=== PATIENT | female | born 1930 | race Caucasian/White ===

== ENCOUNTER 2017-09-04 21:02 | Inpatient (IN) ==
[2017-09-04 21:22] LABS: Basophils # 0.1 K/mcL (0.0-0.2); Basophils % 0.4 %; Eosinophils % 0.1 %; Hematocrit 35.6 % (35.3-44.9); Hemoglobin 11.7 g/dL (11.5-15.4); Immature Granulocytes % 1.9 % (0-4); Lymphocytes # 0.9 K/mcL (0.6-4.6); Lymphocytes % 6.6 %; Mean Corpuscular HGB Conc 32.9 g/dL (31.6-35.5); Mean Corpuscular Hemoglobin 30.1 pg (28.0-33.3); Mean Corpuscular Volume 91.5 fL (83.0-100.0); Mean Platelet Volume 10.1 fL (9.4-12.4); Monocytes # 0.6 K/mcL (0.0-1.3); Monocytes % 4.8 %; Neutrophils # 11.2 K/mcL (1.6-8.9); Platelet Count 389 K/mcL (140-400); Red Blood Count 3.89 M/mcL (3.82-4.97); Red Cell Distribution Width 14.4 % (11.5-14.5); Segmented Neutrophils % 86.2 %
[2017-09-04 21:24] LABS: INR 1.1; Prothrombin Time 11.7 Seconds (9.4-12.1)
[2017-09-04] MEDS ORDERED: Acetaminophen 650 MG RECTAL SUPP RC ONE (21:26)
[2017-09-04 21:27] LABS: Activated Partial Thrombo Time 25.1 Seconds (26.0-36.0)
[2017-09-04 21:28] LABS: Calcium 9.7 mg/dL (8.6-10.8); Potassium 4.3 mEq/L (3.5-4.5)
--- NOTE | 2017-09-04 21:29 | Emergency Department Note ---
Disposition Clinical Impression: Flash pulmonary edema Sepsis Qualifiers: Sepsis type: sepsis due to unspecified organism Qualified Code(s): A41.9 - Sepsis, unspecified organism Pneumonia Qualifiers: Pneumonia type: due to unspecified organism Laterality: left Lung location: lower lobe of lung Qualified Code(s): J18.1 - Lobar pneumonia, unspecified organism Hypothyroidism Qualifiers: Hypothyroidism type: unspecified Qualified Code(s): E03.9 - Hypothyroidism, unspecified Altered mental status Qualifiers: Altered mental status type: unspecified Qualified Code(s): R41.82 - Altered mental status, unspecified Disposition: Admitted As Inpatient Condition: Fair Time of Disposition: 23:36 Altered Mental Status HPI - General Chief Complaint: ED Altered Mental Status Stated Complaint: confused Time Seen by Provider: 09/04/17 21:14 Source: patient, EMS Limitations: altered mental status, physical limitation Nursing Notes Reviewed: Yes Vital Signs Reviewed: Yes - History of Present Illness HPI Narrative: 86-year-old female presents to emergency department via EMS after concern by family members that she was acting altered approximately 2 hours prior to arrival. EMS was stating that she was not as responsive as she has been a being. They do admit to a recent diagnosis of bronchitis at an urgent care. She was not placed on any antibiotics at that time. - Related Data Previous Rx's Medication Instructions Recorded Azithromycin [Zithromax] 0 tab PO DAILY #6 tablet 09/01/17 Promethazine/Codeine 5 ml PO QPM PRN #60 ml 09/01/17 [Phenergan/Codeine] Allergies Allergy/AdvReac Type Severity Reaction Status Date / Time No Known Allergies Allergy Verified 09/01/17 12:42 All systems ED: reviewed and negative except as stated. Review of Systems: As Per HPI Limitations: ROS unobtainable due to patients medical condition (Altered mental status) Past Medical History - Past Medical History Medical history: Reports: no medical history - Social History Smoking Status: Never smoker Smokeless Tobacco Status: No Alcohol use: Reports: none Drug use: Reports: none Physical Exam CONSTITUTIONAL: Alert, but not oriented to person, place, time HEAD: Normocephalic; atraumatic. EYES: PERRL, no scleral icterus. NOSE: The nose is normal in appearance without rhinorrhea RESP: Normal chest excursion with respiration; breath sounds clear and equal bilaterally; no wheezes, rhonchi, or rales CARD: Regular rhythm, without murmurs, rub or gallop ABD: Non-distended; non-tender, soft,without rigidity, rebound or guarding SKIN: Normal for age and race; warm and dry; no apparent lesions Neuro: GCS 14, patient not obeying commands. Stroke scale limited due to patient's inability to follow commands, but no focal neurologic deficits - General Limitations: altered mental status, physical limitation General appearance: alert, in no apparent distress Course Vital Signs Temperature 101.6 F H 09/04/17 21:06 Pulse Rate 100 09/04/17 21:06 Respiratory Rate 20 09/04/17 21:06 Blood Pressure 197/115 09/04/17 21:06 O2 Sat by Pulse Oximetry 95 09/04/17 21:06 Temperature 96.9 F L 09/05/17 01:43 Pulse Rate 73 09/05/17 05:00 Respiratory Rate 15 09/05/17 06:34 Blood Pressure 132/70 09/05/17 06:34 O2 Sat by Pulse Oximetry 100 09/05/17 06:34 Oxygen Delivery Oxygen Delivery Non Rebreather Mask Altered Mental Status - MDM Narrative Medical decision making narrative: 86-year-old female presents to the emergency department after 2 hour history of worsening confusion, altered mental status. Stroke alert was called initially as patient was altered, not obeying commands. CT scan did not reveal any evidence of any intracranial hemorrhage. I wish you stroke team was called down to bedside and were evaluated by the neurologist. At this time, he did not recommend TPA. Patient was febrile here with an initial rectal temp at 103. On initial physical exam, patient appeared to be dry, skin was tented, only rhonchi but no rales were heard on physical exam. She was also given 3 duo nebs as well as steroids. We administered 1 L of normal saline, Tylenol, obtained a chest x-ray. Initial Chest x-ray revealed cardiomegaly but no overt signs of pulmonary edema. There was also some opacities concerning for pneumonia. Patient was given Levaquin here in the emergency department. Patient had initial leukocytosis of 13.1. Creatinine was 1.5. Patient was admitted to the hospitalist Dr. Suggs for further management of community acquired pneumonia and altered mental status. After administration duo nebs, patient's oxygen saturation began to drop. Patient was 90% on nonrebreather. At that time, we decided to administer BiPAP. The hospitalist, Dr. Suggs was called to be informed of this change of patient's course. Patient was admitted to the intensive care unit. Repeat chest x-ray revealed flash pulmonary edema. Patient had only been administered her Levaquin as well as 700 mL of fluid prior to this chest x-ray. Patient does have an elevated BNP. I suspect that the cause for the flash pulmonary edema secondary to poor cardiac function. Head CT 09/04/17 21:09 IMPRESSION: There is a large amount of small vessel ischemic change bilaterally. 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 There are multiple questionable prior lacunar infarcts as well. Given the background of abnormal low attenuation, a subtle superimposed recent ischemic focus would be difficult to exclude without MRI Critical results were called by Dr. Nile Vivas to Dr. Phelps on 09/04/2017 at 21:55. D/ / Nile Vivas / Nile Vivas Interpreting Provider: Nile Vivas Chest X-Ray 09/05/17 00:18 IMPRESSION: Pulmonary edema. Endotracheal tube in place as described. D/ / Vladislav Esteban MD / Vladislav Esteban MD Interpreting Provider: Vladislav Esteban MD Vital Signs Temperature 101.6 F H 09/04/17 21:06 Pulse Rate 100 09/04/17 21:06 Respiratory Rate 20 09/04/17 21:06 Blood Pressure 197/115 09/04/17 21:06 O2 Sat by Pulse Oximetry 95 09/04/17 21:06 Temperature 96.9 F L 09/05/17 01:43 Pulse Rate 73 09/05/17 05:00 Respiratory Rate 19 09/05/17 05:00 Blood Pressure 170/93 09/05/17 05:00 O2 Sat by Pulse Oximetry 100 09/05/17 05:00 Oxygen Delivery Oxygen Delivery Bipap - Lab Data Result diagrams: 09/05/17 01:41 09/05/17 01:41 Lab Results 09/04/17 09/04/17 09/04/17 Range/Units 21:05 21:05 21:05 WBC 13.0 H (4.3-11.1) K/mcL RBC 3.89 (3.82-4.97) M/mcL Hgb 11.7 (11.5-15.4) g/dL Hct 35.6 (35.3-44.9) % MCV 91.5 (83.0-100.0) fL MCH 30.1 (28.0-33.3) pg MCHC 32.9 (31.6-35.5) g/dL RDW 14.4 (11.5-14.5) % Plt Count 389 (140-400) K/mcL MPV 10.1 (9.4-12.4) fL Immature Gran % 1.9 (0-4) % Seg Neutrophils % 86.2 % Band Neutrophils % (0-4) % Lymphocytes % 6.6 % Monocytes % 4.8 % Eosinophils % 0.1 % Basophils % 0.4 % Neutrophils # 11.2 H (1.6-8.9) K/mcL Lymphocytes # 0.9 (0.6-4.6) K/mcL Monocytes # 0.6 (0.0-1.3) K/mcL Eosinophils # 0.0 (0.0-0.6) K/mcL Basophils # 0.1 (0.0-0.2) K/mcL Platelet Estimate (Normal) PT 11.7 (9.4-12.1) Seconds INR 1.1 APTT 25.1 L (26.0-36.0) Seconds Sample Site ABG pH (7.32-7.45) pH Units ABG pCO2 (35-45) mmHg ABG pO2 (85-104) mmHg ABG HCO3 (21-27) mEq/L ABG Total CO2 (20-26) mEq/L ABG O2 Saturation (95-98) % ABG Base Excess (-2 to 3) mEq/L Carboxyhemoglobin (0-5) % Respiration Rate O2 Delivery Device Blood Gas Modality Inspired O2 (1-15=lpm [id number]=%) Tidal Volume cc PEEP cm H2O Sodium 133 L (136-145) mEq/L Potassium 4.3 (3.5-4.5) mEq/L Chloride 103 (98-109) mEq/L Carbon Dioxide 21 (19-29) mEq/L BUN 29 H (7-20) mg/dL Creatinine 1.50 H (0.57-1.11) mg/dL Est GFR ( Amer) 40 L (> 60) Est GFR (Non-Af Amer) 33 L (> 60) BUN/Creatinine Ratio 19 (6-26) Glucose 126 H (70-99) mg/dL POC Glucose (58-89) Calculated Osmolality 283 (280-300) Lactic Acid (0.5-2.2) mmol/L Calcium 9.7 (8.6-10.8) mg/dL Magnesium (1.6-2.6) mg/dL Total Bilirubin 0.6 (0.2-1.2) mg/dL Direct Bilirubin 0.4 (0.0-0.5) mg/dL Indirect Bilirubin 0.2 (0.0-1.2) mg/dL AST 23 (5-34) Units/L ALT 18 (0-55) Units/L Alkaline Phosphatase 108 (38-126) Units/L Troponin I (0-0.03) ng/mL B-Natriuretic Peptide (0-100) pg/mL Serum Total Protein 7.4 (6.0-8.3) g/dL Albumin 3.2 L (3.5-5.0) g/dL Globulin 4.2 H (2.4-3.5) g/dL Albumin/Globulin Ratio 0.8 L (1.1-2.2) TSH 52.054 H (0.350-4.840) mcIU/mL Urine Color (Yellow) Urine Clarity (Clear) Urine pH (5.0-8.0) pH Units Ur Specific [place] (1.010-1.025) Urine Protein (Neg-Trace) mg/dL Urine Glucose (UA) (Normal) mg/dL Urine Ketones (Negative) mg/dL Urine Blood (Negative) Urine Nitrite (Negative) Urine Bilirubin (Negative) Urine Urobilinogen (Normal) mg/dL Ur Leukocyte Esterase (Negative) Urine Microscopic RBC (0-3) per hpf Urine Microscopic WBC (0-3) per hpf Ur Squamous Epith Cells (None-Few) per lpf Ur Renal Epithelial Cell (None-Few) per hpf Urine Bacteria (None-Few) per hpf Hyaline Casts (None-Few) per lpf Granular Casts (None Seen) per lpf Urine Mucus (Few) Urine Yeast (None Seen) per hpf Ur Culture Indicated? (NO) 09/04/17 09/04/17 09/04/17 Range/Units 21:05 21:05 21:20 WBC (4.3-11.1) K/mcL RBC (3.82-4.97) M/mcL Hgb (11.5-15.4) g/dL Hct (35.3-44.9) % MCV (83.0-100.0) fL MCH (28.0-33.3) pg MCHC (31.6-35.5) g/dL RDW (11.5-14.5) % Plt Count (140-400) K/mcL MPV (9.4-12.4) fL Immature Gran % (0-4) % Seg Neutrophils % % Band Neutrophils % (0-4) % Lymphocytes % % Monocytes % % Eosinophils % % Basophils % % Neutrophils # (1.6-8.9) K/mcL Lymphocytes # (0.6-4.6) K/mcL Monocytes # (0.0-1.3) K/mcL Eosinophils # (0.0-0.6) K/mcL Basophils # (0.0-0.2) K/mcL Platelet Estimate (Normal) PT (9.4-12.1) Seconds INR APTT (26.0-36.0) Seconds Sample Site ABG pH (7.32-7.45) pH Units ABG pCO2 (35-45) mmHg ABG pO2 (85-104) mmHg ABG HCO3 (21-27) mEq/L ABG Total CO2 (20-26) mEq/L ABG O2 Saturation (95-98) % ABG Base Excess (-2 to 3) mEq/L Carboxyhemoglobin (0-5) % Respiration Rate O2 Delivery Device Blood Gas Modality Inspired O2 (1-15=lpm [id number]=%) Tidal Volume cc PEEP cm H2O Sodium (136-145) mEq/L Potassium (3.5-4.5) mEq/L Chloride (98-109) mEq/L Carbon Dioxide (19-29) mEq/L BUN (7-20) mg/dL Creatinine (0.57-1.11) mg/dL Est GFR ( Amer) (> 60) Est GFR (Non-Af Amer) (> 60) BUN/Creatinine Ratio (6-26) Glucose (70-99) mg/dL POC Glucose 127 H (58-89) Calculated Osmolality (280-300) Lactic Acid (0.5-2.2) mmol/L Calcium (8.6-10.8) mg/dL Magnesium (1.6-2.6) mg/dL Total Bilirubin (0.2-1.2) mg/dL Direct Bilirubin (0.0-0.5) mg/dL Indirect Bilirubin (0.0-1.2) mg/dL AST (5-34) Units/L ALT (0-55) Units/L Alkaline Phosphatase (38-126) Units/L Troponin I 0.03 (0-0.03) ng/mL B-Natriuretic Peptide 2906 H (0-100) pg/mL Serum Total Protein (6.0-8.3) g/dL Albumin (3.5-5.0) g/dL Globulin (2.4-3.5) g/dL Albumin/Globulin Ratio (1.1-2.2) TSH (0.350-4.840) mcIU/mL Urine Color (Yellow) Urine Clarity (Clear) Urine pH (5.0-8.0) pH Units Ur Specific [place] (1.010-1.025) Urine Protein (Neg-Trace) mg/dL Urine Glucose (UA) (Normal) mg/dL Urine Ketones (Negative) mg/dL Urine Blood (Negative) Urine Nitrite (Negative) Urine Bilirubin (Negative) Urine Urobilinogen (Normal) mg/dL Ur Leukocyte Esterase (Negative) Urine Microscopic RBC (0-3) per hpf Urine Microscopic WBC (0-3) per hpf Ur Squamous Epith Cells (None-Few) per lpf Ur Renal Epithelial Cell (None-Few) per hpf Urine Bacteria (None-Few) per hpf Hyaline Casts (None-Few) per lpf Granular Casts (None Seen) per lpf Urine Mucus (Few) Urine Yeast (None Seen) per hpf Ur Culture Indicated? (NO) 09/04/17 09/04/17 09/04/17 Range/Units 21:33 21:40 22:03 WBC (4.3-11.1) K/mcL RBC (3.82-4.97) M/mcL Hgb (11.5-15.4) g/dL Hct (35.3-44.9) % MCV (83.0-100.0) fL MCH (28.0-33.3) pg MCHC (31.6-35.5) g/dL RDW (11.5-14.5) % Plt Count (140-400) K/mcL MPV (9.4-12.4) fL Immature Gran % (0-4) % Seg Neutrophils % % Band Neutrophils % (0-4) % Lymphocytes % % Monocytes % % Eosinophils % % Basophils % % Neutrophils # (1.6-8.9) K/mcL Lymphocytes # (0.6-4.6) K/mcL Monocytes # (0.0-1.3) K/mcL Eosinophils # (0.0-0.6) K/mcL Basophils # (0.0-0.2) K/mcL Platelet Estimate (Normal) PT (9.4-12.1) Seconds INR APTT (26.0-36.0) Seconds Sample Site ABG pH (7.32-7.45) pH Units ABG pCO2 (35-45) mmHg ABG pO2 (85-104) mmHg ABG HCO3 (21-27) mEq/L ABG Total CO2 (20-26) mEq/L ABG O2 Saturation (95-98) % ABG Base Excess (-2 to 3) mEq/L Carboxyhemoglobin 3.7 (0-5) % Respiration Rate O2 Delivery Device Blood Gas Modality Inspired O2 (1-15=lpm [id number]=%) Tidal Volume cc PEEP cm H2O Sodium (136-145) mEq/L Potassium (3.5-4.5) mEq/L Chloride (98-109) mEq/L Carbon Dioxide (19-29) mEq/L BUN (7-20) mg/dL Creatinine (0.57-1.11) mg/dL Est GFR ( Amer) (> 60) Est GFR (Non-Af Amer) (> 60) BUN/Creatinine Ratio (6-26) Glucose (70-99) mg/dL POC Glucose (58-89) Calculated Osmolality (280-300) Lactic Acid 1.4 (0.5-2.2) mmol/L Calcium (8.6-10.8) mg/dL Magnesium (1.6-2.6) mg/dL Total Bilirubin (0.2-1.2) mg/dL Direct Bilirubin (0.0-0.5) mg/dL Indirect Bilirubin (0.0-1.2) mg/dL AST (5-34) Units/L ALT (0-55) Units/L Alkaline Phosphatase (38-126) Units/L Troponin I (0-0.03) ng/mL B-Natriuretic Peptide (0-100) pg/mL Serum Total Protein (6.0-8.3) g/dL Albumin (3.5-5.0) g/dL Globulin (2.4-3.5) g/dL Albumin/Globulin Ratio (1.1-2.2) TSH (0.350-4.840) mcIU/mL Urine Color Dark Yellow (Yellow) Urine Clarity Cloudy A (Clear) Urine pH 6.0 (5.0-8.0) pH Units Ur Specific [place] 1.030 H (1.010-1.025) Urine Protein 100 H (Neg-Trace) mg/dL Urine Glucose (UA) Normal (Normal) mg/dL Urine Ketones Negative (Negative) mg/dL Urine Blood Large H (Negative) Urine Nitrite Negative (Negative) Urine Bilirubin Small H (Negative) Urine Urobilinogen Normal (Normal) mg/dL Ur Leukocyte Esterase Negative (Negative) Urine Microscopic RBC 50-100 H (0-3) per hpf Urine Microscopic WBC 15-30 H (0-3) per hpf Ur Squamous Epith Cells Many H (None-Few) per lpf Ur Renal Epithelial Cell Few (None-Few) per hpf Urine Bacteria Many H (None-Few) per hpf Hyaline Casts Few (None-Few) per lpf Granular Casts Many H (None Seen) per lpf Urine Mucus Moderate H (Few) Urine Yeast Moderate H (None Seen) per hpf Ur Culture Indicated? NO (NO) 09/04/17 09/04/17 09/05/17 Range/Units 23:44 23:47 01:19 WBC (4.3-11.1) K/mcL RBC (3.82-4.97) M/mcL Hgb (11.5-15.4) g/dL Hct (35.3-44.9) % MCV (83.0-100.0) fL MCH (28.0-33.3) pg MCHC (31.6-35.5) g/dL RDW (11.5-14.5) % Plt Count (140-400) K/mcL MPV (9.4-12.4) fL Immature Gran % (0-4) % Seg Neutrophils % % Band Neutrophils % (0-4) % Lymphocytes % % Monocytes % % Eosinophils % % Basophils % % Neutrophils # (1.6-8.9) K/mcL Lymphocytes # (0.6-4.6) K/mcL Monocytes # (0.0-1.3) K/mcL Eosinophils # (0.0-0.6) K/mcL Basophils # (0.0-0.2) K/mcL Platelet Estimate (Normal) PT (9.4-12.1) Seconds INR APTT (26.0-36.0) Seconds Sample Site R Radial ABG pH 7.33 7.35 (7.32-7.45) pH Units ABG pCO2 33 L 35 (35-45) mmHg ABG pO2 58 L 77 L (85-104) mmHg ABG HCO3 18 L 20 L (21-27) mEq/L ABG Total CO2 19 L 21 (20-26) mEq/L ABG O2 Saturation 88 L 95 (95-98) % ABG Base Excess -8 L -5 L (-2 to 3) mEq/L Carboxyhemoglobin (0-5) % Respiration Rate 14 O2 Delivery Device Adult Vent Blood Gas Modality VC Inspired O2 100.0 (1-15=lpm zj94-546=%) Tidal Volume 450 cc PEEP 5 cm H2O Sodium (136-145) mEq/L Potassium (3.5-4.5) mEq/L Chloride (98-109) mEq/L Carbon Dioxide (19-29) mEq/L BUN (7-20) mg/dL Creatinine (0.57-1.11) mg/dL Est GFR ( Amer) (> 60) Est GFR (Non-Af Amer) (> 60) BUN/Creatinine Ratio (6-26) Glucose (70-99) mg/dL POC Glucose 214 H (58-89) Calculated Osmolality (280-300) Lactic Acid (0.5-2.2) mmol/L Calcium (8.6-10.8) mg/dL Magnesium (1.6-2.6) mg/dL Total Bilirubin (0.2-1.2) mg/dL Direct Bilirubin (0.0-0.5) mg/dL Indirect Bilirubin (0.0-1.2) mg/dL AST (5-34) Units/L ALT (0-55) Units/L Alkaline Phosphatase (38-126) Units/L Troponin I (0-0.03) ng/mL B-Natriuretic Peptide (0-100) pg/mL Serum Total Protein (6.0-8.3) g/dL Albumin (3.5-5.0) g/dL Globulin (2.4-3.5) g/dL Albumin/Globulin Ratio (1.1-2.2) TSH (0.350-4.840) mcIU/mL Urine Color (Yellow) Urine Clarity (Clear) Urine pH (5.0-8.0) pH Units Ur Specific [place] (1.010-1.025) Urine Protein (Neg-Trace) mg/dL Urine Glucose (UA) (Normal) mg/dL Urine Ketones (Negative) mg/dL Urine Blood (Negative) Urine Nitrite (Negative) Urine Bilirubin (Negative) Urine Urobilinogen (Normal) mg/dL Ur Leukocyte Esterase (Negative) Urine Microscopic RBC (0-3) per hpf Urine Microscopic WBC (0-3) per hpf Ur Squamous Epith Cells (None-Few) per lpf Ur Renal Epithelial Cell (None-Few) per hpf Urine Bacteria (None-Few) per hpf Hyaline Casts (None-Few) per lpf Granular Casts (None Seen) per lpf Urine Mucus (Few) Urine Yeast (None Seen) per hpf Ur Culture Indicated? (NO) 09/05/17 09/05/17 09/05/17 Range/Units 01:41 01:41 01:41 WBC 19.4 H (4.3-11.1) K/mcL RBC 3.87 (3.82-4.97) M/mcL Hgb 11.5 (11.5-15.4) g/dL Hct 35.8 (35.3-44.9) % MCV 92.5 (83.0-100.0) fL MCH 29.7 (28.0-33.3) pg MCHC 32.1 (31.6-35.5) g/dL RDW 14.4 (11.5-14.5) % Plt Count 345 (140-400) K/mcL MPV 9.7 (9.4-12.4) fL Immature Gran % (0-4) % Seg Neutrophils % 90.0 % Band Neutrophils % 6.0 H (0-4) % Lymphocytes % 2.0 % Monocytes % 2.0 % Eosinophils % % Basophils % % Neutrophils # 18.6 H (1.6-8.9) K/mcL Lymphocytes # 0.4 L (0.6-4.6) K/mcL Monocytes # 0.4 (0.0-1.3) K/mcL Eosinophils # (0.0-0.6) K/mcL Basophils # (0.0-0.2) K/mcL Platelet Estimate Normal (Normal) PT (9.4-12.1) Seconds INR APTT (26.0-36.0) Seconds Sample Site ABG pH (7.32-7.45) pH Units ABG pCO2 (35-45) mmHg ABG pO2 (85-104) mmHg ABG HCO3 (21-27) mEq/L ABG Total CO2 (20-26) mEq/L ABG O2 Saturation (95-98) % ABG Base Excess (-2 to 3) mEq/L Carboxyhemoglobin (0-5) % Respiration Rate O2 Delivery Device Blood Gas Modality Inspired O2 (1-15=lpm [id number]=%) Tidal Volume cc PEEP cm H2O Sodium 135 L (136-145) mEq/L Potassium 3.8 (3.5-4.5) mEq/L Chloride 105 (98-109) mEq/L Carbon Dioxide 19 (19-29) mEq/L BUN 30 H (7-20) mg/dL Creatinine 1.79 H (0.57-1.11) mg/dL Est GFR ( Amer) 32 L (> 60) Est GFR (Non-Af Amer) 27 L (> 60) BUN/Creatinine Ratio 17 (6-26) Glucose 205 H (70-99) mg/dL POC Glucose (58-89) Calculated Osmolality 292 (280-300) Lactic Acid (0.5-2.2) mmol/L Calcium 8.8 (8.6-10.8) mg/dL Magnesium 2.0 (1.6-2.6) mg/dL Total Bilirubin 1.1 D (0.2-1.2) mg/dL Direct Bilirubin (0.0-0.5) mg/dL Indirect Bilirubin (0.0-1.2) mg/dL AST 24 (5-34) Units/L ALT 14 (0-55) Units/L Alkaline Phosphatase 104 (38-126) Units/L Troponin I (0-0.03) ng/mL B-Natriuretic Peptide (0-100) pg/mL Serum Total Protein 6.6 (6.0-8.3) g/dL Albumin 2.7 L (3.5-5.0) g/dL Globulin 3.9 H (2.4-3.5) g/dL Albumin/Globulin Ratio 0.7 L (1.1-2.2) TSH (0.350-4.840) mcIU/mL Urine Color (Yellow) Urine Clarity (Clear) Urine pH (5.0-8.0) pH Units Ur Specific [place] (1.010-1.025) Urine Protein (Neg-Trace) mg/dL Urine Glucose (UA) (Normal) mg/dL Urine Ketones (Negative) mg/dL Urine Blood (Negative) Urine Nitrite (Negative) Urine Bilirubin (Negative) Urine Urobilinogen (Normal) mg/dL Ur Leukocyte Esterase (Negative) Urine Microscopic RBC (0-3) per hpf Urine Microscopic WBC (0-3) per hpf Ur Squamous Epith Cells (None-Few) per lpf Ur Renal Epithelial Cell (None-Few) per hpf Urine Bacteria (None-Few) per hpf Hyaline Casts (None-Few) per lpf Granular Casts (None Seen) per lpf Urine Mucus (Few) Urine Yeast (None Seen) per hpf Ur Culture Indicated? (NO) - EKG Data EKG attestation: Yes I reviewed and interpreted this EKG. EKG results narrative: 21:06 ventricular rate 99 bpm, P1 126 ms, QRS denominational 162 monocytes, QT 364 segs, QTC 420 ms, attacks deviation. Sinus rhythm with a left bundle branch block.No acute ischemic changes are noted on the EKG. No significant changes compared to the old EKG dated on October 20, 2012. 23:27 Ventricular rate 107 bpm, QRS duration 172 ms, QT 368, QTC 431 ms, normal axis. Sinus rhythm with a ventricular rate of 107 bpm. left bundle branch block. No acute ischemic changes are noted on the EKG. No significant changes compared to the old EKG performed at 210 Critical Care Time Critical Care Time: Yes Total Critical Care Time: 45 Attestation: Critical care performed: Time is exclusive of separately billable procedures. Time includes: direct patient care, patient reassessment, coordination of patient care, interpretation of data (laboratory data, radiology data, and respiratory data), review of patient's medical records, medical consultation and documentation of patient care. Procedures included in critical care time: Procedures excluded from critical care time: Attestation Statement - Attestation Attestation: I, Irving Phelps MD, personally evaluated this patient and discussed their management with the resident physician. I reviewed the resident's note and agree with the documented findings, medical decision making, and plan of care. 86-year-old female presents to the emergency department by ambulance with acute altered mental status. Patient was apparently at the [employer] with friends in over about 20 minutes she became confused and disoriented. On arrival here patient does answer some questions. Her speech is intermittently garbled and difficult to understand. She does not follow commands. She is oriented to person only. No obvious focal deficits. She admits to headache. She denies chest pain or difficulty breathing. On examination the patient is a well-developed well-nourished elderly female. She is alert but obviously confused. She is slow to respond and speech is garbled intermittently and difficult to understand. She follows some commands but not others. She does not know where she has not thinks that she is 25 years old. No facial droop. Cranial nerves appear intact. She is moving all 4 extremities equally. No obvious weakness. Breath sounds are equal bilaterally. No rales or wheezes noted. Heart regular rate and rhythm. Abdomen is soft and nontender with normal bowel sounds. Patient was found to be febrile. Labs reviewed. EKG shows a left bundle-branch block which was present previously. No acute changes. Chest x-ray consistent with CHF. A stroke alert was called. Head CT showed no acute hemorrhage. After evaluation by the [facility] neurologists tPA was not recommended. The hospitalist, Dr. Suggs, was consulted and accepted admission of the patient. Shortly before patient was ready to be transported to the floor she began to drop her oxygen saturations and developed some increased difficulty breathing. Respiratory was consulted for BiPAP and will start her on the BiPAP as soon as she arrives in the ICU. A repeat chest x-ray showed increased pulmonary edema.
[2017-09-04 21:41] LABS: Albumin 3.2 g/dL (3.5-5.0); Albumin/Globulin Ratio 0.8 (1.1-2.2); Bilirubin,Direct 0.4 mg/dL (0.0-0.5); Bilirubin,Indirect 0.2 mg/dL (0.0-1.2); Bilirubin,Total 0.6 mg/dL (0.2-1.2); Globulin 4.2 g/dL (2.4-3.5); Total Protein 7.4 g/dL (6.0-8.3)
[2017-09-04 21:48] LABS: Bilirubin,Urine Small (Negative); Blood,Urine Large (Negative); Clarity,Urine Cloudy (Clear); Color,Urine Dark Yellow (Yellow); Glucose,Urine (UA) Normal (Normal); Ketones,Urine Negative (Negative); Leukocyte Esterase,Urine Negative (Negative); Nitrite,Urine Negative (Negative); Protein,Urine 100 mg/dL (Neg-Trace); Urobilinogen,Urine Normal (Normal)
[2017-09-04 21:50] LABS: Squamous Epithelial Cell,Urine Many per lpf (None-Few); WBC,Urine 15-30 per hpf (0-3)
[2017-09-04] MEDS ORDERED: 0.9 % Sodium Chloride 1,000 ML IVC ONE ×2 (21:54→22:37)
[2017-09-04 22:05] LABS: RBC,Urine 50-100 per hpf (0-3)
[2017-09-04] MEDS ORDERED: Levofloxacin 750 MG/150 ML 750 MG/150 ML BAG IVPB ONE (22:05)
[2017-09-04] MEDS ORDERED: methylPREDNISolone 125 MG/2 ML VIAL IVP ONE (22:07)
[2017-09-04] MEDS ORDERED: Ipratropium/Albuterol Neb 3 ML IH ONE (22:08)
[2017-09-04 22:10] LABS: Granular Casts,Urine Many per lpf (None Seen); Hyaline Casts,Urine Few per lpf (None-Few); Mucus,Urine Moderate (Few); Renal Epithelial Cells,Urine Few per hpf (None-Few); Yeast,Urine Moderate per hpf (None Seen)
[2017-09-04 22:11] LABS: Bacteria,Urine Many per hpf (None-Few)
[2017-09-04 22:13] LABS: Thyroid Stimulating Hormone 52.054 mcIU/mL (0.350-4.840)
[2017-09-04] MEDS ORDERED: Levothyroxine Sodium 200 MCG VIAL IVP ONE (22:27)
[2017-09-04 23:48] LABS: ABG Base Excess -8 mEq/L (-2 to 3); ABG HCO3 18 mEq/L (21-27); ABG Oxygen Saturation 88 % (95-98); ABG PCO2 33 mmHg (35-45); ABG PH 7.33 pH Units (7.32-7.45); ABG PO2 58 mmHg (85-104); ABG TCO2 19 mEq/L (20-26)
[2017-09-04] MEDS ORDERED: Furosemide 40 MG/4 ML VIAL ONE (23:55)
[2017-09-04] MEDS ORDERED: *HR* Morphine 2 MG/ML SYRINGE ONE (23:58)
[2017-09-05] MEDS ORDERED: *HR* Morphine 2 MG/ML SYRINGE IVP ONE (00:18)
[2017-09-05] MEDS ORDERED: Furosemide 40 MG/4 ML VIAL IVP ONE (00:19)
[2017-09-05] MEDS ORDERED: Naloxone 0.4 MG/ML INJ IVP PRN (00:46)
[2017-09-05] MEDS ORDERED: Acetaminophen 650 MG RECTAL SUPP RC PRN (00:46)
--- NOTE | 2017-09-05 01:02 | Internal Med History&Physical ---
Date of Encounter: 09/05/17 Time of Encounter: 00:10 Assessment and Plan (1) Acute respiratory failure with hypoxia Current visit: Yes Status: Acute Acute hypoxic respiratory failure secondary to acute exacerbation of CHF unspecified with unknown LVEF, acute exacerbation of COPD and due to community- acquired pneumonia of left lower lobe Patient is currently sedated, intubated, mechanically ventilated AC mode, FiO2:100%, RR:14, PEEP:5.0, VT:450 Continue DuoNeb breathing treatment, IV Lasix, IV Solu-Medrol, IV Levaquin GI prophylaxis - IV Protonix, DVT prophylaxis - Heparin SC Chest x-ray - edema with left lower lobe consolidation Troponin - 0.03, cycle troponin BNP - 2906 EKG - sinus tachycardia with no acute ST-T changes when compared with previous EKG CT head - multiple old infarcts noted, no acute process Pulmonology consult Cardiac monitoring, pulse ox labs in a.m., monitor closely Fluid restriction, strict I's and O's, daily weight (2) Sepsis Current visit: Yes Status: Acute Sepsis, present on admission, secondary to community-acquired pneumonia Continue IV Levaquin, Tylenol PRN Chest x-ray - edema and consolidation in left lower lobe Cultures - pending Cardiac monitoring, pulse ox, labs in a.m. Qualifiers: Sepsis type: sepsis due to unspecified organism Qualified Code(s): A41.9 - Sepsis, unspecified organism (3) Pneumonia Current visit: Yes Status: Acute Community-acquired pneumonia, left lower lobe, present on admission, likely bacterial Plan as above Qualifiers: Pneumonia type: due to unspecified organism Laterality: left Lung location: lower lobe of lung Qualified Code(s): J18.1 - Lobar pneumonia, unspecified organism (4) DVT prophylaxis Current visit: Yes Status: Acute Heparin subcutaneous Internal Medicine - H&P: HPI Chief complaint: Shortness of breath Admitted From: Emergency Dept Plans for Post Hospital Care: Home History of present illness: Ms. Junior is a 86 year old female with past medical history of hypertension and COPD. Patient presents to the ED with complaints of shortness of breath and cough. Examined in the ICU. Patient is in acute distress. She is unable to provide any history. All history is obtained from ED records and from patient's granddaughter. When I initially examined the patient, she was in acute respiratory distress. We had to immediately intubate her and mechanically ventilate her. Patient was initially on BiPAP when she was transferred from the ED to ICU, but she was tachypneic and in obvious distress. Patient's granddaughter states that patient has been having shortness of breath and cough for the past 1 week. She was diagnosed with bronchitis at an urgent care, and her symptoms seemed to improve. But over the past 2-3 days her cough and shortness of breath have been worsening. Today apparently patient's shortness of breath was severe even at rest. The family then decided to bring her to ED. Granddaughter states patient is otherwise very healthy, and does not take any medications. Patient lives with her granddaughter and ambulates independently. Patient does smoke about half a pack of cigarettes daily. She does not use oxygen at home and does not have a nebulizer machine. Patient has not been diagnosed with CHF in the past. Granddaughter states patient did not complain of any other problems. Initial workup in the ED revealed acute hypoxic respiratory failure likely secondary to COPD and CHF. Chest x-ray shows bilateral edema. Patient is currently sedated, intubated and mechanically ventilated. Granddaughter and family have been explained about patient's guarded condition and guarded prognosis. They understood and agreed. No unanswered questions. Past Med Surg Social Fam HX - Past Medical History Medical history: no medical history - Past Surgical History Surgical History: hysterectomy - Social History Smoking Status: Never smoker Smokeless Tobacco Status: No Alcohol use: none Drug use: none Internal Medicine - H&P: Meds Azithromycin [Zithromax] 0 tab PO DAILY #6 tablet 09/01/17 [Rx] Promethazine/Codeine [Phenergan/Codeine] 5 ml PO QPM PRN #60 ml 09/01/17 [Rx] 3 Allergy/AdvReac Type Severity Reaction Status Date / Time No Known Allergies Allergy Verified 09/01/17 12:42 ROS unobtainable: due to endotracheal tube, due to mental status All Systems PM: A 10-system review of systems was performed and is negative for pertinent findings except as documented above in the HPI. - Constitutional Constitutional: fatigue, fever(s), lethargy - Cardiovascular Cardiovascular ROS IM: dyspnea, dyspnea on exertion - Respiratory Respiratory: cough, dyspnea, dyspnea on exertion, wheezing - Constitutional Vitals: Temp Pulse Resp BP Pulse Ox 101.6 F H 108 21 154/88 86 09/04/17 23:31 09/04/17 23:30 09/05/17 00:18 09/05/17 00:18 09/05/17 00:18 Exam: Patient is currently sedated, intubated and mechanically ventilated - Head Head exam: Present: atraumatic - Eye Eye exam: Present: sclera anicteric - ENT ENT exam: Present: mucous membranes dry Additional comments: ET tube in place - Respiratory Respiratory exam: Present: accessory muscle use, rales (Bilateral extensive), respiratory distress, wheezes (Bilateral), tachypnea. Absent: rhonchi - Cardiovascular Cardiovascular exam: Present: RRR, +S1, +S2, tachycardia - GI/Abdominal GI/Abdominal exam: Present: distended, soft, no peritoneal signs. Absent: firm , guarding, tenderness - Extremities Exam Extremities exam: Present: pedal edema (Trace), radial pulses palpable and symmetrical. Absent: calf tenderness, cyanotic - Neurological Exam Additional comments: Patient is currently sedated, intubated and mechanically ventilated Internal Med - H&P Results - Labs CBC & Chem 7: 09/05/17 01:41 09/05/17 01:41 - ABG Interpretation ABG results: 09/04/17 23:44 ABG pH 7.33 ABG pCO2 33 L ABG pO2 58 L ABG HCO3 18 L ABG Total CO2 19 L ABG O2 Saturation 88 L ABG Base Excess -8 L - Impressions ITS Impressions Chest X-Ray 09/04/17 23:31 IMPRESSION: Findings most compatible with worsening pulmonary edema. However, correlate with any clinical evidence of pneumonia, especially given the more focal consolidation in the the left lower lobe. D/ / Kirill Lindsay MD / Kirill Lindsay MD Interpreting Provider: Kirill Lindsay MD Chest X-Ray 09/05/17 00:18 IMPRESSION: Pulmonary edema. Endotracheal tube in place as described. D/ / Vladislav Esteban MD / Vladislav Esteban MD Interpreting Provider: Vladislav Esteban MD
[2017-09-05 01:24] LABS: ABG Base Excess -5 mEq/L (-2 to 3); ABG HCO3 20 mEq/L (21-27); ABG Oxygen Saturation 95 % (95-98); ABG PCO2 35 mmHg (35-45); ABG PH 7.35 pH Units (7.32-7.45); ABG PO2 77 mmHg (85-104); ABG TCO2 21 mEq/L (20-26); Blood Gas Modality VC; Blood Gas PEEP 5 cm H2O; Blood Gas Respiration Rate 14; Blood Gas VT 450 cc
[2017-09-05] MEDS: Ipratropium/Albuterol Neb 3 ML IH SCH ×6 (01:27→20:02)
[2017-09-05] MEDS: Pantoprazole 40 MG VIAL IVPB SCH ×2 (01:40→08:39)
[2017-09-05 01:47] LABS: Hematocrit 35.8 % (35.3-44.9); Hemoglobin 11.5 g/dL (11.5-15.4); Mean Corpuscular HGB Conc 32.1 g/dL (31.6-35.5); Mean Corpuscular Hemoglobin 29.7 pg (28.0-33.3); Mean Corpuscular Volume 92.5 fL (83.0-100.0); Mean Platelet Volume 9.7 fL (9.4-12.4); Platelet Count 345 K/mcL (140-400); Red Blood Count 3.87 M/mcL (3.82-4.97); Red Cell Distribution Width 14.4 % (11.5-14.5)
[2017-09-05 02:02] LABS: Albumin 2.7 g/dL (3.5-5.0); Albumin/Globulin Ratio 0.7 (1.1-2.2); Calcium 8.8 mg/dL (8.6-10.8); Globulin 3.9 g/dL (2.4-3.5); Potassium 3.8 mEq/L (3.5-4.5); Total Protein 6.6 g/dL (6.0-8.3)
[2017-09-05 02:03] LABS: Bilirubin,Total 1.1 mg/dL (0.2-1.2)
[2017-09-05 02:06] LABS: Lymphocytes # 0.4 K/mcL (0.6-4.6); Monocytes # 0.4 K/mcL (0.0-1.3); Neutrophils # 18.6 K/mcL (1.6-8.9); Platelet Estimate Normal (Normal)
[2017-09-05] MEDS ORDERED: D5% in Water 1,000 ML IVC PRN (02:41)
[2017-09-05] MEDS ORDERED: *HR* Dextrose 50 % in Water (Syg) 50 ML SYRINGE IVP PRN (02:41)
[2017-09-05] MEDS ORDERED: Dextrose Gel 15 GM PO PRN ×2 (02:41)
[2017-09-05 04:37] LABS: ABG Base Excess -3 mEq/L (-2 to 3); ABG HCO3 21 mEq/L (21-27); ABG Oxygen Saturation 99 % (95-98); ABG PCO2 34 mmHg (35-45); ABG PO2 129 mmHg (85-104); ABG TCO2 22 mEq/L (20-26); Blood Gas Modality VC; Blood Gas PEEP 5 cm H2O; Blood Gas Respiration Rate 14; Blood Gas VT 450 cc
[2017-09-05] MEDS ORDERED: Heparin 25,000 UNIT/500 ML D5W 25,000 UNIT/500 ML BAG IVC SCH (05:15)
[2017-09-05] MEDS ORDERED: 0.9 % Sodium Chloride 500 ML IVC ONE (05:17)
[2017-09-05] MEDS ORDERED: *HR* Heparin 5,000 UNIT/ML VIAL SQ SCH (06:00)
[2017-09-05] MEDS ORDERED: *HR* Heparin 5,000 UNIT/ML VIAL IVP PRN (06:26)
[2017-09-05] MEDS ORDERED: *HR* Heparin 5,000 UNIT/ML VIAL IVP ONE (06:26)
--- NOTE | 2017-09-05 06:44 | Event Note ---
Date of Encounter: 09/05/17 Time of Encounter: 06:00 Second troponin level is 1.38. EKG shows sinus rhythm with LBBB with some PVCs , no acute ST-T changes from previous EKGs. Patient is currently intubated and mechanically ventilated. Urine output is low. Hemodynamically stable. We will try 500 mL of fluid bolus in view of oliguria. Watch for fluid overload. IV heparin per ACS protocol has been started. Aspirin rectal suppository has already been administered. Cardiology consult for elevated troponin. Continue mechanical ventilation. Continue breathing treatments, IV Solu-Medrol and IV Levaquin.
[2017-09-05] MEDS: Heparin 25,000 UNIT/500 ML D5W 25,000 UNIT/500 ML BAG IVC SCH (06:49)
[2017-09-05 06:59] LABS: Hematocrit 33.4 % (35.3-44.9); Mean Corpuscular HGB Conc 32.9 g/dL (31.6-35.5); Mean Corpuscular Hemoglobin 30.1 pg (28.0-33.3); Mean Corpuscular Volume 91.3 fL (83.0-100.0); Mean Platelet Volume 9.8 fL (9.4-12.4); Platelet Count 293 K/mcL (140-400); Red Blood Count 3.66 M/mcL (3.82-4.97); Red Cell Distribution Width 14.3 % (11.5-14.5)
[2017-09-05 07:16] LABS: INR 1.3; Prothrombin Time 13.6 Seconds (9.4-12.1)
[2017-09-05] MEDS: Insulin LISPRO 300 UNITS/3 ML VIAL SQ SCH ×3 (07:22→17:21)
[2017-09-05 08:31] LABS: ABG Base Excess -7 mEq/L (-2 to 3); ABG HCO3 17 mEq/L (21-27); ABG Oxygen Saturation 97 % (95-98); ABG PCO2 29 mmHg (35-45); ABG PH 7.39 pH Units (7.32-7.45); ABG PO2 91 mmHg (85-104); ABG TCO2 18 mEq/L (20-26); Blood Gas PEEP 8 cm H2O; Blood Gas Respiration Rate 18; Blood Gas VT 380 cc
[2017-09-05] MEDS: Azithromycin 500 MG in D5% in Water 250 ML IVPB SCH (08:39)
[2017-09-05] MEDS: cefTRIAXone 2,000 MG in Water for inj. (sterile) 20 ML IVP SCH (08:40)
[2017-09-05] MEDS: MethylPREDNISolone 40 MG/ML VIAL IVP SCH ×2 (08:40→17:16)
[2017-09-05] MEDS: Dexmedetomidine HCl 400 MCG/100 ML MLS IVC SCH (08:41)
--- NOTE | 2017-09-05 08:49 | Cardiology Consult Note ---
<Vladislav Kaplan - Last Filed: 09/05/17 14:10> Date of Encounter: 09/05/17 Time of Encounter: 08:49 Assessment and Plan (1) Congestive heart failure Current Visit: Yes Status: Acute Acute on Chronic CHF with hypoxic respiratory failure, unknown etiology LVEF unknown, no documented history of CHF, Echo pending EKG on arrival showed LBBB not previously documented, CXR shows pulmonary vascular congestion BNP 2906, TSH 52.05, Trop 0.03 -> 1.38 -> 2.63 Agree with Heparin ACS protocol if appropriate per Urology given hematuria, gentle diuresis in context of presumed TROY. Start ASA, Statin, BB. Hold Lisinopril. Continuous cardiac and oximetry monitoring Echo results pending, patient may need LHC for ischemic workup in future Medical management at this time, no indication for cardiac rehab Qualifiers: Congestive heart failure type: unspecified congestive heart failure type Congestive heart failure chronicity: acute on chronic Qualified Code(s): I50.9 - Heart failure, unspecified (2) Elevated troponin Current Visit: Yes Status: Acute Elevated troponin, nstemi vs. demand ischemia Echo pending, will require LHC in future Medical management at this time Discussion w patient/family: The assessment and plan as outlined above was discussed with the patient and/or family members who expressed understanding and agreement. All questions were answered. Thank you for involving us in the care of your patient. Please call with any questions. History of Present Illness Consult date: 09/05/17 Requesting physician: Tien Madsen Consult reason: Elevated trop, CHF Chief complaint: SOB History of present illness: Ms. Junior is a 86 year old female with history of COPD who presented to the ED with her granddaughter for 1 week history of worsening SOB. She is currently intubated due to hypoxic respiratory failure and is unable to provide personal history. According to prior notes, the patient has been experiencing worsening SOB with cough for about one week, but it has become exceptionally bad in the past 2-3 days. Her granddaughter noted that she was exceptionally dyspneic, and brought her to the ED. The patient has limited medical history, and apparently does not go to the doctor often. She does have history of COPD which is not medicated, and she takes lisinopril. She apparently is highly independent, ambulates and completes ADLs without incident. In the ED the patient was found to have BNP 2906, CXR showed CHF. Troponin 0.03 -> 1.38 -> 2.63, Serum Cr 1.5 -> 1.79. EKG showed previously undocumented LBBB. Past Med Surg Social Fam HX - Past Medical History Medical history: no medical history - Past Surgical History Surgical History: hysterectomy - Social History Smoking Status: Never smoker Smokeless Tobacco Status: No Alcohol use: none Drug use: none Medications and Allergies Promethazine/Codeine [Phenergan/Codeine] 5 ml PO QPM PRN #60 ml 09/01/17 [Rx] Azithromycin [Azithromycin 6-Tab Pack] 250 mg PO PER PKG DI 09/05/17 [History] 3 Allergy/AdvReac Type Severity Reaction Status Date / Time No Known Allergies Allergy Verified 09/01/17 12:42 ROS unobtainable: due to endotracheal tube, due to mental status Physical Examination Vital Signs, Last 4 Hours Temp Pulse Resp BP Pulse Ox 09/05/17 07:50 19 97 09/05/17 07:37 97.4 F L 09/05/17 07:25 71 09/05/17 07:00 71 19 147/80 95 09/05/17 06:34 15 132/70 100 09/05/17 06:00 71 15 132/70 100 09/05/17 05:00 73 19 170/93 100 General: No Apparent Distress, Other (Sedated with ET tube placed) HEENT: Atraumatic, Normocephaly, Mucus Membranes Moist Neck: No JVD, Normal carotid pulses Cardiac: Reg Rate and Rhythm, Normal S1 and S2, No Murmur, Other (Faint heart sounds) Lungs: Normal Breath Sounds, Other (Rales present b/l with diffuse wheezing) Neuro: Alert and responsive, No focal deficits noted Abdomen: Soft, Non-Tender Skin: No rashes noted on visualized skin Musculoskeletal: No Chest Wall Tenderness Extremities: No Clubbing, No Cyanosis, Normal Pulses, Other (Trace pedal edema) Results 09/05/17 06:50 09/05/17 01:41 Lab Results 09/05/17 09/05/17 09/05/17 04:22 06:50 06:50 WBC 16.6 H Hgb 11.0 L Hct 33.4 L Plt Count 293 INR 1.3 APTT 27.0 Troponin I 1.38 H* Consult Discharge Plan - Plan Referrals: NONE,PCP [Primary Care Provider] - <Danae La - Last Filed: 09/05/17 16:03> Date of Encounter: 09/05/17 - Attending Attestation I examined this patient and my medical decision-making was reviewed with the Resident Physician. I agree with the documented findings, disposition and treatment plan as described except to the extent set forth below. 86 YOF with severe Hypothyroidism presents with CHF and mild to moderate LV systolic dysfunction on ECHO. Mildly elevated troponins with possible underlying CAD. EKG reveals LBBB but echo does not isolate anterior wall HK. Hematuria on IV heparin being evaluated by Urology. No LHC planned now. Medical management for likely demand ischemia Vs CHF. Assessment and Plan Discussion w patient/family: The assessment and plan as outlined above was discussed with the patient and/or family members who expressed understanding and agreement. All questions were answered. Thank you for involving us in the care of your patient. Please call with any questions. History of Present Illness History of present illness: Ms. Junior is a 86 year old female All Systems Review: A 10-system review of systems was performed and is negative for pertinent findings except as documented above in the HPI. Physical Examination Vital Signs, Last 4 Hours Temp Pulse Resp BP Pulse Ox 09/05/17 15:30 17 100 09/05/17 15:29 97.0 F L 09/05/17 14:00 61 20 153/89 95 09/05/17 13:00 61 21 139/75 99 09/05/17 12:00 97.0 F L 60 23 123/70 98 Results 09/05/17 06:50 09/05/17 01:41 Lab Results 09/05/17 09/05/17 09/05/17 04:22 06:50 06:50 WBC 16.6 H Hgb 11.0 L Hct 33.4 L Plt Count 293 INR 1.3 APTT 27.0 Troponin I 1.38 H* 09/05/17 09/05/17 09/05/17 08:22 14:01 14:01 WBC Hgb Hct Plt Count INR APTT 48.5 H D Troponin I 2.63 H* 2.90 H*
--- NOTE | 2017-09-05 08:51 | Pulmonology Consult Note ---
<PerryJohn W - Last Filed: 09/05/17 12:43> Date of Encounter: 09/05/17 Medications and Allergies Promethazine/Codeine [Phenergan/Codeine] 5 ml PO QPM PRN #60 ml 09/01/17 [Rx] Azithromycin [Azithromycin 6-Tab Pack] 250 mg PO PER PKG DI 09/05/17 [History] 3 Allergy/AdvReac Type Severity Reaction Status Date / Time No Known Allergies Allergy Verified 09/01/17 12:42 All Systems: A 10-system review of systems was performed and is negative for pertinent findings except as documented above in the HPI. Physical Examination Vital Signs: Vital Signs, Last 4 Hours Temp Pulse Resp BP Pulse Ox 09/05/17 07:50 19 97 09/05/17 07:37 97.4 F L 09/05/17 07:25 71 09/05/17 07:00 71 19 147/80 95 09/05/17 06:34 15 132/70 100 09/05/17 06:00 71 15 132/70 100 09/05/17 05:00 73 19 170/93 100 Ventilator Settings Ventilator Settings: Ventilator Settings, Last 8 Hours Ventilator Mode VC+ Ventilator Mode VC+ Ventilator Mode VC+ Ventilator Mode VC+ Ventilator Mode VC+ Ventilator Mode VC+ Ventilator Mode VC+ Ventilator Mode VC+ Ventilator Mode VC+ Ventilator Mode VC+ Ventilator Tidal Volume 380 Setting Ventilator Tidal Volume 380 Setting Ventilator Tidal Volume 380 Setting Ventilator Tidal Volume 380 Setting Ventilator Tidal Volume 450 Setting Ventilator Tidal Volume 450 Setting Ventilator Tidal Volume 450 Setting Ventilator Tidal Volume 450 Setting Ventilator Tidal Volume 450 Setting Ventilator Tidal Volume 450 Setting Ventilator Respiratory Rate 18 Setting Ventilator Respiratory Rate 18 Setting Ventilator Respiratory Rate 18 Setting Ventilator Respiratory Rate 18 Setting Ventilator Respiratory Rate 14 Setting Ventilator Respiratory Rate 14 Setting Ventilator Respiratory Rate 14 Setting Ventilator Respiratory Rate 14 Setting Ventilator Respiratory Rate 14 Setting Ventilator Respiratory Rate 14 Setting Actual Respiratory Rate 19 Actual Respiratory Rate 15 Actual Respiratory Rate 15 Actual Respiratory Rate 16 Actual Respiratory Rate 26 Actual Respiratory Rate 26 Positive End Expiratory 8 Pressure Positive End Expiratory 8 Pressure Positive End Expiratory 8 Pressure Positive End Expiratory 8 Pressure Positive End Expiratory 5 Pressure Positive End Expiratory 5 Pressure Positive End Expiratory 5 Pressure Positive End Expiratory 5 Pressure Positive End Expiratory 5 Pressure Positive End Expiratory 5 Pressure Peak Inspiratory Airway 18 Pressure Peak Inspiratory Airway 18 Pressure Peak Inspiratory Airway 18 Pressure Peak Inspiratory Airway 19 Pressure Peak Inspiratory Airway 19 Pressure Peak Inspiratory Airway 19 Pressure Results - Laboratory Findings CBC and BMP: 09/05/17 06:50 09/05/17 01:41 ABG ABG pH 7.39 pH Units (7.32-7.45) 09/05/17 08:28 ABG pCO2 29 mmHg (35-45) L 09/05/17 08:28 ABG pO2 91 mmHg (85-104) 09/05/17 08:28 ABG O2 Saturation 97 % (95-98) 09/05/17 08:28 PT/INR, D-dimer PT 13.6 Seconds (9.4-12.1) H 09/05/17 06:50 Abnormal lab findings: Abnormal lab results WBC 16.6 K/mcL (4.3-11.1) H 09/05/17 06:50 RBC 3.66 M/mcL (3.82-4.97) L 09/05/17 06:50 Hgb 11.0 g/dL (11.5-15.4) L 09/05/17 06:50 Hct 33.4 % (35.3-44.9) L 09/05/17 06:50 Band Neutrophils % 6.0 % (0-4) H 09/05/17 01:41 Neutrophils # 18.6 K/mcL (1.6-8.9) H 09/05/17 01:41 Lymphocytes # 0.4 K/mcL (0.6-4.6) L 09/05/17 01:41 PT 13.6 Seconds (9.4-12.1) H 09/05/17 06:50 ABG pCO2 29 mmHg (35-45) L 09/05/17 08:28 ABG HCO3 17 mEq/L (21-27) L 09/05/17 08:28 ABG Total CO2 18 mEq/L (20-26) L 09/05/17 08:28 ABG Base Excess -7 mEq/L (-2 to 3) L 09/05/17 08:28 Sodium 135 mEq/L (136-145) L 09/05/17 01:41 BUN 30 mg/dL (7-20) H 09/05/17 01:41 Creatinine 1.79 mg/dL (0.57-1.11) H 09/05/17 01:41 Est GFR ( Amer) 32 (> 60) L 09/05/17 01:41 Est GFR (Non-Af Amer) 27 (> 60) L 09/05/17 01:41 Glucose 205 mg/dL (70-99) H 09/05/17 01:41 POC Glucose 164 (58-89) H 09/05/17 06:57 Troponin I 2.63 ng/mL (0-0.03) H* 09/05/17 08:22 B-Natriuretic Peptide 2906 pg/mL (0-100) H 09/04/17 21:20 Albumin 2.7 g/dL (3.5-5.0) L 09/05/17 01:41 Globulin 3.9 g/dL (2.4-3.5) H 09/05/17 01:41 Albumin/Globulin Ratio 0.7 (1.1-2.2) L 09/05/17 01:41 TSH 52.054 mcIU/mL (0.350-4.840) H 09/04/17 21:05 Urine Clarity Cloudy (Clear) A 09/04/17 21:33 Ur Specific [place] 1.030 (1.010-1.025) H 09/04/17 21:33 Urine Protein 100 mg/dL (Neg-Trace) H 09/04/17 21:33 Urine Blood Large (Negative) H 09/04/17 21:33 Urine Bilirubin Small (Negative) H 09/04/17 21:33 Urine Microscopic RBC 50-100 per hpf (0-3) H 09/04/17 21:33 Urine Microscopic WBC 15-30 per hpf (0-3) H 09/04/17 21:33 Ur Squamous Epith Cells Many per lpf (None-Few) H 09/04/17 21:33 Urine Bacteria Many per hpf (None-Few) H 09/04/17 21:33 Granular Casts Many per lpf (None Seen) H 09/04/17 21:33 Urine Mucus Moderate (Few) H 09/04/17 21:33 Urine Yeast Moderate per hpf (None Seen) H 09/04/17 21:33 - Clinical Findings Intake & Output: Intake & Output 09/04/17 09/05/17 09/05/17 23:59 07:59 15:59 Intake Total 200 / 200 Output Total 350 / 400 Balance -150 / -200 Weight 57.9 kg Consult Discharge Plan - Plan Referrals: NONE,PCP [Primary Care Provider] - - Attending Attestation I examined this patient and my medical decision-making was reviewed with the Resident Physician. I agree with the documented findings, disposition and treatment plan as described except to the extent set forth below. We independently had [id number] contact with the patient I spent 35min of Critical Care time with this patient. It involved decision making of high complexity to assess, manipulate, and support vital organ system failure and/or to prevent further life threatening deterioration of the patient' s condition. The time involved in the performance of separately reportable procedures was not counted toward critical care time. Patient seen and examined at bedside Labs, radiology, chart personally reviewed. Management was reviewed during multidisciplinary critical care rounds. HEALTH SERVICES RN: Acute encephalopathy secondary to sepsis she she is able to follow simple commands now continue sedation for ventricle [place] 2 cont daily spontaneous awake trial Pulm: Acute hypoxic respiratory failure secondary to pneumonia and cardiogenic pulmonary edema and likely COPD exacerbation patient is on ventilator I have adjusted this to meet low tidal volume ventilatory strategy and increased PEEP. Repeat ABG reassuring for acceptable oxygenation and ventilation. She is not a candidate for spontaneous breathing trial today because of acute illness we will reevaluate tomorrow. Cards: An STEMI on ACS protocol echocardiogram pending cardiology consult diuresis as tolerated for cardiogenic pulmonary edema FEN-GI: Nothing by mouth for now PPI prophylaxis given Renal: Acute kidney injury likely secondary to prerenal azotemia and possible sepsis continue renal protective strategy monitor electrolytes daily monitor urine output ID: Sepsis secondary to community-acquired pneumonia disease (severe) respiratory infectious panel pending sputum blood and urine cultures have been sent patient received crystalloid bolus which precipitated cardiogenic pulmonary edema she is not hypotensive and lactate is normal size we will hold off on further fluid administration at this time Heme/Onc: She is on heparin infusion for ACS protocol monitor hemoglobin and platelets daily titrate heparin per protocol Endo: Glucose Monitored, Low TSH we are trying to obtain old records to see if she has a history of hypothyroidism or has been taking any supplementation such as levothyroxine. Check T3-T4 and may start low-dose levothyroxine Integ/MSK: Skin Care per routine ICU Nursing Protocol to prevent ulcers. Lines: All lines examined without evidence of infection : Dispo: Remain in ICU CODE: Full <Kenyetta Alvarez - Last Filed: 09/05/17 16:50> Date of Encounter: 09/05/17 Time of Encounter: 07:00 Assessment and Plan (1) Acute respiratory failure with hypoxia Current Visit: Yes Status: Acute - Noted to have significant respiratory even on BiPAP and eventually intubated in ICU. - Initial ABG pH 7.33, pCO2 33, pO2 58 and HCO3 18. - Likely secondary to pulmonary edema, LLL pneumonia and/or COPD exacerbation. - Still intubated and on ventilation support. - Continue antibiotic for pneumonia and steroid & bronchodilators for COPD. - Will keep patient on ventilation support today but consider spontaneous breathing trial and possible extubation if appropriate tomorrow. - Continue to monitor closely in ICU. (2) Sepsis Current Visit: Yes Status: Acute - 4 SIRS criteria (fever, tachycardia, tachypnea and leukocytosis) on admission with lactic acid 1.4. - Likely secondary to pneumonia as suggested by focal consolidation in the left lower lobe on CXR. - Likely from Streptococcus pneumoniae infection given positive 2/2 blood cultures. Sensitivity pending. - Patient received IV levofloxacin in ED. Will switch to IV ceftriaxone and azithromycin to cover for severe pneumonia. - Patient received IV fluid in ED. Will hold at this time given current CHF picture. Qualifiers: Sepsis type: sepsis due to unspecified organism Qualified Code(s): A41.9 - Sepsis, unspecified organism (3) Elevated troponin Current Visit: Yes Status: Acute - Initial troponin negative (0.03) but then uptrending with latest troponin at 2.90. - NSTEMI vs. demand ischemia. - Echocardiogram showed LVEF 45% with indeterminated diastolic function. Atypical septal motion consistent with bundle branch block. A small to moderate circumferential pericardial effusion, most prominent anteriorly, also noted. - Currently on heparin drip. Noted to have hematuria this afternoon and will monitor H&H closely. - Per cardiology, patient will need heart cath but no LHC today due to hematuria. - Continue to monitor closely. (4) Pneumonia Current Visit: Yes Status: Acute - CXR suggested pulmonary edema along with focal consolidation in the left lower lobe concerning of pneumonia. - Likely from Streptococcus pneumoniae given positive 2/2 blood cultures. Sensitivity pending. - Patient received IV levofloxacin in ED. Will switch to IV ceftriaxone and azithromycin to cover for severe pneumonia. Qualifiers: Pneumonia type: due to Pneumococcus Laterality: left Lung location: lower lobe of lung Qualified Code(s): J13 - Pneumonia due to Streptococcus pneumoniae (5) Congestive heart failure Current Visit: Yes Status: Acute - CXR suggested pulmonary edema along with focal consolidation in the left lower lobe concerning of pneumonia. - Echocardiogram showed LVEF 45% with indeterminated diastolic function. Atypical septal motion consistent with bundle branch block. A small to moderate circumferential pericardial effusion, most prominent anteriorly, also noted. - Patient had received 100 mg of IV Lasix since admission. Will hold further diuresis at this time. - Qualifiers: Congestive heart failure type: unspecified congestive heart failure type Congestive heart failure chronicity: acute on chronic Qualified Code(s): I50.9 - Heart failure, unspecified (6) Acute encephalopathy Current Visit: Yes Status: Acute - Reported altered mental status prior to arrival in ED. - Likely metabolic in the setting of sepsis/pneumonia and acute respiratory failure (7) COPD (chronic obstructive pulmonary disease) Current Visit: Yes Status: Chronic - Possible COPD exacerbation precipitated by recent respiratory infection. - Continue Solu-Medrol, Symbicort and bronchodilators. Qualifiers: COPD type: COPD with acute exacerbation Qualified Code(s): J44.1 - Chronic obstructive pulmonary disease with (acute) exacerbation (8) Hypothyroidism Current Visit: Yes Status: Acute - Highly elevated TSH (52.054) on admission. - Low free T4 (0.61) and free T3 (<1.00). - Patient had received one dose of IV Synthroid 200 mcg earlier this morning. - Continue thyroid hormone replacement. Qualifiers: Hypothyroidism type: unspecified Qualified Code(s): E03.9 - Hypothyroidism , unspecified (9) DVT prophylaxis Current Visit: Yes Status: Acute - Currently on heparin drip. GI prophylaxis: Protonix IV History of Present Illness Consult date: 09/05/17 Requesting physician: Tien Madsen Reason for consult: dyspnea (Respiratory failure) Chief complaint: Altered mental status and respiratory distress History of present illness: Ms. Junior is a 86 year-old female with PMH of COPD and HTN who was sent to [facility] ED for altered mental status. Patient was noted to have respiratory distress in ED along with fever as high as 103.2, tachycardia and leukocytosis. CXR suggests of CHF and possible LLL pneumonia. Patient was admitted to ICU on 09/05/17 for sepsis but noted to have significant respiratory distress despite of BiPAP use. Patient was intubated in ICU and critical care is consulted for further management. Patient was seen and examined this morning. Patient is intubated and appears to be alert in some degree as patient spontaneously opens eyes and able to nod head to answer some simple question. Given patient is intubated and no family member at bedside, much of history was obtained from review of medical records. Per ED note, patient was noted to be alerted 2 hours prior to arrival in ED. Per H&P, patient's granddaughter reports that patient had cough and shortness of breath for a week, initially improved but got worse in past 2-3 days to the point even having severe shortness of breath even at rest. No known history of CHF diagnosis and not on oxygen at home. Past Med Surg Social Fam HX - Past Medical History Medical history: COPD, hypertension - Past Surgical History Surgical History: hysterectomy - Social History Smoking Status: Never smoker Smokeless Tobacco Status: No Alcohol use: none Drug use: none ROS unobtainable: due to endotracheal tube Physical Examination Vital Signs: Vital Signs, Last 4 Hours Temp Pulse Resp BP Pulse Ox 09/05/17 07:50 19 97 09/05/17 07:37 97.4 F L 09/05/17 07:25 71 09/05/17 07:00 71 19 147/80 95 09/05/17 06:34 15 132/70 100 09/05/17 06:00 71 15 132/70 100 09/05/17 05:00 73 19 170/93 100 General appearance: alert Eyes: nonicteric ENT: other (Intubated) Neck: supple Effort: normal Auscultation: bilateral: wheezes, rales Cardiovascular: regular rate and rhythm Gastrointestinal: normoactive bowel sounds, hypoactive bowel sounds Integumentary: normal Extremities: no cyanosis Musculoskeletal: no deformities unable to assess due to mental status Ventilator Settings Ventilator Settings: Ventilator Settings, Last 8 Hours Ventilator Mode VC+ Ventilator Mode VC+ Ventilator Mode VC+ Ventilator Mode VC+ Ventilator Mode VC+ Ventilator Mode VC+ Ventilator Mode VC+ Ventilator Mode VC+ Ventilator Mode VC+ Ventilator Mode VC+ Ventilator Tidal Volume 380 Setting Ventilator Tidal Volume 380 Setting Ventilator Tidal Volume 380 Setting Ventilator Tidal Volume 380 Setting Ventilator Tidal Volume 450 Setting Ventilator Tidal Volume 450 Setting Ventilator Tidal Volume 450 Setting Ventilator Tidal Volume 450 Setting Ventilator Tidal Volume 450 Setting Ventilator Tidal Volume 450 Setting Ventilator Respiratory Rate 18 Setting Ventilator Respiratory Rate 18 Setting Ventilator Respiratory Rate 18 Setting Ventilator Respiratory Rate 18 Setting Ventilator Respiratory Rate 14 Setting Ventilator Respiratory Rate 14 Setting Ventilator Respiratory Rate 14 Setting Ventilator Respiratory Rate 14 Setting Ventilator Respiratory Rate 14 Setting Ventilator Respiratory Rate 14 Setting Actual Respiratory Rate 19 Actual Respiratory Rate 15 Actual Respiratory Rate 15 Actual Respiratory Rate 16 Actual Respiratory Rate 26 Actual Respiratory Rate 26 Positive End Expiratory 8 Pressure Positive End Expiratory 8 Pressure Positive End Expiratory 8 Pressure Positive End Expiratory 8 Pressure Positive End Expiratory 5 Pressure Positive End Expiratory 5 Pressure Positive End Expiratory 5 Pressure Positive End Expiratory 5 Pressure Positive End Expiratory 5 Pressure Positive End Expiratory 5 Pressure Peak Inspiratory Airway 18 Pressure Peak Inspiratory Airway 18 Pressure Peak Inspiratory Airway 18 Pressure Peak Inspiratory Airway 19 Pressure Peak Inspiratory Airway 19 Pressure Peak Inspiratory Airway 19 Pressure Results - Laboratory Findings CBC and BMP: 09/05/17 15:52 09/05/17 01:41 ABG ABG pH 7.39 pH Units (7.32-7.45) 09/05/17 08:28 ABG pCO2 29 mmHg (35-45) L 09/05/17 08:28 ABG pO2 91 mmHg (85-104) 09/05/17 08:28 ABG O2 Saturation 97 % (95-98) 09/05/17 08:28 PT/INR, D-dimer PT 13.6 Seconds (9.4-12.1) H 09/05/17 06:50 Abnormal lab findings: Abnormal lab results WBC 16.6 K/mcL (4.3-11.1) H 09/05/17 06:50 RBC 3.66 M/mcL (3.82-4.97) L 09/05/17 06:50 Hgb 11.0 g/dL (11.5-15.4) L 09/05/17 06:50 Hct 33.4 % (35.3-44.9) L 09/05/17 06:50 Band Neutrophils % 6.0 % (0-4) H 09/05/17 01:41 Neutrophils # 18.6 K/mcL (1.6-8.9) H 09/05/17 01:41 Lymphocytes # 0.4 K/mcL (0.6-4.6) L 09/05/17 01:41 PT 13.6 Seconds (9.4-12.1) H 09/05/17 06:50 ABG pCO2 29 mmHg (35-45) L 09/05/17 08:28 ABG HCO3 17 mEq/L (21-27) L 09/05/17 08:28 ABG Total CO2 18 mEq/L (20-26) L 09/05/17 08:28 ABG Base Excess -7 mEq/L (-2 to 3) L 09/05/17 08:28 Sodium 135 mEq/L (136-145) L 09/05/17 01:41 BUN 30 mg/dL (7-20) H 09/05/17 01:41 Creatinine 1.79 mg/dL (0.57-1.11) H 09/05/17 01:41 Est GFR ( Amer) 32 (> 60) L 09/05/17 01:41 Est GFR (Non-Af Amer) 27 (> 60) L 09/05/17 01:41 Glucose 205 mg/dL (70-99) H 09/05/17 01:41 POC Glucose 164 (58-89) H 09/05/17 06:57 Troponin I 2.63 ng/mL (0-0.03) H* 09/05/17 08:22 B-Natriuretic Peptide 2906 pg/mL (0-100) H 09/04/17 21:20 Albumin 2.7 g/dL (3.5-5.0) L 09/05/17 01:41 Globulin 3.9 g/dL (2.4-3.5) H 09/05/17 01:41 Albumin/Globulin Ratio 0.7 (1.1-2.2) L 09/05/17 01:41 TSH 52.054 mcIU/mL (0.350-4.840) H 09/04/17 21:05 Urine Clarity Cloudy (Clear) A 09/04/17 21:33 Ur Specific [place] 1.030 (1.010-1.025) H 09/04/17 21:33 Urine Protein 100 mg/dL (Neg-Trace) H 09/04/17 21:33 Urine Blood Large (Negative) H 09/04/17 21:33 Urine Bilirubin Small (Negative) H 09/04/17 21:33 Urine Microscopic RBC 50-100 per hpf (0-3) H 09/04/17 21:33 Urine Microscopic WBC 15-30 per hpf (0-3) H 09/04/17 21:33 Ur Squamous Epith Cells Many per lpf (None-Few) H 09/04/17 21:33 Urine Bacteria Many per hpf (None-Few) H 09/04/17 21:33 Granular Casts Many per lpf (None Seen) H 09/04/17 21:33 Urine Mucus Moderate (Few) H 09/04/17 21:33 Urine Yeast Moderate per hpf (None Seen) H 09/04/17 21:33 - Diagnostic Findings Chest x-ray: report reviewed, image reviewed - Clinical Findings Intake & Output: Intake & Output 09/04/17 09/05/17 09/05/17 23:59 07:59 15:59 Intake Total 200 / 200 Output Total 350 / 400 Balance -150 / -200 Weight 57.9 kg
[2017-09-05] MEDS ORDERED: Aspirin Enteric Coated 81 MG Tablet PO SCH (09:00)
[2017-09-05] MEDS ORDERED: Furosemide 40 MG/4 ML VIAL IVP SCH (09:00)
[2017-09-05] MEDS: FentaNYL (PF) 1,000 MCG in 0.9 % Sodium Chloride 80 ML IVC SCH (09:00)
[2017-09-05 09:10] LABS: Acinetobacter baumannii by PCR Not Detected (Not Detect); Candida albicans by PCR Not Detected (Not Detect); Candida glabrata by PCR Not Detected (Not Detect); Candida krusei by PCR Not Detected (Not Detect); Candida parapsilosis by PCR Not Detected (Not Detect); Candida tropicalis by PCR Not Detected (Not Detect); Enterococcus by PCR Not Detected (Not Detect); Escherichia coli by PCR Not Detected (Not Detect); Klebsiella oxytoca by PCR Not Detected (Not Detect); Klebsiella pneumoniae by PCR Not Detected (Not Detect); Pseudomonas aeruginosa by PCR Not Detected (Not Detect); Serratia marcescens by PCR Not Detected (Not Detect); Staphylococcus aureus by PCR Not Detected (Not Detect); Streptococcus agalactiae(B)PCR Not Detected (Not Detect); Streptococcus pyogenes (A) PCR Not Detected (Not Detect); blaKPC Carbapenem-Resist Gene Not Detected (Not Detect); mecA Methicillin-Resist Gene Not Detected (Not Detect); vanA/B Vancomycin-Resist Genes Not Detected (Not Detect)
[2017-09-05 09:11] LABS: Streptococcus by PCR ***DETECTED*** (Not Detect); Streptococcus pneumoniae PCR ***DETECTED*** (Not Detect)
[2017-09-05] MEDS ORDERED: *HR* Etomidate 20 MG/10 ML AMPUL IVP ONE (09:19)
[2017-09-05] MEDS: Aspirin 81 MG TAB.CHEW PO SCH (09:55)
[2017-09-05] MEDS ORDERED: Lacri-Lube 3.5 GM TUBE BOTH EYES PRN (11:09)
[2017-09-05] MEDS ORDERED: Ringers Solution, Lactated 500 ML IVC ONE (11:32)
[2017-09-05] MEDS: Lacri-Lube 3.5 GM TUBE BOTH EYES SCH ×3 (11:36→21:07)
[2017-09-05] MEDS ORDERED: Ringers Solution, Lactated 1,000 ML ONE (11:37)
[2017-09-05] MEDS: *HR* Heparin 5,000 UNIT/ML VIAL IVP PRN ×2 (14:34→22:16)
[2017-09-05 15:27] LABS: Triiodothyronine (T3) Free < 1.00 pg/mL (1.71-3.71)
[2017-09-05 16:06] LABS: Hematocrit 33.9 % (35.3-44.9); Hemoglobin 11.1 g/dL (11.5-15.4)
[2017-09-05 17:56] LABS: Calcium 8.2 mg/dL (8.6-10.8); Magnesium 1.7 mg/dL (1.6-2.6); Potassium 3.7 mEq/L (3.5-4.5)
[2017-09-05] MEDS: Chlorhexidine Rinse 15 ML MOUTHWASH MM SCH (21:06)
[2017-09-05] MEDS: Budesonide/Formoterol 160/4.5 MDI IH SCH (22:19)
[2017-09-06] MEDS: Insulin LISPRO 300 UNITS/3 ML VIAL SQ SCH ×4 (00:24→18:16)
[2017-09-06] MEDS: Lacri-Lube 3.5 GM TUBE BOTH EYES SCH ×6 (00:25→20:26)
[2017-09-06] MEDS: MethylPREDNISolone 40 MG/ML VIAL IVP SCH ×3 (00:27→14:59)
[2017-09-06] MEDS: Dexmedetomidine HCl 400 MCG/100 ML MLS IVC SCH ×2 (03:31→22:34)
[2017-09-06 03:37] LABS: ABG Base Excess -1 mEq/L (-2 to 3); ABG HCO3 22 mEq/L (21-27); ABG Oxygen Saturation 97 % (95-98); ABG PCO2 28 mmHg (35-45); ABG PO2 84 mmHg (85-104); ABG TCO2 23 mEq/L (20-26); Blood Gas Modality VC; Blood Gas PEEP 8 cm H2O; Blood Gas Respiration Rate 16; Blood Gas VT 380 cc
[2017-09-06] MEDS: Ipratropium/Albuterol Neb 3 ML IH SCH ×7 (04:10→23:48)
[2017-09-06 04:55] LABS: Basophils % 0.2 %; Hematocrit 30.7 % (35.3-44.9); Hemoglobin 10.3 g/dL (11.5-15.4); Immature Granulocytes % 2.5 % (0-4); Lymphocytes # 0.6 K/mcL (0.6-4.6); Lymphocytes % 4.2 %; Mean Corpuscular HGB Conc 33.6 g/dL (31.6-35.5); Mean Corpuscular Hemoglobin 30.2 pg (28.0-33.3); Mean Platelet Volume 10.2 fL (9.4-12.4); Monocytes # 0.6 K/mcL (0.0-1.3); Monocytes % 4.2 %; Neutrophils # 11.9 K/mcL (1.6-8.9); Nucleated Red Blood Cells 0.1 /100 WBC (0); Platelet Count 273 K/mcL (140-400); Red Blood Count 3.41 M/mcL (3.82-4.97); Red Cell Distribution Width 14.5 % (11.5-14.5); Segmented Neutrophils % 88.9 %
[2017-09-06 05:04] LABS: Calcium 8.3 mg/dL (8.6-10.8); Magnesium 1.7 mg/dL (1.6-2.6); Phosphorous 4.2 mg/dL (2.3-4.7); Potassium 3.6 mEq/L (3.5-4.5)
[2017-09-06 05:20] LABS: Platelet Estimate Normal (Normal)
--- NOTE | 2017-09-06 07:26 | Pulmonology Progress Note ---
<Kenyetta Alvarez - Last Filed: 09/06/17 10:45> Date of Encounter: 09/06/17 Time of Encounter: 07:00 Assessment and Plan (1) Acute respiratory failure with hypoxia Current Visit: Yes Status: Acute - Noted to have significant respiratory even on BiPAP and eventually intubated in ICU. - Initial ABG pH 7.33, pCO2 33, pO2 58 and HCO3 18. - Likely secondary to pulmonary edema, LLL pneumonia and/or COPD exacerbation. - Still intubated and on ventilation support. ABG pH 7.50, pCO2 28, pO@ 84 and HCO3 22 this morning. - Given patient is alert and able to follow command, will have spontaneous breathing trial and attempt extubation if appropriated. - Continue antibiotic for pneumonia and steroid & bronchodilators for COPD. - Continue to monitor closely. (2) Sepsis Current Visit: Yes Status: Acute - 4 SIRS criteria (fever, tachycardia, tachypnea and leukocytosis) on admission with lactic acid 1.4. - Likely secondary to pneumonia as suggested by focal consolidation in the left lower lobe on CXR. - Known Streptococcus pneumoniae infection given positive 2/2 blood cultures. Sensitivity pending. - Pending urine antigens for Legionella. - Continue IV ceftriaxone (since 09/05) and azithromycin (since 10/26) to cover for severe pneumonia. Further de-escalation based on clinical picture and culture results. - Patient received IV fluid in ED. Will hold at this time given current CHF picture. Qualifiers: Sepsis type: sepsis due to unspecified organism Qualified Code(s): A41.9 - Sepsis, unspecified organism (3) Elevated troponin Current Visit: Yes Status: Acute - Initial troponin negative (0.03) but then peaked at 2.90 before downtrended to 2.79 this morning. - NSTEMI vs. demand ischemia. - EKG showed LBBB - Echocardiogram showed LVEF 45% with indeterminated diastolic function. Atypical septal motion consistent with bundle branch block. A small to moderate circumferential pericardial effusion, most prominent anteriorly, also noted. - Currently on heparin drip. - Per cardiology, patient will need heart cath. Appreciate cardiology input. - Continue to monitor closely. (4) Pneumonia Current Visit: Yes Status: Acute - CXR suggested pulmonary edema along with focal consolidation in the left lower lobe concerning of pneumonia. - Likely from Streptococcus pneumoniae given positive 2/2 blood cultures. Sensitivity pending. - Pending urine antigens for Legionella. - Continue IV ceftriaxone (since 09/05) and azithromycin (since 10/26) to cover for severe pneumonia. Further de-escalation based on clinical picture and culture results. Qualifiers: Pneumonia type: due to Pneumococcus Laterality: left Lung location: lower lobe of lung Qualified Code(s): J13 - Pneumonia due to Streptococcus pneumoniae (5) Congestive heart failure Current Visit: Yes Status: Acute - CXR suggested pulmonary edema along with focal consolidation in the left lower lobe concerning of pneumonia. - Echocardiogram showed LVEF 45% with indeterminated diastolic function. Atypical septal motion consistent with bundle branch block. A small to moderate circumferential pericardial effusion, most prominent anteriorly, also noted. - Net -105 mL so far. - Avoid beta-krish, calcium-channel krish and hydralazine at this time given concern of questionable tamponade - Patient had received 100 mg of IV Lasix since admission. Will hold further diuresis at this time. Qualifiers: Congestive heart failure type: unspecified congestive heart failure type Congestive heart failure chronicity: acute on chronic Qualified Code(s): I50.9 - Heart failure, unspecified (6) Hematuria Current Visit: Yes Status: Acute - Hematuria in urinary catheter noted after patient is started on heparin drip. - Case was discussed with urologist Dr. Ramirez who recommends discontinuation of heparin drip if possible, urine culture to rule out UTI and CT A/P stone protocol without contrast to look for other causes of hematuria. - Case was discussed with attending Dr. Amador, will continue heparin drip at this time given patient's current cardiac condition. - Urine culture pending. - Will obtain CT A/P stone protocol without contrast as recommended by urology. Qualifiers: Hematuria type: gross Qualified Code(s): R31.0 - Gross hematuria (7) Acute encephalopathy Current Visit: Yes Status: Acute - Reported altered mental status prior to arrival in ED. - Likely metabolic in the setting of sepsis/pneumonia and acute respiratory failure. - CT head found large amount of small vessel ischemic change bilaterally with some old infarts but cannot exclude the possibility of a subtle superimposed recent ischemic focus. MRI is recommended for further investigation. - Seems to improve as patient appears to be alert with some degree of orientation. - Continue to monitor closely. (8) COPD (chronic obstructive pulmonary disease) Current Visit: Yes Status: Chronic - Possible COPD exacerbation precipitated by recent respiratory infection. - Continue Solu-Medrol, Symbicort and bronchodilators. Qualifiers: COPD type: COPD with acute exacerbation Qualified Code(s): J44.1 - Chronic obstructive pulmonary disease with (acute) exacerbation (9) Hypothyroidism Current Visit: Yes Status: Acute - Highly elevated TSH (52.054) on admission. - Low free T4 (0.61) and free T3 (<1.00). - Patient had received one dose of IV Synthroid 200 mcg in ED - Continue thyroid hormone replacement. Qualifiers: Hypothyroidism type: unspecified Qualified Code(s): E03.9 - Hypothyroidism , unspecified (10) DVT prophylaxis Current Visit: Yes Status: Acute - Currently on heparin drip. GI prophylaxis: Protonix IV Subjective Principal diagnosis: Acute hypoxic respiratory failure Interval history: Patient was seen and examined this morning. Patient is still intubated but appears to be alert and orient as she opens eyes spontaneously and shakes her head while asking if she has any pain. Hematuria from urinary catheter still noted. Objective PUL Vital signs: Last Vital Signs Temp 96.2 F L 09/06/17 04:57 Pulse 78 09/06/17 06:00 Resp 21 09/06/17 06:14 BP 144/81 09/06/17 06:14 Pulse Ox 97 09/06/17 06:14 General appearance: no acute distress, alert Eyes: nonicteric ENT: other (Intubated) Neck: supple Effort: normal Auscultation: bilateral: clear Cardiovascular: regular rate and rhythm Gastrointestinal: normoactive bowel sounds, soft, non-tender Integumentary: normal Extremities: no cyanosis, no edema Musculoskeletal: no deformities non-focal exam Ventilator Settings Ventilator Settings: Ventilator Settings, Last 8 Hours Ventilator Mode VC+ Ventilator Mode VC+ Ventilator Mode VC+ Ventilator Mode VC+ Ventilator Mode VC+ Ventilator Mode VC+ Ventilator Mode VC+ Ventilator Mode VC+ Ventilator Mode VC+ Ventilator Mode VC+ Ventilator Mode VC+ Ventilator Mode VC+ Ventilator Tidal Volume 380 Setting Ventilator Tidal Volume 380 Setting Ventilator Tidal Volume 380 Setting Ventilator Tidal Volume 380 Setting Ventilator Tidal Volume 380 Setting Ventilator Tidal Volume 380 Setting Ventilator Tidal Volume 380 Setting Ventilator Tidal Volume 380 Setting Ventilator Tidal Volume 380 Setting Ventilator Tidal Volume 380 Setting Ventilator Tidal Volume 380 Setting Ventilator Tidal Volume 380 Setting Ventilator Respiratory Rate 16 Setting Ventilator Respiratory Rate 16 Setting Ventilator Respiratory Rate 16 Setting Ventilator Respiratory Rate 16 Setting Ventilator Respiratory Rate 16 Setting Ventilator Respiratory Rate 16 Setting Ventilator Respiratory Rate 16 Setting Ventilator Respiratory Rate 16 Setting Ventilator Respiratory Rate 16 Setting Ventilator Respiratory Rate 16 Setting Ventilator Respiratory Rate 16 Setting Ventilator Respiratory Rate 16 Setting Actual Respiratory Rate 23 Actual Respiratory Rate 21 Actual Respiratory Rate 21 Actual Respiratory Rate 30 Actual Respiratory Rate 27 Actual Respiratory Rate 20 Actual Respiratory Rate 30 Actual Respiratory Rate 21 Actual Respiratory Rate 24 Actual Respiratory Rate 26 Actual Respiratory Rate 26 Positive End Expiratory 8 Pressure Positive End Expiratory 8 Pressure Positive End Expiratory 8 Pressure Positive End Expiratory 8 Pressure Positive End Expiratory 8 Pressure Positive End Expiratory 8 Pressure Positive End Expiratory 8 Pressure Positive End Expiratory 8 Pressure Positive End Expiratory 8 Pressure Positive End Expiratory 8 Pressure Positive End Expiratory 8 Pressure Positive End Expiratory 8 Pressure Peak Inspiratory Airway 19 Pressure Peak Inspiratory Airway 18 Pressure Peak Inspiratory Airway 22 Pressure Peak Inspiratory Airway 21 Pressure Peak Inspiratory Airway 21 Pressure Peak Inspiratory Airway 21 Pressure Peak Inspiratory Airway 21 Pressure Peak Inspiratory Airway 20 Pressure Peak Inspiratory Airway 20 Pressure Peak Inspiratory Airway 18 Pressure Peak Inspiratory Airway 18 Pressure Results - Laboratory Findings CBC and BMP: 09/06/17 04:38 09/06/17 04:38 ABG ABG pH 7.50 pH Units (7.32-7.45) H 09/06/17 03:34 ABG pCO2 28 mmHg (35-45) L 09/06/17 03:34 ABG pO2 84 mmHg (85-104) L 09/06/17 03:34 ABG O2 Saturation 97 % (95-98) 09/06/17 03:34 PT/INR, D-dimer PT 13.6 Seconds (9.4-12.1) H 09/05/17 06:50 Abnormal lab findings: Abnormal lab results WBC 13.4 K/mcL (4.3-11.1) H 09/06/17 04:38 RBC 3.41 M/mcL (3.82-4.97) L 09/06/17 04:38 Hgb 10.3 g/dL (11.5-15.4) L 09/06/17 04:38 Hct 30.7 % (35.3-44.9) L 09/06/17 04:38 Band Neutrophils % 6.0 % (0-4) H 09/05/17 01:41 Neutrophils # 11.9 K/mcL (1.6-8.9) H 09/06/17 04:38 Nucleated RBCs/100 WBC 0.1 /100 WBC (0) H 09/06/17 04:38 PT 13.6 Seconds (9.4-12.1) H 09/05/17 06:50 APTT 105.0 Seconds (26.0-36.0) H D 09/06/17 04:38 ABG pH 7.50 pH Units (7.32-7.45) H 09/06/17 03:34 ABG pCO2 28 mmHg (35-45) L 09/06/17 03:34 ABG pO2 84 mmHg (85-104) L 09/06/17 03:34 BUN 44 mg/dL (7-20) H 09/06/17 04:38 Creatinine 1.93 mg/dL (0.57-1.11) H 09/06/17 04:38 Est GFR ( Amer) 30 (> 60) L 09/06/17 04:38 Est GFR (Non-Af Amer) 25 (> 60) L 09/06/17 04:38 Glucose 146 mg/dL (70-99) H 09/06/17 04:38 POC Glucose 111 (58-89) H 09/05/17 23:38 Calcium 8.3 mg/dL (8.6-10.8) L 09/06/17 04:38 Troponin I 2.79 ng/mL (0-0.03) H* 09/06/17 04:38 B-Natriuretic Peptide 2906 pg/mL (0-100) H 09/04/17 21:20 Albumin 2.7 g/dL (3.5-5.0) L 09/05/17 01:41 Globulin 3.9 g/dL (2.4-3.5) H 09/05/17 01:41 Albumin/Globulin Ratio 0.7 (1.1-2.2) L 09/05/17 01:41 TSH 52.054 mcIU/mL (0.350-4.840) H 09/04/17 21:05 Free T4 0.61 ng/dl (0.70-1.48) L 09/05/17 14:01 Free T3 < 1.00 pg/mL (1.71-3.71) L 09/05/17 14:01 Urine Clarity Cloudy (Clear) A 09/04/17 21:33 Ur Specific [place] 1.030 (1.010-1.025) H 09/04/17 21:33 Urine Protein 100 mg/dL (Neg-Trace) H 09/04/17 21:33 Urine Blood Large (Negative) H 09/04/17 21:33 Urine Bilirubin Small (Negative) H 09/04/17 21:33 Urine Microscopic RBC 50-100 per hpf (0-3) H 09/04/17 21:33 Urine Microscopic WBC 15-30 per hpf (0-3) H 09/04/17 21:33 Ur Squamous Epith Cells Many per lpf (None-Few) H 09/04/17 21:33 Urine Bacteria Many per hpf (None-Few) H 09/04/17 21:33 Granular Casts Many per lpf (None Seen) H 09/04/17 21:33 Urine Mucus Moderate (Few) H 09/04/17 21:33 Urine Yeast Moderate per hpf (None Seen) H 09/04/17 21:33 Streptococcus sp PCR DETECTED (Not Detect) A 09/04/17 22:03 Strep pneumoniae (PCR) DETECTED (Not Detect) A 09/04/17 22:03 - Clinical Findings Intake & Output: Intake & Output 09/05/17 09/05/17 09/06/17 15:59 23:59 07:59 Intake Total 920 / 920 135 / 135 190 / 190 Output Total 250 / 250 400 / 400 550 / 550 Balance 670 / 670 -265 / -265 -360 / -360 Weight 57.9 kg - VTE Documentation of Mechanical Device: Graduated compression elastic hosiery Consult Discharge Plan - Plan Referrals: NONE,PCP [Primary Care Provider] - <John Amador W - Last Filed: 09/06/17 11:14> Date of Encounter: 09/06/17 Objective PUL Vital signs: Last Vital Signs Temp 99.1 F 09/06/17 07:53 Pulse 78 09/06/17 09:00 Resp 26 09/06/17 09:00 BP 145/81 09/06/17 09:00 Pulse Ox 98 09/06/17 09:00 Ventilator Settings Ventilator Settings: Ventilator Settings, Last 8 Hours Ventilator Mode VC+ Ventilator Mode CPAP Ventilator Mode CPAP Ventilator Mode CPAP Ventilator Mode VC+ Ventilator Mode VC+ Ventilator Mode VC+ Ventilator Mode VC+ Ventilator Mode VC+ Ventilator Mode VC+ Ventilator Tidal Volume 380 Setting Ventilator Tidal Volume 380 Setting Ventilator Tidal Volume 380 Setting Ventilator Tidal Volume 380 Setting Ventilator Tidal Volume 380 Setting Ventilator Tidal Volume 380 Setting Ventilator Tidal Volume 380 Setting Ventilator Respiratory Rate 16 Setting Ventilator Respiratory Rate 16 Setting Ventilator Respiratory Rate 16 Setting Ventilator Respiratory Rate 16 Setting Ventilator Respiratory Rate 16 Setting Ventilator Respiratory Rate 16 Setting Ventilator Respiratory Rate 16 Setting Actual Respiratory Rate 23 Actual Respiratory Rate 21 Actual Respiratory Rate 21 Actual Respiratory Rate 30 Actual Respiratory Rate 27 Positive End Expiratory 8 Pressure Positive End Expiratory 8 Pressure Positive End Expiratory 8 Pressure Positive End Expiratory 8 Pressure Positive End Expiratory 8 Pressure Positive End Expiratory 8 Pressure Positive End Expiratory 8 Pressure Peak Inspiratory Airway 19 Pressure Peak Inspiratory Airway 18 Pressure Peak Inspiratory Airway 22 Pressure Peak Inspiratory Airway 21 Pressure Peak Inspiratory Airway 21 Pressure Results - Laboratory Findings CBC and BMP: 09/06/17 04:38 09/06/17 04:38 ABG ABG pH 7.50 pH Units (7.32-7.45) H 09/06/17 03:34 ABG pCO2 28 mmHg (35-45) L 09/06/17 03:34 ABG pO2 84 mmHg (85-104) L 09/06/17 03:34 ABG O2 Saturation 97 % (95-98) 09/06/17 03:34 PT/INR, D-dimer PT 13.6 Seconds (9.4-12.1) H 09/05/17 06:50 Abnormal lab findings: Abnormal lab results WBC 13.4 K/mcL (4.3-11.1) H 09/06/17 04:38 RBC 3.41 M/mcL (3.82-4.97) L 09/06/17 04:38 Hgb 10.3 g/dL (11.5-15.4) L 09/06/17 04:38 Hct 30.7 % (35.3-44.9) L 09/06/17 04:38 Band Neutrophils % 6.0 % (0-4) H 09/05/17 01:41 Neutrophils # 11.9 K/mcL (1.6-8.9) H 09/06/17 04:38 Nucleated RBCs/100 WBC 0.1 /100 WBC (0) H 09/06/17 04:38 PT 13.6 Seconds (9.4-12.1) H 09/05/17 06:50 APTT 105.0 Seconds (26.0-36.0) H D 09/06/17 04:38 ABG pH 7.50 pH Units (7.32-7.45) H 09/06/17 03:34 ABG pCO2 28 mmHg (35-45) L 09/06/17 03:34 ABG pO2 84 mmHg (85-104) L 09/06/17 03:34 BUN 44 mg/dL (7-20) H 09/06/17 04:38 Creatinine 1.93 mg/dL (0.57-1.11) H 09/06/17 04:38 Est GFR ( Amer) 30 (> 60) L 09/06/17 04:38 Est GFR (Non-Af Amer) 25 (> 60) L 09/06/17 04:38 Glucose 146 mg/dL (70-99) H 09/06/17 04:38 POC Glucose 111 (58-89) H 09/05/17 23:38 Calcium 8.3 mg/dL (8.6-10.8) L 09/06/17 04:38 Troponin I 2.79 ng/mL (0-0.03) H* 09/06/17 04:38 B-Natriuretic Peptide 2906 pg/mL (0-100) H 09/04/17 21:20 Albumin 2.7 g/dL (3.5-5.0) L 09/05/17 01:41 Globulin 3.9 g/dL (2.4-3.5) H 09/05/17 01:41 Albumin/Globulin Ratio 0.7 (1.1-2.2) L 09/05/17 01:41 TSH 52.054 mcIU/mL (0.350-4.840) H 09/04/17 21:05 Free T4 0.61 ng/dl (0.70-1.48) L 09/05/17 14:01 Free T3 < 1.00 pg/mL (1.71-3.71) L 09/05/17 14:01 Urine Clarity Cloudy (Clear) A 09/04/17 21:33 Ur Specific [place] 1.030 (1.010-1.025) H 09/04/17 21:33 Urine Protein 100 mg/dL (Neg-Trace) H 09/04/17 21:33 Urine Blood Large (Negative) H 09/04/17 21:33 Urine Bilirubin Small (Negative) H 09/04/17 21:33 Urine Microscopic RBC 50-100 per hpf (0-3) H 09/04/17 21:33 Urine Microscopic WBC 15-30 per hpf (0-3) H 09/04/17 21:33 Ur Squamous Epith Cells Many per lpf (None-Few) H 09/04/17 21:33 Urine Bacteria Many per hpf (None-Few) H 09/04/17 21:33 Granular Casts Many per lpf (None Seen) H 09/04/17 21:33 Urine Mucus Moderate (Few) H 09/04/17 21:33 Urine Yeast Moderate per hpf (None Seen) H 09/04/17 21:33 Streptococcus sp PCR DETECTED (Not Detect) A 09/04/17 22:03 Strep pneumoniae (PCR) DETECTED (Not Detect) A 09/04/17 22:03 - Microbiology Findings Microbiology Findings: Microbiology, Last 48 Hours 09/06/17 05:54 Legionella Antigen - Final Urine,Catheterized Streptococcus pneumoniae Antigen (M - Final - Clinical Findings Intake & Output: Intake & Output 09/05/17 09/06/17 09/06/17 23:59 07:59 15:59 Intake Total 135 / 135 190 / 190 Output Total 400 / 400 650 / 650 Balance -265 / -265 -460 / -460 Weight 57.9 kg - Attending Attestation I examined this patient and my medical decision-making was reviewed with the Resident Physician. I agree with the documented findings, disposition and treatment plan as described except to the extent set forth below. We independently had [id number] contact with the patient Patient seen and examined at bedside Labs, radiology, chart personally reviewed. Management was reviewed during multidisciplinary critical care rounds. FILTER TENDER: Awake and alert following commands holding sedation for SAT Pulm: Acute hypoxic respiratory failure secondary to severe community-acquired pneumonia requiring intubation and mechanical ventilation complicated by cardiogenic pulmonary edema. Full weaning parameters today for liberation to noninvasive positive pressure ventilation. Cards: An STEMI on ACS protocol but holding beta krish because of concern of pericardial effusion with resultant low blood pressures after administration of beta krsih and diuresis yesterday repeat echo planned for tomorrow. Cardiology following will need [facility] FEN-GI: Nothing by mouth for now PPI prophylaxis given Renal: AK but making appropriate urine continue to monitor electrolytes daily ID: Sepsis secondary to Strep pneumo pneumonia with bacteremia being treated with antimicrobials planned to de-escalate today Heme/Onc: Heparin infusion H&H stable but mild hematuria urology consulted CT of abdomen and pelvis pending may need to hold heparin infusion for this Endo: Glucose Monitored Integ/MSK: Skin Care per routine ICU Nursing Protocol to prevent ulcers. Lines: All lines examined without evidence of infection : Dispo: Remain in ICU CODE: Full
[2017-09-06] MEDS: Budesonide/Formoterol 160/4.5 MDI IH SCH ×2 (07:35→20:11)
[2017-09-06] MEDS ORDERED: *HR* Etomidate 20 MG/10 ML AMPUL IVP ONE (07:48)
[2017-09-06] MEDS: Heparin 25,000 UNIT/500 ML D5W 25,000 UNIT/500 ML BAG IVC SCH ×2 (07:57→14:52)
[2017-09-06] MEDS: Chlorhexidine Rinse 15 ML MOUTHWASH MM SCH ×2 (08:39→20:34)
[2017-09-06] MEDS: Pantoprazole 40 MG VIAL IVPB SCH (08:39)
[2017-09-06] MEDS: FentaNYL (PF) 1,000 MCG in 0.9 % Sodium Chloride 80 ML IVC SCH (08:40)
[2017-09-06] MEDS: Azithromycin 500 MG in D5% in Water 250 ML IVPB SCH (08:40)
[2017-09-06] MEDS: cefTRIAXone 2,000 MG in Water for inj. (sterile) 20 ML IVP SCH (08:40)
[2017-09-06] MEDS: Aspirin 81 MG TAB.CHEW PO SCH (08:43)
--- NOTE | 2017-09-06 12:26 | Cardiology Progress Note ---
Date of Encounter: 09/06/17 Time of Encounter: 12:00 Assessment and Plan (1) Congestive heart failure Current Visit: Yes Status: Acute Per cardiology: -Acute on Chronic CHF with hypoxic respiratory failure, unknown etiology -TTE with LVEF 45%, indeterminate diastolic function, atypical septal motion consistent with bundle branch block, mild concentric LVH, mild-moderately sclerotic aortic valve leaflets, moderate MR, small to moderate pericardial effusion, not diagnostic for tamponade, apex, apical inferior, mid inferior, basal inferior, apical anterior, mid anterior and basal anterior cedeno hypokinetic. Mid anterior septal and basal anterior septal cedeno dyskinetic. ALl other wall segments with normal motion. -On beta krish. NOt on megan inhibitor due to TROY. -EKG on arrival showed LBBB not previously documented, CXR shows pulmonary vascular congestion -BNP 2906, TSH 52.05, Trop 0.03 -> 1.38 -> 2.63. -Net negative 95ml. -Weight on admission 61.2kg, weight today 57.9kg. -Agree with Heparin ACS protocol if appropriate per Urology given hematuria, gentle diuresis in context of presumed TROY. -Strict i/os, daily weights, fluid restriction. Recommend 1.5L/day of fluid restriction when able to take PO. -Continuous cardiac and oximetry monitoring Qualifiers: Congestive heart failure type: unspecified congestive heart failure type Congestive heart failure chronicity: acute on chronic Qualified Code(s): I50.9 - Heart failure, unspecified (2) Elevated troponin Current Visit: Yes Status: Acute Per cardiology: -Elevated troponin, nstemi vs. demand ischemia, Troponins now downtrending. -TTE with LVEF 45%, wall motion abnormalities noted. -Denies chest pain. -On heparin drip. -on asa, statin. -Per discussion with , suspect will need [facility] in the future. -Medical management at this time Discussion w patient/family: The assessment and plan as outlined above was discussed with the patient who expressed understanding and agreement. All questions were answered. Thank you for involving us in the care of your patient. Please call with any questions. Discussed and reviewed with . Subjective Principal diagnosis: Acute hypoxic respiratory failure Interval history: Patient is s/p extubation to Bipap. Patient answering questions by nodding head. Patient shakes head "no" when asked if she was having chest pain. Objective Vital Signs, Last 4 Hours Pulse Resp BP Pulse Ox 09/06/17 11:00 75 31 146/78 98 09/06/17 10:00 75 21 134/78 99 09/06/17 09:00 78 26 145/81 98 General: Other (S/p extubation. Shakes head yes or no to answer questions. ) HEENT: Atraumatic, Normocephaly, Mucus Membranes Moist Neck: No JVD, Normal carotid pulses Cardiac: Reg Rate and Rhythm, Normal S1 and S2, No Murmur Lungs: Normal Breath Sounds, No Wheeze, Rales, Rhonchi Neuro: Alert and responsive Abdomen: Soft, Non-Tender Skin: No rashes noted on visualized skin Musculoskeletal: No Chest Wall Tenderness Extremities: No Clubbing, No Cyanosis, No Edema, Normal Pulses Results 09/06/17 04:38 09/06/17 04:38 Lab Results Impressions Echocardiogram 09/05/17 00:51 Impressions: LVEF 45%. Mild global LV systolic dysfunction. Subendocardial thickening was not well visualized in all windows. Indeterminate diastolic function. Atypical septal motion consistent with bundle branch block. Mild concentric left ventricular hypertrophy. Normal right ventricular structure and function. Mild-moderately sclerotic aortic valve leaflets. Moderate mitral regurgitation. No pulmonary hypertension. There is a small to moderate circumferential pericardial effusion present which is most prominent anteriorly. There is late diastolic RA collapse with is not diagnostic for tamponade. Other parameters do not indicate tamponade physiology. Consider repeat Limited study in 1-2 days for re-evaluation or if clinical status changes. Left Ventricular Wall Motion: Rest Echo Findings The apex, apical inferior, mid inferior, basal inferior, apical anterior, mid anterior and basal anterior cedeno were hypokinetic. The mid anterior septal and basal anterior septal cedeno were dyskinetic. All other wall segments showed normal motion. Findings: Study Quality * Technically adequate exam. ECG Findings * Sinus rhythm with BBB. Left Ventricle * Normal LV size. * Indeterminate diastolic function. * Atypical septal motion consistent with bundle branch block. * Mild concentric left ventricular hypertrophy. * LVEF 45%. Right Ventricle * Normal right ventricular structure and function. Left Atrium * Moderately dilated left atrium. Right Atrium * Normal right atrial size. Aortic Valve * No aortic regurgitation. * Trileaflet aortic valve. * Mild-moderately sclerotic aortic valve leaflets. * No aortic stenosis. Mitral Valve * Normal mitral valve structure. * No mitral stenosis. * Moderate mitral regurgitation. Tricuspid Valve * Trace tricuspid regurgitation. * Normal tricuspid valve structure. * Estimated RA pressure is 3 mmHg. * Estimated RVSP is 24 mmHg. * No pulmonary hypertension. Pulmonic Valve * Pulmonic valve is not well visualized. * No pulmonic stenosis. * No pulmonic regurgitation. Pulmonary Artery * Pulmonary artery not well visualized. Aorta * Normally sized aortic root. Pericardium * There is a small to moderate circumferential pericardial effusion present which is most prominent anteriorly. Normal IVC dimensions and collapse. Normal blood pressure. No significant respiratory variation across the mitral and tricuspid valves. There is probable late diastolic RA collapse. This is not diagnostic for tamponade physiology and other parameters are normal. Interatrial Septum * No evidence of PFO by color Doppler. IVC * Normal IVC dimensions and inspiratory collapse. Abdomen/Pelvis CT 09/06/17 08:43 IMPRESSION: 1. No urolithiasis or obstructive uropathy 2. Colonic diverticulosis with no evidence of diverticulitis 3. Small amount of peritoneal fluid in the right lower quadrant and left mid abdomen of uncertain significance 4. Airspace consolidation in the left lower lobe compatible with atelectasis or pneumonia. There is atelectasis in the right lower lobe 5. Cardiomegaly with trace pericardial and pleural effusions D/ / Mario Grier MD / Mario Grier MD Interpreting Provider: Mario Grier MD Current Medications Acetaminophen (Tylenol 650mg Supp) 650 mg RC Q6HR PRN PRN Reason: fever GREATER than 101.2 F Stop: 03/07/18 00:47 Albuterol Sulfate (Albuterol Inhaler) 2 puff IH Q2HR PRN PRN Reason: Shortness Of Breath/Wheezing Stop: 03/07/18 11:10 Albuterol/Ipratropium (Duoneb) 3 ml IH [id number] YULY Stop: 03/07/18 01:01 Last Admin: 09/06/17 11:47 Dose: 3 ml Artificial Tears (Lacri-Lube) 1 appl BOTH EYES Q4HR YULY PRN Reason: Protocol Stop: 03/07/18 12:01 Last Admin: 09/06/17 12:09 Dose: Not Given Artificial Tears (Lacri-Lube) 1 appl BOTH EYES Q2HR PRN; Protocol PRN Reason: Dry Eyes Stop: 03/07/18 11:10 Aspirin (Aspirin) 81 mg PO DAILY [facility] Stop: 03/07/18 09:46 Last Admin: 09/06/17 08:43 Dose: 81 mg Atorvastatin Calcium (Lipitor) 20 mg PO HS YULY Stop: 03/07/18 21:01 Last Admin: 09/05/17 21:06 Dose: 20 mg Budesonide/Formoterol Fumarate (Symbicort) 2 puff IH BIDR YULY PRN Reason: Protocol Stop: 03/07/18 22:01 Last Admin: 09/06/17 07:35 Dose: 2 puff Chlorhexidine Gluconate (Chlorhexidine Rinse) 15 ml MM BID YULY Stop: 03/07/18 21:01 Last Admin: 09/06/17 08:39 Dose: 15 ml Dextrose/Water (Dextrose 50% (Syg)) 25 ml IVP AD PRN PRN Reason: Hypoglycemia Stop: 03/07/18 02:42 Glucagon (Glucagen) 1 mg IM ONCE PRN PRN Reason: Hypoglycemia Stop: 03/07/18 02:42 Glucose (Gluctose) 15 gm PO ONCE PRN PRN Reason: Hypoglycemia Stop: 03/07/18 02:42 Glucose (Gluctose) 30 gm PO ONCE PRN PRN Reason: Hypoglycemia Stop: 03/07/18 02:42 Heparin Sodium (Porcine) (Heparin) 3,500 unit 60 unit/kg (3500 unit) IVP Q6HR PRN PRN Reason: SEE COMMENTS Stop: 03/07/18 06:27 Heparin Sodium (Porcine) (Heparin) 1,700 unit 30 unit/kg (1700 unit) IVP Q6H PRN PRN Reason: SEE COMMENTS Stop: 03/07/18 06:27 Last Admin: 09/05/17 22:16 Dose: 1,700 unit Dextrose (Dextrose 5%) 1,000 mls @ 100 mls/hr IVC .Q10H PRN PRN Reason: HYPOGLYCEMIA Stop: 03/07/18 02:42 Heparin Sodium/Dextrose (Heparin 25,000 Unit/500 Ml D5w) 25,000 unit in 500 mls @ 13.896 mls/hr IVC .Q24H YULY; 12 UNIT/KG/HR PRN Reason: Protocol Stop: 03/07/18 06:31 Last Admin: 09/06/17 07:57 Dose: Not Given Ceftriaxone Sodium 2,000 mg/ (Sterile Water) 20 mls @ 600 mls/hr IVP Q24H YULY Stop: 03/07/18 09:01 Last Admin: 09/06/17 08:40 Dose: 600 mls/hr Dexmedetomidine HCl (Precedex Premix) 400 mcg in 100 mls @ 2.895 mls/hr IVC .Q24H YULY; 0.2 MCG/KG/HR PRN Reason: Protocol Stop: 03/07/18 08:31 Last Admin: 09/06/17 03:31 Dose: 0.2 mcg/kg/hr, 2.895 mls/hr Fentanyl Citrate 1,000 mcg/ (Sodium Chloride) 100 mls @ 5 mls/hr IVC CONT YULY; 50 MCG/HR PRN Reason: Protocol Stop: 03/07/18 08:31 Last Admin: 09/06/17 08:40 Dose: Not Given Magnesium Sulfate (Magnesium Sulfate Premix 2gm/50ml) 2 gm in 50 mls @ 48.077 mls/hr IVPB ONCE ONE Stop: 09/06/17 13:08 Potassium Chloride (Potassium Chloride 10 Meq/100ml) 10 meq in 100 mls @ 100 mls/hr IVPB Q1H YULY Stop: 09/06/17 14:14 Insulin Human Lispro (Humalog) 0 units SQ Q6HR YULY PRN Reason: Protocol Stop: 03/07/18 06:01 Last Admin: 09/06/17 06:25 Dose: 4 units Methylprednisolone (Solu-Medrol) 40 mg IVP Q8HR YULY Stop: 03/07/18 08:01 Last Admin: 09/06/17 08:39 Dose: 40 mg Naloxone HCl (Narcan) 0.4 mg IVP Q2MIN PRN PRN Reason: Opioid Reversal Stop: 03/07/18 00:47 Pantoprazole Sodium (Protonix) 40 mg IVPB DAILY [facility] Stop: 03/07/18 01:01 Last Admin: 09/06/17 08:39 Dose: 40 mg Laboratory Tests 09/04/17 09/05/17 09/05/17 21:05 04:22 08:22 WBC Hgb Creatinine Troponin I 0.03 1.38 H* 2.63 H* 09/05/17 09/06/17 09/06/17 14:01 04:38 04:38 WBC 13.4 H Hgb 10.3 L Creatinine 1.93 H Troponin I 2.90 H* 09/06/17 04:38 WBC Hgb Creatinine Troponin I 2.79 H* - Imaging and Cardiology Chest Xray: report reviewed Echo: report reviewed - EKG Interpretation EKG results cardiology: other (Telemetry reviewed with average HR previous 12 hours noted to be 75, sinus rhythm. PVCs and PACs noted.) - VTE Documentation of Mechanical Device: Graduated compression elastic hosiery Consult Discharge Plan - Plan Referrals: NONE,PCP [Primary Care Provider] -
--- NOTE | 2017-09-06 13:40 | Electrocardiograph Report ---
[address] [place], [place] [address] Test Date: 2017-09-04 Pat Name: Delia Junior Department: 104 Room: [facility] Gender: F Daycare Manager: TMR : 1930 Requested By: Glenn Mcdaniels Order Number: [id number] Reading MD: Rosi Hsieh Measurements Intervals [place] Rate: 107 P: [place]: 0 QRS: 4 QRSD: 172 T: 167 QT: 368 QTc: 431 Interpretive Statements NORMAL SINUS RHYTHM LEFT BUNDLE BRANCH BLOCK Electronically Signed On 09-06-2017 13:39:15 EST by Rosi Hsieh
--- NOTE | 2017-09-06 13:41 | Electrocardiograph Report ---
[address] [place], [place] [address] Test Date: 2017-09-05 Pat Name: Delia Junior Department: 109 Room: [facility] Gender: F Motion Study Technician: KERWIN : 1930 Requested By: Michelle Ramon Order Number: [id number] Reading MD: Rosi Hsieh Measurements Intervals [place] Rate: 114 P: 66 [place]: 146 QRS: 51 QRSD: 162 T: 210 QT: 359 QTc: 427 Interpretive Statements SINUS TACHYCARDIA LEFT BUNDLE BRANCH BLOCK Electronically Signed On 09-06-2017 13:39:29 EST by Rosi Hsieh
--- NOTE | 2017-09-06 13:44 | Electrocardiograph Report ---
[place] [address] Test Date: 2017-09-05 Pat Name: Delia Junior Department: 109 Room: [facility] Gender: F Technologist Development: KERWIN : 1930 Requested By: Tien Madsen Order Number: [id number] Reading MD: Rosi Hsieh Measurements Intervals [place] Rate: 77 P: 6 MT: 160 QRS: 3 QRSD: 178 T: 181 QT: 443 QTc: 475 Interpretive Statements SINUS RHYTHM WITH OCCASIONAL VENTRICULAR PREMATURE COMPLEXES LEFT BUNDLE BRANCH BLOCK Electronically Signed On 09-06-2017 13:42:41 EST by Rosi Hsieh
--- NOTE | 2017-09-06 13:54 | Electrocardiograph Report ---
[address] [place], [place] [address] Test Date: 2017-09-04 Pat Name: Delia Junior Department: 104 Room: [facility] Gender: F Genetic Coordinator: TMR : 1930 Requested By: Glenn Mcdaniels Order Number: [id number] Reading MD: Rosi Hsieh Measurements Intervals [place] Rate: 99 P: 37 [place]: 126 QRS: -11 QRSD: 162 T: 168 QT: 364 QTc: 420 Interpretive Statements SINUS RHYTHM POSSIBLE LEFT ATRIAL ENLARGEMENT LEFT BUNDLE BRANCH BLOCK Electronically Signed On 09-06-2017 13:52:47 EST by Rosi Hsieh
[2017-09-06 14:48] LABS: Calcium 8.5 mg/dL (8.6-10.8); Potassium 3.9 mEq/L (3.5-4.5)
[2017-09-06] MEDS ORDERED: *HR* FentaNYL (PF) 100 MCG/2 ML VIAL IVP ONE (17:23)
[2017-09-06] MEDS ORDERED: Milk and Molasses Enema 200 ML RC ONE (17:39)
[2017-09-06 17:40] LABS: Mean Platelet Volume 10.4 fL (9.4-12.4); Nucleated Red Blood Cells 0.1 /100 WBC (0); Red Cell Distribution Width 14.7 % (11.5-14.5)
[2017-09-06 17:42] LABS: Hemoglobin 10.8 g/dL (11.5-15.4); Mean Corpuscular HGB Conc 32.7 g/dL (31.6-35.5); Mean Corpuscular Hemoglobin 30.2 pg (28.0-33.3); Mean Corpuscular Volume 92.2 fL (83.0-100.0); Platelet Count 490 K/mcL (140-400); Red Blood Count 3.58 M/mcL (3.82-4.97)
[2017-09-06 17:57] LABS: Calcium 8.7 mg/dL (8.6-10.8); Potassium 3.6 mEq/L (3.5-4.5)
[2017-09-06] MEDS ORDERED: Vancomycin 750 MG in D5% in Water 250 ML IVPB SCH (18:00)
[2017-09-06] MEDS ORDERED: Vancomycin 1,000 MG in D5% in Water 250 ML IVPB ONE (18:00)
[2017-09-06 18:08] LABS: ABG Base Excess -7 mEq/L (-2 to 3); ABG HCO3 18 mEq/L (21-27); ABG Oxygen Saturation 95 % (95-98); ABG PCO2 30 mmHg (35-45); ABG PH 7.37 pH Units (7.32-7.45); ABG PO2 75 mmHg (85-104); ABG TCO2 19 mEq/L (20-26)
[2017-09-06 18:09] LABS: Lymphocytes # 2.5 K/mcL (0.6-4.6); Monocytes # 0.6 K/mcL (0.0-1.3); Neutrophils # 27.8 K/mcL (1.6-8.9); Smudge Cells Present (Not Present)
[2017-09-06 18:10] LABS: Anisocytosis 2+ (Not Present); Platelet Estimate Increased (Normal); Target Cells 1+ (Not Present)
[2017-09-06] MEDS: MetroNIDAZOLE 500 MG/100 ML 500 MG/100 ML BAG IVPB SCH (18:17)
--- NOTE | 2017-09-06 18:32 | Procedure Note ---
Date of procedure: 09/06/17 Pre-op diagnosis: Respiratory distress Post-op diagnosis: same Procedure: Endotracheal intubation: Patient was found to be in respiratory distress with a respiratory rate in the 40s secondary to metabolic acidosis. The concern for the patient's underlying illness and respiratory fatigue the decision to urgently intubate was made. The patient was sedated using it, 20 mg. She was preoxygenated with bag valve mask. An initial attempt was made with direct laryngoscopy and a view of the vocal cords was unable to be obtained so [place] endoscope was withdrawn and the patient was ventilated using the [id number] to return her saturations to the high 90s. A second attempt was then made with video laryngoscopy and a view of the vocal cords was obtained and a 7.5 ET tube was advanced through the vocal cords and advanced to the 23 cm chris at the lip line. CO2 detector was attached and color change was observed. Bilateral breath sounds were heard. Patient was placed on sedation with fentanyl and Precedex and connected to the ventilator. Chest x-ray to confirm placement was obtained.The attending physician, Dr. Shepherd, was present for the entire procedure. Anesthesia: IV sedation (Etomidate 20 mg) Surgeon: Vladislav Tavares Condition: critical Disposition: ICU
--- NOTE | 2017-09-06 18:37 | Event Note ---
Date of Encounter: 09/06/17 Time of Encounter: 18:32 I was called by nursing staff due to concerns for deterioration in the patient' s condition. Patient developed new onset abdominal pain and respiratory distress. She was evaluated at bedside and found to have a diffusely tender abdomen that was mildly distended but she did not have rigidity or rebound tenderness. Labs were drawn that showed an acute increase in her white blood cell count to 30 and a lactic acidosis of 5.1. At this point we are concerned for an intra-abdominal process. She did have a CT earlier in the day that was unremarkable for any acute intra-abdominal process however there was mild distention of her colon on my read. Patient was intubated (see procedure note for details) and a repeat CT has been ordered. Concern is for abdominal process including but not limited to ischemic colitis, C. difficile infection with toxic megacolon. Antibiotics were broadened out to IV vancomycin and IV Flagyl. Family was updated on the patient's condition.
--- NOTE | 2017-09-06 18:49 | Urology - Consult Note ---
Date of Encounter: 09/06/17 Time of Encounter: 18:47 - Assessment and Plan (1) Hematuria Current Visit: Yes Status: Acute Assessment and plan: gross hematuria is fairly significant. may be at risk for cath clot retention. Hematuria cath provided to ICU staff if they need to change out the cath and irrigate tonight. may need ICU. currently condition is very critical. I personally reviewed the CT scan. I agree with radiology read. no obstructing stones, no severe stranding around tract, no evidence of large clot in the bladder. no need for urgent intervention. follow cultures. initial UA + for bacteria. Qualifiers: Hematuria type: gross Qualified Code(s): R31.0 - Gross hematuria Urology CN:HPI Consult date: 09/06/17 Reason for consult Urology: Gross Hematuria History of present illness: new pt to urology service. currently in ICU intubated. elevated troponins. presented with confusion. on Heparin drip until 2 hours ago. progressive increase in GH. no clot retention. CT scan completed. Past Med Surg Social Fam HX - Past Medical History Medical history: COPD, hypertension - Past Surgical History Surgical History: hysterectomy - Social History Smoking Status: Never smoker Smokeless Tobacco Status: No Alcohol use: none Drug use: none Medications and Allergies Promethazine/Codeine [Phenergan/Codeine] 5 ml PO QPM PRN #60 ml 09/01/17 [Rx] Azithromycin [Azithromycin 6-Tab Pack] 250 mg PO PER PKG DI 09/05/17 [History] 3 Allergy/AdvReac Type Severity Reaction Status Date / Time No Known Allergies Allergy Verified 09/01/17 12:42 Review of Systems ROS unobtainable: due to endotracheal tube Exam Initial Vital Signs Temp Pulse Resp BP Pulse Ox 101.6 F H 100 20 197/115 95 09/04/17 21:06 09/04/17 21:06 09/04/17 21:06 09/04/17 21:06 09/04/17 21:06 - General physical appearance Present: chronically ill - Eyes Present: other - ENT Present: normal nares - Neck Present: no masses - Respiratory Present: other (intubated) - Cardiovascular Cardiovascular exam IM: RRR - Abdomen Abdomen: Present: soft - Integumentary Present: no rash - Neurologic Present: other - Additional Findings kelly cath with opaque gross hematuria. Urology Results - Labs 09/06/17 17:33 09/06/17 17:33 Abnormal lab results WBC 30.9 K/mcL (4.3-11.1) H* D 09/06/17 17:33 RBC 3.58 M/mcL (3.82-4.97) L 09/06/17 17:33 Hgb 10.8 g/dL (11.5-15.4) L 09/06/17 17: Hct 33.0 % (35.3-44.9) L 09/06/17 17:33 RDW 14.7 % (11.5-14.5) H 09/06/17 17:33 Plt Count 490 K/mcL (140-400) H D 09/06/17 17:33 Band Neutrophils % 12.0 % (0-4) H 09/06/17 17: Neutrophils # 27.8 K/mcL (1.6-8.9) H 09/06/17 17:33 Nucleated RBCs/100 WBC 0.1 /100 WBC (0) H 09/06/17 17:33 Smudge Cells Present (Not Present) A 09/06/17 17:33 Platelet Estimate Increased (Normal) H 09/06/17 17:33 Anisocytosis 2+ (Not Present) A 09/06/17 17: Target Cells 1+ (Not Present) A 09/06/17 17:33 PT 13.6 Seconds (9.4-12.1) H 09/05/17 06:50 APTT 41.5 Seconds (26.0-36.0) H D 09/06/17 14:21 ABG pCO2 30 mmHg (35-45) L 09/06/17 18:04 ABG pO2 75 mmHg (85-104) L 09/06/17 18:04 ABG HCO3 18 mEq/L (21-27) L 09/06/17 18:04 ABG Total CO2 19 mEq/L (20-26) L 09/06/17 18:04 ABG Base Excess -7 mEq/L (-2 to 3) L 09/06/17 18:04 BUN 44 mg/dL (7-20) H 09/06/17 17:33 Creatinine 2.13 mg/dL (0.57-1.11) H 09/06/17 17:33 Est GFR ( Amer) 27 (> 60) L 09/06/17 17:33 Est GFR (Non-Af Amer) 22 (> 60) L 09/06/17 17:33 Glucose 256 mg/dL (70-99) H 09/06/17 17:33 POC Glucose 271 (58-89) H 09/06/17 17:41 Calculated Osmolality 302 (280-300) H 09/06/17 17:33 Lactic Acid 5.1 mmol/L (0.5-2.2) H* 09/06/17 17:33 Troponin I 1.00 ng/mL (0-0.03) H* 09/06/17 17:33 B-Natriuretic Peptide 2906 pg/mL (0-100) H 09/04/17 21:20 Albumin 2.7 g/dL (3.5-5.0) L 09/05/17 01:41 Globulin 3.9 g/dL (2.4-3.5) H 09/05/17 01:41 Albumin/Globulin Ratio 0.7 (1.1-2.2) L 09/05/17 01:41 TSH 52.054 mcIU/mL (0.350-4.840) H 09/04/17 21:05 Free T4 0.61 ng/dl (0.70-1.48) L 09/05/17 14:01 Free T3 < 1.00 pg/mL (1.71-3.71) L 09/05/17 14:01 Urine Clarity Cloudy (Clear) A 09/04/17 21:33 Ur Specific [place] 1.030 (1.010-1.025) H 09/04/17 21:33 Urine Protein 100 mg/dL (Neg-Trace) H 09/04/17 21:33 Urine Blood Large (Negative) H 09/04/17 21:33 Urine Bilirubin Small (Negative) H 09/04/17 21:33 Urine Microscopic RBC 50-100 per hpf (0-3) H 09/04/17 21:33 Urine Microscopic WBC 15-30 per hpf (0-3) H 09/04/17 21:33 Ur Squamous Epith Cells Many per lpf (None-Few) H 09/04/17 21:33 Urine Bacteria Many per hpf (None-Few) H 09/04/17 21:33 Granular Casts Many per lpf (None Seen) H 09/04/17 21:33 Urine Mucus Moderate (Few) H 09/04/17 21:33 Urine Yeast Moderate per hpf (None Seen) H 09/04/17 21:33 Streptococcus sp PCR DETECTED (Not Detect) A 09/04/17 22:03 Strep pneumoniae (PCR) DETECTED (Not Detect) A 09/04/17 22:03 Diabetes panel 09/06/17 09/06/17 09/06/17 Range/Units 04:38 14:21 17:33 Sodium 136 137 136 (136-145) mEq/L Potassium 3.6 3.9 3.6 (3.5-4.5) mEq/L Chloride 103 101 99 (98-109) mEq/L Carbon Dioxide 22 22 19 (19-29) mEq/L BUN 44 H 43 H 44 H (7-20) mg/dL Creatinine 1.93 H 1.92 H 2.13 H (0.57-1.11) mg/dL Glucose 146 H 125 H 256 H (70-99) mg/dL Calcium 8.3 L 8.5 L 8.7 (8.6-10.8) mg/dL Calcium panel 09/06/17 09/06/17 09/06/17 Range/Units 04:38 14:21 17:33 Calcium 8.3 L 8.5 L 8.7 (8.6-10.8) mg/dL Phosphorus 4.2 (2.3-4.7) mg/dL Pituitary panel 09/06/17 09/06/17 09/06/17 Range/Units 04:38 14:21 17:33 Sodium 136 137 136 (136-145) mEq/L Potassium 3.6 3.9 3.6 (3.5-4.5) mEq/L Chloride 103 101 99 (98-109) mEq/L Carbon Dioxide 22 22 19 (19-29) mEq/L BUN 44 H 43 H 44 H (7-20) mg/dL Creatinine 1.93 H 1.92 H 2.13 H (0.57-1.11) mg/dL Glucose 146 H 125 H 256 H (70-99) mg/dL Calcium 8.3 L 8.5 L 8.7 (8.6-10.8) mg/dL Adrenal panel 09/06/17 09/06/17 09/06/17 Range/Units 04:38 14:21 17:33 Sodium 136 137 136 (136-145) mEq/L Potassium 3.6 3.9 3.6 (3.5-4.5) mEq/L Chloride 103 101 99 (98-109) mEq/L Carbon Dioxide 22 22 19 (19-29) mEq/L BUN 44 H 43 H 44 H (7-20) mg/dL Creatinine 1.93 H 1.92 H 2.13 H (0.57-1.11) mg/dL Glucose 146 H 125 H 256 H (70-99) mg/dL Calcium 8.3 L 8.5 L 8.7 (8.6-10.8) mg/dL All other labs normal. Consult Discharge Plan - Plan Referrals: NONE,PCP [Primary Care Provider] -
[2017-09-06] MEDS ORDERED: Levofloxacin 750 MG/150 ML 750 MG/150 ML BAG IVPB SCH (22:00)
[2017-09-06 22:50] LABS: Adenovirus Not Detected (Not Detect); Bordetella Pertussis Not Detected (Not Detect); Chlamydophila pneumoniae Not Detected (Not Detect); Coronavirus 229E Not Detected (Not Detect); Coronavirus HKU1 Not Detected (Not Detect); Coronavirus NL63 Not Detected (Not Detect); Coronavirus OC43 Not Detected (Not Detect); Human Metapneumovirus Not Detected (Not Detect); Human Rhinovirus/Enterovirus Not Detected (Not Detect); Influenza A Subtype 2009 H1 Not Detected (Not Detect); Influenza A Untypeable Not Detected (Not Detect); Influenza B Not Detected (Not Detect); Mycoplasma pneumoniae Not Detected (Not Detect); Parainfluenza Virus 1 Not Detected (Not Detect); Parainfluenza Virus 2 Not Detected (Not Detect); Parainfluenza Virus 3 Not Detected (Not Detect); Parainfluenza Virus 4 Not Detected (Not Detect); Respiratory Syncytial Virus Not Detected (Not Detect)
[2017-09-07 00:19] LABS: Basophils % 0.1 %; Hematocrit 27.8 % (35.3-44.9); Lymphocytes # 0.5 K/mcL (0.6-4.6); Lymphocytes % 2.9 %; Mean Corpuscular HGB Conc 33.1 g/dL (31.6-35.5); Mean Corpuscular Hemoglobin 30.3 pg (28.0-33.3); Mean Corpuscular Volume 91.4 fL (83.0-100.0); Mean Platelet Volume 10.3 fL (9.4-12.4); Monocytes # 0.8 K/mcL (0.0-1.3); Nucleated Red Blood Cells 0.2 /100 WBC (0); Platelet Count 313 K/mcL (140-400); Red Blood Count 3.04 M/mcL (3.82-4.97); Red Cell Distribution Width 14.6 % (11.5-14.5)
[2017-09-07 00:21] LABS: Hemoglobin 9.2 g/dL (11.5-15.4); Neutrophils # 14.2 K/mcL (1.6-8.9)
[2017-09-07] MEDS: MethylPREDNISolone 40 MG/ML VIAL IVP SCH ×4 (00:31→23:54)
[2017-09-07] MEDS: MetroNIDAZOLE 500 MG/100 ML 500 MG/100 ML BAG IVPB SCH ×2 (00:31→05:35)
[2017-09-07] MEDS: Lacri-Lube 3.5 GM TUBE BOTH EYES SCH ×6 (00:32→20:45)
[2017-09-07] MEDS: Insulin LISPRO 300 UNITS/3 ML VIAL SQ SCH ×4 (00:33→17:32)
[2017-09-07 00:34] LABS: Calcium 8.6 mg/dL (8.6-10.8); Potassium 3.7 mEq/L (3.5-4.5)
[2017-09-07 00:58] LABS: Platelet Estimate Normal (Normal)
[2017-09-07 03:49] LABS: ABG Base Excess 0 mEq/L (-2 to 3); ABG HCO3 24 mEq/L (21-27); ABG Oxygen Saturation 95 % (95-98); ABG PCO2 34 mmHg (35-45); ABG PH 7.46 pH Units (7.32-7.45); ABG PO2 72 mmHg (85-104); ABG TCO2 25 mEq/L (20-26); Blood Gas Modality VC; Blood Gas PEEP 5 cm H2O; Blood Gas Respiration Rate 14; Blood Gas VT 380 cc
[2017-09-07] MEDS: FentaNYL (PF) 1,000 MCG in 0.9 % Sodium Chloride 80 ML IVC SCH ×2 (04:20→20:46)
[2017-09-07] MEDS: Ipratropium/Albuterol Neb 3 ML IH SCH ×5 (04:23→19:38)
[2017-09-07 05:07] LABS: Hematocrit 25.4 % (35.3-44.9); Hemoglobin 8.4 g/dL (11.5-15.4); Mean Corpuscular HGB Conc 33.1 g/dL (31.6-35.5); Mean Corpuscular Hemoglobin 29.7 pg (28.0-33.3); Mean Corpuscular Volume 89.8 fL (83.0-100.0); Mean Platelet Volume 10.4 fL (9.4-12.4); Platelet Count 302 K/mcL (140-400); Red Blood Count 2.83 M/mcL (3.82-4.97); Red Cell Distribution Width 14.6 % (11.5-14.5)
[2017-09-07 05:17] LABS: Calcium 8.4 mg/dL (8.6-10.8); Magnesium 2.4 mg/dL (1.6-2.6); Phosphorous 3.9 mg/dL (2.3-4.7); Potassium 3.7 mEq/L (3.5-4.5)
[2017-09-07 05:41] LABS: Lymphocytes # 2.2 K/mcL (0.6-4.6); Neutrophils # 12.8 K/mcL (1.6-8.9); Platelet Estimate Normal (Normal)
[2017-09-07] MEDS: Budesonide/Formoterol 160/4.5 MDI IH SCH ×2 (07:38→19:39)
[2017-09-07] MEDS ORDERED: Aminoglycoside Consult 1 EACH MC ONE (08:02)
--- NOTE | 2017-09-07 08:02 | Pulmonology Progress Note ---
<PerryJohn W - Last Filed: 09/07/17 11:01> Date of Encounter: 09/07/17 Objective PUL Vital signs: Last Vital Signs Temp 98.7 F 09/07/17 08:37 Pulse 64 09/07/17 09:00 Resp 16 09/07/17 09:00 BP 145/71 09/07/17 09:00 Pulse Ox 98 09/07/17 09:00 Ventilator Settings Ventilator Settings: Ventilator Settings, Last 8 Hours Ventilator Mode VC+ Ventilator Mode VC+ Ventilator Mode A/C Ventilator Mode A/C Ventilator Mode VC+ Ventilator Mode A/C Ventilator Mode VC+ Ventilator Mode A/C Ventilator Mode VC+ Ventilator Mode A/C Ventilator Tidal Volume 380 Setting Ventilator Tidal Volume 380 Setting Ventilator Tidal Volume 380 Setting Ventilator Tidal Volume 380 Setting Ventilator Tidal Volume 380 Setting Ventilator Tidal Volume 380 Setting Ventilator Tidal Volume 380 Setting Ventilator Tidal Volume 380 Setting Ventilator Tidal Volume 380 Setting Ventilator Tidal Volume 380 Setting Ventilator Respiratory Rate 14 Setting Ventilator Respiratory Rate 14 Setting Ventilator Respiratory Rate 14 Setting Ventilator Respiratory Rate 14 Setting Ventilator Respiratory Rate 14 Setting Ventilator Respiratory Rate 14 Setting Ventilator Respiratory Rate 14 Setting Ventilator Respiratory Rate 14 Setting Ventilator Respiratory Rate 14 Setting Ventilator Respiratory Rate 14 Setting Actual Respiratory Rate 17 Actual Respiratory Rate 16 Actual Respiratory Rate 16 Actual Respiratory Rate 16 Actual Respiratory Rate 16 Actual Respiratory Rate 16 Actual Respiratory Rate 15 Actual Respiratory Rate 17 Actual Respiratory Rate 16 Positive End Expiratory 5 Pressure Positive End Expiratory 5 Pressure Positive End Expiratory 5 Pressure Positive End Expiratory 5 Pressure Positive End Expiratory 5 Pressure Positive End Expiratory 5 Pressure Positive End Expiratory 5 Pressure Positive End Expiratory 5 Pressure Positive End Expiratory 5 Pressure Positive End Expiratory 5 Pressure Peak Inspiratory Airway 20 Pressure Peak Inspiratory Airway 12 Pressure Peak Inspiratory Airway 14 Pressure Peak Inspiratory Airway 17 Pressure Peak Inspiratory Airway 15 Pressure Peak Inspiratory Airway 17 Pressure Peak Inspiratory Airway 15 Pressure Peak Inspiratory Airway 15 Pressure Peak Inspiratory Airway 14 Pressure Results - Laboratory Findings CBC and BMP: 09/07/17 04:51 09/07/17 04:51 ABG ABG pH 7.46 pH Units (7.32-7.45) H 09/07/17 03:46 ABG pCO2 34 mmHg (35-45) L 09/07/17 03:46 ABG pO2 72 mmHg (85-104) L 09/07/17 03:46 ABG O2 Saturation 95 % (95-98) 09/07/17 03:46 PT/INR, D-dimer PT 13.6 Seconds (9.4-12.1) H 09/05/17 06:50 Abnormal lab findings: Abnormal lab results WBC 16.0 K/mcL (4.3-11.1) H 09/07/17 04:51 RBC 2.83 M/mcL (3.82-4.97) L 09/07/17 04:51 Hgb 8.4 g/dL (11.5-15.4) L 09/07/17 04:51 Hct 25.4 % (35.3-44.9) L 09/07/17 04:51 RDW 14.6 % (11.5-14.5) H 09/07/17 04:51 Band Neutrophils % 26.0 % (0-4) H 09/07/17 04:51 Neutrophils # 12.8 K/mcL (1.6-8.9) H 09/07/17 04:51 Nucleated RBCs/100 WBC 0.2 /100 WBC (0) H 09/07/17 00:12 Smudge Cells Present (Not Present) A 09/06/17 17:33 Anisocytosis 2+ (Not Present) A 09/06/17 17:33 Target Cells 1+ (Not Present) A 09/06/17 17:33 PT 13.6 Seconds (9.4-12.1) H 09/05/17 06:50 APTT 41.5 Seconds (26.0-36.0) H D 09/06/17 14:21 ABG pH 7.46 pH Units (7.32-7.45) H 09/07/17 03:46 ABG pCO2 34 mmHg (35-45) L 09/07/17 03:46 ABG pO2 72 mmHg (85-104) L 09/07/17 03:46 BUN 47 mg/dL (7-20) H 09/07/17 04:51 Creatinine 1.93 mg/dL (0.57-1.11) H 09/07/17 04:51 Est GFR ( Amer) 30 (> 60) L 09/07/17 04:51 Est GFR (Non-Af Amer) 25 (> 60) L 09/07/17 04:51 POC Glucose 94 (58-89) H 09/07/17 07:48 Calcium 8.4 mg/dL (8.6-10.8) L 09/07/17 04:51 Troponin I 1.00 ng/mL (0-0.03) H* 09/06/17 17:33 B-Natriuretic Peptide 2906 pg/mL (0-100) H 09/04/17 21:20 Albumin 2.7 g/dL (3.5-5.0) L 09/05/17 01:41 Globulin 3.9 g/dL (2.4-3.5) H 09/05/17 01:41 Albumin/Globulin Ratio 0.7 (1.1-2.2) L 09/05/17 01:41 TSH 52.054 mcIU/mL (0.350-4.840) H 09/04/17 21:05 Free T4 0.61 ng/dl (0.70-1.48) L 09/05/17 14:01 Free T3 < 1.00 pg/mL (1.71-3.71) L 09/05/17 14:01 Urine Clarity Cloudy (Clear) A 09/04/17 21:33 Ur Specific [place] 1.030 (1.010-1.025) H 09/04/17 21:33 Urine Protein 100 mg/dL (Neg-Trace) H 09/04/17 21:33 Urine Blood Large (Negative) H 09/04/17 21:33 Urine Bilirubin Small (Negative) H 09/04/17 21:33 Urine Microscopic RBC 50-100 per hpf (0-3) H 09/04/17 21:33 Urine Microscopic WBC 15-30 per hpf (0-3) H 09/04/17 21:33 Ur Squamous Epith Cells Many per lpf (None-Few) H 09/04/17 21:33 Urine Bacteria Many per hpf (None-Few) H 09/04/17 21:33 Granular Casts Many per lpf (None Seen) H 09/04/17 21:33 Urine Mucus Moderate (Few) H 09/04/17 21:33 Urine Yeast Moderate per hpf (None Seen) H 09/04/17 21:33 Streptococcus sp PCR DETECTED (Not Detect) A 09/04/17 22:03 Strep pneumoniae (PCR) DETECTED (Not Detect) A 09/04/17 22:03 - Microbiology Findings Microbiology Findings: Microbiology, Last 48 Hours 09/06/17 05:54 Urine Culture - Final Urine,Catheterized No growth. 09/06/17 21:30 Sputum Culture - Preliminary Sputum 09/06/17 05:54 Legionella Antigen - Final Urine,Catheterized Streptococcus pneumoniae Antigen (M - Final - Clinical Findings Intake & Output: Intake & Output 09/06/17 09/07/17 09/07/17 23:59 07:59 15:59 Intake Total 450 / 450 540 / 540 Output Total 525 / 525 150 / 150 125 / 125 Balance -75 / -75 390 / 390 -125 / -125 Weight 59.4 kg Consult Discharge Plan - Plan Referrals: NONE,PCP [Primary Care Provider] - - Attending Attestation I examined this patient and my medical decision-making was reviewed with the Resident Physician. I agree with the documented findings, disposition and treatment plan as described except to the extent set forth below. We independently had [id number] contact with the patient The high probability of a clinically significant, sudden or life threatening deterioration of the [Cardiac and respiratory] system(s) required my full and direct attention, intervention and personal management. The aggregate critical care time was [40] minutes. This time is in addition to time spent performing reported procedures. Patient seen and examined at bedside Labs, radiology, chart personally reviewed. Management was reviewed during multidisciplinary critical care rounds. INFANTRYMAN: She is awake and alert today following commands continue sedation for event for goal Sharma 2 Pulm: Acute hypoxic respiratory failure requiring reintubation suspected secondary to cardiogenic pulmonary edema possibly precipitated by cardiac ischemia. Cards: Complicated likely obstructive coronary disease but several impediments to proceeding with left heart catheter including a TROY, acute anemia with hematuria and hypothyroidism. I discussed the case directly with the attending senior maintenance machinist plan is to continue medical management at this time. Holding heparin for hematuria. Repeat echo pending to evaluate pericardial effusion. Pending this result restart beta krish FEN-GI: Nothing by mouth for now PPI prophylaxis given Renal: Worsening kidney injury unclear baseline urine output remains adequate continue to trend serum creatinine and electrolytes daily. She has hematuria seen by urology CT abdomen without identifiable cause. May need bladder irrigation ID: Leukocytosis up to 30 yesterday now back to 16 which was stable from previous day. She is being treated for strep pneumo pneumonia she was broadened to Vanc and Flagyl overnight which we will stop today. Heme/Onc: Acute anemia with hematuria heparin on hold. [employer] medical hemoglobin around 9 Endo: Glucose Monitored, Chronic hypothyroidism it appears the patient received 200 g dose of levothyroxine. Clinically no evidence of fever or tachycardia sweating she does have evidence of worsening cardiac ischemia that could potentially be related .Holding further replacement at this time. Plan to update patient and family. Integ/MSK: Skin Care per routine ICU Nursing Protocol to prevent ulcers. Lines: All lines examined without evidence of infection : Dispo: Remain ICU for critical illness CODE: Full prognosis guarded <Kenyetta Alvarez - Last Filed: 09/07/17 13:13> Date of Encounter: 09/07/17 Time of Encounter: 07:00 Assessment and Plan (1) Acute respiratory failure with hypoxia Current Visit: Yes Status: Acute - Noted to have significant respiratory even on BiPAP and eventually intubated in ICU. - Initial ABG pH 7.33, pCO2 33, pO2 58 and HCO3 18. - Likely secondary to pulmonary edema, LLL pneumonia and/or COPD exacerbation. - Patient was extubated n 09/06 but reintubated later the same day for acute onset respiratory distress. The lab findings (one-time elevation of lactic acid and leukocytosis on 09/06 and elevated troponin on 09/07) and change between two CT A/P on same day (more prominent bibasilar consolidation, L > R) raises the concern of acute worsening of cardiogenic pulmonary edema. Feel more likely secondary to cardiac rather than infection. - Still intubated and on ventilation support. ABG pH 7.46, pCO2 34, pO2 72 and HCO3 24 this morning. - Continue antibiotic for pneumonia and steroid & bronchodilators for COPD. - Continue to monitor closely. (2) Elevated troponin Current Visit: Yes Status: Acute - Initial troponin negative (0.03) but then peaked at 2.90 before downtrended to 1.00 on 09/06. Troponin elevated again at 7.42 this morning. - EKG showed LBBB - Echocardiogram on 09/05 showed LVEF 45% with indeterminated diastolic function. Atypical septal motion consistent with bundle branch block. A small to moderate circumferential pericardial effusion, most prominent anteriorly, also noted. - Repeat echo done today, result pending. - Continue to monitor closely with serial troponin. - Appreciate cardiology evaluation and recommendation. (3) Sepsis Current Visit: Yes Status: Acute - 4 SIRS criteria (fever, tachycardia, tachypnea and leukocytosis) on admission with lactic acid 1.4. - Likely secondary to pneumonia as suggested by focal consolidation in the left lower lobe on CXR. - Known Streptococcus pneumoniae given positive 2/2 blood cultures. Almost dickey- sensitive except resistance to erythromycin. - Patient had acute onset of respiratory distress on 09/06/17 requiring re- intubation. And IV vancomycin and metronidazole were added for broader-spectrum coverage. - CT A/P does not suggest GI or as source of infection. - Continue IV ceftriaxone (since 09/05). Discontinue vancomycin and metronidazole as the acute respiratory distress on 09/06 was believed to come from cardiac condition rather than infection. - Patient received IV fluid in ED. Will hold at this time given current CHF picture. Qualifiers: Sepsis type: sepsis due to unspecified organism Qualified Code(s): A41.9 - Sepsis, unspecified organism (4) Pneumonia Current Visit: Yes Status: Acute - CXR suggested pulmonary edema along with focal consolidation in the left lower lobe concerning of pneumonia. - Known Streptococcus pneumoniae given positive 2/2 blood cultures. Almost dickey- sensitive except resistance to erythromycin. - Patient had acute onset of respiratory distress on 09/06/17 requiring re- intubation. And IV vancomycin and metronidazole were added for broader-spectrum coverage. - Continue IV ceftriaxone (since 09/05). Discontinue vancomycin and metronidazole as the acute respiratory distress on 09/06 was believed to come from cardiac condition rather than infection. Qualifiers: Pneumonia type: due to Pneumococcus Laterality: left Lung location: lower lobe of lung Qualified Code(s): J13 - Pneumonia due to Streptococcus pneumoniae (5) Congestive heart failure Current Visit: Yes Status: Acute - CXR suggested pulmonary edema along with focal consolidation in the left lower lobe concerning of pneumonia. - Patient had received 100 mg of IV Lasix on the day of admission. - Echocardiogram on 09/05/17 showed LVEF 45% with indeterminated diastolic function. Atypical septal motion consistent with bundle branch block. A small to moderate circumferential pericardial effusion, most prominent anteriorly, also noted. - Repeat echocardiogram pending. - Net 240 mL so far. - Avoid beta-krish at this time Qualifiers: Congestive heart failure type: unspecified congestive heart failure type Congestive heart failure chronicity: acute on chronic Qualified Code(s): I50.9 - Heart failure, unspecified (6) Hypothyroidism Current Visit: Yes Status: Acute - Highly elevated TSH (52.054) on admission. - Low free T4 (0.61) and free T3 (<1.00). - Patient had received one dose of IV Synthroid 200 mcg in ED and no more thyroid supplement since. - Case was discussed with Dr. Amador, will continue to hold at this time. Qualifiers: Hypothyroidism type: unspecified Qualified Code(s): E03.9 - Hypothyroidism , unspecified (7) Hematuria Current Visit: Yes Status: Acute - Hematuria in urinary catheter noted after patient was started on heparin drip. - CT A/P found no obstructive stones, no severe stranding around tract and no evidence of large clot in the bladder - Urine culture no growth. - Heparin drip had been held for the drop in Hgb. - Per urologist Dr. Ramirez who examined patient this morning, the urine had been clean since discontinuation of heparin drip and no indication for urgent intervention at this time. - Continue to monitor. . Qualifiers: Hematuria type: gross Qualified Code(s): R31.0 - Gross hematuria (8) Acute encephalopathy Current Visit: Yes Status: Acute - Reported altered mental status prior to arrival in ED. - Likely metabolic in the setting of sepsis/pneumonia and acute respiratory failure. - CT head found large amount of small vessel ischemic change bilaterally with some old infarts but cannot exclude the possibility of a subtle superimposed recent ischemic focus. MRI is recommended for further investigation. - Seems to improve as patient appears to be alert with some degree of orientation even stil intubated. - Continue to monitor closely. (9) COPD (chronic obstructive pulmonary disease) Current Visit: Yes Status: Chronic - Possible COPD exacerbation precipitated by recent respiratory infection. - Continue Solu-Medrol, Symbicort and bronchodilators. Qualifiers: COPD type: COPD with acute exacerbation Qualified Code(s): J44.1 - Chronic obstructive pulmonary disease with (acute) exacerbation (10) DVT prophylaxis Current Visit: Yes Status: Acute - Continue EPCD. GI prophylaxis: Protonix IV Subjective Principal diagnosis: Acute hypoxic respiratory failure Interval history: Patient was noted to have complaint of abdominal pain and then developed acute respiratory distress requiring re-intubation. Patient was seen and examined this morning. Patient is intubated but alert and orient as she opens eyes spontaneously and able to nod and shake head to answer questions. Objective PUL Vital signs: Last Vital Signs Temp 99.3 F 09/07/17 04:50 Pulse 62 09/07/17 07:00 Resp 16 09/07/17 07:00 BP 109/59 09/07/17 07:00 Pulse Ox 98 09/07/17 07:00 General appearance: no acute distress, alert Eyes: nonicteric ENT: other (Intubated) Neck: supple Effort: normal Auscultation: bilateral: clear Cardiovascular: regular rate and rhythm Gastrointestinal: normoactive bowel sounds, soft Integumentary: normal Extremities: no cyanosis, no edema Musculoskeletal: no deformities Ventilator Settings Ventilator Settings: Ventilator Settings, Last 8 Hours Ventilator Mode VC+ Ventilator Mode VC+ Ventilator Mode A/C Ventilator Mode A/C Ventilator Mode VC+ Ventilator Mode A/C Ventilator Mode VC+ Ventilator Mode A/C Ventilator Mode VC+ Ventilator Mode A/C Ventilator Mode A/C Ventilator Tidal Volume 380 Setting Ventilator Tidal Volume 380 Setting Ventilator Tidal Volume 380 Setting Ventilator Tidal Volume 380 Setting Ventilator Tidal Volume 380 Setting Ventilator Tidal Volume 380 Setting Ventilator Tidal Volume 380 Setting Ventilator Tidal Volume 380 Setting Ventilator Tidal Volume 380 Setting Ventilator Tidal Volume 380 Setting Ventilator Tidal Volume 380 Setting Ventilator Respiratory Rate 14 Setting Ventilator Respiratory Rate 14 Setting Ventilator Respiratory Rate 14 Setting Ventilator Respiratory Rate 14 Setting Ventilator Respiratory Rate 14 Setting Ventilator Respiratory Rate 14 Setting Ventilator Respiratory Rate 14 Setting Ventilator Respiratory Rate 14 Setting Ventilator Respiratory Rate 14 Setting Ventilator Respiratory Rate 14 Setting Ventilator Respiratory Rate 14 Setting Actual Respiratory Rate 17 Actual Respiratory Rate 16 Actual Respiratory Rate 16 Actual Respiratory Rate 16 Actual Respiratory Rate 16 Actual Respiratory Rate 16 Actual Respiratory Rate 15 Actual Respiratory Rate 17 Actual Respiratory Rate 16 Actual Respiratory Rate 18 Positive End Expiratory 5 Pressure Positive End Expiratory 5 Pressure Positive End Expiratory 5 Pressure Positive End Expiratory 5 Pressure Positive End Expiratory 5 Pressure Positive End Expiratory 5 Pressure Positive End Expiratory 5 Pressure Positive End Expiratory 5 Pressure Positive End Expiratory 5 Pressure Positive End Expiratory 5 Pressure Positive End Expiratory 5 Pressure Peak Inspiratory Airway 20 Pressure Peak Inspiratory Airway 12 Pressure Peak Inspiratory Airway 14 Pressure Peak Inspiratory Airway 17 Pressure Peak Inspiratory Airway 15 Pressure Peak Inspiratory Airway 17 Pressure Peak Inspiratory Airway 15 Pressure Peak Inspiratory Airway 15 Pressure Peak Inspiratory Airway 14 Pressure Peak Inspiratory Airway 14 Pressure Results - Laboratory Findings CBC and BMP: 09/07/17 04:51 09/07/17 04:51 ABG ABG pH 7.46 pH Units (7.32-7.45) H 09/07/17 03:46 ABG pCO2 34 mmHg (35-45) L 09/07/17 03:46 ABG pO2 72 mmHg (85-104) L 09/07/17 03:46 ABG O2 Saturation 95 % (95-98) 09/07/17 03:46 PT/INR, D-dimer PT 13.6 Seconds (9.4-12.1) H 09/05/17 06:50 Abnormal lab findings: Abnormal lab results WBC 16.0 K/mcL (4.3-11.1) H 09/07/17 04:51 RBC 2.83 M/mcL (3.82-4.97) L 09/07/17 04:51 Hgb 8.4 g/dL (11.5-15.4) L 09/07/17 04:51 Hct 25.4 % (35.3-44.9) L 09/07/17 04:51 RDW 14.6 % (11.5-14.5) H 09/07/17 04:51 Band Neutrophils % 26.0 % (0-4) H 09/07/17 04:51 Neutrophils # 12.8 K/mcL (1.6-8.9) H 09/07/17 04:51 Nucleated RBCs/100 WBC 0.2 /100 WBC (0) H 09/07/17 00:12 Smudge Cells Present (Not Present) A 09/06/17 17:33 Anisocytosis 2+ (Not Present) A 09/06/17 17:33 Target Cells 1+ (Not Present) A 09/06/17 17:33 PT 13.6 Seconds (9.4-12.1) H 09/05/17 06:50 APTT 41.5 Seconds (26.0-36.0) H D 09/06/17 14:21 ABG pH 7.46 pH Units (7.32-7.45) H 09/07/17 03:46 ABG pCO2 34 mmHg (35-45) L 09/07/17 03:46 ABG pO2 72 mmHg (85-104) L 09/07/17 03:46 BUN 47 mg/dL (7-20) H 09/07/17 04:51 Creatinine 1.93 mg/dL (0.57-1.11) H 09/07/17 04:51 Est GFR ( Amer) 30 (> 60) L 09/07/17 04:51 Est GFR (Non-Af Amer) 25 (> 60) L 09/07/17 04:51 POC Glucose 94 (58-89) H 09/07/17 07:48 Calcium 8.4 mg/dL (8.6-10.8) L 09/07/17 04:51 Troponin I 1.00 ng/mL (0-0.03) H* 09/06/17 17:33 B-Natriuretic Peptide 2906 pg/mL (0-100) H 09/04/17 21:20 Albumin 2.7 g/dL (3.5-5.0) L 09/05/17 01:41 Globulin 3.9 g/dL (2.4-3.5) H 09/05/17 01:41 Albumin/Globulin Ratio 0.7 (1.1-2.2) L 09/05/17 01:41 TSH 52.054 mcIU/mL (0.350-4.840) H 09/04/17 21:05 Free T4 0.61 ng/dl (0.70-1.48) L 09/05/17 14:01 Free T3 < 1.00 pg/mL (1.71-3.71) L 09/05/17 14:01 Urine Clarity Cloudy (Clear) A 09/04/17 21:33 Ur Specific [place] 1.030 (1.010-1.025) H 09/04/17 21:33 Urine Protein 100 mg/dL (Neg-Trace) H 09/04/17 21:33 Urine Blood Large (Negative) H 09/04/17 21:33 Urine Bilirubin Small (Negative) H 09/04/17 21:33 Urine Microscopic RBC 50-100 per hpf (0-3) H 09/04/17 21:33 Urine Microscopic WBC 15-30 per hpf (0-3) H 09/04/17 21:33 Ur Squamous Epith Cells Many per lpf (None-Few) H 09/04/17 21:33 Urine Bacteria Many per hpf (None-Few) H 09/04/17 21:33 Granular Casts Many per lpf (None Seen) H 09/04/17 21:33 Urine Mucus Moderate (Few) H 09/04/17 21:33 Urine Yeast Moderate per hpf (None Seen) H 09/04/17 21:33 Streptococcus sp PCR DETECTED (Not Detect) A 09/04/17 22:03 Strep pneumoniae (PCR) DETECTED (Not Detect) A 09/04/17 22:03 - Microbiology Findings Microbiology Findings: Microbiology, Last 48 Hours 09/06/17 05:54 Urine Culture - Final Urine,Catheterized No growth. 09/06/17 21:30 Sputum Culture - Preliminary Sputum 09/06/17 05:54 Legionella Antigen - Final Urine,Catheterized Streptococcus pneumoniae Antigen (M - Final - Diagnostic Findings Chest x-ray: report reviewed, image reviewed - Clinical Findings Intake & Output: Intake & Output 09/06/17 09/07/17 09/07/17 23:59 07:59 15:59 Intake Total 450 / 450 540 / 540 Output Total 525 / 525 150 / 150 Balance -75 / -75 390 / 390 Weight 59.4 kg - VTE Documentation of Mechanical Device: Graduated compression elastic hosiery
[2017-09-07] MEDS: Aspirin 81 MG TAB.CHEW PO SCH (08:39)
[2017-09-07] MEDS: Pantoprazole 40 MG VIAL IVPB SCH (08:39)
[2017-09-07] MEDS: Chlorhexidine Rinse 15 ML MOUTHWASH MM SCH ×2 (08:39→20:44)
[2017-09-07] MEDS: cefTRIAXone 2,000 MG in Water for inj. (sterile) 20 ML IVP SCH (08:39)
--- NOTE | 2017-09-07 10:38 | Event Note ---
Date of Encounter: 09/07/17 Time of Encounter: 10:31 - Cardiology Event Note 86 YOF with TSH of 54 and cardiomyopathy now reintubated. Patient was on BIPAP and was not doing well. Troponins were trending down to 1 from a peak of 2.67. EKG remains a LBBB. Repeat ECHO this am reveals continued global HK and an EF around 40%. Concern for acute decompensation and CO now while patient on Vent ( troponin currently up from 1 to 7). Patient likely would benefit from a low dose of T4 (12.5 - 25ugm). A LHC was intially considered however with relatively preserved EF and no isolated anterior wall severe Hypokinesis medical management was felt more appropriate. This medical management should include only a low dose of T4 supplement along with mild diuresis. If troponin continues to trend upwards we can consider it but likely would be high risk for worsening anemia in the setting of hematuria and TROY. Repeat ECHO this am shows no worsening of EF or pericardial effusion. No features of tamponade. D/W Dr. Amador. Will discuss risks/benefits with the family.
--- NOTE | 2017-09-07 10:40 | Event Note ---
Date of Encounter: 09/07/17 Time of Encounter: 10:38 I discussed with the patient's healthcare power of retort firer Diogo on the phone regarding a possible medical error. It appears that the patient received 200 g of Synthroid on admission. Given underlying cardiac comorbidities this dose could be associated with serious morbidity or mortality. We will continue to determine the cause of this and keep the family updated as more information is available. All questions were answered and he expressed understanding
[2017-09-07 10:46] LABS: Triiodothyronine (T3) Free < 1.00 pg/mL (1.71-3.71)
[2017-09-07 10:47] LABS: Creatine Kinase 269 Units/L (29-168)
[2017-09-07 12:44] LABS: Vancomycin,Random 12.9 mcg/mL
[2017-09-07] MEDS ORDERED: 0.9 % Sodium Chloride 250 ML ONE (12:58)
--- NOTE | 2017-09-07 14:26 | Cardiology Progress Note ---
Date of Encounter: 09/07/17 Time of Encounter: 08:30 Assessment and Plan (1) Hypothyroidism Current Visit: Yes Status: Acute Per cardiology: -Severe hypothryoidism. -Management per primary service. Qualifiers: Hypothyroidism type: unspecified Qualified Code(s): E03.9 - Hypothyroidism , unspecified (2) Congestive heart failure Current Visit: Yes Status: Acute Per cardiology: -Acute on Chronic CHF with hypoxic respiratory failure, unknown etiology -TTE with LVEF 45%, indeterminate diastolic function, atypical septal motion consistent with bundle branch block, mild concentric LVH, mild-moderately sclerotic aortic valve leaflets, moderate MR, small to moderate pericardial effusion, not diagnostic for tamponade, apex, apical inferior, mid inferior, basal inferior, apical anterior, mid anterior and basal anterior cedeno hypokinetic. Mid anterior septal and basal anterior septal cedeno dyskinetic. ALl other wall segments with normal motion. -Repeat TTE today with Moderate left ventricular systolic dysfunction. LVEF 45% . with slight improvement of the anteroseptal wall. Left Ventricular Wall Motion : The apex, apical inferior, mid inferior, basal inferior, apical anterior, mid anterior, basal anterior, mid anterior septal and basal anterior septal cedeno were hypokinetic. All other wall segments showed normal motion. -On beta krish, held due to hypotension. Not on megan inhibitor due to TROY. -EKG on arrival showed LBBB not previously documented, CXR shows pulmonary vascular congestion -BNP 2906, TSH 52.05. -Net positive fluid balance. -Weight on admission 61.2kg, weight today 59.4kg. -Strict i/os, daily weights, fluid restriction. Recommend 1.5L/day of fluid restriction when able to take PO. -Continuous cardiac and oximetry monitoring -Will repeat chest x-ray now, will decide diuresis pending chest x-ray Qualifiers: Congestive heart failure type: unspecified congestive heart failure type Congestive heart failure chronicity: acute on chronic Qualified Code(s): I50.9 - Heart failure, unspecified (3) Elevated troponin Current Visit: Yes Status: Acute Per cardiology: -Initially troponins 0.03, 1.38, 2.63, 2.9, 2.79, 1. -After acute event yesterday troponin 7.42, now down trending to 6.97. -NSTEMI versus demand ischemia. -TTE with LVEF 45%, wall motion abnormalities noted. -Repeat TTE with LVEF 45% with slight improvement of anteroseptal wall. -ECG with LBBB. -Per discussion with , suspect will need [facility] in the future. -Medical management at this time due to hematuria, anemia, TROY, severe hypothyroidism. No cardiac rehab at this time. Discussion w patient/family: The assessment and plan as outlined above was discussed with the patient. All questions were answered. Thank you for involving us in the care of your patient. Please call with any questions. Discussed and reviewed with . Subjective Principal diagnosis: Acute hypoxic respiratory failure Interval history: Patient intubated and sedated. Opens eyes to verbal stimuli. Objective Vital Signs, Last 4 Hours Temp Pulse Resp BP Pulse Ox 09/07/17 13:20 98.1 F 62 22 139/69 99 09/07/17 12:11 98.4 F 09/07/17 12:00 61 14 124/62 100 09/07/17 11:24 98.4 F 09/07/17 11:13 57 09/07/17 11:00 57 14 103/48 99 09/07/17 10:31 64 16 145/71 98 General: Other (Intubated and sedated) HEENT: Atraumatic, Normocephaly, Mucus Membranes Moist Neck: No JVD, Normal carotid pulses Cardiac: Reg Rate and Rhythm, Normal S1 and S2, No Murmur Lungs: Normal Breath Sounds, No Wheeze, Rales, Rhonchi, Other (Intubated. FiO2 40%. ) Neuro: Other (Intubated and sedated) Abdomen: Soft Skin: No rashes noted on visualized skin Musculoskeletal: No Chest Wall Tenderness Extremities: No Clubbing, No Cyanosis, No Edema, Normal Pulses Results 09/07/17 04:51 09/07/17 04:51 Lab Results 09/06/17 09/06/17 09/06/17 14:21 14:21 17:33 WBC 30.9 H* D Hgb 10.8 L Hct 33.0 L Plt Count 490 H D APTT 41.5 H D Sodium 137 Potassium 3.9 Chloride 101 Carbon Dioxide 22 BUN 43 H Creatinine 1.92 H Glucose 125 H Calcium 8.5 L Magnesium 2.0 Troponin I Impressions Chest X-Ray 09/06/17 17:13 IMPRESSION: Stable cardiomegaly with small left pleural effusion and moderate pulmonary edema. Left basilar atelectasis and/or consolidation is stable. D/ / Lars Graham MD / Lars Graham MD Interpreting Provider: Lars Graham MD Abdomen/Pelvis CT 09/06/17 18:27 IMPRESSION: Extensive left worse than right lower lobe consolidation likely representing pneumonia. Pulmonary interstitial thickening could be due to infection or hydrostatic pulmonary edema. Small pericardial effusion and bilateral pleural effusions. D/ / 09/06/2017 20:40:09 Armani Hdz MD / emilia Interpreting Provider: Armani Hdz MD Chest X-Ray 09/06/17 18:42 IMPRESSION: 1. Endotracheal tube tip 6 cm from the manuela. Recommend retraction. 2. Enteric tube side port projects at the level of the GE junction. Recommend advancement by approximately 5 cm. 3. Moderate pulmonary edema. D/ / Asif Dodson MD / Asif Dodson MD Interpreting Provider: Asif Dodson MD Chest X-Ray 09/06/17 21:24 IMPRESSION: 1. Interval retraction of the endotracheal tube which now projects 1.8 cm from the manuela. 2. Interval advancement of the enteric tube with side port now projecting over the gastric body. 3. Stable appearance of the lungs. D/ / Asif Dodson MD / Asif Dodson MD Interpreting Provider: Asif Dodson MD X-Ray 09/06/17 21:24 IMPRESSION: Enteric tube tip and side hole within the stomach body. D/ / Armani Hdz MD / Armani Hdz MD Interpreting Provider: Armani Hdz MD Echocardiogram Limited Views 09/07/17 06:48 Impressions: Moderate left ventricular systolic dysfunction. LVEF 45%. with slight improvement of the anteroseptal wall Left Ventricular Wall Motion: Rest Echo Findings The apex, apical inferior, mid inferior, basal inferior, apical anterior, mid anterior, basal anterior, mid anterior septal and basal anterior septal cedeno were hypokinetic. All other wall segments showed normal motion. Findings: Study Quality * Technically adequate exam. ECG Findings * Normal sinus rhythm. Left Ventricle * LVEF 45%. * Moderate left ventricular systolic dysfunction. Active Medications Acetaminophen (Tylenol 650mg Supp) 650 mg RC Q6HR PRN PRN Reason: fever GREATER than 101.2 F Stop: 03/07/18 00:47 Albuterol Sulfate (Albuterol Inhaler) 2 puff IH Q2HR PRN PRN Reason: Shortness Of Breath/Wheezing Stop: 03/07/18 11:10 Albuterol/Ipratropium (Duoneb) 3 ml IH [id number] YULY Stop: 03/07/18 01:01 Last Admin: 09/07/17 11:00 Dose: 3 ml Artificial Tears (Lacri-Lube) 1 appl BOTH EYES Q4HR YULY PRN Reason: Protocol Stop: 03/07/18 12:01 Last Admin: 09/07/17 11:19 Dose: Not Given Artificial Tears (Lacri-Lube) 1 appl BOTH EYES Q2HR PRN; Protocol PRN Reason: Dry Eyes Stop: 03/07/18 11:10 Aspirin (Aspirin) 81 mg PO DAILY YULY Stop: 03/07/18 09:46 Last Admin: 09/07/17 08:39 Dose: 81 mg Atorvastatin Calcium (Lipitor) 20 mg PO HS YULY Stop: 03/07/18 21:01 Last Admin: 09/06/17 22:34 Dose: 20 mg Budesonide/Formoterol Fumarate (Symbicort) 2 puff IH BIDR YULY PRN Reason: Protocol Stop: 03/07/18 22:01 Last Admin: 09/07/17 07:38 Dose: 2 puff Chlorhexidine Gluconate (Chlorhexidine Rinse) 15 ml MM BID YULY Stop: 03/07/18 21:01 Last Admin: 09/07/17 08:39 Dose: 15 ml Dextrose/Water (Dextrose 50% (Syg)) 25 ml IVP AD PRN PRN Reason: Hypoglycemia Stop: 03/07/18 02:42 Glucagon (Glucagen) 1 mg IM ONCE PRN PRN Reason: Hypoglycemia Stop: 03/07/18 02:42 Glucose (Gluctose) 15 gm PO ONCE PRN PRN Reason: Hypoglycemia Stop: 03/07/18 02:42 Glucose (Gluctose) 30 gm PO ONCE PRN PRN Reason: Hypoglycemia Stop: 03/07/18 02:42 Dextrose (Dextrose 5%) 1,000 mls @ 100 mls/hr IVC .Q10H PRN PRN Reason: HYPOGLYCEMIA Stop: 03/07/18 02:42 Ceftriaxone Sodium 2,000 mg/ (Sterile Water) 20 mls @ 600 mls/hr IVP Q24H YULY Stop: 03/07/18 09:01 Last Admin: 09/07/17 08:39 Dose: 200 mls/hr Dexmedetomidine HCl (Precedex Premix) 400 mcg in 100 mls @ 2.895 mls/hr IVC .Q24H YULY; 0.2 MCG/KG/HR PRN Reason: Protocol Stop: 03/07/18 08:31 Last Admin: 09/06/17 22:34 Dose: 0.5 mcg/kg/hr, 7.238 mls/hr Fentanyl Citrate 1,000 mcg/ (Sodium Chloride) 100 mls @ 5 mls/hr IVC CONT YULY; 50 MCG/HR PRN Reason: Protocol Stop: 03/07/18 08:31 Last Admin: 09/07/17 04:20 Dose: 50 mcg/hr, 5 mls/hr Insulin Human Lispro (Humalog) 0 units SQ Q6HR YULY PRN Reason: Protocol Stop: 03/07/18 06:01 Last Admin: 09/07/17 11:19 Dose: Not Given Methylprednisolone (Solu-Medrol) 40 mg IVP Q8HR YULY Stop: 03/07/18 08:01 Last Admin: 09/07/17 08:39 Dose: 40 mg Naloxone HCl (Narcan) 0.4 mg IVP Q2MIN PRN PRN Reason: Opioid Reversal Stop: 03/07/18 00:47 Pantoprazole Sodium (Protonix) 40 mg IVPB DAILY YULY Stop: 03/07/18 01:01 Last Admin: 09/07/17 08:39 Dose: 40 mg Laboratory Tests 09/04/17 09/04/17 09/04/17 21:05 21:05 21:05 WBC Hgb 11.7 Creatinine 1.50 H Creatine Kinase Troponin I 0.03 TSH 52.054 H 09/05/17 09/05/17 09/05/17 04:22 08:22 14:01 WBC Hgb Creatinine Creatine Kinase Troponin I 1.38 H* 2.63 H* 2.90 H* TSH 09/05/17 09/06/17 09/06/17 14:01 04:38 17:33 WBC Hgb Creatinine Creatine Kinase 157 Troponin I 2.79 H* 1.00 H* [facility] 09/07/17 09/07/17 09/07/17 00:12 00:12 09:05 WBC 16.1 H Hgb 9.2 L D Creatinine 2.14 H Creatine Kinase Troponin I 7.42 H* TSH 09/07/17 09/07/17 09/07/17 09:05 12:11 12:11 WBC Hgb Creatinine Creatine Kinase 269 H 250 H Troponin I 6.97 H* TSH - Imaging and Cardiology Chest Xray: report reviewed Echo: report reviewed - EKG Interpretation EKG results cardiology: personally reviewed (ECG today with SR, LBBB.), other ( Telemetry reviewed with average HR previous 12 hours noted to be 67, sinus rhythm. PVCS and PACs noted.) - VTE Documentation of Mechanical Device: Graduated compression elastic hosiery Consult Discharge Plan - Plan Referrals: NONE,PCP [Primary Care Provider] -
[2017-09-07] MEDS: Dexmedetomidine HCl 400 MCG/100 ML MLS IVC SCH (14:49)
[2017-09-07 16:17] LABS: Basophils % 0.2 %; Hematocrit 29.2 % (35.3-44.9); Hemoglobin 9.5 g/dL (11.5-15.4); Immature Granulocytes % 3.5 % (0-4); Lymphocytes # 0.4 K/mcL (0.6-4.6); Lymphocytes % 2.4 %; Mean Corpuscular HGB Conc 32.5 g/dL (31.6-35.5); Mean Corpuscular Hemoglobin 29.5 pg (28.0-33.3); Mean Corpuscular Volume 90.7 fL (83.0-100.0); Mean Platelet Volume 10.3 fL (9.4-12.4); Monocytes # 0.3 K/mcL (0.0-1.3); Monocytes % 1.9 %; Platelet Count 310 K/mcL (140-400); Red Blood Count 3.22 M/mcL (3.82-4.97); Red Cell Distribution Width 14.6 % (11.5-14.5)
--- NOTE | 2017-09-07 20:28 | Urology Progress Note ---
Date of Encounter: 09/07/17 Time of Encounter: 09:00 - Assessment and Plan (1) Hematuria Current Visit: Yes Status: Resolved Assessment and plan: resolving now that heparin drip has bee stopped. no intervention needed. Qualifiers: Hematuria type: gross Qualified Code(s): R31.0 - Gross hematuria Progress Note Narrative: pt remains intubated Objective Initial Vital Signs Temp Pulse Resp BP Pulse Ox 101.6 F H 100 20 197/115 95 09/04/17 21:06 09/04/17 21:06 09/04/17 21:06 09/04/17 21:06 09/04/17 21:06 - General physical appearance Present: chronically ill - Additional Exam urine in tubing now nearly clear. - Labs 09/07/17 15:57 09/07/17 04:51 Diabetes panel 09/07/17 09/07/17 Range/Units 00:12 04:51 Sodium 137 136 (136-145) mEq/L Potassium 3.7 3.7 (3.5-4.5) mEq/L Chloride 102 104 (98-109) mEq/L Carbon Dioxide 25 24 (19-29) mEq/L BUN 47 H 47 H (7-20) mg/dL Creatinine 2.14 H 1.93 H (0.57-1.11) mg/dL Glucose 82 89 (70-99) mg/dL Calcium 8.6 8.4 L (8.6-10.8) mg/dL Calcium panel 09/07/17 09/07/17 Range/Units 00:12 04:51 Calcium 8.6 8.4 L (8.6-10.8) mg/dL Phosphorus 3.9 (2.3-4.7) mg/dL Pituitary panel 09/07/17 09/07/17 Range/Units 00:12 04:51 Sodium 137 136 (136-145) mEq/L Potassium 3.7 3.7 (3.5-4.5) mEq/L Chloride 102 104 (98-109) mEq/L Carbon Dioxide 25 24 (19-29) mEq/L BUN 47 H 47 H (7-20) mg/dL Creatinine 2.14 H 1.93 H (0.57-1.11) mg/dL Glucose 82 89 (70-99) mg/dL Calcium 8.6 8.4 L (8.6-10.8) mg/dL Adrenal panel 09/07/17 09/07/17 Range/Units 00:12 04:51 Sodium 137 136 (136-145) mEq/L Potassium 3.7 3.7 (3.5-4.5) mEq/L Chloride 102 104 (98-109) mEq/L Carbon Dioxide 25 24 (19-29) mEq/L BUN 47 H 47 H (7-20) mg/dL Creatinine 2.14 H 1.93 H (0.57-1.11) mg/dL Glucose 82 89 (70-99) mg/dL Calcium 8.6 8.4 L (8.6-10.8) mg/dL - VTE Documentation of Mechanical Device: Graduated compression elastic hosiery Consult Discharge Plan - Plan Referrals: NONE,PCP [Primary Care Provider] -
[2017-09-08] MEDS: Lacri-Lube 3.5 GM TUBE BOTH EYES SCH ×6 (00:11→21:04)
[2017-09-08] MEDS: Insulin LISPRO 300 UNITS/3 ML VIAL SQ SCH ×5 (00:11→23:55)
[2017-09-08] MEDS: Ipratropium/Albuterol Neb 3 ML IH SCH ×6 (00:22→19:55)
[2017-09-08 03:20] LABS: Basophils % 0.2 %; Hemoglobin 9.7 g/dL (11.5-15.4); Immature Granulocytes % 2.8 % (0-4); Lymphocytes # 0.3 K/mcL (0.6-4.6); Lymphocytes % 1.9 %; Mean Corpuscular HGB Conc 33.4 g/dL (31.6-35.5); Mean Corpuscular Hemoglobin 30.2 pg (28.0-33.3); Mean Corpuscular Volume 90.3 fL (83.0-100.0); Mean Platelet Volume 10.1 fL (9.4-12.4); Monocytes # 0.2 K/mcL (0.0-1.3); Monocytes % 1.3 %; Nucleated Red Blood Cells 0.1 /100 WBC (0); Platelet Count 289 K/mcL (140-400); Red Blood Count 3.21 M/mcL (3.82-4.97); Red Cell Distribution Width 15.2 % (11.5-14.5); Segmented Neutrophils % 93.8 %
[2017-09-08 03:30] LABS: Calcium 8.5 mg/dL (8.6-10.8); Magnesium 2.6 mg/dL (1.6-2.6); Phosphorous 4.4 mg/dL (2.3-4.7); Potassium 3.3 mEq/L (3.5-4.5)
[2017-09-08] MEDS ORDERED: Potassium Chloride Elixir 20 MEQ/15 ML UDC GTUBE ONE (04:26)
[2017-09-08 05:48] LABS: ABG Base Excess -6 mEq/L (-2 to 3); ABG HCO3 18 mEq/L (21-27); ABG Oxygen Saturation 98 % (95-98); ABG PCO2 28 mmHg (35-45); ABG PH 7.41 pH Units (7.32-7.45); ABG PO2 104 mmHg (85-104); ABG TCO2 19 mEq/L (20-26); Blood Gas Modality ASSIST CONTROL; Blood Gas PEEP 5 cm H2O; Blood Gas Respiration Rate 14; Blood Gas VT 380 cc
[2017-09-08] MEDS: Budesonide/Formoterol 160/4.5 MDI IH SCH ×2 (07:29→19:55)
--- NOTE | 2017-09-08 07:37 | Pulmonology Progress Note ---
<Kenyetta Alvarez - Last Filed: 09/08/17 10:58> Date of Encounter: 09/08/17 Time of Encounter: 07:00 Assessment and Plan (1) Acute respiratory failure with hypoxia Current Visit: Yes Status: Acute - Noted to have significant respiratory even on BiPAP and eventually intubated in ICU. - Initial ABG pH 7.33, pCO2 33, pO2 58 and HCO3 18. - Likely secondary to pulmonary edema, LLL pneumonia and/or COPD exacerbation. - Patient was extubated on 09/06 but reintubated later the same day for acute onset respiratory distress. The lab findings (one-time elevation of lactic acid and leukocytosis on 09/06 and elevated troponin on 09/07) and change between two CT A/P on same day (more prominent bibasilar consolidation, L > R) raises the concern of acute worsening of cardiogenic pulmonary edema. Feel more likely secondary to cardiac rather than infection. - Still intubated and on ventilation support. ABG pH 7.41, pCO2 28, pO2 104 and HCO3 18 this morning. - Continue antibiotic for pneumonia and steroid & bronchodilators for COPD. - Patient tolerated CPAP trial this moring. Case was discussed with ICU attending Dr. Ricardo, plan to extubate patient today. Will support with supplemental oxygen/non-invasive ventilation after extubation. - Continue close monitoring. (2) Elevated troponin Current Visit: Yes Status: Acute - Initial troponin negative (0.03) but then peaked at 2.90 before downtrended to 1.00 on 09/06. Troponin elevated again at 7.42 on 09/07/17 but later downtrend to 5.89 the same day. - Initial EKG showed LBBB - Echocardiogram on 09/05/17 showed LVEF 45% with indeterminated diastolic function. Atypical septal motion consistent with bundle branch block. A small to moderate circumferential pericardial effusion, most prominent anteriorly, also noted. - Repeat echocardiogram on 09/07/17 showed moderate left ventricular systolic dysfunction with LVEF 45% but slight improvement of the anteroseptal wall also noted. - Dr. Amador and development specialist Dr. La had lengthy discussion with patient 's family on 09/07/17. The family expressed their understanding of potential risks of heart catheter and agreed with plan to potential get heart cath once patient gets more stable. - Appreciate cardiology evaluation and recommendation. (3) Sepsis Current Visit: Yes Status: Acute - 4 SIRS criteria (fever, tachycardia, tachypnea and leukocytosis) on admission with lactic acid 1.4. - Likely secondary to pneumonia as suggested by focal consolidation in the left lower lobe on CXR. - Known Streptococcus pneumoniae given positive 2/2 blood cultures. Almost dcikey- sensitive except resistance to erythromycin. - Patient had acute onset of respiratory distress on 09/06/17 requiring re- intubation. And IV vancomycin and metronidazole were added for broader-spectrum coverage but later discontinued as it was believed to come from cardiac condition rather than infection. - CT A/P does not suggest GI or as source of infection. - Continue IV ceftriaxone (since 09/05). Qualifiers: Sepsis type: sepsis due to unspecified organism Qualified Code(s): A41.9 - Sepsis, unspecified organism (4) Pneumonia Current Visit: Yes Status: Acute - CXR suggested pulmonary edema along with focal consolidation in the left lower lobe concerning of pneumonia. - Known Streptococcus pneumoniae given positive 2/2 blood cultures. Almost dickey- sensitive except resistance to erythromycin. - Patient had acute onset of respiratory distress on 09/06/17 requiring re- intubation. And IV vancomycin and metronidazole were added for broader-spectrum coverage but later discontinued as it was believed to come from cardiac condition rather than infection. - Continue IV ceftriaxone (since 09/05). Qualifiers: Pneumonia type: due to Pneumococcus Laterality: left Lung location: lower lobe of lung Qualified Code(s): J13 - Pneumonia due to Streptococcus pneumoniae (5) Congestive heart failure Current Visit: Yes Status: Acute - CXR suggested pulmonary edema along with focal consolidation in the left lower lobe concerning of pneumonia. - Patient had received 100 mg of IV Lasix on the day of admission. - Echocardiogram on 09/05/17 showed LVEF 45% with indeterminated diastolic function. Atypical septal motion consistent with bundle branch block. A small to moderate circumferential pericardial effusion, most prominent anteriorly, also noted. - Repeat echocardiogram on 09/07/17 showed moderate left ventricular systolic dysfunction with LVEF 45% but slight improvement of the anteroseptal wall also noted. - Net +330 mL so far. - Strict I/O and daily weight. Qualifiers: Congestive heart failure type: unspecified congestive heart failure type Congestive heart failure chronicity: acute on chronic Qualified Code(s): I50.9 - Heart failure, unspecified (6) Hypothyroidism Current Visit: Yes Status: Acute - Highly elevated TSH (52.054) on admission. - Low free T4 (0.44) and free T3 (<1.00). - Patient had received one dose of IV levothyroxine 200 mcg in ED. - Cardiology recommends starting low dose Synthroid and case was discussed with Dr. Ricardo. Will start low-dose IV levothyroxine 12.5 mcg daily. Qualifiers: Hypothyroidism type: unspecified Qualified Code(s): E03.9 - Hypothyroidism , unspecified (7) Hematuria Current Visit: Yes Status: Resolved - Hematuria in urinary catheter noted after patient was started on heparin drip. - CT A/P found no obstructive stones, no severe stranding around tract and no evidence of large clot in the bladder - Urine culture no growth. - Heparin drip had been discontinued since 09/06 for acute blood anemia. Urine had turned clear since. - No indication for urgent intervention at this time per urology.. Qualifiers: Hematuria type: gross Qualified Code(s): R31.0 - Gross hematuria (8) Acute encephalopathy Current Visit: Yes Status: Acute - Reported altered mental status prior to arrival in ED. - Likely metabolic in the setting of sepsis/pneumonia and acute respiratory failure. - CT head found large amount of small vessel ischemic change bilaterally with some old infarts but cannot exclude the possibility of a subtle superimposed recent ischemic focus. MRI is recommended if further investigation is needed. - Seems to improve as patient appears to be alert with some degree of orientation even still intubated. - Continue to monitor. (9) COPD (chronic obstructive pulmonary disease) Current Visit: Yes Status: Chronic - Possible COPD exacerbation precipitated by recent respiratory infection on initial presentation. Known active smoker prior to admission. - Continue Symbicort and bronchodilators. Will discontinue Solu-Medrol Qualifiers: COPD type: COPD with acute exacerbation Qualified Code(s): J44.1 - Chronic obstructive pulmonary disease with (acute) exacerbation (10) DVT prophylaxis Current Visit: Yes Status: Acute - Start heparin drip. GI prophylaxis: Protonix IV Subjective Principal diagnosis: Acute hypoxic respiratory failure Interval history: Patient was seen and examined this morning. Patient is intubated but alert and orient as she opens eyes spontaneously and shakes her head while asking if she has any pain. Objective PUL Vital signs: Last Vital Signs Temp 97.8 F 09/08/17 07:17 Pulse 68 09/08/17 06:00 Resp 14 09/08/17 07:31 BP 161/77 09/08/17 07:31 Pulse Ox 97 09/08/17 07:31 General appearance: no acute distress, alert Eyes: nonicteric ENT: other (Intubated) Neck: supple Effort: normal Auscultation: bilateral: clear Cardiovascular: regular rate and rhythm Gastrointestinal: normoactive bowel sounds, soft, non-tender Integumentary: normal Extremities: no cyanosis, no edema Musculoskeletal: no deformities non-focal exam Ventilator Settings Ventilator Settings: Ventilator Settings, Last 8 Hours Ventilator Mode VC+ Ventilator Mode VC+ Ventilator Mode A/C Ventilator Mode VC+ Ventilator Mode VC+ Ventilator Mode VC+ Ventilator Mode VC+ Ventilator Mode VC+ Ventilator Mode VC+ Ventilator Mode VC+ Ventilator Mode VC+ Ventilator Mode VC+ Ventilator Tidal Volume 380 Setting Ventilator Tidal Volume 380 Setting Ventilator Tidal Volume 380 Setting Ventilator Tidal Volume 380 Setting Ventilator Tidal Volume 380 Setting Ventilator Tidal Volume 380 Setting Ventilator Tidal Volume 380 Setting Ventilator Tidal Volume 380 Setting Ventilator Tidal Volume 380 Setting Ventilator Tidal Volume 380 Setting Ventilator Tidal Volume 380 Setting Ventilator Respiratory Rate 14 Setting Ventilator Respiratory Rate 14 Setting Ventilator Respiratory Rate 14 Setting Ventilator Respiratory Rate 14 Setting Ventilator Respiratory Rate 14 Setting Ventilator Respiratory Rate 14 Setting Ventilator Respiratory Rate 14 Setting Ventilator Respiratory Rate 14 Setting Ventilator Respiratory Rate 14 Setting Ventilator Respiratory Rate 14 Setting Ventilator Respiratory Rate 14 Setting Actual Respiratory Rate 15 Actual Respiratory Rate 16 Actual Respiratory Rate 19 Actual Respiratory Rate 19 Actual Respiratory Rate 19 Actual Respiratory Rate 17 Actual Respiratory Rate 15 Actual Respiratory Rate 14 Actual Respiratory Rate 14 Actual Respiratory Rate 18 Actual Respiratory Rate 18 Positive End Expiratory 5 Pressure Positive End Expiratory 5 Pressure Positive End Expiratory 5 Pressure Positive End Expiratory 5 Pressure Positive End Expiratory 5 Pressure Positive End Expiratory 5 Pressure Positive End Expiratory 5 Pressure Positive End Expiratory 5 Pressure Positive End Expiratory 5 Pressure Positive End Expiratory 5 Pressure Positive End Expiratory 5 Pressure Peak Inspiratory Airway 16 Pressure Peak Inspiratory Airway 16 Pressure Peak Inspiratory Airway 16 Pressure Peak Inspiratory Airway 14 Pressure Peak Inspiratory Airway 13 Pressure Peak Inspiratory Airway 14 Pressure Peak Inspiratory Airway 12 Pressure Peak Inspiratory Airway 16 Pressure Peak Inspiratory Airway 15 Pressure Peak Inspiratory Airway 15 Pressure Peak Inspiratory Airway 15 Pressure Results - Laboratory Findings CBC and BMP: 09/08/17 03:12 09/08/17 03:12 ABG ABG pH 7.41 pH Units (7.32-7.45) 09/08/17 05:45 ABG pCO2 28 mmHg (35-45) L 09/08/17 05:45 ABG pO2 104 mmHg (85-104) 09/08/17 05:45 ABG O2 Saturation 98 % (95-98) 09/08/17 05:45 PT/INR, D-dimer PT 13.6 Seconds (9.4-12.1) H 09/05/17 06:50 Abnormal lab findings: Abnormal lab results WBC 18.1 K/mcL (4.3-11.1) H 09/08/17 03:12 RBC 3.21 M/mcL (3.82-4.97) L 09/08/17 03:12 Hgb 9.7 g/dL (11.5-15.4) L 09/08/17 03:12 Hct 29.0 % (35.3-44.9) L 09/08/17 03:12 RDW 15.2 % (11.5-14.5) H 09/08/17 03:12 Band Neutrophils % 26.0 % (0-4) H 09/07/17 04:51 Neutrophils # 17.0 K/mcL (1.6-8.9) H 09/08/17 03:12 Lymphocytes # 0.3 K/mcL (0.6-4.6) L 09/08/17 03:12 Nucleated RBCs/100 WBC 0.1 /100 WBC (0) H 09/08/17 03:12 Smudge Cells Present (Not Present) A 09/06/17 17:33 Anisocytosis 2+ (Not Present) A 09/06/17 17:33 Target Cells 1+ (Not Present) A 09/06/17 17:33 PT 13.6 Seconds (9.4-12.1) H 09/05/17 06:50 APTT 41.5 Seconds (26.0-36.0) H D 09/06/17 14:21 ABG pCO2 28 mmHg (35-45) L 09/08/17 05:45 ABG HCO3 18 mEq/L (21-27) L 09/08/17 05:45 ABG Total CO2 19 mEq/L (20-26) L 09/08/17 05:45 ABG Base Excess -6 mEq/L (-2 to 3) L 09/08/17 05:45 Potassium 3.3 mEq/L (3.5-4.5) L 09/08/17 03:12 BUN 49 mg/dL (7-20) H 09/08/17 03:12 Creatinine 1.78 mg/dL (0.57-1.11) H 09/08/17 03:12 Est GFR ( Amer) 33 (> 60) L 09/08/17 03:12 Est GFR (Non-Af Amer) 27 (> 60) L 09/08/17 03:12 BUN/Creatinine Ratio 28 (6-26) H 09/08/17 03:12 POC Glucose 99 (58-89) H 09/08/17 04:58 Calcium 8.5 mg/dL (8.6-10.8) L 09/08/17 03:12 Creatine Kinase 250 Units/L (29-168) H 09/07/17 12:11 Troponin I 5.89 ng/mL (0-0.03) H* 09/07/17 17:53 B-Natriuretic Peptide 2906 pg/mL (0-100) H 09/04/17 21:20 Albumin 2.7 g/dL (3.5-5.0) L 09/05/17 01:41 Globulin 3.9 g/dL (2.4-3.5) H 09/05/17 01:41 Albumin/Globulin Ratio 0.7 (1.1-2.2) L 09/05/17 01:41 TSH 52.054 mcIU/mL (0.350-4.840) H 09/04/17 21:05 Free T4 0.44 ng/dl (0.70-1.48) L 09/07/17 09:05 Free T3 < 1.00 pg/mL (1.71-3.71) L 09/07/17 09:05 Urine Clarity Cloudy (Clear) A 09/04/17 21:33 Ur Specific [place] 1.030 (1.010-1.025) H 09/04/17 21:33 Urine Protein 100 mg/dL (Neg-Trace) H 09/04/17 21:33 Urine Blood Large (Negative) H 09/04/17 21:33 Urine Bilirubin Small (Negative) H 09/04/17 21:33 Urine Microscopic RBC 50-100 per hpf (0-3) H 09/04/17 21:33 Urine Microscopic WBC 15-30 per hpf (0-3) H 09/04/17 21:33 Ur Squamous Epith Cells Many per lpf (None-Few) H 09/04/17 21:33 Urine Bacteria Many per hpf (None-Few) H 09/04/17 21:33 Granular Casts Many per lpf (None Seen) H 09/04/17 21:33 Urine Mucus Moderate (Few) H 09/04/17 21:33 Urine Yeast Moderate per hpf (None Seen) H 09/04/17 21:33 Streptococcus sp PCR DETECTED (Not Detect) A 09/04/17 22:03 Strep pneumoniae (PCR) DETECTED (Not Detect) A 09/04/17 22:03 - Microbiology Findings Microbiology Findings: Microbiology, Last 48 Hours 09/06/17 18:34 Blood Culture - Preliminary Peripheral Venipuncture No growth. 09/06/17 18:32 Blood Culture - Preliminary Peripheral Venipuncture No growth. 09/06/17 21:30 Sputum Culture - Preliminary Sputum 09/06/17 05:54 Urine Culture - Final Urine,Catheterized No growth. 09/06/17 05:54 Legionella Antigen - Final Urine,Catheterized Streptococcus pneumoniae Antigen (M - Final - Diagnostic Findings Chest x-ray: report reviewed, image reviewed - Clinical Findings Intake & Output: Intake & Output 09/07/17 09/07/17 09/08/17 15:59 23:59 07:59 Intake Total 470 / 470 100 / 100 95 / 95 Output Total 325 / 325 275 / 275 200 / 200 Balance 145 / 145 -175 / -175 -105 / -105 Weight 61.1 kg - VTE Documentation of Mechanical Device: Graduated compression elastic hosiery Consult Discharge Plan - Plan Referrals: NONE,PCP [Primary Care Provider] - <Rufus Ricardo - Last Filed: 09/08/17 20:24> Date of Encounter: 09/08/17 Objective PUL Vital signs: Last Vital Signs Temp 97.5 F L 09/08/17 15:30 Pulse 90 09/08/17 17:35 Resp 16 09/08/17 17:35 BP 172/95 09/08/17 17:35 Pulse Ox 90 09/08/17 17:35 Ventilator Settings Ventilator Settings: Ventilator Settings, Last 8 Hours Ventilator Mode CPAP Ventilator Mode CPAP Ventilator Mode CPAP Ventilator Tidal Volume 380 Setting Actual Respiratory Rate 27 Actual Respiratory Rate 28 Actual Respiratory Rate 15 Positive End Expiratory 5 Pressure Positive End Expiratory 5 Pressure Positive End Expiratory 5 Pressure Peak Inspiratory Airway 10 Pressure Peak Inspiratory Airway 11 Pressure Peak Inspiratory Airway 10 Pressure Results - Laboratory Findings CBC and BMP: 09/08/17 03:12 09/08/17 03:12 ABG ABG pH 7.41 pH Units (7.32-7.45) 09/08/17 05:45 ABG pCO2 28 mmHg (35-45) L 09/08/17 05:45 ABG pO2 104 mmHg (85-104) 09/08/17 05:45 ABG O2 Saturation 98 % (95-98) 09/08/17 05:45 PT/INR, D-dimer PT 13.6 Seconds (9.4-12.1) H 09/05/17 06:50 Abnormal lab findings: Abnormal lab results WBC 18.1 K/mcL (4.3-11.1) H 09/08/17 03:12 RBC 3.21 M/mcL (3.82-4.97) L 09/08/17 03:12 Hgb 9.7 g/dL (11.5-15.4) L 09/08/17 03:12 Hct 29.0 % (35.3-44.9) L 09/08/17 03:12 RDW 15.2 % (11.5-14.5) H 09/08/17 03:12 Band Neutrophils % 26.0 % (0-4) H 09/07/17 04:51 Neutrophils # 17.0 K/mcL (1.6-8.9) H 09/08/17 03:12 Lymphocytes # 0.3 K/mcL (0.6-4.6) L 09/08/17 03:12 Nucleated RBCs/100 WBC 0.1 /100 WBC (0) H 09/08/17 03:12 Smudge Cells Present (Not Present) A 09/06/17 17:33 Anisocytosis 2+ (Not Present) A 09/06/17 17:33 Target Cells 1+ (Not Present) A 09/06/17 17:33 PT 13.6 Seconds (9.4-12.1) H 09/05/17 06:50 APTT 41.5 Seconds (26.0-36.0) H D 09/06/17 14:21 ABG pCO2 28 mmHg (35-45) L 09/08/17 05:45 ABG HCO3 18 mEq/L (21-27) L 09/08/17 05:45 ABG Total CO2 19 mEq/L (20-26) L 09/08/17 05:45 ABG Base Excess -6 mEq/L (-2 to 3) L 09/08/17 05:45 Potassium 3.3 mEq/L (3.5-4.5) L 09/08/17 03:12 BUN 49 mg/dL (7-20) H 09/08/17 03:12 Creatinine 1.78 mg/dL (0.57-1.11) H 09/08/17 03:12 Est GFR ( Amer) 33 (> 60) L 09/08/17 03:12 Est GFR (Non-Af Amer) 27 (> 60) L 09/08/17 03:12 BUN/Creatinine Ratio 28 (6-26) H 09/08/17 03:12 POC Glucose 102 (58-89) H 09/08/17 11:19 Calcium 8.5 mg/dL (8.6-10.8) L 09/08/17 03:12 Creatine Kinase 250 Units/L (29-168) H 09/07/17 12:11 Troponin I 5.89 ng/mL (0-0.03) H* 09/07/17 17:53 B-Natriuretic Peptide 2906 pg/mL (0-100) H 09/04/17 21:20 Albumin 2.7 g/dL (3.5-5.0) L 09/05/17 01:41 Globulin 3.9 g/dL (2.4-3.5) H 09/05/17 01:41 Albumin/Globulin Ratio 0.7 (1.1-2.2) L 09/05/17 01:41 TSH 52.054 mcIU/mL (0.350-4.840) H 09/04/17 21:05 Free T4 0.44 ng/dl (0.70-1.48) L 09/07/17 09:05 Free T3 < 1.00 pg/mL (1.71-3.71) L 09/07/17 09:05 Urine Clarity Cloudy (Clear) A 09/04/17 21:33 Ur Specific [place] 1.030 (1.010-1.025) H 09/04/17 21:33 Urine Protein 100 mg/dL (Neg-Trace) H 09/04/17 21:33 Urine Blood Large (Negative) H 09/04/17 21:33 Urine Bilirubin Small (Negative) H 09/04/17 21:33 Urine Microscopic RBC 50-100 per hpf (0-3) H 09/04/17 21:33 Urine Microscopic WBC 15-30 per hpf (0-3) H 09/04/17 21:33 Ur Squamous Epith Cells Many per lpf (None-Few) H 09/04/17 21:33 Urine Bacteria Many per hpf (None-Few) H 09/04/17 21:33 Granular Casts Many per lpf (None Seen) H 09/04/17 21:33 Urine Mucus Moderate (Few) H 09/04/17 21:33 Urine Yeast Moderate per hpf (None Seen) H 09/04/17 21:33 Streptococcus sp PCR DETECTED (Not Detect) A 09/04/17 22:03 Strep pneumoniae (PCR) DETECTED (Not Detect) A 09/04/17 22:03 - Microbiology Findings Microbiology Findings: Microbiology, Last 48 Hours 09/06/17 18:34 Blood Culture - Preliminary Peripheral Venipuncture No growth. 09/06/17 18:32 Blood Culture - Preliminary Peripheral Venipuncture No growth. 09/06/17 21:30 Sputum Culture - Preliminary Sputum 09/06/17 05:54 Urine Culture - Final Urine,Catheterized No growth. - Clinical Findings Intake & Output: Intake & Output 09/08/17 09/08/17 09/08/17 07:59 15:59 23:59 Intake Total 95 / 95 Output Total 200 / 200 200 / 200 Balance -105 / -105 -200 / -200 - Attending Attestation I examined this patient and my medical decision-making was reviewed with the Resident Physician. I agree with the documented findings, disposition and treatment plan as described except to the extent set forth below. Patient seen and examined. Labs, radiology, chart personally reviewed. 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 Checked with cardiology team before extubation regarding cardiac catheterization and since there was no plan for cardiac catheterization patient was successfully extubated. Cardiovascular: discussed with the fitter armament regarding cardiac catheterization especially with patient having upper abdominal pain and because patient is restless the plan is to medically treat her at this time. Patient is hypertensive and metoprolol was ordered and then nitroglycerin drip to control her blood pressure and to see the response of her upper abdominal pain. GI: Nutrition per dietary and GI prophylaxis per routine Heme: DVT prophylaxis per routine. symptoms heparin was ordered. Renal; urine out put and renal funtion reviewed Endorcine: blood glucose is monitored. I have ordered a low dose thyroid hormone based on hair weight and carefully monitor vital signs. Lines: all lines checked and no evidence of infections Skin: skin care to prevent pressure ulcers per nursing routine care patient remained in intensive care unit at this time for close monitoring symptoms and condition could deteriorate with fair cardiopulmonary diseases. I spent 35 min of Critical Care time with this patient. It involved decision making of high complexity to assess, manipulate, and support vital organ system failure and/or to prevent further life threatening deterioration of the patient' s condition. The time involved in the performance of separately reportable procedures was not counted toward critical care time.
[2017-09-08] MEDS: cefTRIAXone 2,000 MG in Water for inj. (sterile) 20 ML IVP SCH (09:03)
[2017-09-08] MEDS: Aspirin 81 MG TAB.CHEW PO SCH ×2 (09:03→09:05)
[2017-09-08] MEDS: MethylPREDNISolone 40 MG/ML VIAL IVP SCH (09:03)
[2017-09-08] MEDS: Pantoprazole 40 MG VIAL IVPB SCH (09:03)
[2017-09-08] MEDS: Chlorhexidine Rinse 15 ML MOUTHWASH MM SCH ×2 (09:03→21:04)
[2017-09-08] MEDS: Levothyroxine Sodium 100 MCG VIAL IVP SCH (09:31)
[2017-09-08] MEDS ORDERED: *HR* Morphine 2 MG/ML SYRINGE IVP ONE ×2 (11:30→11:54)
[2017-09-08] MEDS ORDERED: *HR* Morphine 2 MG/ML SYRINGE ONE (11:33)
[2017-09-08] MEDS ORDERED: *HR* Metoprolol 5 MG/5 ML VIAL IVP ONE ×2 (12:26→12:30)
[2017-09-08] MEDS ORDERED: Nitroglycerin 25 MG/250 ML INFUS..BTL IVC ONE (12:33)
[2017-09-08] MEDS: Nitroglycerin 25 MG/250 ML INFUS..BTL IVC SCH ×2 (13:02→21:51)
--- NOTE | 2017-09-08 13:06 | Cardiology Progress Note ---
Date of Encounter: 09/08/17 Time of Encounter: 13:04 Assessment and Plan (1) Hypothyroidism Current Visit: Yes Status: Acute Per cardiology: -Severe hypothryoidism. -Management per primary service. Qualifiers: Hypothyroidism type: unspecified Qualified Code(s): E03.9 - Hypothyroidism , unspecified (2) Congestive heart failure Current Visit: Yes Status: Acute Per cardiology: -Acute on Chronic CHF with hypoxic respiratory failure, unknown etiology. -TTE with LVEF 45%, indeterminate diastolic function, atypical septal motion consistent with bundle branch block, mild concentric LVH, mild-moderately sclerotic aortic valve leaflets, moderate MR, small to moderate pericardial effusion, not diagnostic for tamponade, apex, apical inferior, mid inferior, basal inferior, apical anterior, mid anterior and basal anterior cedeno hypokinetic. Mid anterior septal and basal anterior septal cedeno dyskinetic. ALl other wall segments with normal motion. -Repeat TTE yesterday with Moderate left ventricular systolic dysfunction. LVEF 45%. with slight improvement of the anteroseptal wall. Left Ventricular Wall Motion: The apex, apical inferior, mid inferior, basal inferior, apical anterior, mid anterior, basal anterior, mid anterior septal and basal anterior septal cedeno were hypokinetic. All other wall segments showed normal motion. -On beta krish, waspreviously held due to hypotension. Not on megan inhibitor due to TROY. -EKG on arrival showed LBBB, upon further review of old records, LBBB is old. LBBB noted per ECG in 2013, copy placed in chart on floor. -Most recent CXR with imrpoved appearance. -BNP 2906 on admission, TSH 52.05. -Net positive fluid balance of 330ml. -Weight on admission 61.2kg, weight today 61.1kg. -Strict i/os, daily weights, fluid restriction. Recommend 1.5L/day of fluid restriction when able to take PO. -Will resume patient's beta krish. -Will discuss with regarding addition of lasix, now with renal function with improvement. Qualifiers: Congestive heart failure type: unspecified congestive heart failure type Congestive heart failure chronicity: acute on chronic Qualified Code(s): I50.9 - Heart failure, unspecified (3) Elevated troponin Current Visit: Yes Status: Acute Per cardiology: -Initially troponins 0.03, 1.38, 2.63, 2.9, 2.79, 1. -After acute event on Friday troponin 7.42, 6.97, 5.89. -NSTEMI versus demand ischemia. -TTE with LVEF 45%, wall motion abnormalities noted. -Repeat TTE with LVEF 45% with slight improvement of anteroseptal wall. -ECG with LBBB. -Denies chest pain. -Medical management at this time due to hematuria, anemia, TROY, severe hypothyroidism. No cardiac rehab warranted at this time. -Per patient's primary RN, lasha who is POA is coming in today. Will attempt to further discussed with grandson upon his arrival. (4) TROY (acute kidney injury) Current Visit: Yes Status: Acute Per cardiology: -Creatinine baseline unknown. -Creatinine peaked at 2.14, now 1.78. -Management per primary service. Discussion w patient/family: The assessment and plan as outlined above was discussed with the patient. All questions were answered. Thank you for involving us in the care of your patient. Please call with any questions. Discussed and reviewed with . Subjective Principal diagnosis: Acute hypoxic respiratory failure Interval history: Patient extubated, now on 3LPM per nasal cannula. SpO2 91%. Pulmonary team, prior to extubation, consulted with myself regarding extubation. Discussed with who stated, ok to extubate. Patient is alert and orieneted x3. Patient denies chest pain, however reports some abdominal pain. Patient states her breathing is ok. Objective Vital Signs, Last 4 Hours Temp Pulse Resp BP Pulse Ox 09/08/17 12:59 71 20 155/92 90 09/08/17 11:40 96 09/08/17 11:38 97.6 F 09/08/17 11:26 32 09/08/17 11:22 33 169/96 99 09/08/17 11:21 74 30 169/96 99 09/08/17 10:31 88 17 179/94 98 09/08/17 09:17 18 167/93 98 General: Conversant, No Apparent Distress HEENT: Atraumatic, Normocephaly, Mucus Membranes Moist Neck: No JVD, Normal carotid pulses Cardiac: Reg Rate and Rhythm, Normal S1 and S2, No Murmur Lungs: Normal Breath Sounds, No Wheeze, Rales, Rhonchi Neuro: Alert and responsive, No focal deficits noted Abdomen: Soft, Non-Tender Skin: No rashes noted on visualized skin Musculoskeletal: No Chest Wall Tenderness Extremities: No Clubbing, No Cyanosis, No Edema, Normal Pulses Results 09/08/17 03:12 09/08/17 03:12 Lab Results Impressions Chest X-Ray 09/07/17 14:52 IMPRESSION: Improving congestive heart failure over 24 hours. ET and NG tubes remain in good position. D/ / Eduardo Barth MD / Eduardo Barth MD Interpreting Provider: Eduardo Barth MD Active Medications Acetaminophen (Tylenol 650mg Supp) 650 mg RC Q6HR PRN PRN Reason: fever GREATER than 101.2 F Stop: 03/07/18 00:47 Albuterol Sulfate (Albuterol Inhaler) 2 puff IH Q2HR PRN PRN Reason: Shortness Of Breath/Wheezing Stop: 03/07/18 11:10 Albuterol/Ipratropium (Duoneb) 3 ml IH [id number] YULY Stop: 03/07/18 01:01 Last Admin: 09/08/17 11:21 Dose: 3 ml Artificial Tears (Lacri-Lube) 1 appl BOTH EYES Q4HR YULY PRN Reason: Protocol Stop: 03/07/18 12:01 Last Admin: 09/08/17 12:13 Dose: Not Given Artificial Tears (Lacri-Lube) 1 appl BOTH EYES Q2HR PRN; Protocol PRN Reason: Dry Eyes Stop: 03/07/18 11:10 Aspirin (Aspirin) 81 mg PO DAILY YULY Stop: 03/07/18 09:46 Last Admin: 09/08/17 09:05 Dose: Not Given Atorvastatin Calcium (Lipitor) 20 mg PO HS YULY Stop: 03/07/18 21:01 Last Admin: 09/07/17 20:44 Dose: 20 mg Budesonide/Formoterol Fumarate (Symbicort) 2 puff IH BIDR YULY PRN Reason: Protocol Stop: 03/07/18 22:01 Last Admin: 09/08/17 07:29 Dose: 2 puff Chlorhexidine Gluconate (Chlorhexidine Rinse) 15 ml MM BID YULY Stop: 03/07/18 21:01 Last Admin: 09/08/17 09:03 Dose: 15 ml Dextrose/Water (Dextrose 50% (Syg)) 25 ml IVP AD PRN PRN Reason: Hypoglycemia Stop: 03/07/18 02:42 Glucagon (Glucagen) 1 mg IM ONCE PRN PRN Reason: Hypoglycemia Stop: 03/07/18 02:42 Glucose (Gluctose) 15 gm PO ONCE PRN PRN Reason: Hypoglycemia Stop: 03/07/18 02:42 Glucose (Gluctose) 30 gm PO ONCE PRN PRN Reason: Hypoglycemia Stop: 03/07/18 02:42 Heparin Sodium (Porcine) (Heparin) 5,000 unit SQ Q12HCO YULY Stop: 03/10/18 11:01 Dextrose (Dextrose 5%) 1,000 mls @ 100 mls/hr IVC .Q10H PRN PRN Reason: HYPOGLYCEMIA Stop: 03/07/18 02:42 Ceftriaxone Sodium 2,000 mg/ (Sterile Water) 20 mls @ 600 mls/hr IVP Q24H YULY Stop: 03/07/18 09:01 Last Admin: 09/08/17 09:03 Dose: 200 mls/hr Dexmedetomidine HCl (Precedex Premix) 400 mcg in 100 mls @ 2.895 mls/hr IVC .Q24H YULY; 0.2 MCG/KG/HR PRN Reason: Protocol Stop: 03/07/18 08:31 Last Titration: 09/08/17 01:35 Dose: 0 mcg/kg/hr, 0 mls/hr Calcium Gluconate 1,000 mg/ (Sodium Chloride) 60 mls @ 111 mls/hr IVPB Q6HR PRN PRN Reason: Hypocalcemia Stop: 03/10/18 11:33 Magnesium Sulfate (Magnesium Sulfate Premix 2gm/50ml) 2 gm in 50 mls @ 50 mls/ hr IVPB Q6H PRN PRN Reason: Hypomagnesemia Stop: 03/10/18 11:33 Potassium Chloride (Potassium Chloride 10 Meq/100ml) 10 meq in 100 mls @ 100 mls/hr IVPB Q1H PRN PRN Reason: Potassium less than 4 Stop: 03/10/18 11:33 Sodium Phosphate 30 mmol/ (Sodium Chloride) 260 mls @ 42 mls/hr IVPB Q12H PRN PRN Reason: Hypophosphatemia Stop: 03/10/18 11:33 Nitroglycerin (Nitroglycerin Premix 25 Mg/250 Ml) 25 mg in 250 mls @ 3 mls/hr IVC .Q24H YULY; 5 MCG/MIN PRN Reason: Protocol Stop: 03/10/18 12:46 Last Admin: 09/08/17 13:02 Dose: 5 mcg/min, 3 mls/hr Insulin Human Lispro (Humalog) 0 units SQ Q6HR YULY PRN Reason: Protocol Stop: 03/07/18 06:01 Last Admin: 09/08/17 12:12 Dose: Not Given Levothyroxine Sodium (Synthroid) 12.5 mcg IVP DAILY YULY Stop: 03/10/18 09:01 Last Admin: 09/08/17 09:31 Dose: 12.5 mcg Naloxone HCl (Narcan) 0.4 mg IVP Q2MIN PRN PRN Reason: Opioid Reversal Stop: 03/07/18 00:47 Pantoprazole Sodium (Protonix) 40 mg IVPB DAILY YULY Stop: 03/07/18 01:01 Last Admin: 09/08/17 09:03 Dose: 40 mg Polyethylene Glycol (Miralax) 17 gm PO DAILY PRN PRN Reason: Constipation Stop: 03/10/18 11:49 Potassium Chloride (Potassium Chloride) 40 meq PO DAILY PRN PRN Reason: Hypokalemia Stop: 03/10/18 11:33 Laboratory Tests 09/07/17 09/08/17 09/08/17 00:12 03:12 03:12 WBC 18.1 H Hgb 9.7 L Potassium 3.3 L Creatinine 2.14 H 1.78 H - Imaging and Cardiology Chest Xray: report reviewed Echo: report reviewed - EKG Interpretation EKG results cardiology: other (Telemetry reviewed with average HR previous 12 hours noted to be 62, sinus rhythm. PVCs noted. Short runs of atrial tachcyardia noted.) - VTE Documentation of Mechanical Device: Graduated compression elastic hosiery Consult Discharge Plan - Plan Referrals: NONE,PCP [Primary Care Provider] -
--- NOTE | 2017-09-08 15:01 | Electrocardiograph Report ---
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
[2017-09-08] MEDS: *HR* Heparin 5,000 UNIT/ML VIAL SQ SCH ×2 (15:08→18:31)
--- NOTE | 2017-09-08 15:21 | Electrocardiograph Report ---
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
--- NOTE | 2017-09-08 15:24 | Electrocardiograph Report ---
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
--- NOTE | 2017-09-08 16:01 | Electrocardiograph Report ---
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
[2017-09-09] MEDS: Lacri-Lube 3.5 GM TUBE BOTH EYES SCH ×3 (00:14→09:30)
[2017-09-09] MEDS: Ipratropium/Albuterol Neb 3 ML IH SCH ×7 (00:17→23:34)
[2017-09-09] MEDS: Nitroglycerin 25 MG/250 ML INFUS..BTL IVC SCH ×5 (00:28→23:31)
[2017-09-09] MEDS: *HR* Heparin 5,000 UNIT/ML VIAL SQ SCH ×2 (05:08→18:03)
[2017-09-09 05:15] LABS: Basophils # 0.1 K/mcL (0.0-0.2); Basophils % 0.4 %; Hematocrit 27.9 % (35.3-44.9); Hemoglobin 9.2 g/dL (11.5-15.4); Immature Granulocytes % 3.6 % (0-4); Lymphocytes # 0.5 K/mcL (0.6-4.6); Lymphocytes % 2.1 %; Mean Corpuscular Hemoglobin 29.5 pg (28.0-33.3); Mean Corpuscular Volume 89.4 fL (83.0-100.0); Mean Platelet Volume 10.3 fL (9.4-12.4); Monocytes # 0.5 K/mcL (0.0-1.3); Monocytes % 1.9 %; Neutrophils # 21.8 K/mcL (1.6-8.9); Nucleated Red Blood Cells 0.3 /100 WBC (0); Platelet Count 334 K/mcL (140-400); Red Blood Count 3.12 M/mcL (3.82-4.97); Red Cell Distribution Width 15.2 % (11.5-14.5)
[2017-09-09 05:31] LABS: Calcium 8.6 mg/dL (8.6-10.8); Magnesium 2.5 mg/dL (1.6-2.6); Phosphorous 2.3 mg/dL (2.3-4.7); Potassium 3.8 mEq/L (3.5-4.5)
[2017-09-09 05:53] LABS: Platelet Estimate Normal (Normal)
[2017-09-09] MEDS: Insulin LISPRO 300 UNITS/3 ML VIAL SQ SCH ×4 (05:55→23:21)
[2017-09-09] MEDS: Budesonide/Formoterol 160/4.5 MDI IH SCH ×2 (07:21→19:35)
--- NOTE | 2017-09-09 07:29 | Pulmonology Progress Note ---
<Neda Araujo - Last Filed: 09/09/17 10:43> Date of Encounter: 09/09/17 Time of Encounter: 07:27 Assessment and Plan (1) Acute respiratory failure with hypoxia Current Visit: Yes Status: Acute - Noted to have significant respiratory even on BiPAP and eventually intubated in ICU. - Initial ABG pH 7.33, pCO2 33, pO2 58 and HCO3 18. - Likely secondary to pulmonary edema, LLL pneumonia and/or COPD exacerbation. - Patient was extubated on 09/06 but reintubated later the same day for acute onset respiratory distress. The lab findings (one-time elevation of lactic acid and leukocytosis on 09/06 and elevated troponin on 09/07) and change between two CT A/P on same day (more prominent bibasilar consolidation, L > R) raises the concern of acute worsening of cardiogenic pulmonary edema. Feel more likely secondary to cardiac rather than infection. - Patient extubated yesterday on 09/08/2017. - Continue antibiotics for pneumonia and steroid & bronchodilators for COPD. - After discussion with cardiology, patient stable for transfer. (2) Elevated troponin Current Visit: Yes Status: Acute - Initial troponin negative (0.03) but then peaked at 2.90 before downtrended to 1.00 on 09/06. Troponin elevated again at 7.42 on 09/07/17 but later downtrend to 5.89 the same day. - Initial EKG showed LBBB - Echocardiogram on 09/05/17 showed LVEF 45% with indeterminated diastolic function. Atypical septal motion consistent with bundle branch block. A small to moderate circumferential pericardial effusion, most prominent anteriorly, also noted. - Repeat echocardiogram on 09/07/17 showed moderate left ventricular systolic dysfunction with LVEF 45% but slight improvement of the anteroseptal wall also noted. -Patient NSTEMI to be managed with medical treatment. No [facility] at this time pending discussion by cardiology with patient and patient's family. - Appreciate cardiology evaluation and recommendation. -Nitro drip to be discontinued today per cardiology. -Continue PO metoprolol 25mg XL. -Start 2.5mg IV q4 hrs PRN systolic BP >180 in addition. (3) Sepsis Current Visit: Yes Status: Acute - 4 SIRS criteria (fever, tachycardia, tachypnea and leukocytosis) on admission with lactic acid 1.4. - Likely secondary to pneumonia as suggested by focal consolidation in the left lower lobe on CXR. - Known Streptococcus pneumoniae given positive 2/2 blood cultures. Almost dickey- sensitive except resistance to erythromycin. - Patient had acute onset of respiratory distress on 09/06/17 requiring re- intubation. And IV vancomycin and metronidazole were added for broader-spectrum coverage but later discontinued as it was believed to come from cardiac condition rather than infection. - CT A/P does not suggest GI or as source of infection. - Continue IV ceftriaxone (since 09/05). Qualifiers: Sepsis type: sepsis due to unspecified organism Qualified Code(s): A41.9 - Sepsis, unspecified organism (4) Congestive heart failure Current Visit: Yes Status: Acute - CXR suggested pulmonary edema along with focal consolidation in the left lower lobe concerning of pneumonia. - Patient had received 100 mg of IV Lasix on the day of admission. - Echocardiogram on 09/05/17 showed LVEF 45% with indeterminated diastolic function. Atypical septal motion consistent with bundle branch block. A small to moderate circumferential pericardial effusion, most prominent anteriorly, also noted. - Repeat echocardiogram on 09/07/17 showed moderate left ventricular systolic dysfunction with LVEF 45% but slight improvement of the anteroseptal wall also noted. - Net +978 mL so far. - Strict I/O and daily weight. Qualifiers: Congestive heart failure type: unspecified congestive heart failure type Congestive heart failure chronicity: acute on chronic Qualified Code(s): I50.9 - Heart failure, unspecified (5) Pneumonia Current Visit: Yes Status: Acute - CXR suggested pulmonary edema along with focal consolidation in the left lower lobe concerning of pneumonia. - Known Streptococcus pneumoniae given positive 2/2 blood cultures. Almost dickey- sensitive except resistance to erythromycin. - Patient had acute onset of respiratory distress on 09/06/17 requiring re- intubation. And IV vancomycin and metronidazole were added for broader-spectrum coverage but later discontinued as it was believed to come from cardiac condition rather than infection. - Continue IV ceftriaxone (since 09/05). Qualifiers: Pneumonia type: due to Pneumococcus Laterality: left Lung location: lower lobe of lung Qualified Code(s): J13 - Pneumonia due to Streptococcus pneumoniae (6) Hypothyroidism Current Visit: Yes Status: Acute - Highly elevated TSH (52.054) on admission. - Low free T4 (0.44) and free T3 (<1.00). - Patient had received one dose of IV levothyroxine 200 mcg in ED. -IV levothyroxine 12.5 mcg daily changed to PO 25mcg. Qualifiers: Hypothyroidism type: unspecified Qualified Code(s): E03.9 - Hypothyroidism , unspecified (7) Hematuria Current Visit: Yes Status: Resolved -Hematuria in urinary catheter noted after patient was started on heparin drip. - CT A/P found no obstructive stones, no severe stranding around tract and no evidence of large clot in the bladder - Urine culture no growth. - Heparin drip had been discontinued since 09/06 for acute blood anemia. Urine had turned clear since. - No indication for urgent intervention at this time per urology. Qualifiers: Hematuria type: gross Qualified Code(s): R31.0 - Gross hematuria (8) Acute encephalopathy Current Visit: Yes Status: Acute Reported altered mental status prior to arrival in ED. - Likely metabolic in the setting of sepsis/pneumonia and acute respiratory failure. - CT head found large amount of small vessel ischemic change bilaterally with some old infarts but cannot exclude the possibility of a subtle superimposed recent ischemic focus. MRI is recommended if further investigation is needed. - Patient mental status greatly improving. - Continue to monitor. (9) COPD (chronic obstructive pulmonary disease) Current Visit: Yes Status: Chronic - Possible COPD exacerbation precipitated by recent respiratory infection on initial presentation. Known active smoker prior to admission. - Continue Symbicort and bronchodilators. Will discontinue Solu-Medrol Qualifiers: COPD type: COPD with acute exacerbation Qualified Code(s): J44.1 - Chronic obstructive pulmonary disease with (acute) exacerbation (10) DVT prophylaxis Current Visit: Yes Status: Acute Heparin SQ Q12 -IV Protonix BID Subjective Principal diagnosis: Sepsis, Acute hypoxic respiratory failure/nstemi Interval history: Patient is resting comfortably this morning. She denies any chest pain or shortness of breath. She states her abdominal pain has resolved. She is eating breakfast. No acute events overnight. Patient's blood pressures in the 160s over 80s. She is currently has a nitroglycerin drip hanging. Satting upper 90s on 4 L nasal cannula. Objective PUL Vital signs: Last Vital Signs Temp 98.4 F 09/09/17 03:00 Pulse 79 09/09/17 06:00 Resp 14 09/09/17 07:24 BP 159/79 09/09/17 06:00 Pulse Ox 100 09/09/17 07:24 General appearance: no acute distress Eyes: nonicteric ENT: oropharynx moist Neck: supple Effort: normal Auscultation: bilateral: clear Cardiovascular: regular rate and rhythm Gastrointestinal: normoactive bowel sounds, soft, non-tender, non-distended Integumentary: normal Extremities: no cyanosis, no edema normal mental status mood appropriate, affect normal Results - Laboratory Findings CBC and BMP: 09/09/17 04:24 09/09/17 04:24 ABG ABG pH 7.41 pH Units (7.32-7.45) 09/08/17 05:45 ABG pCO2 28 mmHg (35-45) L 09/08/17 05:45 ABG pO2 104 mmHg (85-104) 09/08/17 05:45 ABG O2 Saturation 98 % (95-98) 09/08/17 05:45 PT/INR, D-dimer PT 13.6 Seconds (9.4-12.1) H 09/05/17 06:50 Abnormal lab findings: Abnormal lab results WBC 23.7 K/mcL (4.3-11.1) H 09/09/17 04:24 RBC 3.12 M/mcL (3.82-4.97) L 09/09/17 04:24 Hgb 9.2 g/dL (11.5-15.4) L 09/09/17 04:24 Hct 27.9 % (35.3-44.9) L 09/09/17 04:24 RDW 15.2 % (11.5-14.5) H 09/09/17 04:24 Band Neutrophils % 26.0 % (0-4) H 09/07/17 04:51 Neutrophils # 21.8 K/mcL (1.6-8.9) H 09/09/17 04:24 Lymphocytes # 0.5 K/mcL (0.6-4.6) L 09/09/17 04:24 Nucleated RBCs/100 WBC 0.3 /100 WBC (0) H 09/09/17 04:24 Smudge Cells Present (Not Present) A 09/06/17 17:33 Anisocytosis 2+ (Not Present) A 09/06/17 17:33 Target Cells 1+ (Not Present) A 09/06/17 17:33 PT 13.6 Seconds (9.4-12.1) H 09/05/17 06:50 APTT 41.5 Seconds (26.0-36.0) H D 09/06/17 14:21 ABG pCO2 28 mmHg (35-45) L 09/08/17 05:45 ABG HCO3 18 mEq/L (21-27) L 09/08/17 05:45 ABG Total CO2 19 mEq/L (20-26) L 09/08/17 05:45 ABG Base Excess -6 mEq/L (-2 to 3) L 09/08/17 05:45 Sodium 134 mEq/L (136-145) L 09/09/17 04:24 BUN 51 mg/dL (7-20) H 09/09/17 04:24 Creatinine 1.78 mg/dL (0.57-1.11) H 09/09/17 04:24 Est GFR ( Amer) 33 (> 60) L 09/09/17 04:24 Est GFR (Non-Af Amer) 27 (> 60) L 09/09/17 04:24 BUN/Creatinine Ratio 29 (6-26) H 09/09/17 04:24 Glucose 132 mg/dL (70-99) H 09/09/17 04:24 POC Glucose 148 (58-89) H 09/09/17 05:54 Creatine Kinase 250 Units/L (29-168) H 09/07/17 12:11 Troponin I 5.89 ng/mL (0-0.03) H* 09/07/17 17:53 B-Natriuretic Peptide 2906 pg/mL (0-100) H 09/04/17 21:20 Albumin 2.7 g/dL (3.5-5.0) L 09/05/17 01:41 Globulin 3.9 g/dL (2.4-3.5) H 09/05/17 01:41 Albumin/Globulin Ratio 0.7 (1.1-2.2) L 09/05/17 01:41 TSH 52.054 mcIU/mL (0.350-4.840) H 09/04/17 21:05 Free T4 0.44 ng/dl (0.70-1.48) L 09/07/17 09:05 Free T3 < 1.00 pg/mL (1.71-3.71) L 09/07/17 09:05 Urine Clarity Cloudy (Clear) A 09/04/17 21:33 Ur Specific Smoot 1.030 (1.010-1.025) H 09/04/17 21:33 Urine Protein 100 mg/dL (Neg-Trace) H 09/04/17 21:33 Urine Blood Large (Negative) H 09/04/17 21:33 Urine Bilirubin Small (Negative) H 09/04/17 21:33 Urine Microscopic RBC 50-100 per hpf (0-3) H 09/04/17 21:33 Urine Microscopic WBC 15-30 per hpf (0-3) H 09/04/17 21:33 Ur Squamous Epith Cells Many per lpf (None-Few) H 09/04/17 21:33 Urine Bacteria Many per hpf (None-Few) H 09/04/17 21:33 Granular Casts Many per lpf (None Seen) H 09/04/17 21:33 Urine Mucus Moderate (Few) H 09/04/17 21:33 Urine Yeast Moderate per hpf (None Seen) H 09/04/17 21:33 Streptococcus sp PCR DETECTED (Not Detect) A 09/04/17 22:03 Strep pneumoniae (PCR) DETECTED (Not Detect) A 09/04/17 22:03 - Microbiology Findings Microbiology Findings: Microbiology, Last 48 Hours 09/06/17 21:30 Sputum Culture - Final Sputum 09/06/17 18:34 Blood Culture - Preliminary Peripheral Venipuncture No growth. 09/06/17 18:32 Blood Culture - Preliminary Peripheral Venipuncture No growth. 09/06/17 05:54 Urine Culture - Final Urine,Catheterized No growth. - Clinical Findings Intake & Output: Intake & Output 09/08/17 09/08/17 09/09/17 15:59 23:59 07:59 Intake Total 490 / 490 653.4 / 653.4 Output Total 200 / 200 200 / 200 150 / 150 Balance -200 / -200 290 / 290 503.4 / 503.4 Weight 60.3 kg - VTE Documentation of Mechanical Device: Graduated compression elastic hosiery Consult Discharge Plan - Plan Referrals: NONE,PCP [Primary Care Provider] - <Saadlla,Haval M - Last Filed: 09/09/17 12:44> Date of Encounter: 09/09/17 Objective PUL Vital signs: Last Vital Signs Temp 97.7 F 09/09/17 11:00 Pulse 76 09/09/17 11:00 Resp 20 09/09/17 11:38 BP 164/83 09/09/17 11:00 Pulse Ox 99 09/09/17 11:38 Results - Laboratory Findings CBC and BMP: 09/09/17 04:24 09/09/17 04:24 ABG ABG pH 7.41 pH Units (7.32-7.45) 09/08/17 05:45 ABG pCO2 28 mmHg (35-45) L 09/08/17 05:45 ABG pO2 104 mmHg (85-104) 09/08/17 05:45 ABG O2 Saturation 98 % (95-98) 09/08/17 05:45 PT/INR, D-dimer PT 13.6 Seconds (9.4-12.1) H 09/05/17 06:50 Abnormal lab findings: Abnormal lab results WBC 23.7 K/mcL (4.3-11.1) H 09/09/17 04:24 RBC 3.12 M/mcL (3.82-4.97) L 09/09/17 04:24 Hgb 9.2 g/dL (11.5-15.4) L 09/09/17 04:24 Hct 27.9 % (35.3-44.9) L 09/09/17 04:24 RDW 15.2 % (11.5-14.5) H 09/09/17 04:24 Band Neutrophils % 26.0 % (0-4) H 09/07/17 04:51 Neutrophils # 21.8 K/mcL (1.6-8.9) H 09/09/17 04:24 Lymphocytes # 0.5 K/mcL (0.6-4.6) L 09/09/17 04:24 Nucleated RBCs/100 WBC 0.3 /100 WBC (0) H 09/09/17 04:24 Smudge Cells Present (Not Present) A 09/06/17 17:33 Anisocytosis 2+ (Not Present) A 09/06/17 17:33 Target Cells 1+ (Not Present) A 09/06/17 17:33 PT 13.6 Seconds (9.4-12.1) H 09/05/17 06:50 APTT 41.5 Seconds (26.0-36.0) H D 09/06/17 14:21 ABG pCO2 28 mmHg (35-45) L 09/08/17 05:45 ABG HCO3 18 mEq/L (21-27) L 09/08/17 05:45 ABG Total CO2 19 mEq/L (20-26) L 09/08/17 05:45 ABG Base Excess -6 mEq/L (-2 to 3) L 09/08/17 05:45 Sodium 134 mEq/L (136-145) L 09/09/17 04:24 BUN 51 mg/dL (7-20) H 09/09/17 04:24 Creatinine 1.78 mg/dL (0.57-1.11) H 09/09/17 04:24 Est GFR ( Amer) 33 (> 60) L 09/09/17 04:24 Est GFR (Non-Af Amer) 27 (> 60) L 09/09/17 04:24 BUN/Creatinine Ratio 29 (6-26) H 09/09/17 04:24 Glucose 132 mg/dL (70-99) H 09/09/17 04:24 POC Glucose 116 (58-89) H 09/09/17 11:48 Creatine Kinase 250 Units/L (29-168) H 09/07/17 12:11 Troponin I 5.89 ng/mL (0-0.03) H* 09/07/17 17:53 B-Natriuretic Peptide 2906 pg/mL (0-100) H 09/04/17 21:20 Albumin 2.7 g/dL (3.5-5.0) L 09/05/17 01:41 Globulin 3.9 g/dL (2.4-3.5) H 09/05/17 01:41 Albumin/Globulin Ratio 0.7 (1.1-2.2) L 09/05/17 01:41 TSH 52.054 mcIU/mL (0.350-4.840) H 09/04/17 21:05 Free T4 0.44 ng/dl (0.70-1.48) L 09/07/17 09:05 Free T3 < 1.00 pg/mL (1.71-3.71) L 09/07/17 09:05 Urine Clarity Cloudy (Clear) A 09/04/17 21:33 Ur Specific Smoot 1.030 (1.010-1.025) H 09/04/17 21:33 Urine Protein 100 mg/dL (Neg-Trace) H 09/04/17 21:33 Urine Blood Large (Negative) H 09/04/17 21:33 Urine Bilirubin Small (Negative) H 09/04/17 21:33 Urine Microscopic RBC 50-100 per hpf (0-3) H 09/04/17 21:33 Urine Microscopic WBC 15-30 per hpf (0-3) H 09/04/17 21:33 Ur Squamous Epith Cells Many per lpf (None-Few) H 09/04/17 21:33 Urine Bacteria Many per hpf (None-Few) H 09/04/17 21:33 Granular Casts Many per lpf (None Seen) H 09/04/17 21:33 Urine Mucus Moderate (Few) H 09/04/17 21:33 Urine Yeast Moderate per hpf (None Seen) H 09/04/17 21:33 Streptococcus sp PCR DETECTED (Not Detect) A 09/04/17 22:03 Strep pneumoniae (PCR) DETECTED (Not Detect) A 09/04/17 22:03 - Microbiology Findings Microbiology Findings: Microbiology, Last 48 Hours 09/06/17 21:30 Sputum Culture - Final Sputum 09/06/17 18:34 Blood Culture - Preliminary Peripheral Venipuncture No growth. 09/06/17 18:32 Blood Culture - Preliminary Peripheral Venipuncture No growth. - Clinical Findings Intake & Output: Intake & Output 09/08/17 09/09/17 09/09/17 23:59 07:59 15:59 Intake Total 490 / 490 683.4 / 683.4 448 / 448 Output Total 200 / 200 150 / 150 600 / 600 Balance 290 / 290 533.4 / 533.4 -152 / -152 Weight 60.3 kg - Attending Attestation I examined this patient and my medical decision-making was reviewed with the Resident Physician. I agree with the documented findings, disposition and treatment plan as described except to the extent set forth below. Patient seen and examined. Labs, radiology, chart personally reviewed. Agree with resident's history and physical, assessment, plan with following comments: OUTREACH ANALYST: Patient follows commands, Pulmonary: Acceptable oxygenation and ventilation Cardiovascular: stable. Discussed with cardiology team and agree with the medical management and also discussed with the family they are in agreement with less invasive approach. Weaning off nitroglycerin drip and then can be transferred to the floor. GI: Nutrition per dietary and GI prophylaxis per routine. Patient does not have any pain. Heme: DVT prophylaxis per routine ID: Continue antibiotics and plan to de-escalation Renal; urine out put and renal funtion reviewed Endorcine: blood glucose is monitored Lines: all lines checked and no evidence of infections Skin: skin care to prevent pressure ulcers per nursing routine care
[2017-09-09] MEDS: Pantoprazole 40 MG VIAL IVPB SCH (09:28)
[2017-09-09] MEDS: Aspirin 81 MG TAB.CHEW PO SCH (09:28)
[2017-09-09] MEDS: cefTRIAXone 2,000 MG in Water for inj. (sterile) 20 ML IVP SCH (09:29)
[2017-09-09] MEDS: Chlorhexidine Rinse 15 ML MOUTHWASH MM SCH (09:29)
[2017-09-09] MEDS: Metoprolol XL (24 HR) Succ 25 MG TAB.ER.24H PO SCH (10:15)
[2017-09-09] MEDS: Levothyroxine 25 MCG TABLET PO SCH (12:09)
--- NOTE | 2017-09-09 13:20 | Cardiology Progress Note ---
Date of Encounter: 09/09/17 Time of Encounter: 13:17 Assessment and Plan (1) NSTEMI (non-ST elevated myocardial infarction) Current Visit: Yes Status: Acute Elevated cardiace enzymes in setting of severe hypothyroidism, respiratory distress. LVEF 40-45% per reports. I had a long discussion with patient at the bedside today regarding her diagnosis and option, including medical therapy +/- LHC. We discussed the r/b/a to a C. Patient states that she is not interested in a [facility] given her advanced age. I explained to her that without doing a cardiac catheterization that her cardiac issues could worsen, resulting in heart failure and even . This was also discussed with grandnannette yesterday, who is apparently the DPOA. Given her age and somewhat frail condition, a conservative strategy does not seem unreasonable. Recommend continue aspirin/BB, statin therapy. Hold SHAR given A/CKD. Start Imdur and wean NTG to off. Start Norvasc for HTN. Continue to monitor. Please call with questions or concerns. Thanks, Gokul Murphy DO, [facility]. (2) LBBB (left bundle branch block) Current Visit: Yes Status: Acute Chronic, present since at least 2012. (3) Pericardial effusion Current Visit: Yes Status: Acute Hemodynamics good. Likely related to hypothyroidism. Continue to monitor. Discussion w patient/family: The assessment and plan as outlined above was discussed with the patient and/or family members who expressed understanding and agreement. All questions were answered. Thank you for involving us in the care of your patient. Please call with any questions. Subjective Principal diagnosis: Sepsis, Acute hypoxic respiratory failure/nstemi Interval history: Patient seen and examined earlier today. Overall, reports she is feeling better. No chest pain or dyspnea reported. ICU notes reviewed. Objective Vital Signs, Last 4 Hours Temp Pulse Resp BP Pulse Ox 09/09/17 12:00 81 20 139/90 98 09/09/17 11:38 20 99 09/09/17 11:00 97.7 F 76 20 164/83 99 09/09/17 10:00 73 20 159/96 99 General: Conversant, No Apparent Distress HEENT: Atraumatic, Normocephaly, Mucus Membranes Moist Neck: No JVD Cardiac: Reg Rate and Rhythm, Normal S1 and S2, No Murmur Lungs: Normal Breath Sounds, Other (Shallow) Neuro: Alert and responsive, No focal deficits noted Abdomen: Soft, Non-Tender Skin: No rashes noted on visualized skin Musculoskeletal: No Chest Wall Tenderness Extremities: No Clubbing, No Cyanosis, No Edema Results 09/09/17 04:24 09/09/17 04:24 Lab Results 09/09/17 09/09/17 04:24 04:24 WBC 23.7 H Hgb 9.2 L Hct 27.9 L Plt Count 334 Sodium 134 L Potassium 3.8 Chloride 103 Carbon Dioxide 22 BUN 51 H Creatinine 1.78 H Glucose 132 H Calcium 8.6 Magnesium 2.5 - Imaging and Cardiology Chest Xray: report reviewed Echo: report reviewed - EKG Interpretation EKG results cardiology: personally reviewed - VTE Documentation of Mechanical Device: Graduated compression elastic hosiery Consult Discharge Plan - Plan Referrals: NONE,PCP [Primary Care Provider] -
[2017-09-09] MEDS: *HR* Metoprolol 5 MG/5 ML VIAL IVP PRN ×2 (16:26→21:32)
[2017-09-09] MEDS: Isosorbide MONOnitrate (24 HR) 30 MG TAB.ER.24H PO SCH (19:33)
[2017-09-10] MEDS: *HR* Metoprolol 5 MG/5 ML VIAL IVP PRN (02:26)
[2017-09-10] MEDS: Ipratropium/Albuterol Neb 3 ML IH SCH ×5 (04:10→20:05)
[2017-09-10] MEDS: Nitroglycerin 25 MG/250 ML INFUS..BTL IVC SCH ×5 (04:29→23:01)
[2017-09-10 05:04] LABS: Hematocrit 29.5 % (35.3-44.9); Hemoglobin 9.5 g/dL (11.5-15.4); Mean Corpuscular HGB Conc 32.2 g/dL (31.6-35.5); Mean Corpuscular Hemoglobin 29.2 pg (28.0-33.3); Mean Corpuscular Volume 90.8 fL (83.0-100.0); Mean Platelet Volume 10.3 fL (9.4-12.4); Platelet Count 331 K/mcL (140-400); Red Blood Count 3.25 M/mcL (3.82-4.97); Red Cell Distribution Width 14.8 % (11.5-14.5)
[2017-09-10 05:25] LABS: Calcium 8.3 mg/dL (8.6-10.8); Potassium 4.5 mEq/L (3.5-4.5)
[2017-09-10] MEDS: *HR* Heparin 5,000 UNIT/ML VIAL SQ SCH (05:41)
[2017-09-10] MEDS: Levothyroxine 25 MCG TABLET PO SCH (05:41)
[2017-09-10] MEDS: Insulin LISPRO 300 UNITS/3 ML VIAL SQ SCH ×3 (05:41→17:39)
[2017-09-10 05:55] LABS: Monocytes # 1.5 K/mcL (0.0-1.3); Neutrophils # 16.7 K/mcL (1.6-8.9)
[2017-09-10 05:56] LABS: Platelet Estimate Normal (Normal)
[2017-09-10] MEDS ORDERED: Levothyroxine 25 MCG TABLET PO SCH (06:30)
[2017-09-10] MEDS: Budesonide/Formoterol 160/4.5 MDI IH SCH ×2 (07:14→20:05)
[2017-09-10] MEDS: amLODIPine 5 MG TABLET PO SCH ×2 (08:28→10:57)
[2017-09-10] MEDS: Pantoprazole 40 MG VIAL IVPB SCH (08:28)
[2017-09-10] MEDS: Isosorbide MONOnitrate (24 HR) 30 MG TAB.ER.24H PO SCH ×2 (08:28→10:57)
[2017-09-10] MEDS: Aspirin 81 MG TAB.CHEW PO SCH ×2 (08:28→10:57)
[2017-09-10] MEDS: cefTRIAXone 2,000 MG in Water for inj. (sterile) 20 ML IVP SCH (08:28)
[2017-09-10] MEDS: Metoprolol XL (24 HR) Succ 25 MG TAB.ER.24H PO SCH (08:28)
--- NOTE | 2017-09-10 09:05 | Pulmonology Progress Note ---
<Neda Araujo - Last Filed: 09/10/17 10:38> Date of Encounter: 09/10/17 Time of Encounter: 09:02 Assessment and Plan (1) Acute encephalopathy Current Visit: Yes Status: Acute Reported altered mental status prior to arrival in ED. - Likely metabolic in the setting of sepsis/pneumonia and acute respiratory failure. - CT head found large amount of small vessel ischemic change bilaterally with some old infarts but cannot exclude the possibility of a subtle superimposed recent ischemic focus. MRI is recommended if further investigation is needed. - 09/10/2017- Patient mental status declined from yesterday. Patient alert, but difficult to ascertain information from. - Will order stat ct ab/pelvis for abdominal discomfort. - stat lactic acid 0.9 - stat CT head without contrast - Call urology for increased hematuria. - NPO - Transfer to floor cancelled secondary to sustained abdominal pain and hematuria. - Continue to monitor. (2) Hematuria Current Visit: Yes Status: Resolved -Hematuria in urinary catheter noted after patient was started on heparin drip. - CT A/P found no obstructive stones, no severe stranding around tract and no evidence of large clot in the bladder - Urine culture no growth. - Heparin drip had been discontinued since 09/06 for acute blood anemia. Urine had turned clear since. Heparin prophylaxis resumed. - 09/10/2017- hematuria resumed overnight with diaz blood visualized. Hold heparin BID SQ now. - FU urology. Qualifiers: Hematuria type: gross Qualified Code(s): R31.0 - Gross hematuria (3) Acute respiratory failure with hypoxia Current Visit: Yes Status: Acute - Noted to have significant respiratory even on BiPAP and eventually intubated in ICU. - Initial ABG pH 7.33, pCO2 33, pO2 58 and HCO3 18. - Likely secondary to pulmonary edema, LLL pneumonia and/or COPD exacerbation. - Patient was extubated on 09/06 but reintubated later the same day for acute onset respiratory distress. The lab findings (one-time elevation of lactic acid and leukocytosis on 09/06 and elevated troponin on 09/07) and change between two CT A/P on same day (more prominent bibasilar consolidation, L > R) raises the concern of acute worsening of cardiogenic pulmonary edema. Feel more likely secondary to cardiac rather than infection. - Patient extubated yesterday on 09/08/2017. - Continue antibiotics for pneumonia and steroid & bronchodilators for COPD. - Transfer to the floor was cancelled secondary to persistent abdominal pain and hematuria. (4) Elevated troponin Current Visit: Yes Status: Acute - Initial troponin negative (0.03) but then peaked at 2.90 before downtrended to 1.00 on 09/06. Troponin elevated again at 7.42 on 09/07/17 but later downtrend to 5.89 the same day. - Initial EKG showed LBBB - Echocardiogram on 09/05/17 showed LVEF 45% with indeterminated diastolic function. Atypical septal motion consistent with bundle branch block. A small to moderate circumferential pericardial effusion, most prominent anteriorly, also noted. - Repeat echocardiogram on 09/07/17 showed moderate left ventricular systolic dysfunction with LVEF 45% but slight improvement of the anteroseptal wall also noted. -Patient NSTEMI to be managed with medical treatment. No [facility] at this time pending discussion by cardiology with patient and patient's family. - Appreciate cardiology evaluation and recommendation. -Nitro drip to be discontinued today. -Increase PO metoprolol 50mg XL. -Increase prn metoprolol to 5mg IV q6 hrs PRN systolic BP >180. (5) Sepsis Current Visit: Yes Status: Acute - 4 SIRS criteria (fever, tachycardia, tachypnea and leukocytosis) on admission with lactic acid 5.1 which trended down to 1.5 on 09/07/2017. - Likely secondary to pneumonia as suggested by focal consolidation in the left lower lobe on CXR. - Known Streptococcus pneumoniae given positive 2/2 blood cultures. Almost dickey- sensitive except resistance to erythromycin. - Patient had acute onset of respiratory distress on 09/06/17 requiring re- intubation. And IV vancomycin and metronidazole were added for broader-spectrum coverage but later discontinued as it was believed to come from cardiac condition rather than infection. - CT A/P 09/06/2017 does not suggest GI or as source of infection. - Continue IV ceftriaxone (since 09/05). -repeat CT ABD/Pelvis without contrast as patient with sustained abdominal pain. -repeat lactic acid Qualifiers: Sepsis type: sepsis due to unspecified organism Qualified Code(s): A41.9 - Sepsis, unspecified organism (6) Congestive heart failure Current Visit: Yes Status: Acute - CXR suggested pulmonary edema along with focal consolidation in the left lower lobe concerning of pneumonia. - Patient had received 100 mg of IV Lasix on the day of admission. - Echocardiogram on 09/05/17 showed LVEF 45% with indeterminated diastolic function. Atypical septal motion consistent with bundle branch block. A small to moderate circumferential pericardial effusion, most prominent anteriorly, also noted. - Repeat echocardiogram on 09/07/17 showed moderate left ventricular systolic dysfunction with LVEF 45% but slight improvement of the anteroseptal wall also noted. - Net +538 mL so far. - Strict I/O and daily weight. Qualifiers: Congestive heart failure type: unspecified congestive heart failure type Congestive heart failure chronicity: acute on chronic Qualified Code(s): I50.9 - Heart failure, unspecified (7) Pneumonia Current Visit: Yes Status: Acute - CXR suggested pulmonary edema along with focal consolidation in the left lower lobe concerning of pneumonia. - Known Streptococcus pneumoniae given positive 2/2 blood cultures. Almost dickey- sensitive except resistance to erythromycin. - Patient had acute onset of respiratory distress on 09/06/17 requiring re- intubation. And IV vancomycin and metronidazole were added for broader-spectrum coverage but later discontinued as it was believed to come from cardiac condition rather than infection. -Patient extubated, now satting 98% room air. - Continue IV ceftriaxone (since 09/05). Qualifiers: Pneumonia type: due to Pneumococcus Laterality: left Lung location: lower lobe of lung Qualified Code(s): J13 - Pneumonia due to Streptococcus pneumoniae (8) Hypothyroidism Current Visit: Yes Status: Acute - Highly elevated TSH (52.054) on admission. - Low free T4 (0.44) and free T3 (<1.00). - Patient had received one dose of IV levothyroxine 200 mcg in ED. -IV levothyroxine 12.5 mcg daily changed to PO 25mcg on 09/09/2017 Qualifiers: Hypothyroidism type: unspecified Qualified Code(s): E03.9 - Hypothyroidism , unspecified (9) COPD (chronic obstructive pulmonary disease) Current Visit: Yes Status: Chronic - Possible COPD exacerbation precipitated by recent respiratory infection on initial presentation. Known active smoker prior to admission. - Continue Symbicort and bronchodilators. Solumedrol DC'd 09/09/2017 Qualifiers: COPD type: COPD with acute exacerbation Qualified Code(s): J44.1 - Chronic obstructive pulmonary disease with (acute) exacerbation (10) DVT prophylaxis Current Visit: Yes Status: Acute DC heparin SQ 09/10/2017 2/2 hematuria. -IV Protonix BID Subjective Principal diagnosis: Sepsis, Acute hypoxic respiratory failure/nstemi Interval history: Patient is resting this morning and difficult to maintain any meaningful information from. She appears to be in discomfort. Diaz blood is seen coming from her kelly catheter. No acute events overnight. She remains hypertensive. Nitroglycerin drip still infusing secondary to elevated blood pressures. She is satting 98% on room air. Objective PUL Vital signs: Last Vital Signs Temp 97.5 F L 09/10/17 07:30 Pulse 79 09/10/17 08:00 Resp 20 09/10/17 08:00 BP 154/83 09/10/17 08:00 Pulse Ox 98 09/10/17 08:00 General appearance: alert, appears uncomfortable Eyes: nonicteric ENT: oropharynx dry Effort: normal Auscultation: bilateral: diminished breath sounds Cardiovascular: regular rate and rhythm Gastrointestinal: normoactive bowel sounds, soft, other (distended) Integumentary: normal Extremities: no cyanosis, no edema, pink and warm, pulses normal Results - Laboratory Findings CBC and BMP: 09/10/17 04:43 09/10/17 04:43 ABG ABG pH 7.41 pH Units (7.32-7.45) 09/08/17 05:45 ABG pCO2 28 mmHg (35-45) L 09/08/17 05:45 ABG pO2 104 mmHg (85-104) 09/08/17 05:45 ABG O2 Saturation 98 % (95-98) 09/08/17 05:45 PT/INR, D-dimer PT 13.6 Seconds (9.4-12.1) H 09/05/17 06:50 Abnormal lab findings: Abnormal lab results WBC 18.1 K/mcL (4.3-11.1) H 09/10/17 04:43 RBC 3.25 M/mcL (3.82-4.97) L 09/10/17 04:43 Hgb 9.5 g/dL (11.5-15.4) L 09/10/17 04:43 Hct 29.5 % (35.3-44.9) L 09/10/17 04:43 RDW 14.8 % (11.5-14.5) H 09/10/17 04:43 Band Neutrophils % 26.0 % (0-4) H 09/07/17 04:51 Neutrophils # 16.7 K/mcL (1.6-8.9) H 09/10/17 04:43 Lymphocytes # 0.0 K/mcL (0.6-4.6) L 09/10/17 04:43 Monocytes # 1.5 K/mcL (0.0-1.3) H 09/10/17 04:43 Nucleated RBCs/100 WBC 0.3 /100 WBC (0) H 09/09/17 04:24 Smudge Cells Present (Not Present) A 09/06/17 17:33 Anisocytosis 2+ (Not Present) A 09/06/17 17:33 Target Cells 1+ (Not Present) A 09/06/17 17:33 PT 13.6 Seconds (9.4-12.1) H 09/05/17 06:50 APTT 41.5 Seconds (26.0-36.0) H D 09/06/17 14:21 ABG pCO2 28 mmHg (35-45) L 09/08/17 05:45 ABG HCO3 18 mEq/L (21-27) L 09/08/17 05:45 ABG Total CO2 19 mEq/L (20-26) L 09/08/17 05:45 ABG Base Excess -6 mEq/L (-2 to 3) L 09/08/17 05:45 Sodium 134 mEq/L (136-145) L 09/10/17 04:43 BUN 39 mg/dL (7-20) H D 09/10/17 04:43 Creatinine 1.36 mg/dL (0.57-1.11) H 09/10/17 04:43 Est GFR ( Amer) 44 (> 60) L 09/10/17 04:43 Est GFR (Non-Af Amer) 37 (> 60) L 09/10/17 04:43 BUN/Creatinine Ratio 29 (6-26) H 09/10/17 04:43 Glucose 110 mg/dL (70-99) H 09/10/17 04:43 POC Glucose 100 (58-89) H 09/09/17 23:13 Calcium 8.3 mg/dL (8.6-10.8) L 09/10/17 04:43 Creatine Kinase 250 Units/L (29-168) H 09/07/17 12:11 Troponin I 5.89 ng/mL (0-0.03) H* 09/07/17 17:53 B-Natriuretic Peptide 2906 pg/mL (0-100) H 09/04/17 21:20 Albumin 2.7 g/dL (3.5-5.0) L 09/05/17 01:41 Globulin 3.9 g/dL (2.4-3.5) H 09/05/17 01:41 Albumin/Globulin Ratio 0.7 (1.1-2.2) L 09/05/17 01:41 TSH 52.054 mcIU/mL (0.350-4.840) H 09/04/17 21:05 Free T4 0.44 ng/dl (0.70-1.48) L 09/07/17 09:05 Free T3 < 1.00 pg/mL (1.71-3.71) L 09/07/17 09:05 Urine Clarity Cloudy (Clear) A 09/04/17 21:33 Ur Specific [place] 1.030 (1.010-1.025) H 09/04/17 21:33 Urine Protein 100 mg/dL (Neg-Trace) H 09/04/17 21:33 Urine Blood Large (Negative) H 09/04/17 21:33 Urine Bilirubin Small (Negative) H 09/04/17 21:33 Urine Microscopic RBC 50-100 per hpf (0-3) H 09/04/17 21:33 Urine Microscopic WBC 15-30 per hpf (0-3) H 09/04/17 21:33 Ur Squamous Epith Cells Many per lpf (None-Few) H 09/04/17 21:33 Urine Bacteria Many per hpf (None-Few) H 09/04/17 21:33 Granular Casts Many per lpf (None Seen) H 09/04/17 21:33 Urine Mucus Moderate (Few) H 09/04/17 21:33 Urine Yeast Moderate per hpf (None Seen) H 09/04/17 21:33 Streptococcus sp PCR DETECTED (Not Detect) A 09/04/17 22:03 Strep pneumoniae (PCR) DETECTED (Not Detect) A 09/04/17 22:03 - Microbiology Findings Microbiology Findings: Microbiology, Last 48 Hours 09/06/17 21:30 Sputum Culture - Final Sputum 09/06/17 18:34 Blood Culture - Preliminary Peripheral Venipuncture No growth. 09/06/17 18:32 Blood Culture - Preliminary Peripheral Venipuncture No growth. - Clinical Findings Intake & Output: Intake & Output 09/09/17 09/10/17 09/10/17 23:59 07:59 15:59 Intake Total 322 / 322 250 / 250 270 / 270 Output Total 400 / 400 525 / 525 Balance -78 / -78 -275 / -275 270 / 270 Weight 60.2 kg - VTE Documentation of Mechanical Device: Graduated compression elastic hosiery Consult Discharge Plan - Plan Referrals: NONE,PCP [Primary Care Provider] - <Rufus Ricardo - Last Filed: 09/10/17 12:34> Date of Encounter: 09/10/17 Objective PUL Vital signs: Last Vital Signs Temp 97.5 F L 09/10/17 07:30 Pulse 82 09/10/17 11:25 Resp 20 09/10/17 11:08 BP 175/98 09/10/17 11:00 Pulse Ox 93 09/10/17 11:08 Results - Laboratory Findings CBC and BMP: 09/10/17 04:43 09/10/17 04:43 ABG ABG pH 7.41 pH Units (7.32-7.45) 09/08/17 05:45 ABG pCO2 28 mmHg (35-45) L 09/08/17 05:45 ABG pO2 104 mmHg (85-104) 09/08/17 05:45 ABG O2 Saturation 98 % (95-98) 09/08/17 05:45 PT/INR, D-dimer PT 13.6 Seconds (9.4-12.1) H 09/05/17 06:50 Abnormal lab findings: Abnormal lab results WBC 18.1 K/mcL (4.3-11.1) H 09/10/17 04:43 RBC 3.25 M/mcL (3.82-4.97) L 09/10/17 04:43 Hgb 9.5 g/dL (11.5-15.4) L 09/10/17 04:43 Hct 29.5 % (35.3-44.9) L 09/10/17 04:43 RDW 14.8 % (11.5-14.5) H 09/10/17 04:43 Band Neutrophils % 26.0 % (0-4) H 09/07/17 04:51 Neutrophils # 16.7 K/mcL (1.6-8.9) H 09/10/17 04:43 Lymphocytes # 0.0 K/mcL (0.6-4.6) L 09/10/17 04:43 Monocytes # 1.5 K/mcL (0.0-1.3) H 09/10/17 04:43 Nucleated RBCs/100 WBC 0.3 /100 WBC (0) H 09/09/17 04:24 Smudge Cells Present (Not Present) A 09/06/17 17:33 Anisocytosis 2+ (Not Present) A 09/06/17 17:33 Target Cells 1+ (Not Present) A 09/06/17 17:33 PT 13.6 Seconds (9.4-12.1) H 09/05/17 06:50 APTT 41.5 Seconds (26.0-36.0) H D 09/06/17 14:21 ABG pCO2 28 mmHg (35-45) L 09/08/17 05:45 ABG HCO3 18 mEq/L (21-27) L 09/08/17 05:45 ABG Total CO2 19 mEq/L (20-26) L 09/08/17 05:45 ABG Base Excess -6 mEq/L (-2 to 3) L 09/08/17 05:45 Sodium 134 mEq/L (136-145) L 09/10/17 04:43 BUN 39 mg/dL (7-20) H D 09/10/17 04:43 Creatinine 1.36 mg/dL (0.57-1.11) H 09/10/17 04:43 Est GFR ( Amer) 44 (> 60) L 09/10/17 04:43 Est GFR (Non-Af Amer) 37 (> 60) L 09/10/17 04:43 BUN/Creatinine Ratio 29 (6-26) H 09/10/17 04:43 Glucose 110 mg/dL (70-99) H 09/10/17 04:43 POC Glucose 100 (58-89) H 09/09/17 23:13 Calcium 8.3 mg/dL (8.6-10.8) L 09/10/17 04:43 Creatine Kinase 250 Units/L (29-168) H 09/07/17 12:11 Troponin I 5.89 ng/mL (0-0.03) H* 09/07/17 17:53 B-Natriuretic Peptide 2906 pg/mL (0-100) H 09/04/17 21:20 Albumin 2.7 g/dL (3.5-5.0) L 09/05/17 01:41 Globulin 3.9 g/dL (2.4-3.5) H 09/05/17 01:41 Albumin/Globulin Ratio 0.7 (1.1-2.2) L 09/05/17 01:41 TSH 52.054 mcIU/mL (0.350-4.840) H 09/04/17 21:05 Free T4 0.44 ng/dl (0.70-1.48) L 09/07/17 09:05 Free T3 < 1.00 pg/mL (1.71-3.71) L 09/07/17 09:05 Urine Clarity Cloudy (Clear) A 09/04/17 21:33 Ur Specific [place] 1.030 (1.010-1.025) H 09/04/17 21:33 Urine Protein 100 mg/dL (Neg-Trace) H 09/04/17 21:33 Urine Blood Large (Negative) H 09/04/17 21:33 Urine Bilirubin Small (Negative) H 09/04/17 21:33 Urine Microscopic RBC 50-100 per hpf (0-3) H 09/04/17 21:33 Urine Microscopic WBC 15-30 per hpf (0-3) H 09/04/17 21:33 Ur Squamous Epith Cells Many per lpf (None-Few) H 09/04/17 21:33 Urine Bacteria Many per hpf (None-Few) H 09/04/17 21:33 Granular Casts Many per lpf (None Seen) H 09/04/17 21:33 Urine Mucus Moderate (Few) H 09/04/17 21:33 Urine Yeast Moderate per hpf (None Seen) H 09/04/17 21:33 Streptococcus sp PCR DETECTED (Not Detect) A 09/04/17 22:03 Strep pneumoniae (PCR) DETECTED (Not Detect) A 09/04/17 22:03 - Microbiology Findings Microbiology Findings: Microbiology, Last 48 Hours 09/06/17 21:30 Sputum Culture - Final Sputum - Clinical Findings Intake & Output: Intake & Output 09/09/17 09/10/17 09/10/17 23:59 07:59 15:59 Intake Total 322 / 322 250 / 250 270 / 270 Output Total 400 / 400 525 / 525 300 / 300 Balance -78 / -78 -275 / -275 -30 / -30 Weight 60.2 kg - Attending Attestation I examined this patient and my medical decision-making was reviewed with the Resident Physician. I agree with the documented findings, disposition and treatment plan as described except to the extent set forth below. Patient seen and examined. Labs, radiology, chart personally reviewed. Agree with resident's history and physical, assessment, plan with following comments: CORROSION CONTROL FITTER: Patient lethargic and confused which I suspect ICU delirium or side effect of medication, will consider treatment with Haldol if worsen and need to check EKG for QT intervals. This could be also a neurological event and patient to have a repeat CT head and possible MRI. Pulmonary: Acceptable oxygenation and ventilation Cardiovascular: Cardiology follow-up and reviewed their notes. GI: Nutrition per dietary and GI prophylaxis per routine. Patient has abdominal tenderness on examination and CT images ordered. Heme: DVT prophylaxis per routine. Hold heparin and a mechanical DVT prophylaxis. ID: Continue antibiotics and plan to de-escalation Renal; urine out put and renal funtion reviewed. Hematuria and the patient machine design checker input. Endorcine: blood glucose is monitored Lines: all lines checked and no evidence of infections Skin: skin care to prevent pressure ulcers per nursing routine care I have met with the family yesterday and to continue care. Will need family meeting to discuss about her care. Patient to stay in ICU for now. She has multiple problems at this point and remain on nitroglycern drip.
[2017-09-10] MEDS ORDERED: Metoprolol XL (24 HR) Succ 25 MG TAB.ER.24H PO ONE (09:47)
--- NOTE | 2017-09-10 09:52 | Cardiology Progress Note ---
Date of Encounter: 09/10/17 Time of Encounter: 09:00 Assessment and Plan (1) Hypothyroidism Current Visit: Yes Status: Acute Per cardiology: -Severe hypothryoidism. -Management per primary service. Qualifiers: Hypothyroidism type: unspecified Qualified Code(s): E03.9 - Hypothyroidism , unspecified (2) Congestive heart failure Current Visit: Yes Status: Acute Per cardiology: -Acute on Chronic CHF with hypoxic respiratory failure, unknown etiology. -TTE with LVEF 45%, indeterminate diastolic function, atypical septal motion consistent with bundle branch block, mild concentric LVH, mild-moderately sclerotic aortic valve leaflets, moderate MR, small to moderate pericardial effusion, not diagnostic for tamponade, apex, apical inferior, mid inferior, basal inferior, apical anterior, mid anterior and basal anterior cedeno hypokinetic. Mid anterior septal and basal anterior septal cedeno dyskinetic. ALl other wall segments with normal motion. -Repeat TTE yesterday with Moderate left ventricular systolic dysfunction. LVEF 45%. with slight improvement of the anteroseptal wall. Left Ventricular Wall Motion: The apex, apical inferior, mid inferior, basal inferior, apical anterior, mid anterior, basal anterior, mid anterior septal and basal anterior septal cedeno were hypokinetic. All other wall segments showed normal motion. -On beta krish. Not on megan inhibitor due to TROY. -EKG on arrival showed LBBB, upon further review of old records, LBBB is old. LBBB noted per ECG in 2013, copy placed in chart on floor. -Most recent CXR with imrpoved appearance. -BNP 2906 on admission, TSH 52.05. -Net positive fluid balance of 330ml. -Weight on admission 61.2kg, weight today 60.2kg. -Strict i/os, daily weights, fluid restriction. Recommend 1.5L/day of fluid restriction when able to take PO. Qualifiers: Congestive heart failure type: unspecified congestive heart failure type Congestive heart failure chronicity: acute on chronic Qualified Code(s): I50.9 - Heart failure, unspecified (3) Elevated troponin Current Visit: Yes Status: Acute Per cardiology: -Initially troponins 0.03, 1.38, 2.63, 2.9, 2.79, 1. -After acute event on Friday troponin 7.42, 6.97, 5.89. -NSTEMI versus demand ischemia. -TTE with LVEF 45%, wall motion abnormalities noted. -Repeat TTE with LVEF 45% with slight improvement of anteroseptal wall. -ECG with LBBB. -Denies chest pain. -BP hypertensive, on nitro drip. Was started on norvasc yesterday. -Will increase beta krish. -Medical management at this time due to hematuria, anemia, TROY, severe hypothyroidism. No cardiac rehab warranted at this time. -Per review of 's note, he discussed possible LHC with patient, patient declined LHC. NO family available at bedside to discuss with. Will attempt to speak with family when they arrive. (4) TROY (acute kidney injury) Current Visit: Yes Status: Acute Per cardiology: -Creatinine baseline unknown. -Creatinine peaked at 2.14, now 1.36. -Management per primary service. Discussion w patient/family: The assessment and plan as outlined above was discussed with the patient. All questions were answered. Thank you for involving us in the care of your patient. Please call with any questions. Discussed and reviewed with . Subjective Principal diagnosis: Sepsis, Acute hypoxic respiratory failure/nstemi Interval history: Patient sleeping upon enetering room. Patient easy to arouse. Chuck chest pain. States breathing ok. Objective Vital Signs, Last 4 Hours Temp Pulse Resp BP Pulse Ox 09/10/17 09:00 77 20 175/96 97 09/10/17 08:00 79 20 154/83 98 09/10/17 07:30 97.5 F L 77 09/10/17 07:18 18 100 09/10/17 07:00 79 16 161/108 97 09/10/17 06:00 78 20 158/95 93 General: Conversant, No Apparent Distress HEENT: Atraumatic, Normocephaly, Mucus Membranes Moist Neck: No JVD, Normal carotid pulses Cardiac: Reg Rate and Rhythm, Normal S1 and S2, No Murmur Lungs: Normal Breath Sounds, No Wheeze, Rales, Rhonchi Neuro: Alert and responsive, No focal deficits noted Abdomen: Soft, Non-Tender Skin: No rashes noted on visualized skin Musculoskeletal: No Chest Wall Tenderness Extremities: No Clubbing, No Cyanosis, No Edema, Normal Pulses Results 09/10/17 04:43 09/10/17 04:43 Lab Results Active Medications Acetaminophen (Tylenol 650mg Supp) 650 mg RC Q6HR PRN PRN Reason: fever GREATER than 101.2 F Stop: 03/07/18 00:47 Albuterol Sulfate (Albuterol Inhaler) 2 puff IH Q2HR PRN PRN Reason: Shortness Of Breath/Wheezing Stop: 03/07/18 11:10 Albuterol/Ipratropium (Duoneb) 3 ml IH [id number] [facility] Stop: 03/07/18 01:01 Last Admin: 09/10/17 07:14 Dose: 3 ml Amlodipine Besylate (Norvasc) 5 mg PO DAILY YULY PRN Reason: Protocol Stop: 03/12/18 09:01 Aspirin (Aspirin) 81 mg PO DAILY [facility] Stop: 03/07/18 09:46 Last Admin: 09/09/17 09:28 Dose: 81 mg Atorvastatin Calcium (Lipitor) 20 mg PO HS [facility] Stop: 03/07/18 21:01 Last Admin: 09/09/17 21:24 Dose: 20 mg Budesonide/Formoterol Fumarate (Symbicort) 2 puff IH BIDR YULY PRN Reason: Protocol Stop: 03/07/18 22:01 Last Admin: 09/10/17 07:14 Dose: 2 puff Dextrose/Water (Dextrose 50% (Syg)) 25 ml IVP AD PRN PRN Reason: Hypoglycemia Stop: 03/07/18 02:42 Glucagon (Glucagen) 1 mg IM ONCE PRN PRN Reason: Hypoglycemia Stop: 03/07/18 02:42 Glucose (Gluctose) 15 gm PO ONCE PRN PRN Reason: Hypoglycemia Stop: 03/07/18 02:42 Glucose (Gluctose) 30 gm PO ONCE PRN PRN Reason: Hypoglycemia Stop: 03/07/18 02:42 Heparin Sodium (Porcine) (Heparin) 5,000 unit SQ Q12HCO [facility] Stop: 03/10/18 11:01 Last Admin: 09/10/17 05:41 Dose: Not Given Dextrose (Dextrose 5%) 1,000 mls @ 100 mls/hr IVC .Q10H PRN PRN Reason: HYPOGLYCEMIA Stop: 03/07/18 02:42 Ceftriaxone Sodium 2,000 mg/ (Sterile Water) 20 mls @ 600 mls/hr IVP Q24H [facility] Stop: 03/07/18 09:01 Last Infusion: 12/13/17 08:39 Dose: Infused Calcium Gluconate 1,000 mg/ (Sodium Chloride) 60 mls @ 111 mls/hr IVPB Q6HR PRN PRN Reason: Hypocalcemia Stop: 03/10/18 11:33 Magnesium Sulfate (Magnesium Sulfate Premix 2gm/50ml) 2 gm in 50 mls @ 50 mls/ hr IVPB Q6H PRN PRN Reason: Hypomagnesemia Stop: 03/10/18 11:33 Potassium Chloride (Potassium Chloride 10 Meq/100ml) 10 meq in 100 mls @ 100 mls/hr IVPB Q1H PRN PRN Reason: Potassium less than 4 Stop: 03/10/18 11:33 Sodium Phosphate 30 mmol/ (Sodium Chloride) 260 mls @ 42 mls/hr IVPB Q12H PRN PRN Reason: Hypophosphatemia Stop: 03/10/18 11:33 Nitroglycerin (Nitroglycerin Premix 25 Mg/250 Ml) 25 mg in 250 mls @ 3 mls/hr IVC .Q24H YULY; 5 MCG/MIN PRN Reason: Protocol Stop: 03/10/18 12:46 Last Admin: 09/10/17 08:27 Dose: 85 mcg/min, 51 mls/hr Insulin Human Lispro (Humalog) 0 units SQ Q6HR YULY PRN Reason: Protocol Stop: 03/07/18 06:01 Last Admin: 09/10/17 05:41 Dose: Not Given Isosorbide Mononitrate (Imdur) 30 mg PO DAILY [facility] Stop: 03/11/18 13:31 Last Admin: 09/09/17 19:33 Dose: Not Given Levothyroxine Sodium (Synthroid) 25 mcg PO DAILY@0630 YULY Stop: 03/11/18 11:01 Last Admin: 09/10/17 05:41 Dose: Not Given Metoprolol Succinate (Toprol Xl) 50 mg PO DAILY [facility] Stop: 03/13/18 09:01 Metoprolol Succinate (Toprol Xl) 25 mg PO ONCE ONE Stop: 09/10/17 09:48 Metoprolol Tartrate (Lopressor) 2.5 mg IVP Q4HR PRN PRN Reason: SBP >180 Stop: 03/11/18 12:01 Last Admin: 09/10/17 02:26 Dose: 2.5 mg Naloxone HCl (Narcan) 0.4 mg IVP Q2MIN PRN PRN Reason: Opioid Reversal Stop: 03/07/18 00:47 Pantoprazole Sodium (Protonix) 40 mg IVPB DAILY YULY Stop: 03/07/18 01:01 Last Admin: 09/10/17 08:28 Dose: 40 mg Polyethylene Glycol (Miralax) 17 gm PO DAILY PRN PRN Reason: Constipation Stop: 03/10/18 11:49 Last Admin: 09/08/17 16:57 Dose: 17 gm Potassium Chloride (Potassium Chloride) 40 meq PO DAILY PRN PRN Reason: Hypokalemia Stop: 03/10/18 11:33 Last Admin: 09/09/17 05:50 Dose: 40 meq Laboratory Tests 09/10/17 09/10/17 04:43 04:43 WBC 18.1 H Hgb 9.5 L Creatinine 1.36 H - Imaging and Cardiology Chest Xray: report reviewed Echo: report reviewed - EKG Interpretation EKG results cardiology: other (Telemetry reviewed with average HR previous 12 hours noted to be 79, sinus rhythm. PVCs and PACS noted. One 5 beat run of atrial tachcardia noted.) - VTE Documentation of Mechanical Device: Graduated compression elastic hosiery Consult Discharge Plan - Plan Referrals: NONE,PCP [Primary Care Provider] -
[2017-09-10] MEDS ORDERED: *HR* Metoprolol 5 MG/5 ML VIAL IVP PRN (11:27)
--- NOTE | 2017-09-10 12:09 | Urology Progress Note ---
Date of Encounter: 09/10/17 Time of Encounter: 12:06 - Assessment and Plan (1) Hematuria Current Visit: Yes Status: Resolved Assessment and plan: i manually irrigated the patient's bladder. Small amount of clots returned. At this point I would not start continuous bladder irrigation. Would continue with antibiotics at this time. Most likely hematuria related to cystitis. We will continue to follow along. Qualifiers: Hematuria type: gross Qualified Code(s): R31.0 - Gross hematuria Progress Note Narrative: Delia is a 86-year-old female with a history of gross hematuria. Hematuria had resolved but now recurs today.CT scan from today was reviewed with possibl small clot within bladder but this is minimal. Objective Initial Vital Signs Temp Pulse Resp BP Pulse Ox 101.6 F H 100 20 197/115 95 09/04/17 21:06 09/04/17 21:06 09/04/17 21:06 09/04/17 21:06 09/04/17 21:06 - Abdomen Present: soft - Genitourinary Urine Appearance: Present: Hematuria, Small Blood Clots - Labs 09/10/17 04:43 09/10/17 04:43 Diabetes panel 09/10/17 Range/Units 04:43 Sodium 134 L (136-145) mEq/L Potassium 4.5 (3.5-4.5) mEq/L Chloride 104 (98-109) mEq/L Carbon Dioxide 22 (19-29) mEq/L BUN 39 H D (7-20) mg/dL Creatinine 1.36 H (0.57-1.11) mg/dL Glucose 110 H (70-99) mg/dL Calcium 8.3 L (8.6-10.8) mg/dL Calcium panel 09/10/17 Range/Units 04:43 Calcium 8.3 L (8.6-10.8) mg/dL Pituitary panel 09/10/17 Range/Units 04:43 Sodium 134 L (136-145) mEq/L Potassium 4.5 (3.5-4.5) mEq/L Chloride 104 (98-109) mEq/L Carbon Dioxide 22 (19-29) mEq/L BUN 39 H D (7-20) mg/dL Creatinine 1.36 H (0.57-1.11) mg/dL Glucose 110 H (70-99) mg/dL Calcium 8.3 L (8.6-10.8) mg/dL Adrenal panel 09/10/17 Range/Units 04:43 Sodium 134 L (136-145) mEq/L Potassium 4.5 (3.5-4.5) mEq/L Chloride 104 (98-109) mEq/L Carbon Dioxide 22 (19-29) mEq/L BUN 39 H D (7-20) mg/dL Creatinine 1.36 H (0.57-1.11) mg/dL Glucose 110 H (70-99) mg/dL Calcium 8.3 L (8.6-10.8) mg/dL - VTE Documentation of Mechanical Device: Graduated compression elastic hosiery Consult Discharge Plan - Plan Referrals: NONE,PCP [Primary Care Provider] -
[2017-09-10] MEDS: Metoprolol XL (24 HR) Succ 50 MG TAB.ER.24H PO SCH ×2 (12:35→20:31)
[2017-09-10] MEDS ORDERED: *HR* Morphine 2 MG/ML SYRINGE IVP PRN (16:31)
[2017-09-11] MEDS: Ipratropium/Albuterol Neb 3 ML IH SCH ×7 (00:17→23:45)
[2017-09-11 03:33] LABS: Hematocrit 34.1 % (35.3-44.9); Mean Corpuscular HGB Conc 32.3 g/dL (31.6-35.5); Mean Corpuscular Hemoglobin 29.3 pg (28.0-33.3); Mean Corpuscular Volume 90.7 fL (83.0-100.0); Mean Platelet Volume 10.3 fL (9.4-12.4); Platelet Count 318 K/mcL (140-400); Red Blood Count 3.76 M/mcL (3.82-4.97); Red Cell Distribution Width 14.5 % (11.5-14.5)
[2017-09-11] MEDS: Levothyroxine 25 MCG TABLET PO SCH ×2 (03:42→15:37)
[2017-09-11 03:44] LABS: Calcium 8.2 mg/dL (8.6-10.8); Potassium 4.4 mEq/L (3.5-4.5)
[2017-09-11 04:10] LABS: Lymphocytes # 1.9 K/mcL (0.6-4.6); Monocytes # 1.5 K/mcL (0.0-1.3); Neutrophils # 15.8 K/mcL (1.6-8.9); Platelet Estimate Normal (Normal); Reactive Lymphocytes Present (Not Present)
[2017-09-11] MEDS: Insulin LISPRO 300 UNITS/3 ML VIAL SQ SCH ×4 (06:04→18:07)
[2017-09-11] MEDS: Budesonide/Formoterol 160/4.5 MDI IH SCH ×2 (07:54→20:01)
--- NOTE | 2017-09-11 08:25 | Pulmonology Progress Note ---
<Kenyetta Alvarez - Last Filed: 09/11/17 11:57> Date of Encounter: 09/11/17 Time of Encounter: 07:30 Assessment and Plan (1) Acute encephalopathy Current Visit: Yes Status: Acute - Reported altered mental status prior to arrival in ED. - Likely metabolic in the setting of sepsis/pneumonia/cystitis and acute respiratory failure. - CT head on 09/04/17found large amount of small vessel ischemic change bilaterally with some old infarts but cannot exclude the possibility of a subtle superimposed recent ischemic focus. - Repeat CT head on 09/10/17 found no definite acute ischemia nor intracranial hemorrhage. - Seems to improve as patient appears to be more alert and orient compared to yesterday. - Given patient is more alert and orient and remains hemodynamically stable, patient can be transferred to telemetry floor for further monitoring and care. (2) Hematuria Current Visit: Yes Status: Resolved - Hematuria in urinary catheter noted after patient was started on heparin drip. - Likely secondary to cystitis, which likely also contributes to patient's complaint of abdominal pain - CT A/P found no obstructive stones, no severe stranding around tract and no evidence of large clot in the bladder - Urine culture from 09/06/17 no growth. - No indication for urgent intervention at this time per urology. - Hematuria still noted in [place] today. - Continue IV ceftriaxone (since 09/05). Will add pyridium as well. - Continue to monitor closely. Qualifiers: Hematuria type: gross Qualified Code(s): R31.0 - Gross hematuria (3) Elevated troponin Current Visit: Yes Status: Acute - Initial troponin negative (0.03) but then peaked at 2.90 before downtrended to 1.00 on 09/06. Troponin elevated again at 7.42 on 09/07/17 but later downtrend to 5.89 the same day. - Initial EKG showed LBBB - Echocardiogram on 09/05/17 showed LVEF 45% with indeterminated diastolic function. Atypical septal motion consistent with bundle branch block. A small to moderate circumferential pericardial effusion, most prominent anteriorly, also noted. - Repeat echocardiogram on 09/07/17 showed moderate left ventricular systolic dysfunction with LVEF 45% but slight improvement of the anteroseptal wall also noted. - Continue telemetry monitoring. - Continue aspirin, metoprolol and statin. - Cardiology recommends medical management given patient expressed that she does not want invasive procedures. Cardiology plans to have discussion with patient's family, especially her POA regarding goal of care. Appreciate cardiology follow-up. (4) Acute respiratory failure with hypoxia Current Visit: Yes Status: Resolved - Noted to have significant respiratory even on BiPAP and eventually intubated in ICU. - Initial ABG pH 7.33, pCO2 33, pO2 58 and HCO3 18. - Likely secondary to pulmonary edema, LLL pneumonia and/or COPD exacerbation. - Patient was extubated on 09/06 but reintubated later the same day for acute onset respiratory distress. The lab findings (one-time elevation of lactic acid and leukocytosis on 09/06 and elevated troponin on 09/07) and change between two CT A/P on same day (more prominent bibasilar consolidation, L > R) raises the concern of acute worsening of cardiogenic pulmonary edema. Feel more likely secondary to cardiac rather than infection. - Patient was successfully extubated on 09/08/17. Currently maintains good O2 sat on 2L NC. - Continue antibiotic for pneumonia and bronchodilators for COPD. - Continue close monitoring. (5) Pneumonia Current Visit: Yes Status: Acute - CXR suggested pulmonary edema along with focal consolidation in the left lower lobe concerning of pneumonia. - Known Streptococcus pneumoniae given positive 2/2 blood cultures. Almost dickey- sensitive except resistance to erythromycin. - Patient had acute onset of respiratory distress on 09/06/17 requiring re- intubation. And IV vancomycin and metronidazole were added for broader-spectrum coverage but later discontinued as it was believed to come from cardiac condition rather than infection. - Continue IV ceftriaxone (since 09/05). Qualifiers: Pneumonia type: due to Pneumococcus Laterality: left Lung location: lower lobe of lung Qualified Code(s): J13 - Pneumonia due to Streptococcus pneumoniae (6) Sepsis Current Visit: Yes Status: Acute - 4 SIRS criteria (fever, tachycardia, tachypnea and leukocytosis) on admission with lactic acid 1.4. - Likely secondary to pneumonia as suggested by focal consolidation in the left lower lobe on CXR. - Known Streptococcus pneumoniae given positive 2/2 blood cultures. Almost dickey- sensitive except resistance to erythromycin. - Patient had acute onset of respiratory distress on 09/06/17 requiring re- intubation. And IV vancomycin and metronidazole were added for broader-spectrum coverage but later discontinued as it was believed to come from cardiac condition rather than infection. - Persistent hematuria concerning of cystitis. - Improves as patient is afebrile and tachycardia & tachypnea normalized. Latest lactic acid 0.9 on 09/10/17. - Continue IV ceftriaxone (since 09/05). Qualifiers: Sepsis type: sepsis due to unspecified organism Qualified Code(s): A41.9 - Sepsis, unspecified organism (7) Congestive heart failure Current Visit: Yes Status: Acute - CXR suggested pulmonary edema along with focal consolidation in the left lower lobe concerning of pneumonia. - Patient had received 100 mg of IV Lasix on the day of admission. - Echocardiogram on 09/05/17 showed LVEF 45% with indeterminated diastolic function. Atypical septal motion consistent with bundle branch block. A small to moderate circumferential pericardial effusion, most prominent anteriorly, also noted. - Repeat echocardiogram on 09/07/17 showed moderate left ventricular systolic dysfunction with LVEF 45% but slight improvement of the anteroseptal wall also noted. - Net -362 mL so far. - Strict I/O and daily weight. Qualifiers: Congestive heart failure type: unspecified congestive heart failure type Congestive heart failure chronicity: acute on chronic Qualified Code(s): I50.9 - Heart failure, unspecified (8) Hypothyroidism Current Visit: Yes Status: Acute - Highly elevated TSH (52.054) on admission. - Low free T4 (0.44) and free T3 (<1.00). - Patient received one dose of IV levothyroxine 200 mcg in ED. - Cardiology recommends starting low dose Synthroid and case was discussed with Dr. Ricardo. Continue PO levothyroxine 25 mcg daily. Qualifiers: Hypothyroidism type: unspecified Qualified Code(s): E03.9 - Hypothyroidism , unspecified (9) COPD (chronic obstructive pulmonary disease) Current Visit: Yes Status: Chronic - Possible COPD exacerbation precipitated by recent respiratory infection on initial presentation. Known active smoker prior to admission. - Continue Symbicort and bronchodilators. Qualifiers: COPD type: COPD with acute exacerbation Qualified Code(s): J44.1 - Chronic obstructive pulmonary disease with (acute) exacerbation (10) DVT prophylaxis Current Visit: Yes Status: Acute - EPCD as mechanical DVT prophylaxis. GI prophylaxis: Protonix IV Subjective Principal diagnosis: Sepsis, Acute hypoxic respiratory failure/nstemi Interval history: Patient was seen and examined this morning. Patient seems to be more alert and orient compared to yesterday. Patient denies chest pain or shortness of breath at this time. Objective PUL Vital signs: Last Vital Signs Temp 98.1 F 09/11/17 07:28 Pulse 72 09/11/17 07:50 Resp 18 09/11/17 07:56 BP 118/65 09/11/17 07:00 Pulse Ox 97 09/11/17 07:56 General appearance: no acute distress Eyes: nonicteric ENT: other (Patinent ) Neck: supple Effort: normal Auscultation: bilateral: clear Cardiovascular: regular rate and rhythm Gastrointestinal: normoactive bowel sounds, soft Integumentary: normal Extremities: no cyanosis, no edema Musculoskeletal: no deformities non-focal exam Results - Laboratory Findings CBC and BMP: 09/11/17 03:17 09/11/17 03:17 ABG ABG pH 7.41 pH Units (7.32-7.45) 09/08/17 05:45 ABG pCO2 28 mmHg (35-45) L 09/08/17 05:45 ABG pO2 104 mmHg (85-104) 09/08/17 05:45 ABG O2 Saturation 98 % (95-98) 09/08/17 05:45 PT/INR, D-dimer PT 13.6 Seconds (9.4-12.1) H 09/05/17 06:50 Abnormal lab findings: Abnormal lab results WBC 19.3 K/mcL (4.3-11.1) H 09/11/17 03:17 RBC 3.76 M/mcL (3.82-4.97) L 09/11/17 03:17 Hgb 11.0 g/dL (11.5-15.4) L D 09/11/17 03:17 Hct 34.1 % (35.3-44.9) L 09/11/17 03:17 Band Neutrophils % 8.0 % (0-4) H 09/11/17 03:17 Neutrophils # 15.8 K/mcL (1.6-8.9) H 09/11/17 03:17 Monocytes # 1.5 K/mcL (0.0-1.3) H 09/11/17 03:17 Nucleated RBCs/100 WBC 0.3 /100 WBC (0) H 09/09/17 04:24 Reactive Lymphocytes Present (Not Present) A 09/11/17 03:17 Smudge Cells Present (Not Present) A 09/06/17 17:33 Anisocytosis 2+ (Not Present) A 09/06/17 17:33 Target Cells 1+ (Not Present) A 09/06/17 17:33 PT 13.6 Seconds (9.4-12.1) H 09/05/17 06:50 APTT 41.5 Seconds (26.0-36.0) H D 09/06/17 14:21 ABG pCO2 28 mmHg (35-45) L 09/08/17 05:45 ABG HCO3 18 mEq/L (21-27) L 09/08/17 05:45 ABG Total CO2 19 mEq/L (20-26) L 09/08/17 05:45 ABG Base Excess -6 mEq/L (-2 to 3) L 09/08/17 05:45 Sodium 134 mEq/L (136-145) L 09/11/17 03:17 BUN 24 mg/dL (7-20) H D 09/11/17 03:17 Creatinine 1.12 mg/dL (0.57-1.11) H 09/11/17 03:17 Est GFR ( Amer) 56 (> 60) L 09/11/17 03:17 Est GFR (Non-Af Amer) 46 (> 60) L 09/11/17 03:17 Glucose 103 mg/dL (70-99) H 09/11/17 03:17 POC Glucose 105 (58-89) H 09/11/17 05:43 Calcium 8.2 mg/dL (8.6-10.8) L 09/11/17 03:17 Creatine Kinase 250 Units/L (29-168) H 09/07/17 12:11 Troponin I 5.89 ng/mL (0-0.03) H* 09/07/17 17:53 B-Natriuretic Peptide 2906 pg/mL (0-100) H 09/04/17 21:20 Albumin 2.7 g/dL (3.5-5.0) L 09/05/17 01:41 Globulin 3.9 g/dL (2.4-3.5) H 09/05/17 01:41 Albumin/Globulin Ratio 0.7 (1.1-2.2) L 09/05/17 01:41 TSH 52.054 mcIU/mL (0.350-4.840) H 09/04/17 21:05 Free T4 0.44 ng/dl (0.70-1.48) L 09/07/17 09:05 Free T3 < 1.00 pg/mL (1.71-3.71) L 09/07/17 09:05 Urine Clarity Cloudy (Clear) A 09/04/17 21:33 Ur Specific [place] 1.030 (1.010-1.025) H 09/04/17 21:33 Urine Protein 100 mg/dL (Neg-Trace) H 09/04/17 21:33 Urine Blood Large (Negative) H 09/04/17 21:33 Urine Bilirubin Small (Negative) H 09/04/17 21:33 Urine Microscopic RBC 50-100 per hpf (0-3) H 09/04/17 21:33 Urine Microscopic WBC 15-30 per hpf (0-3) H 09/04/17 21:33 Ur Squamous Epith Cells Many per lpf (None-Few) H 09/04/17 21:33 Urine Bacteria Many per hpf (None-Few) H 09/04/17 21:33 Granular Casts Many per lpf (None Seen) H 09/04/17 21:33 Urine Mucus Moderate (Few) H 09/04/17 21:33 Urine Yeast Moderate per hpf (None Seen) H 09/04/17 21:33 Streptococcus sp PCR DETECTED (Not Detect) A 09/04/17 22:03 Strep pneumoniae (PCR) DETECTED (Not Detect) A 09/04/17 22:03 - Microbiology Findings Microbiology Findings: Microbiology, Last 48 Hours 09/06/17 21:30 Sputum Culture - Final Sputum - Clinical Findings Intake & Output: Intake & Output 09/10/17 09/11/17 09/11/17 23:59 07:59 15:59 Intake Total 500 / 500 49.4 / 49.4 Output Total 75 / 75 475 / 475 Balance 425 / 425 -425.6 / -425.6 Weight 61.1 kg - VTE Documentation of Mechanical Device: Graduated compression elastic hosiery Consult Discharge Plan - Plan Referrals: NONE,PCP [Primary Care Provider] - <Rufus Ricardo - Last Filed: 09/11/17 16:34> Date of Encounter: 09/11/17 Objective PUL Vital signs: Last Vital Signs Temp 97.1 F L 09/11/17 15:43 Pulse 75 09/11/17 15:00 Resp 18 09/11/17 16:15 BP 148/71 09/11/17 15:00 Pulse Ox 100 09/11/17 16:15 Results - Laboratory Findings CBC and BMP: 09/11/17 03:17 09/11/17 03:17 ABG ABG pH 7.41 pH Units (7.32-7.45) 09/08/17 05:45 ABG pCO2 28 mmHg (35-45) L 09/08/17 05:45 ABG pO2 104 mmHg (85-104) 09/08/17 05:45 ABG O2 Saturation 98 % (95-98) 09/08/17 05:45 PT/INR, D-dimer PT 13.6 Seconds (9.4-12.1) H 09/05/17 06:50 Abnormal lab findings: Abnormal lab results WBC 19.3 K/mcL (4.3-11.1) H 09/11/17 03:17 RBC 3.76 M/mcL (3.82-4.97) L 09/11/17 03:17 Hgb 11.0 g/dL (11.5-15.4) L D 09/11/17 03:17 Hct 34.1 % (35.3-44.9) L 09/11/17 03:17 Band Neutrophils % 8.0 % (0-4) H 09/11/17 03:17 Neutrophils # 15.8 K/mcL (1.6-8.9) H 09/11/17 03:17 Monocytes # 1.5 K/mcL (0.0-1.3) H 09/11/17 03:17 Nucleated RBCs/100 WBC 0.3 /100 WBC (0) H 09/09/17 04:24 Reactive Lymphocytes Present (Not Present) A 09/11/17 03:17 Smudge Cells Present (Not Present) A 09/06/17 17:33 Anisocytosis 2+ (Not Present) A 09/06/17 17:33 Target Cells 1+ (Not Present) A 09/06/17 17:33 PT 13.6 Seconds (9.4-12.1) H 09/05/17 06:50 APTT 41.5 Seconds (26.0-36.0) H D 09/06/17 14:21 ABG pCO2 28 mmHg (35-45) L 09/08/17 05:45 ABG HCO3 18 mEq/L (21-27) L 09/08/17 05:45 ABG Total CO2 19 mEq/L (20-26) L 09/08/17 05:45 ABG Base Excess -6 mEq/L (-2 to 3) L 09/08/17 05:45 Sodium 134 mEq/L (136-145) L 09/11/17 03:17 BUN 24 mg/dL (7-20) H D 09/11/17 03:17 Creatinine 1.12 mg/dL (0.57-1.11) H 09/11/17 03:17 Est GFR ( Amer) 56 (> 60) L 09/11/17 03:17 Est GFR (Non-Af Amer) 46 (> 60) L 09/11/17 03:17 Glucose 103 mg/dL (70-99) H 09/11/17 03:17 POC Glucose 95 (58-89) H 09/11/17 11:19 Calcium 8.2 mg/dL (8.6-10.8) L 09/11/17 03:17 Creatine Kinase 250 Units/L (29-168) H 09/07/17 12:11 Troponin I 5.89 ng/mL (0-0.03) H* 09/07/17 17:53 B-Natriuretic Peptide 2906 pg/mL (0-100) H 09/04/17 21:20 Albumin 2.7 g/dL (3.5-5.0) L 09/05/17 01:41 Globulin 3.9 g/dL (2.4-3.5) H 09/05/17 01:41 Albumin/Globulin Ratio 0.7 (1.1-2.2) L 09/05/17 01:41 TSH 52.054 mcIU/mL (0.350-4.840) H 09/04/17 21:05 Free T4 0.44 ng/dl (0.70-1.48) L 09/07/17 09:05 Free T3 < 1.00 pg/mL (1.71-3.71) L 09/07/17 09:05 Urine Clarity Cloudy (Clear) A 09/04/17 21:33 Ur Specific [place] 1.030 (1.010-1.025) H 09/04/17 21:33 Urine Protein 100 mg/dL (Neg-Trace) H 09/04/17 21:33 Urine Blood Large (Negative) H 09/04/17 21:33 Urine Bilirubin Small (Negative) H 09/04/17 21:33 Urine Microscopic RBC 50-100 per hpf (0-3) H 09/04/17 21:33 Urine Microscopic WBC 15-30 per hpf (0-3) H 09/04/17 21:33 Ur Squamous Epith Cells Many per lpf (None-Few) H 09/04/17 21:33 Urine Bacteria Many per hpf (None-Few) H 09/04/17 21:33 Granular Casts Many per lpf (None Seen) H 09/04/17 21:33 Urine Mucus Moderate (Few) H 09/04/17 21:33 Urine Yeast Moderate per hpf (None Seen) H 09/04/17 21:33 Streptococcus sp PCR DETECTED (Not Detect) A 09/04/17 22:03 Strep pneumoniae (PCR) DETECTED (Not Detect) A 09/04/17 22:03 - Clinical Findings Intake & Output: Intake & Output 09/11/17 09/11/17 09/11/17 07:59 15:59 23:59 Intake Total 49.4 / 49.4 Output Total 475 / 475 425 / 425 Balance -425.6 / -425.6 -425 / -425 Weight 61.1 kg - Attending Attestation I examined this patient and my medical decision-making was reviewed with the Resident Physician. I agree with the documented findings, disposition and treatment plan as described except to the extent set forth below. Patient seen and examined. Labs, radiology, chart personally reviewed. Agree with resident's history and physical, assessment, plan with following comments: [employer]ST: Patient follows commands, she is more awake and will consider somehow led to Pulmonary: Acceptable oxygenation and ventilation Cardiovascular: Blood pressure under better control and if remain off nitroglycerin drip then patient can be transferred to the floor. GI: Nutrition per dietary and GI prophylaxis per routine with abdominal pain is improved. Heme: DVT prophylaxis per routine ID: Continue antibiotics and plan to de-escalation Renal; urine out put and renal funtion reviewed the suspect cystitis and symptomatic management. Endorcine: blood glucose is monitored Lines: all lines checked and no evidence of infections Skin: skin care to prevent pressure ulcers per nursing routine care I had long discussion with the son at the bedside yesterday regarding her care and he understand that. Patient remain stable then we will transferred to the floor.
[2017-09-11] MEDS: cefTRIAXone 2,000 MG in Water for inj. (sterile) 20 ML IVP SCH (08:53)
[2017-09-11] MEDS: Pantoprazole 40 MG VIAL IVPB SCH (08:53)
[2017-09-11] MEDS: Isosorbide MONOnitrate (24 HR) 30 MG TAB.ER.24H PO SCH (08:53)
[2017-09-11] MEDS: Metoprolol XL (24 HR) Succ 50 MG TAB.ER.24H PO SCH ×2 (08:54→22:17)
[2017-09-11] MEDS: Aspirin 81 MG TAB.CHEW PO SCH (08:54)
[2017-09-11] MEDS ORDERED: Metoprolol XL (24 HR) Succ 50 MG TAB.ER.24H PO SCH (09:00)
[2017-09-11] MEDS ORDERED: amLODIPine 5 MG TABLET PO SCH (09:00)
--- NOTE | 2017-09-11 09:20 | Urology Progress Note ---
Date of Encounter: 09/11/17 Time of Encounter: 09:19 - Assessment and Plan (1) Hematuria Current Visit: Yes Status: Resolved Assessment and plan: slightly better than yesterday. no need for cbi at this time. will continue to follow closely. Qualifiers: Hematuria type: gross Qualified Code(s): R31.0 - Gross hematuria Progress Note Narrative: patient seen. was tugging on catheter last night. Objective Initial Vital Signs Temp Pulse Resp BP Pulse Ox 101.6 F H 100 20 197/115 95 09/04/17 21:06 09/04/17 21:06 09/04/17 21:06 09/04/17 21:06 09/04/17 21:06 - General physical appearance Present: well developed - Abdomen Present: soft - Genitourinary Urine Appearance: Present: Hematuria, Small Blood Clots - Labs 09/11/17 03:17 09/11/17 03:17 Diabetes panel 09/11/17 Range/Units 03:17 Sodium 134 L (136-145) mEq/L Potassium 4.4 (3.5-4.5) mEq/L Chloride 102 (98-109) mEq/L Carbon Dioxide 24 (19-29) mEq/L BUN 24 H D (7-20) mg/dL Creatinine 1.12 H (0.57-1.11) mg/dL Glucose 103 H (70-99) mg/dL Calcium 8.2 L (8.6-10.8) mg/dL Calcium panel 09/11/17 Range/Units 03:17 Calcium 8.2 L (8.6-10.8) mg/dL Pituitary panel 09/11/17 Range/Units 03:17 Sodium 134 L (136-145) mEq/L Potassium 4.4 (3.5-4.5) mEq/L Chloride 102 (98-109) mEq/L Carbon Dioxide 24 (19-29) mEq/L BUN 24 H D (7-20) mg/dL Creatinine 1.12 H (0.57-1.11) mg/dL Glucose 103 H (70-99) mg/dL Calcium 8.2 L (8.6-10.8) mg/dL Adrenal panel 09/11/17 Range/Units 03:17 Sodium 134 L (136-145) mEq/L Potassium 4.4 (3.5-4.5) mEq/L Chloride 102 (98-109) mEq/L Carbon Dioxide 24 (19-29) mEq/L BUN 24 H D (7-20) mg/dL Creatinine 1.12 H (0.57-1.11) mg/dL Glucose 103 H (70-99) mg/dL Calcium 8.2 L (8.6-10.8) mg/dL - VTE Documentation of Mechanical Device: Graduated compression elastic hosiery Consult Discharge Plan - Plan Referrals: NONE,PCP [Primary Care Provider] -
[2017-09-11] MEDS ORDERED: Acetaminophen 650 MG RECTAL SUPP RC PRN (11:09)
[2017-09-11] MEDS ORDERED: *HR* Metoprolol 5 MG/5 ML VIAL IVP PRN (11:09)
[2017-09-11] MEDS ORDERED: Nitroglycerin 25 MG/250 ML INFUS..BTL IVC SCH (11:09)
[2017-09-11] MEDS ORDERED: Dextrose Gel 15 GM PO PRN ×2 (11:09)
[2017-09-11] MEDS ORDERED: Naloxone 0.4 MG/ML INJ IVP PRN (11:09)
[2017-09-11] MEDS ORDERED: *HR* Morphine 2 MG/ML SYRINGE IVP PRN (11:09)
[2017-09-11] MEDS ORDERED: D5% in Water 1,000 ML IVC PRN (11:09)
[2017-09-11] MEDS ORDERED: *HR* Dextrose 50 % in Water (Syg) 50 ML SYRINGE IVP PRN (11:09)
--- NOTE | 2017-09-11 11:20 | Event Note ---
Date of Encounter: 09/11/17 Time of Encounter: 11:17 Attempt made to update family. I called emergency contact at number listed. No answer.
--- NOTE | 2017-09-11 15:11 | Cardiology Progress Note ---
Date of Encounter: 09/11/17 Time of Encounter: 15:09 Assessment and Plan (1) NSTEMI (non-ST elevated myocardial infarction) Current Visit: Yes Status: Acute NSTEMI in the setting of severe hypothyroidism, respiratory distress. LVEF 40-45% per reports. Patient more lucid today. She denies chest discomfort. When offered options, including medical therapy +/- LHC. Case discussed troy ALEXANDRA (Grandson). He states after discussing with patient and family, they have decided on medical therapy. Given her advanced age and multiple comorbities, a conservative strategy seems very reasonable. Recommend continue aspirin/statin/bb therapy. Plavix held due to hematuria. No further inpatient recommendations. Please call if any questions or concerns. (2) LBBB (left bundle branch block) Current Visit: Yes Status: Acute Chronic, present since at least 2012. (3) Pericardial effusion Current Visit: Yes Status: Acute Hemodynamics stable. Likely related to hypothyroidism. Continue to monitor. Repeat TTE as clinically indicated. Discussion w patient/family: The assessment and plan as outlined above was discussed with the patient and/or family members who expressed understanding and agreement. All questions were answered. Thank you for involving us in the care of your patient. Please call with any questions. Subjective Principal diagnosis: Sepsis, Acute hypoxic respiratory failure/nstemi Interval history: Patient seen and examined earlier today. Patient seemed more lucid today. Denied chest pain or discomfort. Hematuria noted. Cr improved. Objective Vital Signs, Last 4 Hours Temp Pulse Resp BP Pulse Ox 09/11/17 14:00 70 18 119/68 100 09/11/17 13:00 73 20 142/73 94 09/11/17 12:00 72 18 124/82 100 09/11/17 11:59 98.0 F 09/11/17 11:31 18 97 General: Conversant, No Apparent Distress, Other (Frail appearing) HEENT: Atraumatic, Normocephaly, Mucus Membranes Moist Neck: No JVD, Normal carotid pulses Cardiac: Other (Regular with PVCs.) Lungs: Other (Shallow breath sounds. ) Neuro: Other (More lucid today.) Abdomen: Soft, Non-Tender Skin: No rashes noted on visualized skin Musculoskeletal: No Chest Wall Tenderness Extremities: No Clubbing, No Cyanosis, No Edema Results 09/11/17 03:17 09/11/17 03:17 Lab Results 09/11/17 09/11/17 03:17 03:17 WBC 19.3 H Hgb 11.0 L D Hct 34.1 L Plt Count 318 Sodium 134 L Potassium 4.4 Chloride 102 Carbon Dioxide 24 BUN 24 H D Creatinine 1.12 H Glucose 103 H Calcium 8.2 L - Imaging and Cardiology Echo: report reviewed - EKG Interpretation EKG results cardiology: personally reviewed - VTE Documentation of Mechanical Device: Graduated compression elastic hosiery Consult Discharge Plan - Plan Referrals: NONE,PCP [Primary Care Provider] -
--- NOTE | 2017-09-11 16:16 | Electrocardiograph Report ---
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
[2017-09-11] MEDS ORDERED: *HR* Heparin 5,000 UNIT/ML VIAL SQ SCH (18:00)
[2017-09-12] MEDS: Insulin LISPRO 300 UNITS/3 ML VIAL SQ SCH ×2 (00:17→06:11)
[2017-09-12 03:00] LABS: Hematocrit 33.6 % (35.3-44.9); Hemoglobin 10.6 g/dL (11.5-15.4); Mean Corpuscular HGB Conc 31.5 g/dL (31.6-35.5); Mean Corpuscular Hemoglobin 29.2 pg (28.0-33.3); Mean Corpuscular Volume 92.6 fL (83.0-100.0); Mean Platelet Volume 10.9 fL (9.4-12.4); Platelet Count 293 K/mcL (140-400); Red Blood Count 3.63 M/mcL (3.82-4.97); Red Cell Distribution Width 14.5 % (11.5-14.5)
[2017-09-12 03:12] LABS: BUN/Creatinine Ratio 24 (6-26); Blood Urea Nitrogen 24 mg/dL (7-20); Calcium 8.1 mg/dL (8.6-10.8); Carbon Dioxide 22 mEq/L (19-29); Chloride 103 mEq/L (98-109); Glucose 85 mg/dL (70-99); Magnesium 1.9 mg/dL (1.6-2.6); Osmolality,Calculated 283 (280-300); Phosphorous 2.4 mg/dL (2.3-4.7); Potassium 4.2 mEq/L (3.5-4.5); Sodium 135 mEq/L (136-145); eGFR For African Americans > 60 (> 60); eGFR For Non-African Americans 54 (> 60)
[2017-09-12] MEDS: Ipratropium/Albuterol Neb 3 ML IH SCH ×6 (03:54→23:17)
[2017-09-12 05:26] LABS: Hypersegmented Neutrophils Present (Not Present); Lymphocytes # 0.9 K/mcL (0.6-4.6); Monocytes # 0.9 K/mcL (0.0-1.3); Neutrophils # 13.2 K/mcL (1.6-8.9); Platelet Estimate Normal (Normal)
[2017-09-12] MEDS: Levothyroxine 25 MCG TABLET PO SCH (06:15)
[2017-09-12] MEDS ORDERED: Levothyroxine 25 MCG TABLET PO SCH (06:30)
[2017-09-12] MEDS: Metoprolol XL (24 HR) Succ 25 MG TAB.ER.24H PO SCH (07:22)
[2017-09-12] MEDS: Dexmedetomidine HCl 400 MCG/100 ML MLS IVC SCH (07:46)
[2017-09-12] MEDS: Levothyroxine Sodium 100 MCG VIAL IVP SCH (07:47)
[2017-09-12] MEDS: Budesonide/Formoterol 160/4.5 MDI IH SCH ×2 (08:09→19:39)
[2017-09-12] MEDS: cefTRIAXone 2,000 MG in Water for inj. (sterile) 20 ML IVP SCH (08:48)
[2017-09-12] MEDS: Aspirin 81 MG TAB.CHEW PO SCH (08:49)
[2017-09-12] MEDS: Isosorbide MONOnitrate (24 HR) 30 MG TAB.ER.24H PO SCH (08:49)
[2017-09-12] MEDS: amLODIPine 5 MG TABLET PO SCH (08:49)
[2017-09-12] MEDS: Metoprolol XL (24 HR) Succ 50 MG TAB.ER.24H PO SCH ×2 (08:49→21:58)
--- NOTE | 2017-09-12 08:55 | Pulmonology Progress Note ---
<Kenyetta Alvarez - Last Filed: 09/12/17 11:06> Date of Encounter: 09/12/17 Time of Encounter: 07:30 Assessment and Plan (1) Hematuria Current Visit: Yes Status: Resolved - Hematuria in urinary catheter noted after patient was started on heparin drip. - Likely secondary to cystitis, which likely also contributes to patient's complaint of abdominal pain - CT A/P found no obstructive stones, no severe stranding around tract and no evidence of large clot in the bladder - Urine culture from 09/06/17 no growth. - No indication for urgent intervention at this time per urology. - Hematuria still noted in Baez today. - Continue IV ceftriaxone (since 09/05) and pyridium (since 09/11). - Will obtain bladder scan to evaluate possible blood clots. - Continue to monitor closely. - Appreciate further recommendation from urology. Qualifiers: Hematuria type: gross Qualified Code(s): R31.0 - Gross hematuria (2) Acute encephalopathy Current Visit: Yes Status: Acute - Reported altered mental status prior to arrival in ED. - Likely metabolic in the setting of sepsis/pneumonia/cystitis and acute respiratory failure. - CT head on 09/04/17found large amount of small vessel ischemic change bilaterally with some old infarts but cannot exclude the possibility of a subtle superimposed recent ischemic focus. - Repeat CT head on 09/10/17 found no definite acute ischemia nor intracranial hemorrhage. - Seems to improve as patient appears to be more alert and orient and able to sit up compared to yesterday. - Given patient is more alert and orient and remains hemodynamically stable, patient can be transferred to telemetry floor for further monitoring and care. (3) Elevated troponin Current Visit: Yes Status: Acute - Initial troponin negative (0.03) but then peaked at 2.90 before downtrended to 1.00 on 09/06. Troponin elevated again at 7.42 on 09/07/17 but later downtrend to 5.89 the same day. - Initial EKG showed LBBB - Echocardiogram on 09/05/17 showed LVEF 45% with indeterminated diastolic function. Atypical septal motion consistent with bundle branch block. A small to moderate circumferential pericardial effusion, most prominent anteriorly, also noted. - Repeat echocardiogram on 09/07/17 showed moderate left ventricular systolic dysfunction with LVEF 45% but slight improvement of the anteroseptal wall also noted. - Continue telemetry monitoring. - Continue aspirin, metoprolol and statin. - Cardiology recommends medical management given patient expressed that she does not want invasive procedures. Cardiology plans to have discussion with patient's family, especially her POA regarding goal of care. Appreciate cardiology follow-up. (4) Acute respiratory failure with hypoxia Current Visit: Yes Status: Resolved - Noted to have significant respiratory even on BiPAP and eventually intubated in ICU. - Initial ABG pH 7.33, pCO2 33, pO2 58 and HCO3 18. - Likely secondary to pulmonary edema, LLL pneumonia and/or COPD exacerbation. - Patient was extubated on 09/06 but reintubated later the same day for acute onset respiratory distress. The lab findings (one-time elevation of lactic acid and leukocytosis on 09/06 and elevated troponin on 09/07) and change between two CT A/P on same day (more prominent bibasilar consolidation, L > R) raises the concern of acute worsening of cardiogenic pulmonary edema. Feel more likely secondary to cardiac rather than infection. - Patient was successfully extubated on 09/08/17. Currently maintains good O2 sat on room air. - Continue antibiotic for pneumonia and bronchodilators for COPD. - Continue close monitoring. (5) Pneumonia Current Visit: Yes Status: Acute - CXR suggested pulmonary edema along with focal consolidation in the left lower lobe concerning of pneumonia. - Known Streptococcus pneumoniae given positive 2/2 blood cultures. Almost dickey- sensitive except resistance to erythromycin. - Patient had acute onset of respiratory distress on 09/06/17 requiring re- intubation. And IV vancomycin and metronidazole were added for broader-spectrum coverage but later discontinued as it was believed to come from cardiac condition rather than infection. - Continue IV ceftriaxone (since 09/05). Qualifiers: Pneumonia type: due to Pneumococcus Laterality: left Lung location: lower lobe of lung Qualified Code(s): J13 - Pneumonia due to Streptococcus pneumoniae (6) Sepsis Current Visit: Yes Status: Resolved - 4 SIRS criteria (fever, tachycardia, tachypnea and leukocytosis) on admission with lactic acid 1.4. - Likely secondary to pneumonia as suggested by focal consolidation in the left lower lobe on CXR. - Known Streptococcus pneumoniae given positive 2/2 blood cultures. Almost dickey- sensitive except resistance to erythromycin. - Patient had acute onset of respiratory distress on 09/06/17 requiring re- intubation. And IV vancomycin and metronidazole were added for broader-spectrum coverage but later discontinued as it was believed to come from cardiac condition rather than infection. - Persistent hematuria concerning of cystitis. - Improves as patient is afebrile and tachycardia & tachypnea normalized. Latest lactic acid 0.9 on 09/10/17. - Continue IV ceftriaxone (since 09/05). Qualifiers: Sepsis type: sepsis due to unspecified organism Qualified Code(s): A41.9 - Sepsis, unspecified organism (7) Congestive heart failure Current Visit: Yes Status: Acute - CXR suggested pulmonary edema along with focal consolidation in the left lower lobe concerning of pneumonia. - Patient had received 100 mg of IV Lasix on the day of admission. - Echocardiogram on 09/05/17 showed LVEF 45% with indeterminated diastolic function. Atypical septal motion consistent with bundle branch block. A small to moderate circumferential pericardial effusion, most prominent anteriorly, also noted. - Repeat echocardiogram on 09/07/17 showed moderate left ventricular systolic dysfunction with LVEF 45% but slight improvement of the anteroseptal wall also noted. - Net -1237 mL so far. - Strict I/O and daily weight. Qualifiers: Congestive heart failure type: unspecified congestive heart failure type Congestive heart failure chronicity: acute on chronic Qualified Code(s): I50.9 - Heart failure, unspecified (8) Hypothyroidism Current Visit: Yes Status: Acute - Highly elevated TSH (52.054) on admission. - Low free T4 (0.44) and free T3 (<1.00). - Patient received one dose of IV levothyroxine 200 mcg in ED. - Cardiology recommends starting low dose Synthroid and case was discussed with Dr. Ricardo. Continue PO levothyroxine 25 mcg daily. Qualifiers: Hypothyroidism type: unspecified Qualified Code(s): E03.9 - Hypothyroidism , unspecified (9) COPD (chronic obstructive pulmonary disease) Current Visit: Yes Status: Chronic - Possible COPD exacerbation precipitated by recent respiratory infection on initial presentation. Known active smoker prior to admission. - Continue Symbicort and bronchodilators. Qualifiers: COPD type: COPD with acute exacerbation Qualified Code(s): J44.1 - Chronic obstructive pulmonary disease with (acute) exacerbation (10) Hypertension Current Visit: Yes Status: Chronic - Continue amlodipine and toprol XL. - Will add hydralazine IV prn SBP > 160. Qualifiers: Hypertension type: essential hypertension Qualified Code(s): I10 - Essential (primary) hypertension (11) DVT prophylaxis Current Visit: Yes Status: Acute - EPCD as mechanical DVT prophylaxis. GI prophylaxis: PPI. Subjective Principal diagnosis: Sepsis, Acute hypoxic respiratory failure/nstemi Interval history: Patient was seen and examined this morning. Patient is alert and orient and seems to improve compared to yesterday as patient is able to sit up in chair and have her breakfast. Patient denies chest pain, shortness of breath or abdominal pain. Objective PUL Vital signs: Last Vital Signs Temp 97.9 F 09/12/17 08:21 Pulse 78 09/12/17 08:00 Resp 18 09/12/17 08:11 BP 172/96 09/12/17 03:51 Pulse Ox 95 09/12/17 08:11 General appearance: no acute distress, alert Eyes: nonicteric ENT: oropharynx dry Neck: supple Effort: normal Auscultation: bilateral: clear Cardiovascular: regular rate and rhythm Gastrointestinal: normoactive bowel sounds, soft, non-tender, other (Mildly distended, better compared to yesterday.) Integumentary: normal Extremities: no cyanosis, no edema Musculoskeletal: no deformities normal mental status, non-focal exam mood appropriate, affect normal Results - Laboratory Findings CBC and BMP: 09/12/17 02:30 09/12/17 02:30 ABG ABG pH 7.41 pH Units (7.32-7.45) 09/08/17 05:45 ABG pCO2 28 mmHg (35-45) L 09/08/17 05:45 ABG pO2 104 mmHg (85-104) 09/08/17 05:45 ABG O2 Saturation 98 % (95-98) 09/08/17 05:45 PT/INR, D-dimer PT 13.6 Seconds (9.4-12.1) H 09/05/17 06:50 Abnormal lab findings: Abnormal lab results WBC 15.3 K/mcL (4.3-11.1) H 09/12/17 02:30 RBC 3.63 M/mcL (3.82-4.97) L 09/12/17 02:30 Hgb 10.6 g/dL (11.5-15.4) L 09/12/17 02:30 Hct 33.6 % (35.3-44.9) L 09/12/17 02:30 MCHC 31.5 g/dL (31.6-35.5) L 09/12/17 02:30 Myelocytes % 2.0 % (0) H 09/12/17 02:30 Neutrophils # 13.2 K/mcL (1.6-8.9) H 09/12/17 02:30 Nucleated RBCs/100 WBC 0.3 /100 WBC (0) H 09/09/17 04:24 Hypersegmented Neuts Present (Not Present) A 09/12/17 02:30 Reactive Lymphocytes Present (Not Present) A 09/11/17 03:17 Smudge Cells Present (Not Present) A 09/06/17 17:33 Anisocytosis 2+ (Not Present) A 09/06/17 17:33 Target Cells 1+ (Not Present) A 09/06/17 17:33 PT 13.6 Seconds (9.4-12.1) H 09/05/17 06:50 APTT 41.5 Seconds (26.0-36.0) H D 09/06/17 14:21 ABG pCO2 28 mmHg (35-45) L 09/08/17 05:45 ABG HCO3 18 mEq/L (21-27) L 09/08/17 05:45 ABG Total CO2 19 mEq/L (20-26) L 09/08/17 05:45 ABG Base Excess -6 mEq/L (-2 to 3) L 09/08/17 05:45 Sodium 135 mEq/L (136-145) L 09/12/17 02:30 BUN 24 mg/dL (7-20) H 09/12/17 02:30 Est GFR (Non-Af Amer) 54 (> 60) L 09/12/17 02:30 Calcium 8.1 mg/dL (8.6-10.8) L 09/12/17 02:30 Creatine Kinase 250 Units/L (29-168) H 09/07/17 12:11 Troponin I 5.89 ng/mL (0-0.03) H* 09/07/17 17:53 B-Natriuretic Peptide 2906 pg/mL (0-100) H 09/04/17 21:20 Albumin 2.7 g/dL (3.5-5.0) L 09/05/17 01:41 Globulin 3.9 g/dL (2.4-3.5) H 09/05/17 01:41 Albumin/Globulin Ratio 0.7 (1.1-2.2) L 09/05/17 01:41 TSH 52.054 mcIU/mL (0.350-4.840) H 09/04/17 21:05 Free T4 0.44 ng/dl (0.70-1.48) L 09/07/17 09:05 Free T3 < 1.00 pg/mL (1.71-3.71) L 09/07/17 09:05 Urine Clarity Cloudy (Clear) A 09/04/17 21:33 Ur Specific Zaleski 1.030 (1.010-1.025) H 09/04/17 21:33 Urine Protein 100 mg/dL (Neg-Trace) H 09/04/17 21:33 Urine Blood Large (Negative) H 09/04/17 21:33 Urine Bilirubin Small (Negative) H 09/04/17 21:33 Urine Microscopic RBC 50-100 per hpf (0-3) H 09/04/17 21:33 Urine Microscopic WBC 15-30 per hpf (0-3) H 09/04/17 21:33 Ur Squamous Epith Cells Many per lpf (None-Few) H 09/04/17 21:33 Urine Bacteria Many per hpf (None-Few) H 09/04/17 21:33 Granular Casts Many per lpf (None Seen) H 09/04/17 21:33 Urine Mucus Moderate (Few) H 09/04/17 21:33 Urine Yeast Moderate per hpf (None Seen) H 09/04/17 21:33 Streptococcus sp PCR DETECTED (Not Detect) A 09/04/17 22:03 Strep pneumoniae (PCR) DETECTED (Not Detect) A 09/04/17 22:03 - Clinical Findings Intake & Output: Intake & Output 09/11/17 09/12/17 09/12/17 23:59 07:59 15:59 Intake Total 0 / 0 Output Total 100 / 100 250 / 250 100 / 100 Balance -100 / -100 -250 / -250 -100 / -100 - VTE Documentation of Mechanical Device: Graduated compression elastic hosiery Consult Discharge Plan - Plan Referrals: NONE,PCP [Primary Care Provider] - <AlphonsoeliRufus knott Yair - Last Filed: 09/12/17 11:32> Date of Encounter: 09/12/17 Objective PUL Vital signs: Last Vital Signs Temp 97.9 F 09/12/17 08:21 Pulse 78 09/12/17 10:36 Resp 14 09/12/17 11:11 BP 172/96 09/12/17 10:36 Pulse Ox 100 09/12/17 11:11 Results - Laboratory Findings CBC and BMP: 09/12/17 02:30 09/12/17 02:30 ABG ABG pH 7.41 pH Units (7.32-7.45) 09/08/17 05:45 ABG pCO2 28 mmHg (35-45) L 09/08/17 05:45 ABG pO2 104 mmHg (85-104) 09/08/17 05:45 ABG O2 Saturation 98 % (95-98) 09/08/17 05:45 PT/INR, D-dimer PT 13.6 Seconds (9.4-12.1) H 09/05/17 06:50 Abnormal lab findings: Abnormal lab results WBC 15.3 K/mcL (4.3-11.1) H 09/12/17 02:30 RBC 3.63 M/mcL (3.82-4.97) L 09/12/17 02:30 Hgb 10.6 g/dL (11.5-15.4) L 09/12/17 02:30 Hct 33.6 % (35.3-44.9) L 09/12/17 02:30 MCHC 31.5 g/dL (31.6-35.5) L 09/12/17 02:30 Myelocytes % 2.0 % (0) H 09/12/17 02:30 Neutrophils # 13.2 K/mcL (1.6-8.9) H 09/12/17 02:30 Nucleated RBCs/100 WBC 0.3 /100 WBC (0) H 09/09/17 04:24 Hypersegmented Neuts Present (Not Present) A 09/12/17 02:30 Reactive Lymphocytes Present (Not Present) A 09/11/17 03:17 Smudge Cells Present (Not Present) A 09/06/17 17:33 Anisocytosis 2+ (Not Present) A 09/06/17 17:33 Target Cells 1+ (Not Present) A 09/06/17 17:33 PT 13.6 Seconds (9.4-12.1) H 09/05/17 06:50 APTT 41.5 Seconds (26.0-36.0) H D 09/06/17 14:21 ABG pCO2 28 mmHg (35-45) L 09/08/17 05:45 ABG HCO3 18 mEq/L (21-27) L 09/08/17 05:45 ABG Total CO2 19 mEq/L (20-26) L 09/08/17 05:45 ABG Base Excess -6 mEq/L (-2 to 3) L 09/08/17 05:45 Sodium 135 mEq/L (136-145) L 09/12/17 02:30 BUN 24 mg/dL (7-20) H 09/12/17 02:30 Est GFR (Non-Af Amer) 54 (> 60) L 09/12/17 02:30 Calcium 8.1 mg/dL (8.6-10.8) L 09/12/17 02:30 Creatine Kinase 250 Units/L (29-168) H 09/07/17 12:11 Troponin I 5.89 ng/mL (0-0.03) H* 09/07/17 17:53 B-Natriuretic Peptide 2906 pg/mL (0-100) H 09/04/17 21:20 Albumin 2.7 g/dL (3.5-5.0) L 09/05/17 01:41 Globulin 3.9 g/dL (2.4-3.5) H 09/05/17 01:41 Albumin/Globulin Ratio 0.7 (1.1-2.2) L 09/05/17 01:41 TSH 52.054 mcIU/mL (0.350-4.840) H 09/04/17 21:05 Free T4 0.44 ng/dl (0.70-1.48) L 09/07/17 09:05 Free T3 < 1.00 pg/mL (1.71-3.71) L 09/07/17 09:05 Urine Clarity Cloudy (Clear) A 09/04/17 21:33 Ur Specific Zaleski 1.030 (1.010-1.025) H 09/04/17 21:33 Urine Protein 100 mg/dL (Neg-Trace) H 09/04/17 21:33 Urine Blood Large (Negative) H 09/04/17 21:33 Urine Bilirubin Small (Negative) H 09/04/17 21:33 Urine Microscopic RBC 50-100 per hpf (0-3) H 09/04/17 21:33 Urine Microscopic WBC 15-30 per hpf (0-3) H 09/04/17 21:33 Ur Squamous Epith Cells Many per lpf (None-Few) H 09/04/17 21:33 Urine Bacteria Many per hpf (None-Few) H 09/04/17 21:33 Granular Casts Many per lpf (None Seen) H 09/04/17 21:33 Urine Mucus Moderate (Few) H 09/04/17 21:33 Urine Yeast Moderate per hpf (None Seen) H 09/04/17 21:33 Streptococcus sp PCR DETECTED (Not Detect) A 09/04/17 22:03 Strep pneumoniae (PCR) DETECTED (Not Detect) A 09/04/17 22:03 - Microbiology Findings Microbiology Findings: Microbiology, Last 48 Hours 09/06/17 18:34 Blood Culture - Final Peripheral Venipuncture No growth. 09/06/17 18:32 Blood Culture - Final Peripheral Venipuncture No growth. - Clinical Findings Intake & Output: Intake & Output 09/11/17 09/12/17 09/12/17 23:59 07:59 15:59 Intake Total 0 / 0 Output Total 100 / 100 250 / 250 100 / 100 Balance -100 / -100 -250 / -250 -100 / -100 - Attending Attestation I examined this patient and my medical decision-making was reviewed with the Resident Physician. I agree with the documented findings, disposition and treatment plan as described except to the extent set forth below. Patient seen and examined. Labs, radiology, chart personally reviewed. Agree with resident's history and physical, assessment, plan with following comments: [employer]: Patient follows commands, he should not remain some confusion Pulmonary: Acceptable oxygenation and ventilation Cardiovascular: stable and cardiology follow-up GI: Nutrition per dietary and GI prophylaxis per routine Heme: DVT prophylaxis per routine ID: Continue antibiotics and plan to de-escalation Renal; urine out put and renal funtion reviewed. To check with urologist if Baez catheter still needed. Endorcine: blood glucose is monitored Lines: all lines checked and no evidence of infections Skin: skin care to prevent pressure ulcers per nursing routine care Patient is awaiting to be transferred to the floor
[2017-09-12] MEDS ORDERED: Pantoprazole 40 MG VIAL IVP SCH (09:00)
--- NOTE | 2017-09-12 09:11 | Internal Med Progress Note ---
<Vernon Garcia - Last Filed: 09/12/17 16:03> Date of Encounter: 09/12/17 - Assessment and plan (1) Sepsis Current Visit: Yes Status: Resolved Qualifiers: Sepsis type: Pneumococcus Qualified Code(s): A40.3 - Sepsis due to Streptococcus pneumoniae (2) Pneumonia Current Visit: Yes Status: Acute Qualifiers: Pneumonia type: due to Pneumococcus Laterality: left Lung location: lower lobe of lung Qualified Code(s): J13 - Pneumonia due to Streptococcus pneumoniae (3) Acute respiratory failure with hypoxia Current Visit: Yes Status: Resolved (4) Hypertension Current Visit: Yes Status: Chronic Qualifiers: Hypertension type: essential hypertension Qualified Code(s): I10 - Essential (primary) hypertension (5) NSTEMI (non-ST elevated myocardial infarction) Current Visit: Yes Status: Resolved (6) Hematuria Current Visit: Yes Status: Resolved Qualifiers: Hematuria type: gross Qualified Code(s): R31.0 - Gross hematuria (7) Hypothyroidism Current Visit: Yes Status: Acute Qualifiers: Hypothyroidism type: acquired Qualified Code(s): E03.9 - Hypothyroidism, unspecified - Constitutional Vitals: Temp Pulse Resp BP Pulse Ox 97.9 F 74 18 116/62 100 09/12/17 12:07 09/12/17 15:00 09/12/17 15:21 09/12/17 15:00 09/12/17 15:21 Internal Medicine: Result - Labs CBC & Chem 7: 09/12/17 02:30 09/12/17 02:30 Labs: Short CBC 09/12/17 Range/Units 02:30 WBC 15.3 H (4.3-11.1) K/mcL Hgb 10.6 L (11.5-15.4) g/dL Hct 33.6 L (35.3-44.9) % Plt Count 293 (140-400) K/mcL Neutrophils # 13.2 H (1.6-8.9) K/mcL BMP 09/12/17 02:30 Sodium 135 L Potassium 4.2 Chloride 103 Carbon Dioxide 22 BUN 24 H Creatinine 0.98 Glucose 85 Calcium 8.1 L - ABG Interpretation ABG results: ABG ABG pH 7.41 pH Units (7.32-7.45) 09/08/17 05:45 ABG pCO2 28 mmHg (35-45) L 09/08/17 05:45 ABG pO2 104 mmHg (85-104) 09/08/17 05:45 ABG O2 Saturation 98 % (95-98) 09/08/17 05:45 PT/INR, D-dimer PT 13.6 Seconds (9.4-12.1) H 09/05/17 06:50 Consult Discharge Plan - Plan Referrals: NONE,PCP [Primary Care Provider] - - Attending Attestation I examined this patient and my medical decision-making was reviewed with the Resident Physician on 09/12/17. I agree with the documented findings, disposition and treatment plan as described except to the extent set forth below. Ms Junior has been admitted for acute strep pneumoniae bacteremia and multiple other medical comorbidities. She remains moderate to high risk due to potential for worsening clinical status. Ms Junior is alert but does not speak this AM. She is having profuse hematuria. No fever at this time. She remains on IV abx at this time. Blood pressure has been stable. Exam Alert but somnolent Mucus membranes dry Heart reg Lungs diminished Abd soft Gross hematuria in kelly I/P 1. Pneumoccal bacteremia 2. Sepsis 3. Pneumonia 4. Hypoxia resp failure Further diagnoses and plan as above. <Eduardo Dickens - Last Filed: 09/12/17 17:19> Date of Encounter: 09/12/17 Time of Encounter: 09:09 - Assessment and plan (1) Acute respiratory failure with hypoxia Current Visit: Yes Status: Resolved Assessment and plan: Oxygen saturations >90 on room air today. Noted to have significant respiratory even on BiPAP and eventually intubated in ICU after admission. Patient was successfully extubated on 09/08/17. - Continue antibiotic for pneumonia and bronchodilators for COPD. - Likely secondary to pulmonary edema, LLL pneumonia and/or COPD exacerbation. (2) Sepsis Current Visit: Yes Status: Resolved Assessment and plan: Improving. WBC down from 23-15.3. Afebrile, no tachycardia, respiratory rate appropriate, blood pressure stable, oxygen saturation 100% on room air. Patient alert, awake and interactive yet lethargic. -Initial blood cultures from 09/04/2017 were positive for Streptococcus pneumoniae with broad sensitivity. Repeat blood cultures August are negative. - Chest x-ray was concerning for left lower lobe consolidation correlating with a source for Streptococcus pneumoniae - Current antibiotic coverage ceftriaxone IV. - Continue monitoring for improvement. Qualifiers: Sepsis type: Pneumococcus Qualified Code(s): A40.3 - Sepsis due to Streptococcus pneumoniae (3) Pneumonia Current Visit: Yes Status: Acute Assessment and plan: Improving, currently on room oxygen. CXR suggested pulmonary edema along with focal consolidation in the left lower lobe concerning of pneumonia. - Known Streptococcus pneumoniae given positive 2/2 blood cultures. Almost dickey- sensitive except resistance to erythromycin. - Continue ceftriaxone start date September 05 Qualifiers: Pneumonia type: due to Pneumococcus Laterality: left Lung location: lower lobe of lung Qualified Code(s): J13 - Pneumonia due to Streptococcus pneumoniae (4) Hypothyroidism Current Visit: Yes Status: Acute Assessment and plan: On admission: - Highly elevated TSH (52.054) on admission. - Low free T4 (0.44) and free T3 (<1.00). - Patient received one dose of IV levothyroxine 200 mcg in ED. Elevation likely multifactorial but you will find elevation in TSH in the setting of severe illness. Plan: Continue levothyroxine 25 MCG Qualifiers: Hypothyroidism type: acquired Qualified Code(s): E03.9 - Hypothyroidism, unspecified (5) Hematuria Current Visit: Yes Status: Resolved Assessment and plan: - Hematuria in urinary catheter noted after patient was started on heparin drip. - Urine culture from 09/06/17 no growth. - No indication for urgent intervention at this time per urology. - Hematuria still noted in Kelly today. - Continue IV ceftriaxone (since 09/05) and pyridium (since 09/11). Qualifiers: Hematuria type: gross Qualified Code(s): R31.0 - Gross hematuria (6) TROY (acute kidney injury) Current Visit: Yes Status: Acute Assessment and plan: Resolved. (7) Acute encephalopathy Current Visit: Yes Status: Acute Assessment and plan: Encephalopathy likely multifactorial in the setting of sepsis, pneumonia, cystitis and acute on chronic respiratory failure - CT of the head performed 09/04/2017 found small vessel ischemic changes bilaterally, old infarct but cannot exclude possibility of superimposed recent ischemic foci. Patient had a repeat CT 09/10/2017 scan of the head with no definite acute ischemic nor intracranial hemorrhage. - Mental status has improved significantly with the treatment of cystitis, pneumonia and resolution of symptoms from sepsis. Plan: - Continue treating underlying medical illnesses - Monitor mental status. - Subjective Interval history: Mrs. Junior 86-year-old female seen and evaluated patient bedside this morning. She has slightly altered and lethargic on examination currently receiving a breathing treatment and was actively trying to take her mask off. She responds to questions but is very tired and falls asleep in between questions. She denies any pain, discomfort or any other concerns at this time. - Constitutional Vitals: Temp Pulse Resp BP Pulse Ox 97.9 F 78 18 172/96 95 09/12/17 08:21 09/12/17 08:00 09/12/17 08:11 09/12/17 03:51 09/12/17 08:11 General appearance: Present: cooperative, A&O X 2 - Head Head exam: Present: atraumatic, normocephalic - Eye Eye exam: Present: PERRL, conjuntiva pink, sclera anicteric Pupils: Present: PERRL - Neck Neck exam general surgery: Present: supple, trachea midline. Absent: lymphadenopathy - Respiratory Respiratory exam: Present: CTAB. Absent: accessory muscle use, rales, rhonchi, wheezes - Cardiovascular Cardiovascular exam: Present: RRR, +S1, +S2. Absent: diastolic murmur, gallop, rubs, systolic murmur - GI/Abdominal GI/Abdominal exam: Present: normal bowel sounds, soft, no peritoneal signs. Absent: distended, tenderness - Additional comments: catheter in place with kalli blood - Extremities Exam Extremities exam: Present: warm, radial pulses palpable and symmetrical. Absent : calf tenderness, cyanotic, pedal edema - Neurological Exam Neurological exam: Present: alert, no focal deficits. Absent: pronater drift, facial droop, speech deficit - Skin Skin exam: Present: dry, intact Internal Medicine: Result - Labs CBC & Chem 7: 09/12/17 02:30 09/12/17 02:30 Labs: Short CBC 09/12/17 Range/Units 02:30 WBC 15.3 H (4.3-11.1) K/mcL Hgb 10.6 L (11.5-15.4) g/dL Hct 33.6 L (35.3-44.9) % Plt Count 293 (140-400) K/mcL Neutrophils # 13.2 H (1.6-8.9) K/mcL BMP 09/12/17 02:30 Sodium 135 L Potassium 4.2 Chloride 103 Carbon Dioxide 22 BUN 24 H Creatinine 0.98 Glucose 85 Calcium 8.1 L - ABG Interpretation ABG results: ABG ABG pH 7.41 pH Units (7.32-7.45) 09/08/17 05:45 ABG pCO2 28 mmHg (35-45) L 09/08/17 05:45 ABG pO2 104 mmHg (85-104) 09/08/17 05:45 ABG O2 Saturation 98 % (95-98) 09/08/17 05:45 PT/INR, D-dimer PT 13.6 Seconds (9.4-12.1) H 09/05/17 06:50 - VTE Documentation of Mechanical Device: Graduated compression elastic hosiery
[2017-09-12] MEDS ORDERED: Insulin LISPRO 300 UNITS/3 ML VIAL SQ SCH ×2 (11:30→21:00)
[2017-09-13] MEDS: Ipratropium/Albuterol Neb 3 ML IH SCH ×6 (03:33→23:42)
[2017-09-13] MEDS: Levothyroxine 25 MCG TABLET PO SCH (06:06)
[2017-09-13 06:19] LABS: BUN/Creatinine Ratio 25 (6-26); Blood Urea Nitrogen 25 mg/dL (7-20); Calcium 8.8 mg/dL (8.6-10.8); Carbon Dioxide 24 mEq/L (19-29); Chloride 101 mEq/L (98-109); Glucose 77 mg/dL (70-99); Osmolality,Calculated 283 (280-300); Phosphorous 2.8 mg/dL (2.3-4.7); Potassium 4.2 mEq/L (3.5-4.5); Sodium 135 mEq/L (136-145); eGFR For African Americans > 60 (> 60); eGFR For Non-African Americans 52 (> 60)
[2017-09-13 06:34] LABS: Hematocrit 34.4 % (35.3-44.9); Mean Corpuscular Hemoglobin 29.9 pg (28.0-33.3); Mean Corpuscular Volume 93.5 fL (83.0-100.0); Mean Platelet Volume 10.6 fL (9.4-12.4); Platelet Count 303 K/mcL (140-400); Red Blood Count 3.68 M/mcL (3.82-4.97); Red Cell Distribution Width 14.7 % (11.5-14.5)
[2017-09-13 06:51] LABS: Lymphocytes # 1.3 K/mcL (0.6-4.6); Monocytes # 0.2 K/mcL (0.0-1.3); Neutrophils # 9.1 K/mcL (1.6-8.9)
[2017-09-13 06:52] LABS: Platelet Estimate Normal (Normal); Reactive Lymphocytes Present (Not Present)
[2017-09-13] MEDS: Budesonide/Formoterol 160/4.5 MDI IH SCH ×2 (07:31→20:36)
[2017-09-13] MEDS: cefTRIAXone 2,000 MG in Water for inj. (sterile) 20 ML IVP SCH (10:13)
[2017-09-13] MEDS: Isosorbide MONOnitrate (24 HR) 30 MG TAB.ER.24H PO SCH (10:14)
[2017-09-13] MEDS: Aspirin 81 MG TAB.CHEW PO SCH (10:17)
[2017-09-13] MEDS: amLODIPine 5 MG TABLET PO SCH (10:17)
[2017-09-13] MEDS: Metoprolol XL (24 HR) Succ 50 MG TAB.ER.24H PO SCH ×2 (10:18→21:42)
--- NOTE | 2017-09-13 14:20 | Internal Med Progress Note ---
Addendum entered and electronically signed by Eduardo Dickens, 09/13 14:31: Gram positive bacteremia: sensitive to Ceftriaxone. Continue antibiotic coverage for this medical problem. Original Note: <Eduardo Dickens - Last Filed: 09/13/17 14:18> Date of Encounter: 09/13/17 Time of Encounter: 14:18 - Assessment and plan (1) Acute respiratory failure with hypoxia Current Visit: Yes Status: Resolved Assessment and plan: Oxygen saturations remain >90 on room air. Noted to have significant respiratory even on BiPAP and eventually intubated in ICU after admission. Patient was successfully extubated on 09/08/17. - Continue bronchodilators for COPD. - Discontinue Rocephin, completed 8 days. - Likely secondary to pulmonary edema, LLL pneumonia and/or COPD exacerbation. (2) Sepsis Current Visit: Yes Status: Resolved Assessment and plan: Resolved. WBC down from 23-> 10.6. Patient alert, awake and interactive yet lethargic. -Initial blood cultures from 09/04/2017 were positive for Streptococcus pneumoniae with broad sensitivity. Repeat blood cultures August are negative. - Chest x-ray was concerning for left lower lobe consolidation correlating with a source for Streptococcus pneumoniae - Current antibiotic coverage ceftriaxone IV. - Continue monitoring for improvement. Qualifiers: Sepsis type: Pneumococcus Qualified Code(s): A40.3 - Sepsis due to Streptococcus pneumoniae (3) Pneumonia Current Visit: Yes Status: Acute Assessment and plan: Improving, currently on room oxygen. CXR suggested pulmonary edema along with focal consolidation in the left lower lobe concerning of pneumonia. - Known Streptococcus pneumoniae given positive 2/2 blood cultures. Almost dickey- sensitive except resistance to erythromycin - Continue to monitor. Qualifiers: Pneumonia type: due to Pneumococcus Laterality: left Lung location: lower lobe of lung Qualified Code(s): J13 - Pneumonia due to Streptococcus pneumoniae (4) Hypothyroidism Current Visit: Yes Status: Acute Assessment and plan: On admission: - Highly elevated TSH (52.054) on admission. Currentl 24 - Low free T4 (0.44) and free T3 (<1.00). - Patient received one dose of IV levothyroxine 200 mcg in ED. Elevation likely multifactorial but you will find elevation in TSH in the setting of severe illness. Plan: Continue levothyroxine 25 MCG Qualifiers: Hypothyroidism type: acquired Qualified Code(s): E03.9 - Hypothyroidism, unspecified (5) Hematuria Current Visit: Yes Status: Resolved Assessment and plan: - Hematuria in urinary catheter noted after patient was started on heparin drip. - Urine culture from 09/06/17 no growth. - No indication for urgent intervention at this time per urology. - Hematuria/ orange colored urine - Discontinue IV ceftriaxone (since 09/05) and still on pyridium (since 09/11). Qualifiers: Hematuria type: gross Qualified Code(s): R31.0 - Gross hematuria (6) TROY (acute kidney injury) Current Visit: Yes Status: Acute Assessment and plan: Resolved. (7) Acute encephalopathy Current Visit: Yes Status: Acute Assessment and plan: Encephalopathy likely multifactorial in the setting of sepsis, pneumonia, cystitis and acute on chronic respiratory failure - CT of the head performed 09/04/2017 found small vessel ischemic changes bilaterally, old infarct but cannot exclude possibility of superimposed recent ischemic foci. Patient had a repeat CT 09/10/2017 scan of the head with no definite acute ischemic nor intracranial hemorrhage. 09/13: patient is alert, interactive and answers questions appropriately. Plan: - Continue treating underlying medical illnesses - Monitor mental status. - Subjective Interval history: Mrs. Junior 86-year-old female seen and evaluated patient bedside this morning. She awakes to verbal command. She denies any discomforts, pains, SOB, chest pain. She request to be allowed to continue sleeping. - Constitutional Vitals: Temp Pulse Resp BP Pulse Ox 98.3 F 78 18 150/82 92 09/13/17 07:36 09/13/17 10:37 09/13/17 09:26 09/13/17 09:26 09/13/17 09:26 General appearance: Present: cooperative, A&O X 2 - Head Head exam: Present: atraumatic, normocephalic - Eye Eye exam: Present: PERRL, conjuntiva pink, sclera anicteric Pupils: Present: PERRL - Neck Neck exam general surgery: Present: supple, trachea midline. Absent: lymphadenopathy - Respiratory Respiratory exam: Present: CTAB. Absent: accessory muscle use, rales, rhonchi, wheezes - Cardiovascular Cardiovascular exam: Present: RRR, +S1, +S2. Absent: diastolic murmur, gallop, rubs, systolic murmur - GI/Abdominal GI/Abdominal exam: Present: normal bowel sounds, soft, no peritoneal signs. Absent: distended, tenderness - Extremities Exam Extremities exam: Present: warm, radial pulses palpable and symmetrical. Absent : calf tenderness, cyanotic, pedal edema - Neurological Exam Neurological exam: Present: CN II-XII intact, oriented X3, no focal deficits. Absent: pronater drift, facial droop, speech deficit - Skin Skin exam: Present: dry, intact Internal Medicine: Result - Labs CBC & Chem 7: 09/13/17 05:26 09/13/17 05:26 Labs: Short CBC 09/13/17 Range/Units 05:26 WBC 10.6 (4.3-11.1) K/mcL Hgb 11.0 L (11.5-15.4) g/dL Hct 34.4 L (35.3-44.9) % Plt Count 303 (140-400) K/mcL Neutrophils # 9.1 H (1.6-8.9) K/mcL BMP 09/13/17 05:26 Sodium 135 L Potassium 4.2 Chloride 101 Carbon Dioxide 24 BUN 25 H Creatinine 1.01 Glucose 77 Calcium 8.8 - ABG Interpretation ABG results: ABG ABG pH 7.41 pH Units (7.32-7.45) 09/08/17 05:45 ABG pCO2 28 mmHg (35-45) L 09/08/17 05:45 ABG pO2 104 mmHg (85-104) 09/08/17 05:45 ABG O2 Saturation 98 % (95-98) 09/08/17 05:45 PT/INR, D-dimer PT 13.6 Seconds (9.4-12.1) H 09/05/17 06:50 - VTE Documentation of Mechanical Device: Intermittent pneumatic compression device Consult Discharge Plan - Plan Referrals: NONE,PCP [Primary Care Provider] - <Vernon Garcia - Last Filed: 09/13/17 15:58> Date of Encounter: 09/13/17 - Assessment and plan (1) Sepsis Current Visit: Yes Status: Resolved Qualifiers: Sepsis type: Pneumococcus Qualified Code(s): A40.3 - Sepsis due to Streptococcus pneumoniae (2) Pneumonia Current Visit: Yes Status: Acute Qualifiers: Pneumonia type: due to Pneumococcus Laterality: left Lung location: lower lobe of lung Qualified Code(s): J13 - Pneumonia due to Streptococcus pneumoniae (3) Acute respiratory failure with hypoxia Current Visit: Yes Status: Resolved (4) Hypertension Current Visit: Yes Status: Chronic Qualifiers: Hypertension type: essential hypertension Qualified Code(s): I10 - Essential (primary) hypertension (5) NSTEMI (non-ST elevated myocardial infarction) Current Visit: Yes Status: Resolved (6) Hematuria Current Visit: Yes Status: Resolved Qualifiers: Hematuria type: gross Qualified Code(s): R31.0 - Gross hematuria (7) Hypothyroidism Current Visit: Yes Status: Acute Qualifiers: Hypothyroidism type: acquired Qualified Code(s): E03.9 - Hypothyroidism, unspecified (8) COPD (chronic obstructive pulmonary disease) Current Visit: Yes Status: Resolved Assessment and plan: Oxygenating better at this time. Qualifiers: COPD type: COPD with acute exacerbation Qualified Code(s): J44.1 - Chronic obstructive pulmonary disease with (acute) exacerbation - Constitutional Vitals: Temp Pulse Resp BP Pulse Ox 98.3 F 78 18 150/82 92 09/13/17 07:36 09/13/17 10:37 09/13/17 09:26 09/13/17 09:26 09/13/17 09:26 Internal Medicine: Result - Labs CBC & Chem 7: 09/13/17 05:26 09/13/17 05:26 Labs: Short CBC 09/13/17 Range/Units 05:26 WBC 10.6 (4.3-11.1) K/mcL Hgb 11.0 L (11.5-15.4) g/dL Hct 34.4 L (35.3-44.9) % Plt Count 303 (140-400) K/mcL Neutrophils # 9.1 H (1.6-8.9) K/mcL BMP 09/13/17 05:26 Sodium 135 L Potassium 4.2 Chloride 101 Carbon Dioxide 24 BUN 25 H Creatinine 1.01 Glucose 77 Calcium 8.8 - ABG Interpretation ABG results: ABG ABG pH 7.41 pH Units (7.32-7.45) 09/08/17 05:45 ABG pCO2 28 mmHg (35-45) L 09/08/17 05:45 ABG pO2 104 mmHg (85-104) 09/08/17 05:45 ABG O2 Saturation 98 % (95-98) 09/08/17 05:45 PT/INR, D-dimer PT 13.6 Seconds (9.4-12.1) H 09/05/17 06:50 - Attending Attestation I examined this patient and my medical decision-making was reviewed with the Resident Physician on 09/13/17. I agree with the documented findings, disposition and treatment plan as described except to the extent set forth below. Ms Junior is currently admitted for pneumococcal pneumonia and bacteremia with other associated comorbities. She remains moderate to high risk due to potential for worsening cardiac and respiratory status. Ms Junior is somnolent but arouses and talks to me. She does not want to eat this morning. No CP or SOB. No cough. No fever or chills. Has less hematuria today. Exam Alert. Comfortable Opens eyes to name and responds Mucus membranes dry Heart reg - distant Lungs clear anteriorly at this time Abd soft and nontender I/P 1. Pneumococcal bacteremia and pneumonia - on IV Ceftriaxone 2. Hypothyroid - on synthroid. 3. CAD s/p NSTEMI Further diagnoses and plan as above.
[2017-09-14] MEDS: Ipratropium/Albuterol Neb 3 ML IH SCH ×6 (03:34→23:43)
[2017-09-14] MEDS: Levothyroxine 25 MCG TABLET PO SCH (06:33)
[2017-09-14 08:04] LABS: Hematocrit 34.7 % (35.3-44.9); Mean Corpuscular HGB Conc 31.7 g/dL (31.6-35.5); Mean Corpuscular Hemoglobin 29.3 pg (28.0-33.3); Mean Corpuscular Volume 92.3 fL (83.0-100.0); Mean Platelet Volume 10.6 fL (9.4-12.4); Platelet Count 320 K/mcL (140-400); Red Blood Count 3.76 M/mcL (3.82-4.97); Red Cell Distribution Width 14.6 % (11.5-14.5)
[2017-09-14 08:16] LABS: Alanine Aminotransferase 12 Units/L (0-55); Albumin 2.6 g/dL (3.5-5.0); Albumin/Globulin Ratio 0.8 (1.1-2.2); Alkaline Phosphatase 52 Units/L (38-126); Aspartate Amino Transferase 19 Units/L (5-34); BUN/Creatinine Ratio 26 (6-26); Bilirubin,Total 0.6 mg/dL (0.2-1.2); Blood Urea Nitrogen 26 mg/dL (7-20); Calcium 8.8 mg/dL (8.6-10.8); Carbon Dioxide 25 mEq/L (19-29); Chloride 101 mEq/L (98-109); Globulin 3.3 g/dL (2.4-3.5); Glucose 79 mg/dL (70-99); Osmolality,Calculated 284 (280-300); Potassium 3.9 mEq/L (3.5-4.5); Sodium 135 mEq/L (136-145); Total Protein 5.9 g/dL (6.0-8.3); eGFR For African Americans > 60 (> 60); eGFR For Non-African Americans 52 (> 60)
[2017-09-14] MEDS: Budesonide/Formoterol 160/4.5 MDI IH SCH ×2 (08:19→19:58)
--- NOTE | 2017-09-14 08:27 | Urology Progress Note ---
Date of Encounter: 09/14/17 Time of Encounter: 08:26 - Assessment and Plan (1) Hematuria Current Visit: Yes Status: Resolved Assessment and plan: Patient's hematuria appears resolving at this time. Albeit that it is taking some time. Recommend to remove catheter as soon as possible per primary team. Patient will need to follow up with urology for hematuria workup. Qualifiers: Hematuria type: gross Qualified Code(s): R31.0 - Gross hematuria Progress Note Narrative: Patient seen this am. Patient not talking this a.m. Objective Initial Vital Signs Temp Pulse Resp BP Pulse Ox 101.6 F H 100 20 197/115 95 09/04/17 21:06 09/04/17 21:06 09/04/17 21:06 09/04/17 21:06 09/04/17 21:06 - Genitourinary Present: other (Urine and tubing is clear was some blood in in it.) - Labs 09/14/17 07:35 09/14/17 07:35 Diabetes panel 09/14/17 Range/Units 07:35 Sodium 135 L (136-145) mEq/L Potassium 3.9 (3.5-4.5) mEq/L Chloride 101 (98-109) mEq/L Carbon Dioxide 25 (19-29) mEq/L BUN 26 H (7-20) mg/dL Creatinine 1.01 (0.57-1.11) mg/dL Glucose 79 (70-99) mg/dL Calcium 8.8 (8.6-10.8) mg/dL AST 19 (5-34) Units/L ALT 12 (0-55) Units/L Alkaline Phosphatase 52 (38-126) Units/L Albumin 2.6 L (3.5-5.0) g/dL Calcium panel 09/14/17 Range/Units 07:35 Calcium 8.8 (8.6-10.8) mg/dL Albumin 2.6 L (3.5-5.0) g/dL Pituitary panel 09/14/17 Range/Units 07:35 Sodium 135 L (136-145) mEq/L Potassium 3.9 (3.5-4.5) mEq/L Chloride 101 (98-109) mEq/L Carbon Dioxide 25 (19-29) mEq/L BUN 26 H (7-20) mg/dL Creatinine 1.01 (0.57-1.11) mg/dL Glucose 79 (70-99) mg/dL Calcium 8.8 (8.6-10.8) mg/dL Adrenal panel 09/14/17 Range/Units 07:35 Sodium 135 L (136-145) mEq/L Potassium 3.9 (3.5-4.5) mEq/L Chloride 101 (98-109) mEq/L Carbon Dioxide 25 (19-29) mEq/L BUN 26 H (7-20) mg/dL Creatinine 1.01 (0.57-1.11) mg/dL Glucose 79 (70-99) mg/dL Calcium 8.8 (8.6-10.8) mg/dL Total Bilirubin 0.6 (0.2-1.2) mg/dL AST 19 (5-34) Units/L ALT 12 (0-55) Units/L Alkaline Phosphatase 52 (38-126) Units/L Albumin 2.6 L (3.5-5.0) g/dL - VTE Documentation of Mechanical Device: Intermittent pneumatic compression device Consult Discharge Plan - Plan Referrals: NONE,PCP [Primary Care Provider] -
--- NOTE | 2017-09-14 08:46 | Internal Med Progress Note ---
<EbenabranjoeyEduardo Bales - Last Filed: 09/14/17 12:14> Date of Encounter: 09/14/17 Time of Encounter: 08:44 - Assessment and plan (1) Acute respiratory failure with hypoxia Current Visit: Yes Status: Resolved Assessment and plan: Oxygen saturations remain >90 on room air. Noted to have significant respiratory even on BiPAP and eventually intubated in ICU after admission. Patient was successfully extubated on 09/08/17. - Continue bronchodilators for COPD. - Likely secondary to pulmonary edema, LLL pneumonia and/or COPD exacerbation. (2) Sepsis Current Visit: Yes Status: Resolved Assessment and plan: Resolved. -Initial blood cultures from 09/04/2017 were positive for Streptococcus pneumoniae with broad sensitivity. Repeat blood cultures August are negative. - Chest x-ray was concerning for left lower lobe consolidation correlating with a source for Streptococcus pneumoniae - Current antibiotic coverage ceftriaxone IV. - Continue monitoring for improvement. Qualifiers: Sepsis type: Pneumococcus Qualified Code(s): A40.3 - Sepsis due to Streptococcus pneumoniae (3) Pneumonia Current Visit: Yes Status: Acute Assessment and plan: Improving, currently on room oxygen. CXR suggested pulmonary edema along with focal consolidation in the left lower lobe concerning of pneumonia. - Known Streptococcus pneumoniae given positive 2/2 blood cultures. Almost dickey- sensitive except resistance to erythromycin - Continue to monitor. Qualifiers: Pneumonia type: due to Pneumococcus Laterality: left Lung location: lower lobe of lung Qualified Code(s): J13 - Pneumonia due to Streptococcus pneumoniae (4) Hypothyroidism Current Visit: Yes Status: Acute Assessment and plan: On admission: - Highly elevated TSH (52.054) on admission. Currentl 24 - Low free T4 (0.44) and free T3 (<1.00). - Patient received one dose of IV levothyroxine 200 mcg in ED. Elevation likely multifactorial but you will find elevation in TSH in the setting of severe illness. Plan: Continue levothyroxine 25 MCG Qualifiers: Hypothyroidism type: acquired Qualified Code(s): E03.9 - Hypothyroidism, unspecified (5) Hematuria Current Visit: Yes Status: Resolved Assessment and plan: - Hematuria in urinary catheter noted after patient was started on heparin drip. Resolving - Urine culture from 09/06/17 no growth. - No indication for urgent intervention at this time per urology. - Hematuria/ orange colored urine - Remove catheter today, monitor voiding. - Follow up outpatient with Urology for hematuria workup. Qualifiers: Hematuria type: gross Qualified Code(s): R31.0 - Gross hematuria (6) TROY (acute kidney injury) Current Visit: Yes Status: Acute Assessment and plan: Resolved. (7) Acute encephalopathy Current Visit: Yes Status: Acute Assessment and plan: Encephalopathy likely multifactorial in the setting of sepsis, pneumonia, cystitis, Severe Hypothyroidism and acute on chronic respiratory failure - CT of the head performed 09/04/2017 found small vessel ischemic changes bilaterally, old infarct but cannot exclude possibility of superimposed recent ischemic foci. Patient had a repeat CT 09/10/2017 scan of the head with no definite acute ischemic nor intracranial hemorrhage. 09/13: patient is alert, interactive and answers questions appropriately. 09/14: A&Ox3, answering questions appropriately Plan: - Continue treating underlying medical illnesses - Monitor mental status. (8) Thrush of mouth and esophagus Current Visit: Yes Status: Acute Assessment and plan: Visible thrush in the oral and posterioral pharynx. - Nystatin PO - Subjective Interval history: Mrs. Junior 86-year-old female seen and evaluated patient bedside this morning. She denies any discomforts, pains, SOB, chest pain. She is awake and interactive. States she has been having discomfort with swallowing with either hot or cold and it is primary in her throat. She also has not had a bowel movement since admission and feels constipated. No further concerns today. - Constitutional Vitals: Temp Pulse Resp BP Pulse Ox 98.5 F 73 16 163/74 91 09/14/17 07:12 09/14/17 07:12 09/14/17 07:12 09/14/17 07:12 09/14/17 07:12 General appearance: Present: cooperative, A&O X 2 - Head Head exam: Present: atraumatic, normocephalic - Eye Eye exam: Present: PERRL, conjuntiva pink, sclera anicteric Pupils: Present: PERRL - ENT ENT exam: Present: mucous membranes moist Additional comments: Thrush - Neck Neck exam general surgery: Present: supple, trachea midline. Absent: lymphadenopathy - Respiratory Respiratory exam: Present: CTAB. Absent: accessory muscle use, rales, rhonchi, wheezes - Cardiovascular Cardiovascular exam: Present: RRR, +S1, +S2. Absent: diastolic murmur, gallop, rubs, systolic murmur - GI/Abdominal GI/Abdominal exam: Present: normal bowel sounds, soft, no peritoneal signs. Absent: distended, tenderness - Additional comments: Continues to have orange color to urine secondary to medications. - Extremities Exam Extremities exam: Present: warm, radial pulses palpable and symmetrical. Absent : calf tenderness, cyanotic, pedal edema - Neurological Exam Neurological exam: Present: alert, no focal deficits. Absent: pronater drift, facial droop, speech deficit - Skin Skin exam: Present: dry, intact Internal Medicine: Result - Labs CBC & Chem 7: 09/14/17 07:35 09/14/17 07:35 Labs: Short CBC 09/14/17 Range/Units 07:35 WBC 9.5 (4.3-11.1) K/mcL Hgb 11.0 L (11.5-15.4) g/dL Hct 34.7 L (35.3-44.9) % Plt Count 320 (140-400) K/mcL BMP 09/14/17 07:35 Sodium 135 L Potassium 3.9 Chloride 101 Carbon Dioxide 25 BUN 26 H Creatinine 1.01 Glucose 79 Calcium 8.8 Liver Function 09/14/17 Range/Units 07:35 Total Bilirubin 0.6 (0.2-1.2) mg/dL AST 19 (5-34) Units/L ALT 12 (0-55) Units/L Alkaline Phosphatase 52 (38-126) Units/L Albumin 2.6 L (3.5-5.0) g/dL - ABG Interpretation ABG results: ABG ABG pH 7.41 pH Units (7.32-7.45) 09/08/17 05:45 ABG pCO2 28 mmHg (35-45) L 09/08/17 05:45 ABG pO2 104 mmHg (85-104) 09/08/17 05:45 ABG O2 Saturation 98 % (95-98) 09/08/17 05:45 PT/INR, D-dimer PT 13.6 Seconds (9.4-12.1) H 09/05/17 06:50 - VTE Documentation of Mechanical Device: Intermittent pneumatic compression device Consult Discharge Plan - Plan Referrals: NONE,PCP [Primary Care Provider] - <Jose,Vernon A - Last Filed: 09/14/17 15:50> Date of Encounter: 09/14/17 - Assessment and plan (1) Thrush of mouth and esophagus Current Visit: Yes Status: Acute (2) Sepsis Current Visit: Yes Status: Resolved Qualifiers: Sepsis type: Pneumococcus Qualified Code(s): A40.3 - Sepsis due to Streptococcus pneumoniae (3) Pneumonia Current Visit: Yes Status: Acute Qualifiers: Pneumonia type: due to Pneumococcus Laterality: left Lung location: lower lobe of lung Qualified Code(s): J13 - Pneumonia due to Streptococcus pneumoniae (4) Acute respiratory failure with hypoxia Current Visit: Yes Status: Resolved (5) Hypertension Current Visit: Yes Status: Chronic Qualifiers: Hypertension type: essential hypertension Qualified Code(s): I10 - Essential (primary) hypertension (6) NSTEMI (non-ST elevated myocardial infarction) Current Visit: Yes Status: Resolved (7) Hematuria Current Visit: Yes Status: Resolved Qualifiers: Hematuria type: gross Qualified Code(s): R31.0 - Gross hematuria (8) Hypothyroidism Current Visit: Yes Status: Acute Qualifiers: Hypothyroidism type: acquired Qualified Code(s): E03.9 - Hypothyroidism, unspecified (9) COPD (chronic obstructive pulmonary disease) Current Visit: Yes Status: Resolved Qualifiers: COPD type: COPD with acute exacerbation Qualified Code(s): J44.1 - Chronic obstructive pulmonary disease with (acute) exacerbation - Constitutional Vitals: Temp Pulse Resp BP Pulse Ox 98.4 F 69 16 125/72 90 09/14/17 11:23 09/14/17 11:23 09/14/17 11:31 09/14/17 11:31 09/14/17 11:31 Internal Medicine: Result - Labs CBC & Chem 7: 09/14/17 07:35 09/14/17 07:35 Labs: Short CBC 09/14/17 Range/Units 07:35 WBC 9.5 (4.3-11.1) K/mcL Hgb 11.0 L (11.5-15.4) g/dL Hct 34.7 L (35.3-44.9) % Plt Count 320 (140-400) K/mcL Neutrophils # 8.7 (1.6-8.9) K/mcL BMP 09/14/17 07:35 Sodium 135 L Potassium 3.9 Chloride 101 Carbon Dioxide 25 BUN 26 H Creatinine 1.01 Glucose 79 Calcium 8.8 Liver Function 09/14/17 Range/Units 07:35 Total Bilirubin 0.6 (0.2-1.2) mg/dL AST 19 (5-34) Units/L ALT 12 (0-55) Units/L Alkaline Phosphatase 52 (38-126) Units/L Albumin 2.6 L (3.5-5.0) g/dL - ABG Interpretation ABG results: ABG ABG pH 7.41 pH Units (7.32-7.45) 09/08/17 05:45 ABG pCO2 28 mmHg (35-45) L 09/08/17 05:45 ABG pO2 104 mmHg (85-104) 09/08/17 05:45 ABG O2 Saturation 98 % (95-98) 09/08/17 05:45 PT/INR, D-dimer PT 13.6 Seconds (9.4-12.1) H 09/05/17 06:50 - Attending Attestation I examined this patient and my medical decision-making was reviewed with the Resident Physician on 09/14/17. I agree with the documented findings, disposition and treatment plan as described except to the extent set forth below. Ms Junior is currently admitted for pneumococcal sepsis and pneumonia as well as NSTEMI. She remains moderate to high risk due to potential for worsening clinical status. Ms Junior is more alert today. She is complaining of mouth pain and does not want to eat. No fever or chills. Appreciate urology input this morning. Denies abd pain. Breathing feels somewhat better. Her mouth is biggest issue at this time. Exam Alert. Mild distress due to mouth pain. Mucus membranes dry. White coating on tongue and sides of mouth Heart reg No wheeze or rales Abd soft I/P 1. Thrush - start nystatin swish and swallow 2. Pneumococcal sepsis and pneumonia 3. Hematuria - further work up Further diagnoses and plan as above.
[2017-09-14 09:04] LABS: Lymphocytes # 0.5 K/mcL (0.6-4.6); Monocytes # 0.1 K/mcL (0.0-1.3); Neutrophils # 8.7 K/mcL (1.6-8.9); Reactive Lymphocytes Present (Not Present); Toxic Granulation Present (Not Present)
[2017-09-14 09:05] LABS: Platelet Estimate Normal (Normal)
[2017-09-14] MEDS: amLODIPine 5 MG TABLET PO SCH (09:47)
[2017-09-14] MEDS: Aspirin 81 MG TAB.CHEW PO SCH (09:48)
[2017-09-14] MEDS: cefTRIAXone 2,000 MG in Water for inj. (sterile) 20 ML IVP SCH (09:48)
[2017-09-14] MEDS: Metoprolol XL (24 HR) Succ 50 MG TAB.ER.24H PO SCH ×2 (09:48→20:53)
[2017-09-14] MEDS: Isosorbide MONOnitrate (24 HR) 30 MG TAB.ER.24H PO SCH (09:48)
[2017-09-14] MEDS: Nystatin SUSP 5 ML UD.LIQ PO SCH ×4 (09:51→20:53)
[2017-09-14] MEDS: Saline Nasal Spray 44 ML BOTTLE NS PRN (15:43)
[2017-09-15 03:26] LABS: Basophils % 0.4 %; Eosinophils # 0.1 K/mcL (0.0-0.6); Eosinophils % 1.2 %; Hematocrit 28.7 % (35.3-44.9); Immature Granulocytes % 7.1 % (0-4); Lymphocytes # 0.5 K/mcL (0.6-4.6); Lymphocytes % 6.3 %; Mean Corpuscular HGB Conc 31.7 g/dL (31.6-35.5); Mean Corpuscular Hemoglobin 29.2 pg (28.0-33.3); Mean Platelet Volume 10.2 fL (9.4-12.4); Monocytes # 0.4 K/mcL (0.0-1.3); Monocytes % 5.9 %; Neutrophils # 5.8 K/mcL (1.6-8.9); Platelet Count 314 K/mcL (140-400); Red Blood Count 3.12 M/mcL (3.82-4.97); Red Cell Distribution Width 14.7 % (11.5-14.5); Segmented Neutrophils % 79.1 %
[2017-09-15] MEDS: Ipratropium/Albuterol Neb 3 ML IH SCH ×5 (03:28→20:26)
[2017-09-15 03:40] LABS: Alanine Aminotransferase 12 Units/L (0-55); Albumin 2.4 g/dL (3.5-5.0); Alkaline Phosphatase 47 Units/L (38-126); Aspartate Amino Transferase 17 Units/L (5-34); BUN/Creatinine Ratio 26 (6-26); Bilirubin,Total 0.5 mg/dL (0.2-1.2); Blood Urea Nitrogen 24 mg/dL (7-20); Calcium 8.4 mg/dL (8.6-10.8); Carbon Dioxide 26 mEq/L (19-29); Chloride 101 mEq/L (98-109); Glucose 74 mg/dL (70-99); Osmolality,Calculated 281 (280-300); Potassium 4.2 mEq/L (3.5-4.5); Sodium 134 mEq/L (136-145); Total Protein 5.2 g/dL (6.0-8.3); eGFR For African Americans > 60 (> 60); eGFR For Non-African Americans 58 (> 60)
[2017-09-15 03:41] LABS: Albumin/Globulin Ratio 0.9 (1.1-2.2); Globulin 2.8 g/dL (2.4-3.5)
[2017-09-15 03:50] LABS: Hemoglobin 9.1 g/dL (11.5-15.4)
[2017-09-15 04:39] LABS: Platelet Estimate Normal (Normal); Toxic Granulation Present (Not Present); Toxic Vacuolation Present (Not Present)
[2017-09-15 04:40] LABS: Reactive Lymphocytes Present (Not Present)
[2017-09-15] MEDS: Levothyroxine 25 MCG TABLET PO SCH (06:04)
[2017-09-15] MEDS: Budesonide/Formoterol 160/4.5 MDI IH SCH ×2 (07:59→20:26)
[2017-09-15] MEDS: amLODIPine 5 MG TABLET PO SCH (08:34)
[2017-09-15] MEDS: Nystatin SUSP 5 ML UD.LIQ PO SCH ×4 (08:35→19:47)
[2017-09-15] MEDS: Aspirin 81 MG TAB.CHEW PO SCH (08:35)
[2017-09-15] MEDS: Metoprolol XL (24 HR) Succ 50 MG TAB.ER.24H PO SCH ×2 (08:35→19:47)
[2017-09-15] MEDS: Isosorbide MONOnitrate (24 HR) 30 MG TAB.ER.24H PO SCH (08:35)
[2017-09-15] MEDS: Saline Nasal Spray 44 ML BOTTLE NS PRN (08:49)
--- NOTE | 2017-09-15 09:07 | Internal Med Progress Note ---
<Kenyetta Alvarez - Last Filed: 09/15/17 15:10> Date of Encounter: 09/15/17 Time of Encounter: 08:00 - Assessment and plan (1) Hematuria Current Visit: Yes Status: Resolved Assessment and plan: - Hematuria in urinary catheter noted after patient was started on heparin drip. - Likely secondary to cystitis, which likely also contributes to patient's complaint of abdominal pain - CT A/P found no obstructive stones, no severe stranding around tract and no evidence of large clot in the bladder - Urine culture from 09/06/17 no growth. - No indication for urgent intervention at this time per urology. - Continue IV ceftriaxone (since 09/05) - Urinary catheter was removed on 09/14/17 but still concern of hematuria as dark red blood-like fluid was noted in bedside commode this morning. - Hgb dropped to 9.1 this morning (was 11.0 yesterday) but improved to 10.1 on repeat at noon. - Continue to monitor closely. - Patient will need hematuria work-up, likely outpatient after discharge per urology. Appreciate further recommendation from urology. Qualifiers: Hematuria type: gross Qualified Code(s): R31.0 - Gross hematuria (2) Acute encephalopathy Current Visit: Yes Status: Acute Assessment and plan: - Reported altered mental status prior to arrival in ED. - Likely metabolic in the setting of sepsis/pneumonia/cystitis and acute respiratory failure. - CT head on 09/04/17found large amount of small vessel ischemic change bilaterally with some old infarts but cannot exclude the possibility of a subtle superimposed recent ischemic focus. - Repeat CT head on 09/10/17 found no definite acute ischemia nor intracranial hemorrhage. - Continue to improve as patient is more alert and orient compared to last week. - PT/OT recommended SNF/ECF after discharge. Appreciate social service's assistance regarding placement. (3) Elevated troponin Current Visit: Yes Status: Acute Assessment and plan: - Initial troponin negative (0.03) but then peaked at 2.90 before downtrended to 1.00 on 09/06. Troponin elevated again at 7.42 on 09/07/17 but later downtrend to 5.89 the same day. - Initial EKG showed LBBB - Echocardiogram on 09/05/17 showed LVEF 45% with indeterminated diastolic function. Atypical septal motion consistent with bundle branch block. A small to moderate circumferential pericardial effusion, most prominent anteriorly, also noted. - Repeat echocardiogram on 09/07/17 showed moderate left ventricular systolic dysfunction with LVEF 45% but slight improvement of the anteroseptal wall also noted. - Continue telemetry monitoring. - Continue aspirin, metoprolol and statin. - Patient's family had lengthy discussion with cardiology and agreed to continue medical management for now. (4) Acute respiratory failure with hypoxia Current Visit: Yes Status: Resolved Assessment and plan: - Noted to have significant respiratory even on BiPAP and eventually intubated in ICU. - Initial ABG pH 7.33, pCO2 33, pO2 58 and HCO3 18. - Likely secondary to pulmonary edema, LLL pneumonia and/or COPD exacerbation. - Patient was extubated on 09/06 but reintubated later the same day for acute onset respiratory distress. The lab findings (one-time elevation of lactic acid and leukocytosis on 09/06 and elevated troponin on 09/07) and change between two CT A/P on same day (more prominent bibasilar consolidation, L > R) raises the concern of acute worsening of cardiogenic pulmonary edema. Feel more likely secondary to cardiac rather than infection. - Patient was successfully extubated on 09/08/17. Currently maintains good O2 sat on room air. - Continue antibiotic for pneumonia and bronchodilators for COPD. - Continue to monitor. (5) Pneumonia Current Visit: Yes Status: Acute Assessment and plan: - CXR suggested pulmonary edema along with focal consolidation in the left lower lobe concerning of pneumonia. - Known Streptococcus pneumoniae given positive 2/2 blood cultures. Almost dickey- sensitive except resistance to erythromycin. - Patient had acute onset of respiratory distress on 09/06/17 requiring re- intubation. And IV vancomycin and metronidazole were added for broader-spectrum coverage but later discontinued as it was believed to come from cardiac condition rather than infection. - Continue IV ceftriaxone (since 09/05). Qualifiers: Pneumonia type: due to Pneumococcus Laterality: left Lung location: lower lobe of lung Qualified Code(s): J13 - Pneumonia due to Streptococcus pneumoniae (6) Sepsis Current Visit: Yes Status: Resolved Assessment and plan: - 4 SIRS criteria (fever, tachycardia, tachypnea and leukocytosis) on admission with lactic acid 1.4. - Likely secondary to pneumonia as suggested by focal consolidation in the left lower lobe on CXR. - Known Streptococcus pneumoniae given positive 2/2 blood cultures. Almost dickey- sensitive except resistance to erythromycin. - Patient had acute onset of respiratory distress on 09/06/17 requiring re- intubation. And IV vancomycin and metronidazole were added for broader-spectrum coverage but later discontinued as it was believed to come from cardiac condition rather than infection. - Persistent hematuria concerning of cystitis. - Improves as patient is afebrile and tachycardia & tachypnea normalized. Latest lactic acid 0.9 on 09/10/17. - Continue IV ceftriaxone (since 09/05). Qualifiers: Sepsis type: Pneumococcus Qualified Code(s): A40.3 - Sepsis due to Streptococcus pneumoniae (7) Congestive heart failure Current Visit: Yes Status: Acute Assessment and plan: - CXR suggested pulmonary edema along with focal consolidation in the left lower lobe concerning of pneumonia. - Patient had received 100 mg of IV Lasix on the day of admission. - Echocardiogram on 09/05/17 showed LVEF 45% with indeterminated diastolic function. Atypical septal motion consistent with bundle branch block. A small to moderate circumferential pericardial effusion, most prominent anteriorly, also noted. - Repeat echocardiogram on 09/07/17 showed moderate left ventricular systolic dysfunction with LVEF 45% but slight improvement of the anteroseptal wall also noted. - Net -2082 mL so far. - Strict I/O and daily weight. Qualifiers: Congestive heart failure type: unspecified congestive heart failure type Congestive heart failure chronicity: acute on chronic Qualified Code(s): I50.9 - Heart failure, unspecified (8) Hypothyroidism Current Visit: Yes Status: Acute Assessment and plan: - Highly elevated TSH (52.054) on admission. - Low free T4 (0.44) and free T3 (<1.00). - Patient received one dose of IV levothyroxine 200 mcg in ED. - Repeat TSH 23.042 on 09/13/17 - Will increase levothyroxine to 37.5 mg PO daily. Qualifiers: Hypothyroidism type: acquired Qualified Code(s): E03.9 - Hypothyroidism, unspecified (9) COPD (chronic obstructive pulmonary disease) Current Visit: Yes Status: Resolved Assessment and plan: - Possible COPD exacerbation precipitated by recent respiratory infection on initial presentation. Known active smoker prior to admission. - Continue Symbicort and bronchodilators. Qualifiers: COPD type: COPD with acute exacerbation Qualified Code(s): J44.1 - Chronic obstructive pulmonary disease with (acute) exacerbation (10) Hypertension Current Visit: Yes Status: Chronic Assessment and plan: - Continue amlodipine and Toprol XL. Qualifiers: Hypertension type: essential hypertension Qualified Code(s): I10 - Essential (primary) hypertension (11) DVT prophylaxis Current Visit: Yes Status: Acute Assessment and plan: - EPCD as mechanical DVT prophylaxis. GI prophylaxis: PPI. - Subjective Interval history: Patient was seen and examined this morning. Patient is more alert and orient compared to last week. Patient denies chest pain, shortness of breath, abdominal pain, lightheadedness/dizziness. Patient had bowel movement and urine in bedside commode this morning. The fluid in bedside commode appears to be dark red color. - Constitutional Vitals: Temp Pulse Resp BP Pulse Ox 97.9 F 62 16 160/73 95 09/15/17 06:54 09/15/17 06:54 09/15/17 07:59 09/15/17 06:54 09/15/17 07:59 General appearance: Present: cooperative, A&O X 3, no acute distress - Head Head exam: Present: atraumatic, normocephalic - Eye Eye exam: Present: EOMI, conjuntiva pink, sclera anicteric - Neck Neck exam general surgery: Present: supple, trachea midline. Absent: lymphadenopathy - Respiratory Respiratory exam: Present: CTAB. Absent: accessory muscle use, rales, rhonchi, wheezes - Cardiovascular Cardiovascular exam: Present: RRR, +S1, +S2. Absent: diastolic murmur, gallop, rubs, systolic murmur - GI/Abdominal GI/Abdominal exam: Present: normal bowel sounds, soft, no peritoneal signs. Absent: distended, tenderness - Extremities Exam Extremities exam: Present: warm, radial pulses palpable and symmetrical. Absent : calf tenderness, cyanotic, pedal edema - Neurological Exam Neurological exam: Present: oriented X3, no focal deficits. Absent: facial droop, speech deficit - Skin Skin exam: Present: dry, warm Internal Medicine: Result - Labs CBC & Chem 7: 09/15/17 12:08 09/15/17 03:04 Labs: Short CBC 09/15/17 Range/Units 03:04 WBC 7.3 (4.3-11.1) K/mcL Hgb 9.1 L D (11.5-15.4) g/dL Hct 28.7 L (35.3-44.9) % Plt Count 314 (140-400) K/mcL Neutrophils # 5.8 (1.6-8.9) K/mcL BMP 09/15/17 03:04 Sodium 134 L Potassium 4.2 Chloride 101 Carbon Dioxide 26 BUN 24 H Creatinine 0.92 Glucose 74 Calcium 8.4 L Liver Function 09/15/17 Range/Units 03:04 Total Bilirubin 0.5 (0.2-1.2) mg/dL AST 17 (5-34) Units/L ALT 12 (0-55) Units/L Alkaline Phosphatase 47 (38-126) Units/L Albumin 2.4 L (3.5-5.0) g/dL - ABG Interpretation ABG results: ABG ABG pH 7.41 pH Units (7.32-7.45) 09/08/17 05:45 ABG pCO2 28 mmHg (35-45) L 09/08/17 05:45 ABG pO2 104 mmHg (85-104) 09/08/17 05:45 ABG O2 Saturation 98 % (95-98) 09/08/17 05:45 PT/INR, D-dimer PT 13.6 Seconds (9.4-12.1) H 09/05/17 06:50 - VTE Documentation of Mechanical Device: Intermittent pneumatic compression device Consult Discharge Plan - Plan Referrals: NONE,PCP [Primary Care Provider] - <Vernon Garcia - Last Filed: 09/15/17 16:16> Date of Encounter: 09/15/17 - Assessment and plan (1) Thrush of mouth and esophagus Current Visit: Yes Status: Acute (2) Sepsis Current Visit: Yes Status: Resolved Qualifiers: Sepsis type: Pneumococcus Qualified Code(s): A40.3 - Sepsis due to Streptococcus pneumoniae (3) Pneumonia Current Visit: Yes Status: Acute Qualifiers: Pneumonia type: due to Pneumococcus Laterality: left Lung location: lower lobe of lung Qualified Code(s): J13 - Pneumonia due to Streptococcus pneumoniae (4) Acute respiratory failure with hypoxia Current Visit: Yes Status: Resolved (5) Hypertension Current Visit: Yes Status: Chronic Qualifiers: Hypertension type: essential hypertension Qualified Code(s): I10 - Essential (primary) hypertension (6) NSTEMI (non-ST elevated myocardial infarction) Current Visit: Yes Status: Resolved (7) Hematuria Current Visit: Yes Status: Resolved Qualifiers: Hematuria type: gross Qualified Code(s): R31.0 - Gross hematuria (8) Hypothyroidism Current Visit: Yes Status: Acute Qualifiers: Hypothyroidism type: acquired Qualified Code(s): E03.9 - Hypothyroidism, unspecified (9) COPD (chronic obstructive pulmonary disease) Current Visit: Yes Status: Resolved Qualifiers: COPD type: COPD with acute exacerbation Qualified Code(s): J44.1 - Chronic obstructive pulmonary disease with (acute) exacerbation - Constitutional Vitals: Temp Pulse Resp BP Pulse Ox 98.9 F 64 16 123/54 92 09/15/17 15:43 09/15/17 15:43 09/15/17 15:43 09/15/17 15:43 09/15/17 15:43 Internal Medicine: Result - Labs CBC & Chem 7: 09/15/17 12:08 09/15/17 03:04 Labs: Short CBC 09/15/17 09/15/17 Range/Units 03:04 12:08 WBC 7.3 (4.3-11.1) K/mcL Hgb 9.1 L D 10.1 L (11.5-15.4) g/dL Hct 28.7 L 31.5 L (35.3-44.9) % Plt Count 314 (140-400) K/mcL Neutrophils # 5.8 (1.6-8.9) K/mcL BMP 09/15/17 03:04 Sodium 134 L Potassium 4.2 Chloride 101 Carbon Dioxide 26 BUN 24 H Creatinine 0.92 Glucose 74 Calcium 8.4 L Liver Function 09/15/17 Range/Units 03:04 Total Bilirubin 0.5 (0.2-1.2) mg/dL AST 17 (5-34) Units/L ALT 12 (0-55) Units/L Alkaline Phosphatase 47 (38-126) Units/L Albumin 2.4 L (3.5-5.0) g/dL - ABG Interpretation ABG results: ABG ABG pH 7.41 pH Units (7.32-7.45) 09/08/17 05:45 ABG pCO2 28 mmHg (35-45) L 09/08/17 05:45 ABG pO2 104 mmHg (85-104) 09/08/17 05:45 ABG O2 Saturation 98 % (95-98) 09/08/17 05:45 PT/INR, D-dimer PT 13.6 Seconds (9.4-12.1) H 09/05/17 06:50 - Attending Attestation I examined this patient and my medical decision-making was reviewed with the Resident Physician on 09/15/17. I agree with the documented findings, disposition and treatment plan as described except to the extent set forth below. Ms Junior is currently admitted for pneumococcal bacteremia and pneumonia complicated by NSTEMI. She remains moderate to high risk due to potential for worsening clinical status. Ms Junior had more blood in toilet today. No pain. Was able to get up and walk with PT. No fever or chills. No GI issues. Exam Alert. Comfortable Mucus membranes dry Heart reg Lungs clear Abd soft I/P 1. Pneumococcal bacteremia and pneumonia - on IV abx 2. NSTEMI 3. Hematuria - H/H OK at this time. Further diagnoses and plan as above.
[2017-09-15] MEDS: cefTRIAXone 2,000 MG in Water for inj. (sterile) 20 ML IVP SCH (11:11)
[2017-09-15 12:15] LABS: Hematocrit 31.5 % (35.3-44.9); Hemoglobin 10.1 g/dL (11.5-15.4)
[2017-09-15] MEDS ORDERED: Acetaminophen 325 MG TABLET PO PRN (14:39)
[2017-09-15] MEDS ORDERED: *HR* HYDROcodone/Acet 5/325 mg TABLET PO PRN (14:40)
[2017-09-15] MEDS ORDERED: Acetaminophen 650 MG RECTAL SUPP RC PRN (14:41)
--- NOTE | 2017-09-15 16:03 | Urology Progress Note ---
Date of Encounter: 09/15/17 Time of Encounter: 16:01 - Assessment and Plan (1) Hematuria Current Visit: Yes Status: Resolved Assessment and plan: hgb stable. patient can f/u with urology as outpatient for further workup of hematuria. Qualifiers: Qualified Code(s): R31.0 - Gross hematuria Progress Note Narrative: patient seen. hgb drifted down but repeat was up. catheter out. Objective Initial Vital Signs Temp Pulse Resp BP Pulse Ox 101.6 F H 100 20 197/115 95 09/04/17 21:06 09/04/17 21:06 09/04/17 21:06 09/04/17 21:06 09/04/17 21:06 - General physical appearance Present: well developed - Labs 09/15/17 12:08 09/15/17 03:04 Diabetes panel 09/15/17 Range/Units 03:04 Sodium 134 L (136-145) mEq/L Potassium 4.2 (3.5-4.5) mEq/L Chloride 101 (98-109) mEq/L Carbon Dioxide 26 (19-29) mEq/L BUN 24 H (7-20) mg/dL Creatinine 0.92 (0.57-1.11) mg/dL Glucose 74 (70-99) mg/dL Calcium 8.4 L (8.6-10.8) mg/dL AST 17 (5-34) Units/L ALT 12 (0-55) Units/L Alkaline Phosphatase 47 (38-126) Units/L Albumin 2.4 L (3.5-5.0) g/dL Calcium panel 09/15/17 Range/Units 03:04 Calcium 8.4 L (8.6-10.8) mg/dL Albumin 2.4 L (3.5-5.0) g/dL Pituitary panel 09/15/17 Range/Units 03:04 Sodium 134 L (136-145) mEq/L Potassium 4.2 (3.5-4.5) mEq/L Chloride 101 (98-109) mEq/L Carbon Dioxide 26 (19-29) mEq/L BUN 24 H (7-20) mg/dL Creatinine 0.92 (0.57-1.11) mg/dL Glucose 74 (70-99) mg/dL Calcium 8.4 L (8.6-10.8) mg/dL Adrenal panel 09/15/17 Range/Units 03:04 Sodium 134 L (136-145) mEq/L Potassium 4.2 (3.5-4.5) mEq/L Chloride 101 (98-109) mEq/L Carbon Dioxide 26 (19-29) mEq/L BUN 24 H (7-20) mg/dL Creatinine 0.92 (0.57-1.11) mg/dL Glucose 74 (70-99) mg/dL Calcium 8.4 L (8.6-10.8) mg/dL Total Bilirubin 0.5 (0.2-1.2) mg/dL AST 17 (5-34) Units/L ALT 12 (0-55) Units/L Alkaline Phosphatase 47 (38-126) Units/L Albumin 2.4 L (3.5-5.0) g/dL - VTE Documentation of Mechanical Device: Intermittent pneumatic compression device Consult Discharge Plan - Plan Referrals: NONE,PCP [Primary Care Provider] -
[2017-09-16] MEDS: Ipratropium/Albuterol Neb 3 ML IH SCH ×7 (00:16→23:57)
[2017-09-16] MEDS: Levothyroxine 25 MCG TABLET PO SCH (05:36)
[2017-09-16 06:08] LABS: Hematocrit 30.8 % (35.3-44.9); Hemoglobin 9.7 g/dL (11.5-15.4); Mean Corpuscular HGB Conc 31.5 g/dL (31.6-35.5); Mean Corpuscular Hemoglobin 29.5 pg (28.0-33.3); Mean Corpuscular Volume 93.6 fL (83.0-100.0); Mean Platelet Volume 10.4 fL (9.4-12.4); Platelet Count 321 K/mcL (140-400); Red Blood Count 3.29 M/mcL (3.82-4.97); Red Cell Distribution Width 14.6 % (11.5-14.5)
[2017-09-16 06:18] LABS: BUN/Creatinine Ratio 21 (6-26); Blood Urea Nitrogen 18 mg/dL (7-20); Calcium 8.5 mg/dL (8.6-10.8); Carbon Dioxide 26 mEq/L (19-29); Chloride 100 mEq/L (98-109); Glucose 68 mg/dL (70-99); Osmolality,Calculated 276 (280-300); Potassium 3.9 mEq/L (3.5-4.5); Sodium 133 mEq/L (136-145); eGFR For African Americans > 60 (> 60); eGFR For Non-African Americans > 60 (> 60)
[2017-09-16] MEDS: Budesonide/Formoterol 160/4.5 MDI IH SCH ×2 (07:26→20:27)
--- NOTE | 2017-09-16 08:59 | Discharge Summary ---
<Lupillo Sarabia - Last Filed: 09/17/17 08:31> Date of Encounter: 09/17/17 Time of Encounter: 08:15 - Discharge Diagnosis (1) Hematuria Priority: Primary Status: Acute Qualifiers: Hematuria type: gross Qualified Code(s): R31.0 - Gross hematuria (2) Acute encephalopathy Priority: Primary Status: Resolved (3) Acute respiratory failure with hypoxia Priority: Primary Status: Resolved (4) Sepsis Priority: Primary Status: Resolved Qualifiers: Sepsis type: Pneumococcus Qualified Code(s): A40.3 - Sepsis due to Streptococcus pneumoniae (5) Pneumonia Priority: Primary Status: Acute Qualifiers: Pneumonia type: due to Pneumococcus Laterality: left Lung location: lower lobe of lung Qualified Code(s): J13 - Pneumonia due to Streptococcus pneumoniae (6) Congestive heart failure Priority: Primary Status: Chronic Qualifiers: Congestive heart failure type: systolic Congestive heart failure chronicity : acute on chronic Qualified Code(s): I50.23 - Acute on chronic systolic ( congestive) heart failure (7) Hypothyroidism Priority: Primary Status: Acute Qualifiers: Hypothyroidism type: acquired Qualified Code(s): E03.9 - Hypothyroidism, unspecified (8) Elevated troponin Priority: Secondary Status: Resolved (9) COPD (chronic obstructive pulmonary disease) Priority: Primary Status: Chronic Qualifiers: COPD type: COPD with acute exacerbation Qualified Code(s): J44.1 - Chronic obstructive pulmonary disease with (acute) exacerbation (10) Hypertension Priority: Primary Status: Chronic Qualifiers: Hypertension type: essential hypertension Qualified Code(s): I10 - Essential (primary) hypertension (11) DVT prophylaxis Priority: Secondary Status: Acute - Discharge Medications Prescriptions: RX: Albuterol Sulfate [Albuterol Inhaler] 2 puff IH Q2HR PRN #2 inhaler PRN Reason: Shortness Of Breath/Wheezing RX: amLODIPine [Norvasc] 10 mg PO DAILY #60 tablet Aspirin [Lo-Dose Aspirin EC] 81 mg PO DAILY #30 tablet. RX: Atorvastatin [Lipitor] 20 mg PO HS #60 tablet RX: Budesonide/Formoterol 160/4.5 [Symbicort 160/4.5] 2 puff IH BIDR #1 inhaler Cefdinir [Omnicef] 300 mg PO BID #4 capsule Isosorbide MONOnitrate (24 HR) [Imdur] 30 mg PO DAILY #30 tab.er.24h RX: Levothyroxine [Synthroid] 37.5 mcg PO DAILY@0630 #45 tablet RX: Metoprolol XL (24 HR) Succ [Toprol Xl] 50 mg PO BID #60 tab.er.24h RX: Promethazine/Codeine [Phenergan/Codeine] 5 ml PO QPM PRN #60 ml PRN Reason: Cough Home Medications: Aspirin [Lo-Dose Aspirin EC] 81 mg PO DAILY #30 tablet.dr 09/16/17 [Rx] Cefdinir [Omnicef] 300 mg PO BID #4 capsule 09/16/17 [Rx] Isosorbide MONOnitrate (24 HR) [Imdur] 30 mg PO DAILY #30 tab.er.24h 09/16/17 [ Rx] RX: Albuterol Sulfate [Albuterol Inhaler] 2 puff IH Q2HR PRN #2 inhaler [Rx] RX: Atorvastatin [Lipitor] 20 mg PO HS #60 tablet 09/16/17 [Rx] RX: Budesonide/Formoterol 160/4.5 [Symbicort 160/4.5] 2 puff IH BIDR #1 inhaler 09/16/17 [Rx] RX: Levothyroxine [Synthroid] 37.5 mcg PO DAILY@0630 #45 tablet 09/16/17 [Rx] RX: Metoprolol XL (24 HR) Succ [Toprol Xl] 50 mg PO BID #60 tab.er.24h 09/16/17 [Rx] RX: Promethazine/Codeine [Phenergan/Codeine] 5 ml PO QPM PRN #60 ml 09/16/17 [Rx ] RX: amLODIPine [Norvasc] 10 mg PO DAILY #60 tablet 09/16/17 [Rx] Allergies/Adverse Reactions: 3 Allergy/AdvReac Type Severity Reaction Status Date / Time No Known Allergies Allergy Verified 09/01/17 12:42 Date of admission: 09/05/17 03:02 Primary care physician: PCP NONE Consults: 09/05/17 05:58 Consult to Cardiology [CONS] Routine Comment: Consulting Provider: [facility] Reason for Consult: elevated troponin, CHF Call Completed: No 09/06/17 08:33 Consult to Urology [CONS] Routine Consulting Provider: [facility] Reason for Consult: Hematuria. On heparin drip and cardiology plans to have LHC. Case discussed with Dr. Ramirez. Call Completed: Yes 09/11/17 10:38 Consult to Physical Therapy [CONS] Routine Comment: Evaluate, develop and implement POC Reason for Consult: Deconditioning OT [Consult to Occupational Therapy] [CONS] Routine Comment: Evaluate, develop and implement POC Reason for Consult: Deconditioning 09/12/17 14:53 Consult to Speech Therapy [CONS] Stat Comment: Evaluate, develop and implement POC Reason for Consult: Swallow evaluation Call Completed: Yes 09/14/17 15:49 Consult to Head Kiln Operator [CONS] Routine Reason for SW Consult: SNF recommended. Discharging clinician: Lupillo Sarabia Anticipated date of discharge: 09/17/17 - Patient Status Disposition: Transfer SNF Condition: Fair Overall status at discharge: patient is progressing back to baseline - Discharge Instructions Follow Up With: Valdemar Aivtia MD [Partnered Physician] - 10/07/17 9:30 am (Please follow up as schedule...) NONE,PCP [Primary Care Provider] - (ECF Placement) Additional Instructions: Please return to emergency department if worsening altered mental status, development of chest pain, resumption of fever, worsening hematuria, or worsening shortness of breath. Take all medications as prescribed: Cefdinir 300 mg twice a day for 2 days Aspirin 81 mg daily Albuterol take 2 puffs if needed for shortness of breath up to every 2 hours Amlodipine take 2 tablets daily (both at the same time for 10 mg total) Atorvastatin take 2 tablets daily (at the same time for 20 mg total, usually taken at night) Symbicort (budesonide/formoterol) take 2 puffs twice a day Levothyroxin take 1.5 tablets daily (for total of 37.5 g) Metoprolol XL 50 mg take 1 tablet twice a day Cough syrup (promethazine/codeine) take 5 mL as needed for cough Imdur (isosorbide mononitrate) 30 mg take 1 tablet daily Please follow-up with her PCP in one week Please follow-up with your urologist in 1-2 weeks for further workup of hematuria - Diet and Activity Activity: as per physical therapy, increase activity as tolerated Diet: low fat, low cholesterol Interval History: Patient reports doing well today. She reports she has had continued hematuria, but denies any other urinary symptoms including urgency, frequency, or burning. She does state the previous time she had hematuria was when she had a UTI that this resolved with antibiotics. She reports this had complete resolution of her difficulty breathing and shortness of breath. She also denies having any pain in her chest at this time. Hospital course: Ms. Junior is a 86 year old female with a past medical history of hypertension and COPD who presented to [facility] on 09/05/17 with complaints of shortness of breath and cough. Her shortness of breath have been present for roughly 1 week prior to admission had previously been diagnosed with bronchitis and urgent care. Initial workup in the emergency department showed hypoxic respiratory failure secondary to pneumonia, CHF, and COPD. Bilateral edema seen on chest x- ray and the patients acute distress necessitated ICU admission, intubation, mechanical ventilation. 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 Her TSH was 50 and she appeared to have elevations in her troponins continued to trend up to 7.42 before coming back down. She was given levothyroxin, IV Lasix, started on antibiotics, Solu-Medrol, and bronchodilators. Given concerns of her rising troponin she was started on heparin drip, but began suffering from hematuria following initiation. At that time cardiology did not feel as if a left heart catheterization was indicated given her clinical status. She had been started on antibiotics with Levaquin followed by Rocephin for her sepsis presumed pulmonary source. Blood cultures obtained at the time of admission showed bacteremia blood cultures positive 2 for Streptococcus pneumoniae (pansensitive). Urology was consulted to help address her hematuria. And after obtaining a CT exam of her abdomen that did not show any stones as well as stabilization of her hemoglobin (though continued to have hematuria) he felt that her hematuria can be worked up as outpatient. An echocardiogram was obtained that showed a left ventricular ejection fraction of 45% with intermediate diastolic function. Atypical septal motion consistent with bundle branch block with mild concentric left ventricular hypertrophy was seen. Cardiology opted for continued medical management. She improved and was able to tolerate extubation and with stabilization of her respiratory status was able to be transferred to the regular hospital floor. She was on the hospital floor for several days and continued to improve her respiratory status with her hemoglobin remained stable despite continued hematuria. She was seen by physical therapy who recommended placement in ECF upon discharge for work on strengthening given her prolonged hospital stay. As of , patient say/stable for discharge with continuation of antibiotics for 2 days as well as new medications or medical therapy of her COPD and CHF. - Time Spent with Patient Total time spent providing and/or coordinating discharge services: - Constitutional Vitals: Temp Pulse Resp BP Pulse Ox 97.5 F L 62 20 169/71 100 09/16/17 07:36 09/16/17 07:36 09/16/17 07:36 09/16/17 07:36 09/16/17 07:36 General appearance: Present: cooperative, A&O X 3, no acute distress Exam: General: Cooperative, pleasant, no acute distress, alert and oriented 3, answers questions appropriately HEENT: Normocephalic, atraumatic, neck supple, trachea midline, Conjunctiva pink , sclera anicteric, oral mucosa moist, no orophargeal erythema or exudates Respiratory: No accessory muscle usage, Rales in left lower lobe on auscultation Cardiovascular: Regular rate and rhythm, S1 and S2 present, no murmurs/rubs/ gallops/clicks appreciated GI/abdominal: Nondistended, nontender, soft, normal bowel sounds, no peritoneal signs Extremities: No calf tenderness, noncyanotic, no pedal edema appreciated, warm, lower extremity pulses palpable and symmetrical Neurological: Alert and oriented 3, no facial droop, no focal deficits Skin: Dry, intact, normal color - VTE Documentation of Mechanical Device: Intermittent pneumatic compression device <Tien Madsen - Last Filed: 09/17/17 10:39> Date of Encounter: 09/17/17 - Discharge Diagnosis (1) Acute respiratory failure with hypoxia Status: Resolved (2) Sepsis Status: Resolved Qualifiers: Sepsis type: Pneumococcus Qualified Code(s): A40.3 - Sepsis due to Streptococcus pneumoniae (3) Pneumonia Status: Acute Qualifiers: Pneumonia type: due to Pneumococcus Laterality: left Lung location: lower lobe of lung Qualified Code(s): J13 - Pneumonia due to Streptococcus pneumoniae (4) DVT prophylaxis Status: Acute Date of admission: 09/05/17 03:02 Primary care physician: PCP NONE Consults: 09/05/17 05:58 Consult to Cardiology [CONS] Routine Comment: Consulting Provider: [facility] Reason for Consult: elevated troponin, CHF Call Completed: No 09/06/17 08:33 Consult to Urology [CONS] Routine Consulting Provider: [facility] Reason for Consult: Hematuria. On heparin drip and cardiology plans to have LHC. Case discussed with Dr. Ramirez. Call Completed: Yes 09/11/17 10:38 Consult to Physical Therapy [CONS] Routine Comment: Evaluate, develop and implement POC Reason for Consult: Deconditioning OT [Consult to Occupational Therapy] [CONS] Routine Comment: Evaluate, develop and implement POC Reason for Consult: Deconditioning 09/12/17 14:53 Consult to Speech Therapy [CONS] Stat Comment: Evaluate, develop and implement POC Reason for Consult: Swallow evaluation Call Completed: Yes 09/14/17 15:49 Consult to Head Kiln Operator [CONS] Routine Reason for SW Consult: SNF recommended. Hospital course: Ms. Junior is a 86 year old female - Time Spent with Patient Total time spent providing and/or coordinating discharge services: - Constitutional Vitals: Temp Pulse Resp BP Pulse Ox 97.9 F 61 18 146/70 95 09/17/17 07:12 09/17/17 07:12 09/17/17 07:38 09/17/17 07:12 09/17/17 07:38 - Attending Attestation I examined this patient and my medical decision-making was reviewed with the Resident Physician. I agree with the documented findings, disposition and treatment plan as described except to the extent set forth below.
[2017-09-16] MEDS: Metoprolol XL (24 HR) Succ 50 MG TAB.ER.24H PO SCH ×2 (10:28→19:48)
[2017-09-16] MEDS: Aspirin 81 MG TAB.CHEW PO SCH (10:28)
[2017-09-16] MEDS: Isosorbide MONOnitrate (24 HR) 30 MG TAB.ER.24H PO SCH (10:28)
[2017-09-16] MEDS: Nystatin SUSP 5 ML UD.LIQ PO SCH ×4 (10:28→19:48)
[2017-09-16] MEDS: cefTRIAXone 2,000 MG in Water for inj. (sterile) 20 ML IVP SCH (10:29)
[2017-09-16] MEDS: amLODIPine 5 MG TABLET PO SCH (10:29)
--- NOTE | 2017-09-16 10:37 | Internal Med Progress Note ---
<Lupillo Sarabia - Last Filed: 09/16/17 15:57> Date of Encounter: 09/16/17 Time of Encounter: 08:15 - Assessment and plan (1) Hematuria Current Visit: Yes Status: Acute Assessment and plan: Hematuria in urinary catheter noted after patient was started on heparin drip, likely secondary to cystitis, which likely also contributes to patient's complaint of abdominal pain. CT A/P found no obstructive stones, no severe stranding around tract and no evidence of large clot in the bladder Urine culture from 09/06/17 no growth. Hemoglobin stable at 9.7 today No indication for urgent intervention at this time per urology, will follow-up as outpatient - Continue IV ceftriaxone (since 09/05, day 12-14) - Continue to monitor closely. - Patient will need hematuria work-up, likely outpatient after discharge per urology. Appreciate further recommendation from urology. Qualifiers: Hematuria type: gross Qualified Code(s): R31.0 - Gross hematuria (2) Acute encephalopathy Current Visit: Yes Status: Resolved Assessment and plan: Reported altered mental status prior to arrival in ED, likely metabolic in the setting of sepsis/pneumonia/cystitis and acute respiratory failure. CT head on 09/04/17found large amount of small vessel ischemic change bilaterally with some old infarts but cannot exclude the possibility of a subtle superimposed recent ischemic focus. Repeat CT head on 09/10/17 found no definite acute ischemia nor intracranial hemorrhage. Continue to improve as patient is and O 3 today PT/OT recommended SNF/ECF after discharge Appreciate social service's assistance regarding placement. (3) Acute respiratory failure with hypoxia Current Visit: Yes Status: Resolved Assessment and plan: Noted to have significant respiratory difficulty even on BiPAP and eventually intubated in ICU. Initial ABG pH 7.33, pCO2 33, pO2 58 and HCO3 18. Respiratory distress at admission likely secondary to pulmonary edema, LLL pneumonia and/or COPD exacerbation. Patient was extubated on 09/06 but reintubated later the same day for acute onset respiratory distress. The lab findings (one-time elevation of lactic acid and leukocytosis on 09/06 and elevated troponin on 09/07) and change between two CT A/P on same day (more prominent bibasilar consolidation, L > R) raises the concern of acute worsening of cardiogenic pulmonary edema. Feel more likely secondary to cardiac rather than infection. Patient was successfully extubated on 09/08/17. Currently maintains good O2 sat on room air - Continue antibiotic for pneumonia and bronchodilators for COPD - Continue to monitor (4) Sepsis Current Visit: Yes Status: Resolved Assessment and plan: Now resolved 4 SIRS criteria (fever, tachycardia, tachypnea and leukocytosis) on admission with lactic acid 1.4, likely secondary to pneumonia as suggested by focal consolidation in the left lower lobe on CXR. Known Streptococcus pneumoniae given positive 2/2 blood cultures. Almost dickey- sensitive except resistance to erythromycin Patient had acute onset of respiratory distress on 09/06/17 requiring re- intubation. And IV vancomycin and metronidazole were added for broader-spectrum coverage but later discontinued as it was believed to come from cardiac condition rather than infection Improves as patient is afebrile and tachycardia & tachypnea normalized. Latest lactic acid 0.9 on 09/10/17 - Continue IV ceftriaxone (since 09/05) Qualifiers: Sepsis type: Pneumococcus Qualified Code(s): A40.3 - Sepsis due to Streptococcus pneumoniae (5) Pneumonia Current Visit: Yes Status: Acute Assessment and plan: CXR suggested pulmonary edema along with focal consolidation in the left lower lobe concerning of pneumonia. Known Streptococcus pneumoniae given positive 2/2 blood cultures. Almost dickey- sensitive except resistance to erythromycin. Patient had acute onset of respiratory distress on 09/06/17 requiring re- intubation. And IV vancomycin and metronidazole were added for broader-spectrum coverage but later discontinued as it was believed to come from cardiac condition rather than infection. - Continue IV ceftriaxone (since 09/05). Qualifiers: Pneumonia type: due to Pneumococcus Laterality: left Lung location: lower lobe of lung Qualified Code(s): J13 - Pneumonia due to Streptococcus pneumoniae (6) Congestive heart failure Current Visit: Yes Status: Chronic Assessment and plan: CXR suggested pulmonary edema along with focal consolidation in the left lower lobe concerning of pneumonia. Patient had received 100 mg of IV Lasix on the day of admission. Echocardiogram on 09/05/17 showed LVEF 45% with indeterminated diastolic function. Atypical septal motion consistent with bundle branch block. A small to moderate circumferential pericardial effusion, most prominent anteriorly, also noted. Repeat echocardiogram on 09/07/17 showed moderate left ventricular systolic dysfunction with LVEF 45% but slight improvement of the anteroseptal wall also noted. - Net -1942 mL so far - Strict I/O and daily weight. Qualifiers: Congestive heart failure type: systolic Congestive heart failure chronicity : acute on chronic Qualified Code(s): I50.23 - Acute on chronic systolic ( congestive) heart failure (7) Hypothyroidism Current Visit: Yes Status: Acute Assessment and plan: Highly elevated TSH (52.054) on admission. Low free T4 (0.44) and free T3 (<1.00). Patient received one dose of IV levothyroxine 200 mcg in ED. Repeat TSH 23.042 on 09/13/17 - Will continue levothyroxine to 37.5 mg PO daily. Qualifiers: Hypothyroidism type: acquired Qualified Code(s): E03.9 - Hypothyroidism, unspecified (8) Elevated troponin Current Visit: Yes Status: Acute Assessment and plan: Initial troponin negative (0.03) but then peaked at 2.90 before downtrended to 1.00 on 09/06. Troponin elevated again at 7.42 on 09/07/17 but later downtrend to 5.89 the same day. Echocardiogram on 09/05/17 showed LVEF 45% with indeterminated diastolic function. Atypical septal motion consistent with bundle branch block. A small to moderate circumferential pericardial effusion, most prominent anteriorly, also noted. Repeat echocardiogram on 09/07/17 showed moderate left ventricular systolic dysfunction with LVEF 45% but slight improvement of the anteroseptal wall also noted. - Continue telemetry monitoring. - Continue aspirin, metoprolol and statin - Patient's family had lengthy discussion with cardiology and agreed to continue medical management for now with no immediate intervention (9) COPD (chronic obstructive pulmonary disease) Current Visit: Yes Status: Chronic Assessment and plan: Possible COPD exacerbation precipitated by recent respiratory infection on initial presentation. Known active smoker prior to admission. - Continue Symbicort and bronchodilators. Qualifiers: COPD type: COPD with acute exacerbation Qualified Code(s): J44.1 - Chronic obstructive pulmonary disease with (acute) exacerbation (10) Hypertension Current Visit: Yes Status: Chronic Assessment and plan: - Continue amlodipine and Toprol XL. Qualifiers: Hypertension type: essential hypertension Qualified Code(s): I10 - Essential (primary) hypertension (11) DVT prophylaxis Current Visit: Yes Status: Acute Assessment and plan: EPCD as mechanical DVT prophylaxis GI prophylaxis: PPI - Time Spent With Patient Greater than 35 minutes - Subjective Interval history: Patient reports doing well today. She reports she has had continued hematuria, but denies any other urinary symptoms including urgency, frequency, or burning. She does state the previous time she had hematuria was when she had a UTI that this resolved with antibiotics. She reports this had complete resolution of her difficulty breathing and shortness of breath. She also denies having any pain in her chest at this time. - Constitutional Vitals: Temp Pulse Resp BP Pulse Ox 97.5 F L 62 20 169/71 100 09/16/17 07:36 09/16/17 07:36 09/16/17 07:36 09/16/17 07:36 09/16/17 07:36 General appearance: Present: cooperative, A&O X 3, no acute distress Exam: General: Cooperative, pleasant, no acute distress, alert and oriented 3, answers questions appropriately HEENT: Normocephalic, atraumatic, neck supple, trachea midline, Conjunctiva pink , sclera anicteric, oral mucosa moist, no orophargeal erythema or exudates Respiratory: No accessory muscle usage, Rales in left lower lobe on auscultation Cardiovascular: Regular rate and rhythm, S1 and S2 present, no murmurs/rubs/ gallops/clicks appreciated GI/abdominal: Nondistended, nontender, soft, normal bowel sounds, no peritoneal signs Extremities: No calf tenderness, noncyanotic, no pedal edema appreciated, warm, lower extremity pulses palpable and symmetrical Neurological: Alert and oriented 3, no facial droop, no focal deficits Skin: Dry, intact, normal color Internal Medicine: Result - Labs CBC & Chem 7: 09/16/17 04:53 09/16/17 04:53 Labs: Short CBC 09/15/17 09/16/17 Range/Units 12:08 04:53 WBC 7.4 (4.3-11.1) K/mcL Hgb 10.1 L 9.7 L (11.5-15.4) g/dL Hct 31.5 L 30.8 L (35.3-44.9) % Plt Count 321 (140-400) K/mcL [facility] 09/16/17 04:53 Sodium 133 L Potassium 3.9 Chloride 100 Carbon Dioxide 26 BUN 18 Creatinine 0.85 Glucose 68 L Calcium 8.5 L - ABG Interpretation ABG results: ABG ABG pH 7.41 pH Units (7.32-7.45) 09/08/17 05:45 ABG pCO2 28 mmHg (35-45) L 09/08/17 05:45 ABG pO2 104 mmHg (85-104) 09/08/17 05:45 ABG O2 Saturation 98 % (95-98) 09/08/17 05:45 PT/INR, D-dimer PT 13.6 Seconds (9.4-12.1) H 09/05/17 06:50 - VTE Documentation of Mechanical Device: Intermittent pneumatic compression device Consult Discharge Plan - Plan Additional Instructions: Please return to emergency department if worsening altered mental status, development of chest pain, resumption of fever, worsening hematuria, or worsening shortness of breath. Take all medications as prescribed: Cefdinir 300 mg twice a day for 2 days Aspirin 81 mg daily Albuterol take 2 puffs if needed for shortness of breath up to every 2 hours Amlodipine take 2 tablets daily (both at the same time for 10 mg total) Atorvastatin take 2 tablets daily (at the same time for 20 mg total, usually taken at night) Symbicort (budesonide/formoterol) take 2 puffs twice a day Levothyroxin take 1.5 tablets daily (for total of 37.5 g) Metoprolol XL 50 mg take 1 tablet twice a day Cough syrup (promethazine/codeine) take 5 mL as needed for cough Imdur (isosorbide mononitrate) 30 mg take 1 tablet daily Please follow-up with her PCP in one week Please follow-up with your urologist in 1-2 weeks for further workup of hematuria Referrals: NONE,PCP [Primary Care Provider] - Prescriptions: Albuterol Sulfate [Albuterol Inhaler] 2 puff IH Q2HR PRN #2 inhaler PRN Reason: Shortness Of Breath/Wheezing amLODIPine [Norvasc] 10 mg PO DAILY #60 tablet Aspirin [Lo-Dose Aspirin EC] 81 mg PO DAILY #30 tablet. Atorvastatin [Lipitor] 20 mg PO HS #60 tablet Budesonide/Formoterol 160/4.5 [Symbicort 160/4.5] 2 puff IH BIDR #1 inhaler Cefdinir [Omnicef] 300 mg PO BID #4 capsule Isosorbide MONOnitrate (24 HR) [Imdur] 30 mg PO DAILY #30 tab.er.24h Levothyroxine [Synthroid] 37.5 mcg PO DAILY@0630 #45 tablet Metoprolol XL (24 HR) Succ [Toprol Xl] 50 mg PO BID #60 tab.er.24h Promethazine/Codeine [Phenergan/Codeine] 5 ml PO QPM PRN #60 ml PRN Reason: Cough <Suggs-Tien Vela - Last Filed: 09/16/17 16:02> Date of Encounter: 09/16/17 - Assessment and plan (1) Acute respiratory failure with hypoxia Current Visit: Yes Status: Resolved (2) Sepsis Current Visit: Yes Status: Resolved Qualifiers: Sepsis type: Pneumococcus Qualified Code(s): A40.3 - Sepsis due to Streptococcus pneumoniae (3) Pneumonia Current Visit: Yes Status: Acute Qualifiers: Pneumonia type: due to Pneumococcus Laterality: left Lung location: lower lobe of lung Qualified Code(s): J13 - Pneumonia due to Streptococcus pneumoniae (4) DVT prophylaxis Current Visit: Yes Status: Acute - Constitutional Vitals: Temp Pulse Resp BP Pulse Ox 97.8 F 69 18 120/70 93 09/16/17 11:27 09/16/17 11:27 09/16/17 15:25 09/16/17 11:27 09/16/17 15:25 Internal Medicine: Result - Labs CBC & Chem 7: 09/16/17 04:53 09/16/17 04:53 Labs: Short CBC 09/16/17 Range/Units 04:53 WBC 7.4 (4.3-11.1) K/mcL Hgb 9.7 L (11.5-15.4) g/dL Hct 30.8 L (35.3-44.9) % Plt Count 321 (140-400) K/mcL BMP 09/16/17 04:53 Sodium 133 L Potassium 3.9 Chloride 100 Carbon Dioxide 26 BUN 18 Creatinine 0.85 Glucose 68 L Calcium 8.5 L - ABG Interpretation ABG results: ABG ABG pH 7.41 pH Units (7.32-7.45) 09/08/17 05:45 ABG pCO2 28 mmHg (35-45) L 09/08/17 05:45 ABG pO2 104 mmHg (85-104) 09/08/17 05:45 ABG O2 Saturation 98 % (95-98) 09/08/17 05:45 PT/INR, D-dimer PT 13.6 Seconds (9.4-12.1) H 09/05/17 06:50 - Attending Attestation I examined this patient and my medical decision-making was reviewed with the Resident Physician. I agree with the documented findings, disposition and treatment plan as described except to the extent set forth below. I have seen and examined the patient. Patient has a past medical history of hypertension and COPD. Recently admitted for acute hypoxic respiratory failure secondary to COPD and also due to sepsis secondary to community-acquired pneumonia. Patient is currently doing better. Patient did have hematuria and will need outpatient urology follow-up. No other acute events or complaints.
[2017-09-16] MEDS: Saline Nasal Spray 44 ML BOTTLE NS PRN (19:59)
[2017-09-17] MEDS: Ipratropium/Albuterol Neb 3 ML IH SCH ×2 (03:52→07:36)
[2017-09-17 04:17] LABS: Basophils % 0.3 %; Eosinophils # 0.1 K/mcL (0.0-0.6); Eosinophils % 1.2 %; Hemoglobin 9.6 g/dL (11.5-15.4); Immature Granulocytes % 3.7 % (0-4); Lymphocytes # 0.5 K/mcL (0.6-4.6); Lymphocytes % 7.5 %; Mean Corpuscular Hemoglobin 29.5 pg (28.0-33.3); Mean Corpuscular Volume 92.3 fL (83.0-100.0); Mean Platelet Volume 10.4 fL (9.4-12.4); Monocytes # 0.4 K/mcL (0.0-1.3); Monocytes % 6.1 %; Neutrophils # 5.5 K/mcL (1.6-8.9); Platelet Count 302 K/mcL (140-400); Red Blood Count 3.25 M/mcL (3.82-4.97); Red Cell Distribution Width 14.6 % (11.5-14.5); Segmented Neutrophils % 81.2 %
[2017-09-17] MEDS: Levothyroxine 25 MCG TABLET PO SCH (06:17)
[2017-09-17] MEDS: Budesonide/Formoterol 160/4.5 MDI IH SCH ×2 (07:36→21:13)
--- NOTE | 2017-09-17 08:14 | Internal Med Progress Note ---
<Lupillo Sarabia - Last Filed: 09/17/17 08:10> Date of Encounter: 09/17/17 Time of Encounter: 08:00 - Assessment and plan (1) Hematuria Current Visit: Yes Status: Acute Assessment and plan: Hematuria in urinary catheter noted after patient was started on heparin drip, likely secondary to cystitis, which likely also contributes to patient's complaint of abdominal pain. CT A/P found no obstructive stones, no severe stranding around tract and no evidence of large clot in the bladder Urine culture from 09/06/17 no growth Hemoglobin stable at 9.6 today No indication for urgent intervention at this time per urology, will follow-up as outpatient - Continue IV ceftriaxone (since 09/05, day 13 ) - Patient stable for discharge - Patient will need hematuria work-up, likely outpatient after discharge per urology. Appreciate further recommendation from urology. Qualifiers: Hematuria type: gross Qualified Code(s): R31.0 - Gross hematuria (2) Acute encephalopathy Current Visit: Yes Status: Resolved Assessment and plan: Reported altered mental status prior to arrival in ED, likely metabolic in the setting of sepsis/pneumonia/cystitis and acute respiratory failure. CT head on 09/04/17found large amount of small vessel ischemic change bilaterally with some old infarts but cannot exclude the possibility of a subtle superimposed recent ischemic focus. Repeat CT head on 09/10/17 found no definite acute ischemia nor intracranial hemorrhage. Continue to improve as patient is and O 3 today PT/OT recommended SNF/ECF after discharge Appreciate social service's assistance regarding placement. (3) Acute respiratory failure with hypoxia Current Visit: Yes Status: Resolved Assessment and plan: Noted to have significant respiratory difficulty even on BiPAP and eventually intubated in ICU. Initial ABG pH 7.33, pCO2 33, pO2 58 and HCO3 18. Respiratory distress at admission likely secondary to pulmonary edema, LLL pneumonia and/or COPD exacerbation. Patient was extubated on 09/06 but reintubated later the same day for acute onset respiratory distress. The lab findings (one-time elevation of lactic acid and leukocytosis on 09/06 and elevated troponin on 09/07) and change between two CT A/P on same day (more prominent bibasilar consolidation, L > R) raises the concern of acute worsening of cardiogenic pulmonary edema. Feel more likely secondary to cardiac rather than infection. Patient was successfully extubated on 09/08/17. Currently maintains good O2 sat on room air - Continue antibiotic for pneumonia - Bronchodilators prn - Continue to monitor (4) Sepsis Current Visit: Yes Status: Resolved Assessment and plan: Now resolved 4 SIRS criteria (fever, tachycardia, tachypnea and leukocytosis) on admission with lactic acid 1.4, likely secondary to pneumonia as suggested by focal consolidation in the left lower lobe on CXR. Known Streptococcus pneumoniae given positive 2/2 blood cultures. Almost dickey- sensitive except resistance to erythromycin Patient had acute onset of respiratory distress on 09/06/17 requiring re- intubation. And IV vancomycin and metronidazole were added for broader-spectrum coverage but later discontinued as it was believed to come from cardiac condition rather than infection Improves as patient is afebrile and tachycardia & tachypnea normalized. Latest lactic acid 0.9 on 09/10/17 - Continue IV ceftriaxone (since 09/05) Qualifiers: Sepsis type: Pneumococcus Qualified Code(s): A40.3 - Sepsis due to Streptococcus pneumoniae (5) Pneumonia Current Visit: Yes Status: Acute Assessment and plan: CXR suggested pulmonary edema along with focal consolidation in the left lower lobe concerning of pneumonia. Known Streptococcus pneumoniae given positive 2/2 blood cultures. Almost dickey- sensitive except resistance to erythromycin. Patient had acute onset of respiratory distress on 09/06/17 requiring re- intubation. And IV vancomycin and metronidazole were added for broader-spectrum coverage but later discontinued as it was believed to come from cardiac condition rather than infection. - Continue IV ceftriaxone (since 09/05) Qualifiers: Pneumonia type: due to Pneumococcus Laterality: left Lung location: lower lobe of lung Qualified Code(s): J13 - Pneumonia due to Streptococcus pneumoniae (6) Congestive heart failure Current Visit: Yes Status: Chronic Assessment and plan: CXR suggested pulmonary edema along with focal consolidation in the left lower lobe concerning of pneumonia. Patient had received 100 mg of IV Lasix on the day of admission. Echocardiogram on 09/05/17 showed LVEF 45% with indeterminated diastolic function. Atypical septal motion consistent with bundle branch block. A small to moderate circumferential pericardial effusion, most prominent anteriorly, also noted. Repeat echocardiogram on 09/07/17 showed moderate left ventricular systolic dysfunction with LVEF 45% but slight improvement of the anteroseptal wall also noted. - Net -1352 mL so far - Strict I/O and daily weight Qualifiers: Congestive heart failure type: systolic Congestive heart failure chronicity : acute on chronic Qualified Code(s): I50.23 - Acute on chronic systolic ( congestive) heart failure (7) Hypothyroidism Current Visit: Yes Status: Acute Assessment and plan: Highly elevated TSH (52.054) on admission. Low free T4 (0.44) and free T3 (<1.00). Patient received one dose of IV levothyroxine 200 mcg in ED. Repeat TSH 23.042 on 09/13/17 - Will continue levothyroxine to 37.5 mg PO daily Qualifiers: Hypothyroidism type: acquired Qualified Code(s): E03.9 - Hypothyroidism, unspecified (8) Elevated troponin Current Visit: Yes Status: Acute Assessment and plan: Initial troponin negative (0.03) but then peaked at 2.90 before downtrended to 1.00 on 09/06. Troponin elevated again at 7.42 on 09/07/17 but later downtrend to 5.89 the same day. Echocardiogram on 09/05/17 showed LVEF 45% with indeterminated diastolic function. Atypical septal motion consistent with bundle branch block. A small to moderate circumferential pericardial effusion, most prominent anteriorly, also noted. Repeat echocardiogram on 09/07/17 showed moderate left ventricular systolic dysfunction with LVEF 45% but slight improvement of the anteroseptal wall also noted. - Continue telemetry monitoring - Continue aspirin, metoprolol and statin - Patient's family had lengthy discussion with cardiology and agreed to continue medical management for now with no immediate intervention (9) COPD (chronic obstructive pulmonary disease) Current Visit: Yes Status: Chronic Assessment and plan: Possible COPD exacerbation precipitated by recent respiratory infection on initial presentation. Known active smoker prior to admission. - Continue Symbicort and bronchodilators Qualifiers: COPD type: COPD with acute exacerbation Qualified Code(s): J44.1 - Chronic obstructive pulmonary disease with (acute) exacerbation (10) Hypertension Current Visit: Yes Status: Chronic Assessment and plan: - Continue amlodipine and Toprol XL Qualifiers: Hypertension type: essential hypertension Qualified Code(s): I10 - Essential (primary) hypertension (11) DVT prophylaxis Current Visit: Yes Status: Acute Assessment and plan: EPCD as mechanical DVT prophylaxis GI prophylaxis: PPI - Subjective Interval history: Patient asleep was seen this morning, easily woken. Patient alert and oriented 3. She states she is continuing to breathe well, able to lie flat, and urinating and having bowel movements without problem. She is unable to answer whether she has noticed continued blood in her urine. She denies having any pain, fever, or chills. - Constitutional Vitals: Temp Pulse Resp BP Pulse Ox 97.9 F 61 18 146/70 95 09/17/17 07:12 09/17/17 07:12 09/17/17 07:38 09/17/17 07:12 09/17/17 07:38 General appearance: Present: cooperative, A&O X 3, no acute distress Exam: General: Cooperative, pleasant, no acute distress, alert and oriented 3, answers questions appropriately HEENT: Normocephalic, atraumatic, neck supple, trachea midline, Conjunctiva pink , sclera anicteric, oral mucosa moist, no orophargeal erythema or exudates Respiratory: No accessory muscle usage, Rales in left lower lobe on auscultation Cardiovascular: Regular rate and rhythm, S1 and S2 present, no murmurs/rubs/ gallops/clicks appreciated GI/abdominal: Nondistended, nontender, soft, normal bowel sounds, no peritoneal signs Extremities: No calf tenderness, noncyanotic, no pedal edema appreciated, warm, lower extremity pulses palpable and symmetrical Neurological: Alert and oriented 3, no facial droop, no focal deficits Skin: Dry, intact, normal color Internal Medicine: Result - Labs CBC & Chem 7: 09/17/17 03:06 09/16/17 04:53 Labs: Short CBC 09/17/17 Range/Units 03:06 WBC 6.8 (4.3-11.1) K/mcL Hgb 9.6 L (11.5-15.4) g/dL Hct 30.0 L (35.3-44.9) % Plt Count 302 (140-400) K/mcL Neutrophils # 5.5 (1.6-8.9) K/mcL - ABG Interpretation ABG results: ABG ABG pH 7.41 pH Units (7.32-7.45) 09/08/17 05:45 ABG pCO2 28 mmHg (35-45) L 09/08/17 05:45 ABG pO2 104 mmHg (85-104) 09/08/17 05:45 ABG O2 Saturation 98 % (95-98) 09/08/17 05:45 PT/INR, D-dimer PT 13.6 Seconds (9.4-12.1) H 09/05/17 06:50 - VTE Documentation of Mechanical Device: Intermittent pneumatic compression device Consult Discharge Plan - Plan Additional Instructions: Please return to emergency department if worsening altered mental status, development of chest pain, resumption of fever, worsening hematuria, or worsening shortness of breath. Take all medications as prescribed: Cefdinir 300 mg twice a day for 2 days Aspirin 81 mg daily Albuterol take 2 puffs if needed for shortness of breath up to every 2 hours Amlodipine take 2 tablets daily (both at the same time for 10 mg total) Atorvastatin take 2 tablets daily (at the same time for 20 mg total, usually taken at night) Symbicort (budesonide/formoterol) take 2 puffs twice a day Levothyroxin take 1.5 tablets daily (for total of 37.5 g) Metoprolol XL 50 mg take 1 tablet twice a day Cough syrup (promethazine/codeine) take 5 mL as needed for cough Imdur (isosorbide mononitrate) 30 mg take 1 tablet daily Please follow-up with her PCP in one week Please follow-up with your urologist in 1-2 weeks for further workup of hematuria Referrals: Valdemar Avitia MD [Partnered Physician] - 10/07/17 9:30 am (Please follow up as schedule...) NONE,PCP [Primary Care Provider] - (ECF Placement) Prescriptions: RX: Albuterol Sulfate [Albuterol Inhaler] 2 puff IH Q2HR PRN #2 inhaler PRN Reason: Shortness Of Breath/Wheezing RX: amLODIPine [Norvasc] 10 mg PO DAILY #60 tablet Aspirin [Lo-Dose Aspirin EC] 81 mg PO DAILY #30 tablet.dr RX: Atorvastatin [Lipitor] 20 mg PO HS #60 tablet RX: Budesonide/Formoterol 160/4.5 [Symbicort 160/4.5] 2 puff IH BIDR #1 inhaler Cefdinir [Omnicef] 300 mg PO BID #4 capsule Isosorbide MONOnitrate (24 HR) [Imdur] 30 mg PO DAILY #30 tab.er.24h RX: Levothyroxine [Synthroid] 37.5 mcg PO DAILY@0630 #45 tablet RX: Metoprolol XL (24 HR) Succ [Toprol Xl] 50 mg PO BID #60 tab.er.24h RX: Promethazine/Codeine [Phenergan/Codeine] 5 ml PO QPM PRN #60 ml PRN Reason: Cough <Suggs-Tien Vela - Last Filed: 09/17/17 10:38> Date of Encounter: 09/17/17 - Assessment and plan (1) Acute respiratory failure with hypoxia Current Visit: Yes Status: Resolved (2) Sepsis Current Visit: Yes Status: Resolved Qualifiers: Sepsis type: Pneumococcus Qualified Code(s): A40.3 - Sepsis due to Streptococcus pneumoniae (3) Pneumonia Current Visit: Yes Status: Acute Qualifiers: Pneumonia type: due to Pneumococcus Laterality: left Lung location: lower lobe of lung Qualified Code(s): J13 - Pneumonia due to Streptococcus pneumoniae (4) DVT prophylaxis Current Visit: Yes Status: Acute - Constitutional Vitals: Temp Pulse Resp BP Pulse Ox 97.9 F 61 18 146/70 95 09/17/17 07:12 09/17/17 07:12 09/17/17 07:38 09/17/17 07:12 09/17/17 07:38 Internal Medicine: Result - Labs CBC & Chem 7: 09/17/17 03:06 09/16/17 04:53 Labs: Short CBC 09/17/17 Range/Units 03:06 WBC 6.8 (4.3-11.1) K/mcL Hgb 9.6 L (11.5-15.4) g/dL Hct 30.0 L (35.3-44.9) % Plt Count 302 (140-400) K/mcL Neutrophils # 5.5 (1.6-8.9) K/mcL - ABG Interpretation ABG results: ABG ABG pH 7.41 pH Units (7.32-7.45) 09/08/17 05:45 ABG pCO2 28 mmHg (35-45) L 09/08/17 05:45 ABG pO2 104 mmHg (85-104) 09/08/17 05:45 ABG O2 Saturation 98 % (95-98) 09/08/17 05:45 PT/INR, D-dimer PT 13.6 Seconds (9.4-12.1) H 09/05/17 06:50 - Attending Attestation I examined this patient and my medical decision-making was reviewed with the Resident Physician. I agree with the documented findings, disposition and treatment plan as described except to the extent set forth below. Patient is stable for discharge to ECF today.
[2017-09-17] MEDS ORDERED: Ipratropium/Albuterol Neb 3 ML IH PRN (08:19)
--- NOTE | 2017-09-17 08:31 | Physician Discharge Referral ---
<Lupillo Sarabia - Last Filed: 09/17/17 08:29> [facility] Referral Info Provider in Charge after Transfer: PCP Institutional Level of Care: Skilled - Diagnosis (1) Hematuria Priority: Primary Status: Acute (2) Acute encephalopathy Priority: Primary Status: Resolved (3) Acute respiratory failure with hypoxia Priority: Primary Status: Resolved (4) Sepsis Priority: Primary Status: Resolved (5) Pneumonia Priority: Primary Status: Acute (6) Congestive heart failure Priority: Primary Status: Chronic (7) Hypothyroidism Priority: Primary Status: Acute (8) Elevated troponin Priority: Secondary Status: Resolved (9) COPD (chronic obstructive pulmonary disease) Priority: Primary Status: Chronic (10) Hypertension Priority: Primary Status: Chronic (11) DVT prophylaxis Priority: Secondary Status: Acute - Transfer Medications Prescriptions: RX: Albuterol Sulfate [Albuterol Inhaler] 2 puff IH Q2HR PRN #2 inhaler PRN Reason: Shortness Of Breath/Wheezing RX: amLODIPine [Norvasc] 10 mg PO DAILY #60 tablet Aspirin [Lo-Dose Aspirin EC] 81 mg PO DAILY #30 tablet. RX: Atorvastatin [Lipitor] 20 mg PO HS #60 tablet RX: Budesonide/Formoterol 160/4.5 [Symbicort 160/4.5] 2 puff IH BIDR #1 inhaler Cefdinir [Omnicef] 300 mg PO BID #4 capsule Isosorbide MONOnitrate (24 HR) [Imdur] 30 mg PO DAILY #30 tab.er.24h RX: Levothyroxine [Synthroid] 37.5 mcg PO DAILY@0630 #45 tablet RX: Metoprolol XL (24 HR) Succ [Toprol Xl] 50 mg PO BID #60 tab.er.24h RX: Promethazine/Codeine [Phenergan/Codeine] 5 ml PO QPM PRN #60 ml PRN Reason: Cough Home Medications: Aspirin [Lo-Dose Aspirin EC] 81 mg PO DAILY #30 tablet. 09/16/17 [Rx] Cefdinir [Omnicef] 300 mg PO BID #4 capsule 09/16/17 [Rx] Isosorbide MONOnitrate (24 HR) [Imdur] 30 mg PO DAILY #30 tab.er.24h 09/16/17 [ Rx] RX: Albuterol Sulfate [Albuterol Inhaler] 2 puff IH Q2HR PRN #2 inhaler [Rx] RX: Atorvastatin [Lipitor] 20 mg PO HS #60 tablet 09/16/17 [Rx] RX: Budesonide/Formoterol 160/4.5 [Symbicort 160/4.5] 2 puff IH BIDR #1 inhaler 09/16/17 [Rx] RX: Levothyroxine [Synthroid] 37.5 mcg PO DAILY@0630 #45 tablet 09/16/17 [Rx] RX: Metoprolol XL (24 HR) Succ [Toprol Xl] 50 mg PO BID #60 tab.er.24h 09/16/17 [Rx] RX: Promethazine/Codeine [Phenergan/Codeine] 5 ml PO QPM PRN #60 ml 09/16/17 [Rx ] RX: amLODIPine [Norvasc] 10 mg PO DAILY #60 tablet 09/16/17 [Rx] Allergies/Adverse Reactions: 3 Allergy/AdvReac Type Severity Reaction Status Date / Time No Known Allergies Allergy Verified 09/01/17 12:42 - Respiratory Orders Smoking Cessation: Smoking cessation has been advised. For more information, call the [facility] Line at 3-094-MQWP-NOW. - Advance Directives Code Status: Full Code - Mobility Orders Ambulate - Rehabiliation Orders Rehab Potential: Good Rehab Orders: Evaluation for Physical Therapy, Evaluation for Occupational Therapy - Diet Orders Cardiac CERTIFICATION: I certify that the transfer of the above named patient to an Extended Care Facility is necessary for the continuing treatment of the diagnosis listed. The above information is true and accurate reflection of patient's current condition. Confidential - Redisclosure prohibited without a patient's written consent. <Tien Madsen - Last Filed: 09/17/17 10:37> - Diagnosis (1) Acute respiratory failure with hypoxia Status: Resolved (2) Sepsis Status: Resolved (3) Pneumonia Status: Acute (4) DVT prophylaxis Status: Acute - Respiratory Orders Smoking Cessation: Smoking cessation has been advised. For more information, call the [employer] [facility] Line at 8-633-ZCVJ-NOW. CERTIFICATION: I certify that the transfer of the above named patient to an Extended Care Facility is necessary for the continuing treatment of the diagnosis listed. The above information is true and accurate reflection of patient's current condition. Confidential - Redisclosure prohibited without a patient's written consent.
[2017-09-17] MEDS: Nystatin SUSP 5 ML UD.LIQ PO SCH ×4 (08:42→21:20)
[2017-09-17] MEDS: amLODIPine 5 MG TABLET PO SCH (08:42)
[2017-09-17] MEDS: Aspirin 81 MG TAB.CHEW PO SCH (08:42)
[2017-09-17] MEDS: Isosorbide MONOnitrate (24 HR) 30 MG TAB.ER.24H PO SCH (08:42)
[2017-09-17] MEDS: cefTRIAXone 2,000 MG in Water for inj. (sterile) 20 ML IVP SCH (08:42)
[2017-09-17] MEDS: Metoprolol XL (24 HR) Succ 50 MG TAB.ER.24H PO SCH ×3 (08:42→21:23)
[2017-09-18 03:46] LABS: Hematocrit 31.2 % (35.3-44.9)
[2017-09-18] MEDS: Levothyroxine 25 MCG TABLET PO SCH (05:31)
--- NOTE | 2017-09-18 07:32 | Internal Med Progress Note ---
<Lupillo Sarabia - Last Filed: 09/18/17 07:30> Date of Encounter: 09/18/17 Time of Encounter: 07:15 - Assessment and plan (1) Hematuria Current Visit: Yes Status: Acute Assessment and plan: Hematuria in urinary catheter noted after patient was started on heparin drip, likely secondary to cystitis, which likely also contributes to patient's complaint of abdominal pain. CT A/P found no obstructive stones, no severe stranding around tract and no evidence of large clot in the bladder Urine culture from 09/06/17 no growth Hemoglobin stable at 9.6 today No indication for urgent intervention at this time per urology, will follow-up as outpatient - Continue IV ceftriaxone (since 09/05, day 14 of ), can stop AB after today's dose - Patient stable for discharge - Patient will need hematuria work-up, likely outpatient after discharge per urology Qualifiers: Hematuria type: gross Qualified Code(s): R31.0 - Gross hematuria (2) Acute encephalopathy Current Visit: Yes Status: Resolved Assessment and plan: Reported altered mental status prior to arrival in ED, likely metabolic in the setting of sepsis/pneumonia/cystitis and acute respiratory failure. CT head on 09/04/17found large amount of small vessel ischemic change bilaterally with some old infarts but cannot exclude the possibility of a subtle superimposed recent ischemic focus. Repeat CT head on 09/10/17 found no definite acute ischemia nor intracranial hemorrhage. Continue to improve as patient is and O 3 today PT/OT recommended SNF/ECF after discharge Appreciate social service's assistance regarding placement. (3) Acute respiratory failure with hypoxia Current Visit: Yes Status: Resolved Assessment and plan: Noted to have significant respiratory difficulty even on BiPAP and eventually intubated in ICU. Initial ABG pH 7.33, pCO2 33, pO2 58 and HCO3 18. Respiratory distress at admission likely secondary to pulmonary edema, LLL pneumonia and/or COPD exacerbation. Patient was extubated on 09/06 but reintubated later the same day for acute onset respiratory distress. The lab findings (one-time elevation of lactic acid and leukocytosis on 09/06 and elevated troponin on 09/07) and change between two CT A/P on same day (more prominent bibasilar consolidation, L > R) raises the concern of acute worsening of cardiogenic pulmonary edema. Feel more likely secondary to cardiac rather than infection. Patient was successfully extubated on 09/08/17. Currently maintains good O2 sat on room air - Continue antibiotic as above - Bronchodilators prn - Continue to monitor (4) Sepsis Current Visit: Yes Status: Resolved Assessment and plan: Now resolved 4 SIRS criteria (fever, tachycardia, tachypnea and leukocytosis) on admission with lactic acid 1.4, likely secondary to pneumonia as suggested by focal consolidation in the left lower lobe on CXR. Known Streptococcus pneumoniae given positive 2/2 blood cultures. Almost dickey- sensitive except resistance to erythromycin Patient had acute onset of respiratory distress on 09/06/17 requiring re- intubation. And IV vancomycin and metronidazole were added for broader-spectrum coverage but later discontinued as it was believed to come from cardiac condition rather than infection Improves as patient is afebrile and tachycardia & tachypnea normalized. Latest lactic acid 0.9 on 09/10/17 - Continue IV ceftriaxone (since 09/05), as above Qualifiers: Sepsis type: Pneumococcus Qualified Code(s): A40.3 - Sepsis due to Streptococcus pneumoniae (5) Pneumonia Current Visit: Yes Status: Acute Assessment and plan: CXR suggested pulmonary edema along with focal consolidation in the left lower lobe concerning of pneumonia. Known Streptococcus pneumoniae given positive 2/2 blood cultures. Almost dickey- sensitive except resistance to erythromycin. Patient had acute onset of respiratory distress on 09/06/17 requiring re- intubation. And IV vancomycin and metronidazole were added for broader-spectrum coverage but later discontinued as it was believed to come from cardiac condition rather than infection. - Continue IV ceftriaxone (since 09/05), as above Qualifiers: Pneumonia type: due to Pneumococcus Laterality: left Lung location: lower lobe of lung Qualified Code(s): J13 - Pneumonia due to Streptococcus pneumoniae (6) Congestive heart failure Current Visit: Yes Status: Chronic Assessment and plan: CXR suggested pulmonary edema along with focal consolidation in the left lower lobe concerning of pneumonia. Patient had received 100 mg of IV Lasix on the day of admission. Echocardiogram on 09/05/17 showed LVEF 45% with indeterminated diastolic function. Atypical septal motion consistent with bundle branch block. A small to moderate circumferential pericardial effusion, most prominent anteriorly, also noted. Repeat echocardiogram on 09/07/17 showed moderate left ventricular systolic dysfunction with LVEF 45% but slight improvement of the anteroseptal wall also noted. - Net -1630 mL so far - Strict I/O and daily weight Qualifiers: Congestive heart failure type: systolic Congestive heart failure chronicity : acute on chronic Qualified Code(s): I50.23 - Acute on chronic systolic ( congestive) heart failure (7) Hypothyroidism Current Visit: Yes Status: Acute Assessment and plan: Highly elevated TSH (52.054) on admission. Low free T4 (0.44) and free T3 (<1.00). Patient received one dose of IV levothyroxine 200 mcg in ED. Repeat TSH 23.042 on 09/13/17 - Will continue levothyroxine to 37.5 mg PO daily Qualifiers: Hypothyroidism type: acquired Qualified Code(s): E03.9 - Hypothyroidism, unspecified (8) Elevated troponin Current Visit: Yes Status: Resolved Assessment and plan: Initial troponin negative (0.03) but then peaked at 2.90 before downtrended to 1.00 on 09/06. Troponin elevated again at 7.42 on 09/07/17 but later downtrend to 5.89 the same day. Echocardiogram on 09/05/17 showed LVEF 45% with indeterminated diastolic function. Atypical septal motion consistent with bundle branch block. A small to moderate circumferential pericardial effusion, most prominent anteriorly, also noted. Repeat echocardiogram on 09/07/17 showed moderate left ventricular systolic dysfunction with LVEF 45% but slight improvement of the anteroseptal wall also noted. - Continue telemetry monitoring - Continue aspirin, metoprolol and statin - Patient's family had lengthy discussion with cardiology and agreed to continue medical management for now with no immediate intervention (9) COPD (chronic obstructive pulmonary disease) Current Visit: Yes Status: Chronic Assessment and plan: Possible COPD exacerbation precipitated by recent respiratory infection on initial presentation. Known active smoker prior to admission. - Continue Symbicort and bronchodilators Qualifiers: COPD type: COPD with acute exacerbation Qualified Code(s): J44.1 - Chronic obstructive pulmonary disease with (acute) exacerbation (10) Hypertension Current Visit: Yes Status: Chronic Assessment and plan: - Continue amlodipine and Toprol XL Qualifiers: Hypertension type: essential hypertension Qualified Code(s): I10 - Essential (primary) hypertension (11) DVT prophylaxis Current Visit: Yes Status: Acute Assessment and plan: EPCD as mechanical DVT prophylaxis GI prophylaxis: PPI - Subjective Interval history: Patient woken from sleep easily and rsponds to questions appropriately. She reports that she is continuing to have hematuria, but denies having any shortness of breath or difficulty breathing. - Constitutional Vitals: Temp Pulse Resp BP Pulse Ox 98.6 F 57 16 137/56 96 09/18/17 07:00 09/18/17 07:00 09/18/17 07:00 09/18/17 07:00 09/18/17 07:00 General appearance: Present: cooperative, A&O X 3, no acute distress Exam: General: Cooperative, pleasant, no acute distress, alert and oriented 3, answers questions appropriately HEENT: Normocephalic, atraumatic, neck supple, trachea midline, Conjunctiva pink , sclera anicteric, oral mucosa moist, no orophargeal erythema or exudates Respiratory: No accessory muscle usage, Rales in left lower lobe on auscultation Cardiovascular: Regular rate and rhythm, S1 and S2 present, no murmurs/rubs/ gallops/clicks appreciated GI/abdominal: Nondistended, nontender, soft, normal bowel sounds, no peritoneal signs Extremities: No calf tenderness, noncyanotic, no pedal edema appreciated, warm, lower extremity pulses palpable and symmetrical Neurological: Alert and oriented 3, no facial droop, no focal deficits Skin: Dry, intact, normal color Internal Medicine: Result - Labs CBC & Chem 7: 09/18/17 03:05 09/16/17 04:53 Labs: Short CBC 09/18/17 Range/Units 03:05 Hgb 10.0 L (11.5-15.4) g/dL Hct 31.2 L (35.3-44.9) % - ABG Interpretation ABG results: ABG ABG pH 7.41 pH Units (7.32-7.45) 09/08/17 05:45 ABG pCO2 28 mmHg (35-45) L 09/08/17 05:45 ABG pO2 104 mmHg (85-104) 09/08/17 05:45 ABG O2 Saturation 98 % (95-98) 09/08/17 05:45 PT/INR, D-dimer PT 13.6 Seconds (9.4-12.1) H 09/05/17 06:50 - VTE Documentation of Mechanical Device: Intermittent pneumatic compression device Consult Discharge Plan - Plan Additional Instructions: Please return to emergency department if worsening altered mental status, development of chest pain, resumption of fever, worsening hematuria, or worsening shortness of breath. Take all medications as prescribed: Cefdinir 300 mg twice a day for 2 days Aspirin 81 mg daily Albuterol take 2 puffs if needed for shortness of breath up to every 2 hours Amlodipine take 2 tablets daily (both at the same time for 10 mg total) Atorvastatin take 2 tablets daily (at the same time for 20 mg total, usually taken at night) Symbicort (budesonide/formoterol) take 2 puffs twice a day Levothyroxin take 1.5 tablets daily (for total of 37.5 g) Metoprolol XL 50 mg take 1 tablet twice a day Cough syrup (promethazine/codeine) take 5 mL as needed for cough Imdur (isosorbide mononitrate) 30 mg take 1 tablet daily Please follow-up with her PCP in one week Please follow-up with your urologist in 1-2 weeks for further workup of hematuria Referrals: Valdemar Avitia MD [Partnered Physician] - 10/07/17 9:30 am (Please follow up as schedule...) NONE,PCP [Primary Care Provider] - (ECF Placement) Prescriptions: RX: Albuterol Sulfate [Albuterol Inhaler] 2 puff IH Q2HR PRN #2 inhaler PRN Reason: Shortness Of Breath/Wheezing RX: amLODIPine [Norvasc] 10 mg PO DAILY #60 tablet Aspirin [Lo-Dose Aspirin EC] 81 mg PO DAILY #30 tablet. RX: Atorvastatin [Lipitor] 20 mg PO HS #60 tablet RX: Budesonide/Formoterol 160/4.5 [Symbicort 160/4.5] 2 puff IH BIDR #1 inhaler Cefdinir [Omnicef] 300 mg PO BID #4 capsule Isosorbide MONOnitrate (24 HR) [Imdur] 30 mg PO DAILY #30 tab.er.24h RX: Levothyroxine [Synthroid] 37.5 mcg PO DAILY@0630 #45 tablet RX: Metoprolol XL (24 HR) Succ [Toprol Xl] 50 mg PO BID #60 tab.er.24h RX: Promethazine/Codeine [Phenergan/Codeine] 5 ml PO QPM PRN #60 ml PRN Reason: Cough <Suggs-Bezwada,Tien - Last Filed: 09/18/17 09:45> Date of Encounter: 09/18/17 - Assessment and plan (1) Acute respiratory failure with hypoxia Current Visit: Yes Status: Resolved (2) Sepsis Current Visit: Yes Status: Resolved Qualifiers: Sepsis type: Pneumococcus Qualified Code(s): A40.3 - Sepsis due to Streptococcus pneumoniae (3) Pneumonia Current Visit: Yes Status: Acute Qualifiers: Pneumonia type: due to Pneumococcus Laterality: left Lung location: lower lobe of lung Qualified Code(s): J13 - Pneumonia due to Streptococcus pneumoniae (4) DVT prophylaxis Current Visit: Yes Status: Acute - Constitutional Vitals: Temp Pulse Resp BP Pulse Ox 98.6 F 57 16 137/56 96 09/18/17 07:00 09/18/17 07:00 09/18/17 08:27 09/18/17 07:00 09/18/17 08:27 Internal Medicine: Result - Labs CBC & Chem 7: 09/18/17 03:05 09/16/17 04:53 Labs: Short CBC 09/18/17 Range/Units 03:05 Hgb 10.0 L (11.5-15.4) g/dL Hct 31.2 L (35.3-44.9) % - ABG Interpretation ABG results: ABG ABG pH 7.41 pH Units (7.32-7.45) 09/08/17 05:45 ABG pCO2 28 mmHg (35-45) L 09/08/17 05:45 ABG pO2 104 mmHg (85-104) 09/08/17 05:45 ABG O2 Saturation 98 % (95-98) 09/08/17 05:45 PT/INR, D-dimer PT 13.6 Seconds (9.4-12.1) H 09/05/17 06:50 - Attending Attestation I examined this patient and my medical decision-making was reviewed with the Resident Physician. I agree with the documented findings, disposition and treatment plan as described except to the extent set forth below. I have seen and examined the patient. Patient is stable for discharge to [facility] today. No new events or complaints.
[2017-09-18] MEDS: Budesonide/Formoterol 160/4.5 MDI IH SCH ×2 (08:27→21:10)
[2017-09-18] MEDS: amLODIPine 5 MG TABLET PO SCH (09:57)
[2017-09-18] MEDS: Nystatin SUSP 5 ML UD.LIQ PO SCH ×4 (09:57→20:21)
[2017-09-18] MEDS: Aspirin 81 MG TAB.CHEW PO SCH (09:57)
[2017-09-18] MEDS: cefTRIAXone 2,000 MG in Water for inj. (sterile) 20 ML IVP SCH (09:57)
[2017-09-18] MEDS: Isosorbide MONOnitrate (24 HR) 30 MG TAB.ER.24H PO SCH (09:57)
[2017-09-18] MEDS: Metoprolol XL (24 HR) Succ 50 MG TAB.ER.24H PO SCH ×2 (09:57→20:21)
[2017-09-19] MEDS: Levothyroxine 25 MCG TABLET PO SCH (05:25)
[2017-09-19 06:56] VITALS: BP 134/55
[2017-09-19] MEDS: Budesonide/Formoterol 160/4.5 MDI IH SCH (08:00)
--- NOTE | 2017-09-19 08:12 | Internal Med Progress Note ---
<Lupillo Sarabia - Last Filed: 09/19/17 08:09> Date of Encounter: 09/19/17 Time of Encounter: 07:45 - Assessment and plan (1) Hematuria Current Visit: Yes Status: Acute Assessment and plan: Hematuria in urinary catheter noted after patient was started on heparin drip, likely secondary to cystitis, which likely also contributes to patient's complaint of abdominal pain. Heparin drip stopped previously. CT A/P found no obstructive stones, no severe stranding around tract and no evidence of large clot in the bladder Urine culture from 09/06/17 no growth Hemoglobin stable at 10.0 today No indication for urgent intervention at this time per urology, will follow-up as outpatient - Will stop antibiotics as she has received a full course - Patient stable for discharge - Patient will need hematuria work-up, likely outpatient after discharge per urology Qualifiers: Hematuria type: gross Qualified Code(s): R31.0 - Gross hematuria (2) Acute encephalopathy Current Visit: Yes Status: Resolved Assessment and plan: Reported altered mental status prior to arrival in ED, likely metabolic in the setting of sepsis/pneumonia/cystitis and acute respiratory failure. CT head on 09/04/17found large amount of small vessel ischemic change bilaterally with some old infarts but cannot exclude the possibility of a subtle superimposed recent ischemic focus. Repeat CT head on 09/10/17 found no definite acute ischemia nor intracranial hemorrhage. Continue to improve as patient is and O 3 today PT/OT recommended SNF/ECF after discharge Appreciate social service's assistance regarding placement. (3) Acute respiratory failure with hypoxia Current Visit: Yes Status: Resolved Assessment and plan: Noted to have significant respiratory difficulty even on BiPAP and eventually intubated in ICU. Initial ABG pH 7.33, pCO2 33, pO2 58 and HCO3 18. Respiratory distress at admission likely secondary to pulmonary edema, LLL pneumonia and/or COPD exacerbation. Patient was extubated on 09/06 but reintubated later the same day for acute onset respiratory distress. The lab findings (one-time elevation of lactic acid and leukocytosis on 09/06 and elevated troponin on 09/07) and change between two CT A/P on same day (more prominent bibasilar consolidation, L > R) raises the concern of acute worsening of cardiogenic pulmonary edema. Feel more likely secondary to cardiac rather than infection. Patient was successfully extubated on 09/08/17. Currently maintains good O2 sat on room air - Stop IV AB - Bronchodilators prn - Continue to monitor (4) Sepsis Current Visit: Yes Status: Resolved Assessment and plan: Now resolved 4 SIRS criteria (fever, tachycardia, tachypnea and leukocytosis) on admission with lactic acid 1.4, likely secondary to pneumonia as suggested by focal consolidation in the left lower lobe on CXR. Known Streptococcus pneumoniae given positive 2/2 blood cultures. Almost dickey- sensitive except resistance to erythromycin Patient had acute onset of respiratory distress on 09/06/17 requiring re- intubation. And IV vancomycin and metronidazole were added for broader-spectrum coverage but later discontinued as it was believed to come from cardiac condition rather than infection Improves as patient is afebrile and tachycardia & tachypnea normalized. Latest lactic acid 0.9 on 09/10/17 - Patient received full course of AB, will stop Qualifiers: Sepsis type: Pneumococcus Qualified Code(s): A40.3 - Sepsis due to Streptococcus pneumoniae (5) Pneumonia Current Visit: Yes Status: Acute Assessment and plan: CXR suggested pulmonary edema along with focal consolidation in the left lower lobe concerning of pneumonia. Known Streptococcus pneumoniae given positive 2/2 blood cultures. Almost dickey- sensitive except resistance to erythromycin. Patient had acute onset of respiratory distress on 09/06/17 requiring re- intubation. And IV vancomycin and metronidazole were added for broader-spectrum coverage but later discontinued as it was believed to come from cardiac condition rather than infection. - Stop AB, as above Qualifiers: Pneumonia type: due to Pneumococcus Laterality: left Lung location: lower lobe of lung Qualified Code(s): J13 - Pneumonia due to Streptococcus pneumoniae (6) Congestive heart failure Current Visit: Yes Status: Chronic Assessment and plan: CXR suggested pulmonary edema along with focal consolidation in the left lower lobe concerning of pneumonia. Patient had received 100 mg of IV Lasix on the day of admission. Echocardiogram on 09/05/17 showed LVEF 45% with indeterminated diastolic function. Atypical septal motion consistent with bundle branch block. A small to moderate circumferential pericardial effusion, most prominent anteriorly, also noted. Repeat echocardiogram on 09/07/17 showed moderate left ventricular systolic dysfunction with LVEF 45% but slight improvement of the anteroseptal wall also noted. - Net -1570 mL so far - Strict I/O and daily weight Qualifiers: Congestive heart failure type: systolic Congestive heart failure chronicity : acute on chronic Qualified Code(s): I50.23 - Acute on chronic systolic ( congestive) heart failure (7) Hypothyroidism Current Visit: Yes Status: Acute Assessment and plan: Highly elevated TSH (52.054) on admission. Low free T4 (0.44) and free T3 (<1.00). Patient received one dose of IV levothyroxine 200 mcg in ED. Repeat TSH 23.042 on 09/13/17 - Will continue levothyroxine to 37.5 mg PO daily Qualifiers: Hypothyroidism type: acquired Qualified Code(s): E03.9 - Hypothyroidism, unspecified (8) Elevated troponin Current Visit: Yes Status: Resolved Assessment and plan: Initial troponin negative (0.03) but then peaked at 2.90 before downtrended to 1.00 on 09/06. Troponin elevated again at 7.42 on 09/07/17 but later downtrend to 5.89 the same day. Echocardiogram on 09/05/17 showed LVEF 45% with indeterminated diastolic function. Atypical septal motion consistent with bundle branch block. A small to moderate circumferential pericardial effusion, most prominent anteriorly, also noted. Repeat echocardiogram on 09/07/17 showed moderate left ventricular systolic dysfunction with LVEF 45% but slight improvement of the anteroseptal wall also noted. - Continue telemetry monitoring - Continue aspirin, metoprolol and statin - Patient's family had lengthy discussion with cardiology and agreed to continue medical management for now with no immediate intervention (9) COPD (chronic obstructive pulmonary disease) Current Visit: Yes Status: Chronic Assessment and plan: Possible COPD exacerbation precipitated by recent respiratory infection on initial presentation. Known active smoker prior to admission. - Continue Symbicort and bronchodilators Qualifiers: COPD type: COPD with acute exacerbation Qualified Code(s): J44.1 - Chronic obstructive pulmonary disease with (acute) exacerbation (10) Hypertension Current Visit: Yes Status: Chronic Assessment and plan: - Continue amlodipine and Toprol XL Qualifiers: Hypertension type: essential hypertension Qualified Code(s): I10 - Essential (primary) hypertension (11) DVT prophylaxis Current Visit: Yes Status: Acute Assessment and plan: EPCD as mechanical DVT prophylaxis GI prophylaxis: PPI - Subjective Interval history: Patient asleep but easily arousable. She answers questions appropriately. She says she is feeling well overall, though continues to report some pink discoloration of her urine. She is having no difficulty breathing and reports no fevers. - Constitutional Vitals: Temp Pulse Resp BP Pulse Ox 97.9 F 55 18 134/55 95 09/19/17 06:53 09/19/17 06:53 09/19/17 06:53 09/19/17 06:53 09/19/17 06:53 General appearance: Present: cooperative, A&O X 3, no acute distress Exam: General: Cooperative, pleasant, no acute distress, alert and oriented 3, answers questions appropriately HEENT: Normocephalic, atraumatic, neck supple, trachea midline, Conjunctiva pink , sclera anicteric, oral mucosa moist, no orophargeal erythema or exudates Respiratory: No accessory muscle usage, CTA BL Cardiovascular: Regular rate and rhythm, S1 and S2 present, no murmurs/rubs/ gallops/clicks appreciated GI/abdominal: Nondistended, nontender, soft, normal bowel sounds, no peritoneal signs Extremities: No calf tenderness, noncyanotic, no pedal edema appreciated, warm, lower extremity pulses palpable and symmetrical Neurological: Alert and oriented 3, no facial droop, no focal deficits Skin: Dry, intact, normal color Internal Medicine: Result - Labs CBC & Chem 7: 09/18/17 03:05 09/16/17 04:53 - ABG Interpretation ABG results: ABG ABG pH 7.41 pH Units (7.32-7.45) 09/08/17 05:45 ABG pCO2 28 mmHg (35-45) L 09/08/17 05:45 ABG pO2 104 mmHg (85-104) 09/08/17 05:45 ABG O2 Saturation 98 % (95-98) 09/08/17 05:45 PT/INR, D-dimer PT 13.6 Seconds (9.4-12.1) H 09/05/17 06:50 - VTE Documentation of Mechanical Device: Intermittent pneumatic compression device Consult Discharge Plan - Plan Instructions: Heart Failure (DC), Chronic Obstructive Pulmonary Disease (DC) Additional Instructions: Please return to emergency department if worsening altered mental status, development of chest pain, resumption of fever, worsening hematuria, or worsening shortness of breath. Take all medications as prescribed: Cefdinir 300 mg twice a day for 2 days Aspirin 81 mg daily Albuterol take 2 puffs if needed for shortness of breath up to every 2 hours Amlodipine take 2 tablets daily (both at the same time for 10 mg total) Atorvastatin take 2 tablets daily (at the same time for 20 mg total, usually taken at night) Symbicort (budesonide/formoterol) take 2 puffs twice a day Levothyroxin take 1.5 tablets daily (for total of 37.5 g) Metoprolol XL 50 mg take 1 tablet twice a day Cough syrup (promethazine/codeine) take 5 mL as needed for cough Imdur (isosorbide mononitrate) 30 mg take 1 tablet daily Please follow-up with her PCP in one week Please follow-up with your urologist in 1-2 weeks for further workup of hematuria Referrals: Valdemar Avitia MD [Partnered Physician] - 10/07/17 9:30 am (Please follow up as schedule...) NONE,PCP [Primary Care Provider] - (ECF Placement) Prescriptions: Albuterol Sulfate [Albuterol Inhaler] 2 puff IH Q2HR PRN #2 inhaler PRN Reason: Shortness Of Breath/Wheezing amLODIPine [Norvasc] 10 mg PO DAILY #60 tablet Aspirin [Lo-Dose Aspirin EC] 81 mg PO DAILY #30 tablet. Atorvastatin [Lipitor] 20 mg PO HS #60 tablet Budesonide/Formoterol 160/4.5 [Symbicort 160/4.5] 2 puff IH BIDR #1 inhaler Cefdinir [Omnicef] 300 mg PO BID #4 capsule Isosorbide MONOnitrate (24 HR) [Imdur] 30 mg PO DAILY #30 tab.er.24h Levothyroxine [Synthroid] 37.5 mcg PO DAILY@0630 #45 tablet Metoprolol XL (24 HR) Succ [Toprol Xl] 50 mg PO BID #60 tab.er.24h Promethazine/Codeine [Phenergan/Codeine] 5 ml PO QPM PRN #60 ml PRN Reason: Cough <Suggs-Tien Vela - Last Filed: 09/19/17 10:33> Date of Encounter: 09/19/17 - Assessment and plan (1) Acute respiratory failure with hypoxia Current Visit: Yes Status: Resolved (2) Sepsis Current Visit: Yes Status: Resolved Qualifiers: Sepsis type: Pneumococcus Qualified Code(s): A40.3 - Sepsis due to Streptococcus pneumoniae (3) Pneumonia Current Visit: Yes Status: Acute Qualifiers: Pneumonia type: due to Pneumococcus Laterality: left Lung location: lower lobe of lung Qualified Code(s): J13 - Pneumonia due to Streptococcus pneumoniae (4) DVT prophylaxis Current Visit: Yes Status: Acute - Constitutional Vitals: Temp Pulse Resp BP Pulse Ox 97.9 F 55 16 134/55 95 09/19/17 06:53 09/19/17 06:53 09/19/17 08:00 09/19/17 08:00 09/19/17 08:00 Internal Medicine: Result - Labs CBC & Chem 7: 09/18/17 03:05 09/16/17 04:53 - ABG Interpretation ABG results: ABG ABG pH 7.41 pH Units (7.32-7.45) 09/08/17 05:45 ABG pCO2 28 mmHg (35-45) L 09/08/17 05:45 ABG pO2 104 mmHg (85-104) 09/08/17 05:45 ABG O2 Saturation 98 % (95-98) 09/08/17 05:45 PT/INR, D-dimer PT 13.6 Seconds (9.4-12.1) H 09/05/17 06:50 - Attending Attestation I examined this patient and my medical decision-making was reviewed with the Resident Physician. I agree with the documented findings, disposition and treatment plan as described except to the extent set forth below. I have seen and examined the patient. No acute events or complaints. Stable for discharge to ECF. Patient states she feels better. Tolerating oral diet well. Examination she is awake and alert. Not in any distress. Good air entry bilaterally no wheezes or crackles.
[2017-09-19] MEDS: amLODIPine 5 MG TABLET PO SCH (10:21)
[2017-09-19] MEDS: Isosorbide MONOnitrate (24 HR) 30 MG TAB.ER.24H PO SCH (10:21)
[2017-09-19] MEDS: Aspirin 81 MG TAB.CHEW PO SCH (10:21)
[2017-09-19] MEDS: Nystatin SUSP 5 ML UD.LIQ PO SCH (10:21)
[2017-09-19] MEDS: Metoprolol XL (24 HR) Succ 50 MG TAB.ER.24H PO SCH (10:21)
== END 2017-09-19 11:20 | DRG 871 ==
LOC: EMEROO 21:02 → ICNU 21:02 → SUATTDRO 09-05 03:02 → 2ANU 09-13 09:04
PROVIDERS: ADMIT Family Medicine; ATTEND Internal Medicine

== ENCOUNTER 2017-10-24 12:27 | Inpatient (IN) ==
[2017-10-24] MEDS ORDERED: *HR* FentaNYL (PF) 100 MCG/2 ML VIAL IVP ONE (12:46)
--- NOTE | 2017-10-24 12:48 | Emergency Department Note ---
Disposition Clinical Impression: Intertrochanteric fracture Qualifiers: Encounter type: initial encounter Fracture type: closed Fracture alignment: nondisplaced Laterality: left Qualified Code(s): S72.145A - Nondisplaced intertrochanteric fracture of left femur, initial encounter for closed fracture Disposition: Admitted As Inpatient Condition: Good Referrals: NONE,PCP [Primary Care Provider] - Forms: ED Satisfaction Letter Fall HPI - General Chief Complaint: ED Fall Stated Complaint: Left hip pain Time Seen by Provider: 10/24/17 12:41 Source: patient, family Mode of arrival: private vehicle Limitations: physical limitation Nursing Notes Reviewed: Yes Vital Signs Reviewed: Yes - History of Present Illness HPI Narrative: 86-year-old female presents to the ER via private vehicle to the left hip pain status post fall. Family reports is part arrival she was getting out of the car. They remarked that he tried to get her to wait until there was helping but she got out anyway. States she tripped and fell landing on her left side. No head injury or loss of consciousness. There were there immediately to help her up. She has been unable to ambulate since the fall. Denies any prior injuries to the hip. No numbness or paresthesias. He has not ambulated since the fall. No other complaints. 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 From: standing Fall Witnessed: yes Place Fall Occurred: other Loss of Consciousness: none Prolonged Down Time?: no Symptoms Prior to Fall: none Context: tripped/slipped Location of injury: hip - Related Data Home Medications Medication Instructions Recorded Confirmed Calcium Carbonate/Vitamin D3 1 tab PO DAILY 10/24/17 10/24/17 [Calcium 500 mg Chewable Tablet] Fluticasone/Vilanterol [Breo 1 puff IH AD 10/24/17 10/24/17 Ellipta 200-25 Mcg INH] Levothyroxine [Synthroid] 100 mcg PO DAILY@0630 10/24/17 10/24/17 Polyethylene Glycol 3350 [MiraLAX] 17 gm PO DAILY 10/24/17 10/24/17 Previous Rx's Medication Instructions Recorded Albuterol Sulfate [Albuterol 2 puff IH Q2HR PRN #2 inhaler 09/16/17 Inhaler] Aspirin [Lo-Dose Aspirin EC] 81 mg PO DAILY #30 tablet. 09/16/17 Atorvastatin [Lipitor] 20 mg PO HS #60 tablet 09/16/17 Isosorbide MONOnitrate (24 HR) 30 mg PO DAILY #30 tab.er.24h 09/16/17 [Imdur] amLODIPine [Norvasc] 10 mg PO DAILY #60 tablet 09/16/17 Allergies Allergy/AdvReac Type Severity Reaction Status Date / Time No Known Allergies Allergy Verified 10/24/17 14:20 All systems ED: reviewed and negative except as stated. Cardiovascular: Denies: chest pain Gastrointestinal: Denies: abdominal pain Musculoskeletal: Reports: back pain, other (Left hip pain). Denies: neck pain Neurological: Denies: weakness, numbness, paresthesias Fall PMH - Past Medical History Medical history: Reports: COPD, hypertension Surgical history: Reports: hysterectomy Psychiatric history: Reports: no psych history - Social History Smoking Status: Current some day smoker Alcohol use: Reports: none Drug use: Reports: none Physical Exam - General Limitations: no limitations General appearance: alert, in no apparent distress - Head Head exam: atraumatic - Eye Eye exam: Present: normal appearance - ENT ENT exam: normal exam - Neck Neck exam: Present: normal inspection, full ROM - Chest Chest inspection: Present: normal inspection, symmetric chest wall rise - Respiratory Respiratory exam: Present: normal lung sounds bilaterally - Cardiovascular Cardiovascular exam: Present: regular rate, normal rhythm, normal heart sounds - Abdominal Exam Abdominal exam: Present: soft, Non-Tender. Absent: tenderness - Extremities Exam Extremities exam: Present: normal inspection, full ROM - Expanded Upper Extremity Exam Shoulder exam: Present: normal inspection, full ROM Arm exam: Present: normal inspection, full ROM Elbow exam: Present: normal inspection, full ROM Forearm/Wrist exam: Present: normal inspection, full ROM Hand exam: Present: normal inspection, full ROM - Expanded Lower Extremity Exam Hip/Pelvis exam: Present: normal inspection, full ROM, tenderness (Patient has tenderness to palpation along the lateral aspect of the left hip and PSIS) Upper leg exam: Present: normal inspection, full ROM Knee exam: Present: normal inspection, full ROM Lower leg exam: Present: normal inspection, full ROM Ankle exam: Present: normal inspection, full ROM Foot/toe exam: Present: normal inspection, full ROM Neurovascular/Tendon exam: Absent: pulse deficit, motor deficit, sensory deficit - Back Exam Back exam: Present: tenderness (Tenderness to palpation in the midline of the lower lumbar spine) - Neurological Exam Neurological exam: Present: other (She says 15. Nonfocal neurologic exam. She moves all extremity is equally with the exception of decreased range of motion with flexion and extension of the left hip.) - Skin Skin exam: Present: warm, dry Course Course Narrative: Patient seen and examined. She has difficulty with range of motion of the left hip. Also complaining of low back pain with midline tenderness. We will pursue a CT scan of the lumbar spine as well as x-ray of the pelvis and left hip. - Reevaluation(s) Reevaluation #1: Discussed results of imaging findings with the patient and family. They are agreeable with admission - Consultations Consultation #1: I spoke with the on-call orthopedic surgeon Dr. Koch. He reviewed the imaging reporting a femoral neck fracture. Agrees with admission to the hospitalist service and will see the patient consultation. Vital Signs Temperature 97.9 F 10/24/17 12:29 Pulse Rate 69 10/24/17 12:29 Respiratory Rate 18 10/24/17 12:29 Blood Pressure 128/73 10/24/17 12:29 O2 Sat by Pulse Oximetry 96 10/24/17 12:29 Temperature 97.9 F 10/24/17 12:29 Pulse Rate 63 10/24/17 14:49 Respiratory Rate 18 10/24/17 12:29 Blood Pressure 166/90 10/24/17 14:49 O2 Sat by Pulse Oximetry 100 10/24/17 14:49 Oxygen Delivery Oxygen Delivery Nasal Cannula Fall - [facility] Narrative Medical decision making narrative: 86-year-old female presents to the ER due to mechanical fall prior to arrival. Noted to have left hip pain and inability to ambulate. She is neurovascularly intact. X-ray with demonstration of a left intertrochanteric hip fracture. She is admitted to the hospitalist service with orthopedic consultation. - Lab Data Lab results reviewed: Yes I reviewed the patient's lab results. Result diagrams: 10/24/17 14:17 10/24/17 14:17 Lab Results 10/24/17 10/24/17 10/24/17 Range/Units 14:17 14:17 14:17 WBC 6.0 (4.3-11.1) K/mcL RBC 3.87 (3.82-4.97) M/mcL Hgb 11.3 L (11.5-15.4) g/dL Hct 35.4 (35.3-44.9) % MCV 91.5 (83.0-100.0) fL MCH 29.2 (28.0-33.3) pg MCHC 31.9 (31.6-35.5) g/dL RDW 14.7 H (11.5-14.5) % Plt Count 251 (140-400) K/mcL MPV 9.8 (9.4-12.4) fL Immature Gran % 0.7 (0-4) % Seg Neutrophils % 79.7 % Lymphocytes % 10.9 % Monocytes % 7.8 % Eosinophils % 0.2 % Basophils % 0.7 % Neutrophils # 4.8 (1.6-8.9) K/mcL Lymphocytes # 0.7 (0.6-4.6) K/mcL Monocytes # 0.5 (0.0-1.3) K/mcL Eosinophils # 0.0 (0.0-0.6) K/mcL Basophils # 0.0 (0.0-0.2) K/mcL PT 11.8 (9.4-12.1) Seconds INR 1.1 Sodium 136 (136-145) mEq/L Potassium 3.6 (3.5-5.1) mEq/L Chloride 102 (98-107) mEq/L Carbon Dioxide 28 (23-29) mEq/L BUN 20 (8-23) mg/dL Creatinine 1.18 (0.60-1.20) mg/dL Est GFR ( Amer) 52 L (> 60) Est GFR (Non-Af Amer) 43 L (> 60) BUN/Creatinine Ratio 17 (6-26) Glucose 100 (70-105) mg/dL Calculated Osmolality 285 (280-300) Calcium 9.5 (8.6-10.3) mg/dL - Radiology Data Radiology results reviewed: Yes I reviewed the patient's radiology results. Lumbar Spine CT 10/24/17 12:45 IMPRESSION: 1. Decreased bone mineral density. Lumbar scoliosis with multilevel degenerative changes. 2. No acute fracture. 3. Normal bilateral sacroiliac alignment. On the cordwood cutter helper view there is redemonstration of a left hip fracture. 4. Lower lumbar multilevel moderate canal stenosis with bilateral multilevel moderate-severe neural foraminal stenosis. D/ / 10/24/2017 14:15:31 Foreign Mclain MD / Disha Adler Interpreting Provider: Foreign Mclain MD Hip X-Ray 10/24/17 12:48 IMPRESSION: Intertrochanteric fracture of the left femoral neck D/ / Vladislav Paiz MD / Vladislav Paiz MD Interpreting Provider: Vladislav Paiz MD Gloria - Gloria Situation: Demographics, MOA Background: Presenting Complaint, Relevant PMH, Meds, & Allergies Assessment: Course and respsone to treatment, Patient/Family Expectation, Pertinant Lab Results Recommendation: Barrier(s) to disposition, Recommendation based on pending studies, treatments, or consults (n) Gloria Report Given to: Dr. Marlyn Castro Repor Time: 14:58
[2017-10-24 14:24] LABS: Basophils % 0.7 %; Eosinophils % 0.2 %; Hematocrit 35.4 % (35.3-44.9); Hemoglobin 11.3 g/dL (11.5-15.4); Immature Granulocytes % 0.7 % (0-4); Lymphocytes # 0.7 K/mcL (0.6-4.6); Lymphocytes % 10.9 %; Mean Corpuscular HGB Conc 31.9 g/dL (31.6-35.5); Mean Corpuscular Hemoglobin 29.2 pg (28.0-33.3); Mean Corpuscular Volume 91.5 fL (83.0-100.0); Mean Platelet Volume 9.8 fL (9.4-12.4); Monocytes # 0.5 K/mcL (0.0-1.3); Monocytes % 7.8 %; Neutrophils # 4.8 K/mcL (1.6-8.9); Platelet Count 251 K/mcL (140-400); Red Blood Count 3.87 M/mcL (3.82-4.97); Red Cell Distribution Width 14.7 % (11.5-14.5); Segmented Neutrophils % 79.7 %
[2017-10-24 14:35] LABS: INR 1.1; Prothrombin Time 11.8 Seconds (9.4-12.1)
[2017-10-24] MEDS ORDERED: *HR* OxyCODONE/APAP 5/325 TABLET PO ONE (14:38)
[2017-10-24 14:44] LABS: Calcium 9.5 mg/dL (8.6-10.3); Potassium 3.6 mEq/L (3.5-5.1)
[2017-10-24] MEDS ORDERED: *HR* OxyCODONE Immed Rel 5 MG TABLET PO PRN (15:27)
[2017-10-24] MEDS ORDERED: Acetaminophen 325 MG TABLET PO PRN (15:27)
[2017-10-24] MEDS ORDERED: Ipratropium/Albuterol Neb 3 ML IH PRN (15:27)
[2017-10-24] MEDS ORDERED: Ondansetron 4 MG/2 ML VIAL IVP PRN (15:27)
[2017-10-24] MEDS ORDERED: Naloxone 0.4 MG/ML INJ IVP PRN (15:27)
--- NOTE | 2017-10-24 15:33 | Internal Med History&Physical ---
Date of Encounter: 10/24/17 Time of Encounter: 15:31 Assessment and Plan (1) Intertrochanteric fracture Current visit: Yes Status: Acute Left intertrochanteric fracture Patient had a recent non-STEMI back in August where she was seen for sepsis and Streptococcus pneumonia bacteremia/pneumonia We will call a cardiology consult to assess risk for surgery Orthopedic surgery has been consulted in order to possibly program a surgical procedure for the morning if cardiology allows the procedure Nothing by mouth after midnight, IV fluids, oxycodone for pain Omeprazole for GI prophylaxis and subcutaneous heparin for DVT prophylaxis. The patient will be admitted as inpatient, expected to stay more than 2 midnights. Full code. Time spent on this admission 40 minutes Qualifiers: Encounter type: initial encounter Fracture type: closed Fracture alignment: nondisplaced Laterality: left Qualified Code(s): S72.145A - Nondisplaced intertrochanteric fracture of left femur, initial encounter for closed fracture (2) Congestive heart failure Current visit: No Status: Chronic No exacerbation Qualifiers: Congestive heart failure type: systolic Congestive heart failure chronicity : acute on chronic Qualified Code(s): I50.23 - Acute on chronic systolic ( congestive) heart failure (3) Hypertension Current visit: No Status: Chronic Stable Qualifiers: Hypertension type: essential hypertension Qualified Code(s): I10 - Essential (primary) hypertension (4) Hypothyroidism Current visit: No Status: Acute Continue levothyroxine Qualifiers: Hypothyroidism type: acquired Qualified Code(s): E03.9 - Hypothyroidism, unspecified Internal Medicine - H&P: HPI Chief complaint: Left hip pain Admitted From: Emergency Dept History of present illness: Ms. Junior is a 86 year old female with a past medical history of COPD not oxygen dependent, tobacco use, chronic kidney disease stage III, systolic CHF who was recently discharged from the hospital on 09/17/2017 where she was admitted for sepsis and a Streptococcus pneumoniae pneumonia where she was intubated. The patient says that she tripped and fell on her left side earlier today and started complaining of severe left hip pain. Pain is described as 8 out of 10 in intensity. The x-ray and the CT scan of the lumbar spine performed showed a left intertrochanteric fracture/femoral neck fracture. Still in severe discomfort. Dr. Fishman was informed in order to consider possible surgical procedure. The patient denies any other symptoms that she has been getting slightly stronger after her last hospitalization. Past Med Surg Social Fam HX - Past Medical History Medical history: CHF (Systolic last echo from August 2017 shows an ejection fraction of 45%), COPD (No oxygen dependent), coronary artery disease (Recent non-STEMI in August during last hospitalization), hypertension, other ( Hypothyroidism, asthma, chronic kidney disease stage III, tobacco abuse, scoliosis, bilateral pleural effusions, systolic CHF, bacteremia with Streptococcus pneumoniae) Psychiatric history: no psych history - Past Surgical History Surgical History: hysterectomy - Social History Smoking Status: Former smoker Packs per day: Quit smoking about a month ago after her last hospitalization Smokeless Tobacco Status: No Alcohol use: none Drug use: none - Additional Family History Additional family history: Denies any family history Internal Medicine - H&P: Meds Albuterol Sulfate [Albuterol Inhaler] 2 puff IH Q2HR PRN #2 inhaler 09/16/17 [Rx ] Aspirin [Lo-Dose Aspirin EC] 81 mg PO DAILY #30 tablet.dr 09/16/17 [Rx] Atorvastatin [Lipitor] 20 mg PO HS #60 tablet 09/16/17 [Rx] Isosorbide MONOnitrate (24 HR) [Imdur] 30 mg PO DAILY #30 tab.er.24h 09/16/17 [ Rx] amLODIPine [Norvasc] 10 mg PO DAILY #60 tablet 09/16/17 [Rx] Calcium Carbonate/Vitamin D3 [Calcium 500 mg Chewable Tablet] 1 tab PO DAILY [History] Fluticasone/Vilanterol [Breo Ellipta 200-25 Mcg INH] 1 puff IH AD 10/24/17 [ History] Levothyroxine [Synthroid] 100 mcg PO DAILY@0630 10/24/17 [History] Polyethylene Glycol 3350 [MiraLAX] 17 gm PO DAILY 10/24/17 [History] 3 Allergy/AdvReac Type Severity Reaction Status Date / Time No Known Allergies Allergy Verified 10/24/17 14:20 All Systems PM: A 10-system review of systems was performed and is negative for pertinent findings except as documented above in the HPI. Review of systems: No chest pain, shortness of breath, other systems out of the 10 reviewed were negative - Constitutional Vitals: Temp Pulse Resp BP Pulse Ox 97.9 F 63 18 166/90 100 10/24/17 12:29 10/24/17 14:49 10/24/17 12:29 10/24/17 14:49 10/24/17 14:49 General appearance: Present: A&O X 3 - Head Head exam: Present: atraumatic, normocephalic - Eye Eye exam: Present: PERRL, conjuntiva pink, sclera anicteric Pupils: Present: PERRL - Neck Neck exam general surgery: Present: supple, trachea midline. Absent: lymphadenopathy - Respiratory Respiratory exam: Present: CTAB. Absent: accessory muscle use, rales, rhonchi, wheezes - Cardiovascular Cardiovascular exam: Present: RRR, +S1, +S2. Absent: diastolic murmur, gallop, rubs, systolic murmur - GI/Abdominal GI/Abdominal exam: Present: normal bowel sounds, soft, no peritoneal signs. Absent: distended, tenderness - Extremities Exam Extremities exam: Present: warm, radial pulses palpable and symmetrical. Absent : calf tenderness, cyanotic, pedal edema - Neurological Exam Neurological exam: Present: CN II-XII intact, oriented X3, no focal deficits. Absent: pronater drift, facial droop, speech deficit - Skin Skin exam: Present: dry. Absent: intact (Left hip swelling and tender, no erythema. Very dry skin in both lower extremities) Internal Med - H&P Results - Labs CBC & Chem 7: 10/24/17 14:17 10/24/17 14:17 Labs: Short CBC 10/24/17 Range/Units 14:17 WBC 6.0 (4.3-11.1) K/mcL Hgb 11.3 L (11.5-15.4) g/dL Hct 35.4 (35.3-44.9) % Plt Count 251 (140-400) K/mcL Neutrophils # 4.8 (1.6-8.9) K/mcL BMP 10/24/17 14:17 Sodium 136 Potassium 3.6 Chloride 102 Carbon Dioxide 28 BUN 20 Creatinine 1.18 Glucose 100 Calcium 9.5 - Impressions ITS Impressions Lumbar Spine CT 10/24/17 12:45 IMPRESSION: 1. Decreased bone mineral density. Lumbar scoliosis with multilevel degenerative changes. 2. No acute fracture. 3. Normal bilateral sacroiliac alignment. On the custodial maintenance worker view there is redemonstration of a left hip fracture. 4. Lower lumbar multilevel moderate canal stenosis with bilateral multilevel moderate-severe neural foraminal stenosis. D/ / 10/24/2017 14:15:31 Foreign Mclain MD / Disha Adler Interpreting Provider: Foreign Mclain MD Hip X-Ray 10/24/17 12:48 IMPRESSION: Intertrochanteric fracture of the left femoral neck D/ / Vladislav Paiz MD / Vladislav Paiz MD Interpreting Provider: Vladislav Paiz MD
--- NOTE | 2017-10-24 16:08 | Cardiology Consult Note ---
<Devon Razo Robel - Last Filed: 10/24/17 16:16> Date of Encounter: 10/24/17 Time of Encounter: 16:06 Assessment and Plan (1) Pre-operative cardiovascular examination Current Visit: Yes Status: Acute Pre-op cardiovascular risk statification for potential surgery for left intertrochanteric fracture/femoral neck fracture. Recent NSTEMI with peak troponin 7.42 on 09/07/17 in setting of severe hypothyroidism and respiratory distress at that time. Echo EF 45%, slight improvement in anteroseptal wall on limited echo 09/07/17. 09/05/17 moderate MR. Pt was conservatively managed at that time--ASA, Statin, BB , elected not to undergo LHC, which was reasonable given her age, comorbidities and lack of cardiac symptoms. Pt continues to deny chest pain or dyspnea and is euvolemic on exam. Given above, along with her advanced age she is high risk from a cardiac standpoint to undergo orthopedic surgery. However, decision is left to the surgeon. If not operating on her femoral neck fx would lead to mortality, then surgery would be necessary and family would need to be aware of her being high risk. Will discuss and review with Dr. Stockton. Anticipate sign off once seen and evaluated by him. (2) Cardiomyopathy Current Visit: Yes Status: Acute Recently diagnosed 08/2017. ICMP vs NICMP. Being conservatively managed. Recommend BB (will add). Recommend ACEi prior to d/c if BP and renal function tolerate. Qualifiers: Cardiomyopathy type: unspecified Qualified Code(s): I42.9 - Cardiomyopathy , unspecified Discussion w patient/family: The assessment and plan as outlined above was discussed with the patient and/or family members who expressed understanding and agreement. All questions were answered. Thank you for involving us in the care of your patient. Please call with any questions. I will discuss all the above with Dr. Stockton and make changes as necessary. History of Present Illness Consult date: 10/24/17 Requesting physician: Aleksander Nix Consult reason: Pre-op risk stratification Chief complaint: left hip pain History of present illness: Ms. Junior is a 86 year old female with a past medical history of COPD not oxygen dependent, tobacco use, hypothyroidism, chronic kidney disease stage III , systolic CHF EF 45%, recent NSTEMI 08/2017 with peak troponin 7.42, who was recently discharged from the hospital on 09/17/2017 where she was admitted for sepsis and a Streptococcus pneumoniae pneumonia where she was intubated. The patient says that she tripped and fell on her left side earlier today trying to get out of the car and started complaining of severe left hip pain. Pain is described as 8 out of 10 in intensity. The x-ray and the CT scan of the lumbar spine performed showed a left intertrochanteric fracture/femoral neck fracture. She denies syncope, chest pain or any change in dyspnea from her baseline. Cardiology consulted for risk stratification. Prior CV testing: Limited Echo 09/07/17: Moderate left ventricular systolic dysfunction. LVEF 45% . with slight improvement of the anteroseptal wall. Full Echo 09/05/17: LVEF 45%. Mild global LV systolic dysfunction. Mild concentric left ventricular hypertrophy. Normal right ventricular structure and function. Mild-moderately sclerotic aortic valve leaflets. Moderate mitral regurgitation. No pulmonary hypertension. There is a small to moderate circumferential pericardial effusion present which is most prominent anteriorly. There is late diastolic RA collapse with is not diagnostic for tamponade. Other parameters do not indicate tamponade physiology. Consider repeat Limited study in 1-2 days for re-evaluation or if clinical status changes. Past Med Surg Social Fam HX - Past Medical History Medical history: cardiomyopathy, CHF (Systolic last echo from August 2017 shows an ejection fraction of 45%), COPD (No oxygen dependent), hypertension, other (Hypothyroidism, asthma, chronic kidney disease stage III, tobacco abuse , scoliosis, bilateral pleural effusions, systolic CHF, bacteremia with Streptococcus pneumoniae) Psychiatric history: no psych history - Past Surgical History Surgical History: hysterectomy - Social History Smoking Status: Former smoker Packs per day: Quit smoking about a month ago after her last hospitalization Smokeless Tobacco Status: No Alcohol use: none Drug use: none Medications and Allergies Albuterol Sulfate [Albuterol Inhaler] 2 puff IH Q2HR PRN #2 inhaler 09/16/17 [Rx ] Aspirin [Lo-Dose Aspirin EC] 81 mg PO DAILY #30 tablet.dr 09/16/17 [Rx] Atorvastatin [Lipitor] 20 mg PO HS #60 tablet 09/16/17 [Rx] Isosorbide MONOnitrate (24 HR) [Imdur] 30 mg PO DAILY #30 tab.er.24h 09/16/17 [ Rx] amLODIPine [Norvasc] 10 mg PO DAILY #60 tablet 09/16/17 [Rx] Calcium Carbonate/Vitamin D3 [Calcium 500 mg Chewable Tablet] 1 tab PO DAILY [History] Fluticasone/Vilanterol [Breo Ellipta 200-25 Mcg INH] 1 puff IH AD 10/24/17 [ History] Levothyroxine [Synthroid] 100 mcg PO DAILY@0630 10/24/17 [History] Polyethylene Glycol 3350 [MiraLAX] 17 gm PO DAILY 10/24/17 [History] 3 Allergy/AdvReac Type Severity Reaction Status Date / Time No Known Allergies Allergy Verified 10/24/17 14:20 All Systems Review: A 10-system review of systems was performed and is negative for pertinent findings except as documented above in the HPI. Physical Examination Vital Signs, Last 4 Hours Temp Pulse Resp BP Pulse Ox 10/24/17 14:49 63 166/90 100 10/24/17 12:47 58 161/74 97 10/24/17 12:29 97.9 F 69 18 128/73 96 Vital Signs Temp Pulse Resp BP Pulse Ox 10/24/17 14:49 63 166/90 100 10/24/17 12:47 58 161/74 97 10/24/17 12:29 97.9 F 69 18 128/73 96 Intake and Output 10/24/17 10/24/17 10/24/17 07:59 15:59 23:59 Other: Weight 55.338 kg Patient Weight 10/24/17 23:59 Weight 55.338 kg General: Conversant, No Apparent Distress HEENT: Atraumatic, Normocephaly, Mucus Membranes Moist Neck: No JVD, Normal carotid pulses Cardiac: Reg Rate and Rhythm, Normal S1 and S2, No Murmur Lungs: Normal Breath Sounds, No Wheeze, Rales, Rhonchi Neuro: Alert and responsive, No focal deficits noted Abdomen: Soft, Non-Tender Skin: No rashes noted on visualized skin Musculoskeletal: No Chest Wall Tenderness Extremities: No Clubbing, No Cyanosis, No Edema, Normal Pulses Results 10/24/17 14:17 10/24/17 14:17 Lab Results 10/24/17 10/24/17 10/24/17 14:17 14:17 14:17 WBC 6.0 Hgb 11.3 L Hct 35.4 Plt Count 251 INR 1.1 Sodium 136 Potassium 3.6 Chloride 102 Carbon Dioxide 28 BUN 20 Creatinine 1.18 Glucose 100 Calcium 9.5 Short CBC 10/24/17 Range/Units 14:17 WBC 6.0 (4.3-11.1) K/mcL Hgb 11.3 L (11.5-15.4) g/dL Hct 35.4 (35.3-44.9) % Plt Count 251 (140-400) K/mcL Neutrophils # 4.8 (1.6-8.9) K/mcL BMP 10/24/17 Range/Units 14:17 Sodium 136 (136-145) mEq/L Potassium 3.6 (3.5-5.1) mEq/L Chloride 102 (98-107) mEq/L Carbon Dioxide 28 (23-29) mEq/L BUN 20 (8-23) mg/dL Creatinine 1.18 (0.60-1.20) mg/dL Glucose 100 (70-105) mg/dL Calcium 9.5 (8.6-10.3) mg/dL Impressions Lumbar Spine CT 10/24/17 12:45 IMPRESSION: 1. Decreased bone mineral density. Lumbar scoliosis with multilevel degenerative changes. 2. No acute fracture. 3. Normal bilateral sacroiliac alignment. On the wagon washer view there is redemonstration of a left hip fracture. 4. Lower lumbar multilevel moderate canal stenosis with bilateral multilevel moderate-severe neural foraminal stenosis. D/ / 10/24/2017 14:15:31 Foreign Mclain MD / Disha Adler Interpreting Provider: Foreign Mclain MD Hip X-Ray 10/24/17 12:48 IMPRESSION: Intertrochanteric fracture of the left femoral neck D/ / Vladislav Paiz MD / Vladislav Paiz MD Interpreting Provider: Vladislav Paiz MD Chest X-Ray 10/24/17 15:48 IMPRESSION: No acute findings. D/ / Marianela Hayes MD / Marianela Hayes MD Interpreting Provider: Marianela Hayes MD Active Medications Acetaminophen (Tylenol) 650 mg PO Q4HR PRN PRN Reason: fever and mild pain Stop: 04/25/18 15:28 Albuterol/Ipratropium (Duoneb) 3 ml IH [id number] PRN; Protocol PRN Reason: Shortness Of Breath/Wheezing Stop: 04/25/18 15:28 Amlodipine Besylate (Norvasc) 10 mg PO DAILY YULY PRN Reason: Protocol Stop: 04/26/18 09:01 Aspirin (Aspirin Ec) 81 mg PO DAILY [facility] Stop: 04/26/18 09:01 Atorvastatin Calcium (Lipitor) 20 mg PO HS [facility] Stop: 04/25/18 21:01 Heparin Sodium (Porcine) (Heparin) 5,000 unit SQ Q12HCO [facility] Stop: 04/25/18 18:01 Sodium Chloride (0.9 % Sodium Chloride) 1,000 mls @ 60 mls/hr IVC .[id number] [facility] Stop: 10/26/17 00:49 Isosorbide Mononitrate (Imdur) 30 mg PO DAILY [facility] Stop: 04/26/18 09:01 Levothyroxine Sodium (Synthroid) 100 mcg PO DAILY@0630 [facility] Stop: 04/26/18 06:31 Naloxone HCl (Narcan) 0.4 mg IVP Q2MIN PRN PRN Reason: Opioid Reversal Stop: 04/25/18 15:28 Non-Formulary Medication (Calcium Carbonate/Vitamin D3 [Calcium 500 Mg Chewable Tablet]) 1 tab PO DAILY [facility] Stop: 04/26/18 09:01 Omeprazole (Prilosec) 40 mg PO DAILY@0630 YULY PRN Reason: Protocol Stop: 04/26/18 06:31 Ondansetron HCl (Zofran) 4 mg IVP Q8HR PRN PRN Reason: Nausea And Vomiting Stop: 04/25/18 15:28 Oxycodone HCl (Roxicodone) 5 mg PO Q6HR PRN PRN Reason: Moderate Pain (4-6) Stop: 07/28/18 15:28 Oxycodone HCl (Roxicodone) 10 mg PO Q6H PRN PRN Reason: severe pain Stop: 04/25/18 15:31 Polyethylene Glycol (Miralax) 17 gm PO DAILY [facility] Stop: 04/26/18 09:01 - Imaging and Cardiology Echo: report reviewed - EKG Interpretation EKG results cardiology: personally reviewed (SR) Consult Discharge Plan - Plan Referrals: NONE,PCP [Primary Care Provider] - <Lupillo Stockton - Last Filed: 10/25/17 10:51> Date of Encounter: 10/24/17 Time of Encounter: 21:30 - Attending Attestation I have personally performed a face to face evaluation on this patient. I have reviewed and agree with the care plan. History and Exam by me shows: CC: Left leg pain Pt complains of severe 9/10 pain in left hip, occurring after she tripped and fell, landing on her left side. She has been unable to stand due to pain in left hip. She has undergone evaluation in the ER which revealed a left intertrocanteric femoral fracture. She denies chest pain, pressure or shortness of breath. She was hospitalized in 09/14 for sepsis and Strep pneumonia, but has recovered slowly. She reports was nearly at her baseline before the fall. PE: reviewed as above, agree IMP; 1. LEft hip fracture, planned surgical intervention later today. 2. Stable class 2 angina on current meds, post NSTEMI with hypotension, sepsis 09/14, pt and family have elected for medical tx only,, given pts advanced age, comorbidities and previously expressed wishes, non invasive strategy is very reasonable. 3. Well compensated chronic systolic heart failure, EF 45% secondary to ischemic cardiomyopathy 4. Hypertension, well controlled on current meds 5. Hypothyroid: on replacement 6. Streptococcal pneumonia, 09/14, resolved Rec: Pt is at high risk for cardiovascular complications of planned hip repair, however risk benefit ratio favors proceeding with surgical intervention to facilitate early mobilization. Will follow with you perioperatively, Assessment and Plan Discussion w patient/family: The assessment and plan as outlined above was discussed with the patient and/or family members who expressed understanding and agreement. All questions were answered. Thank you for involving us in the care of your patient. Please call with any questions. History of Present Illness History of present illness: Ms. Junior is a 87 year old female All Systems Review: A 10-system review of systems was performed and is negative for pertinent findings except as documented above in the HPI. Physical Examination Vital Signs, Last 4 Hours Temp Pulse Resp BP Pulse Ox 10/25/17 06:53 97.6 F 67 14 153/72 95 Results 10/25/17 05:02 10/25/17 05:02 Lab Results 10/25/17 10/25/17 10/25/17 05:02 05:02 05:02 WBC 4.3 Hgb 10.5 L Hct 33.8 L Plt Count 250 INR 1.1 Sodium 135 L Potassium 3.5 Chloride 103 Carbon Dioxide 29 BUN 18 Creatinine 1.04 Glucose 90 Calcium 8.8
[2017-10-24] MEDS: Metoprolol XL (24 HR) Succ 25 MG TAB.ER.24H PO SCH (17:54)
[2017-10-24] MEDS: *HR* Heparin 5,000 UNIT/ML VIAL SQ SCH (17:55)
[2017-10-24] MEDS: 0.9 % Sodium Chloride 1,000 ML IVC SCH (17:55)
--- NOTE | 2017-10-24 18:43 | Orthopedic Consult Note ---
Date of Encounter: 10/24/17 Time of Encounter: 18:40 Assessment and Plan (1) Fracture of left hip Current Visit: Yes Status: Acute Left displaced femoral neck fracture; I did discuss the diagnosis in detail with the patient as well as her son and granddaughter. My recommendation was to proceed with left hip hemiarthroplasty in order to provide stability to the hip to control pain and help facilitate nursing care. I do note that she is at a high risk of surgery due to her recent NSTEMI. The family is aware of this. The risks discussed included but were not limited to stiffness, bleeding, infection, blood clots, damage to neurovascular structures, tendons, ligaments, and bone. Also discussed was the risk of continued symptoms and possible need for further procedures. I did discuss the anesthesia risks including stroke, heart attack, and . I also discussed the risk of prosthetic loosening, fracture, dislocation, and prosthetic infection. She did wish to proceed and we will plan on surgery tomorrow for left hip hemiarthroplasty. Qualifiers: Qualified Code(s): S72.002A - Fracture of unspecified part of neck of left femur, initial encounter for closed fracture History of Present Illness HPI: Ms. Junior is a 86 year old female who lives at home with her son. She is a walker and wheelchair-assisted ambulator. She has a history of recent NSTEMI about 6 weeks ago and did have a hospital stay where she was also treated for hypothyroidism and pneumonia. She was discharged and recovered at [facility]. She was seen in the emergency department due to a fall today and was diagnosed with a left displaced femoral neck fracture. She was admitted to the hospitalist and orthopedics was consulted. On my evaluation the patient complains of isolated pain to the left hip. She denies any headaches, neck pain , chest pain, abdominal pain, bilateral upper extremity pain, and right lower extremity pain. Pain is localized to the left groin, is sharp , and worse with movement and better with rest. No numbness, tingling, or other associated signs or symptoms. No other modifying factors. Past Med Surg Social Fam HX - Past Medical History Medical history: cardiomyopathy, CHF, COPD, hypertension, other Psychiatric history: no psych history - Past Surgical History Surgical History: hysterectomy - Social History Smoking Status: Former smoker Packs per day: Quit smoking about a month ago after her last hospitalization Smokeless Tobacco Status: No Alcohol use: none Drug use: none - Family History Son Hx Family Cardiac Disorders: Yes (HTN) Medications and Allergies Albuterol Sulfate [Albuterol Inhaler] 2 puff IH Q2HR PRN #2 inhaler 09/16/17 [Rx ] Aspirin [Lo-Dose Aspirin EC] 81 mg PO DAILY #30 tablet. 09/16/17 [Rx] Atorvastatin [Lipitor] 20 mg PO HS #60 tablet 09/16/17 [Rx] Isosorbide MONOnitrate (24 HR) [Imdur] 30 mg PO DAILY #30 tab.er.24h 09/16/17 [ Rx] amLODIPine [Norvasc] 10 mg PO DAILY #60 tablet 09/16/17 [Rx] Calcium Carbonate/Vitamin D3 [Calcium 500 mg Chewable Tablet] 1 tab PO DAILY [History] Fluticasone/Vilanterol [Breo Ellipta 200-25 Mcg INH] 1 puff IH AD 10/24/17 [ History] Levothyroxine [Synthroid] 100 mcg PO DAILY@0630 10/24/17 [History] Polyethylene Glycol 3350 [MiraLAX] 17 gm PO DAILY 10/24/17 [History] 3 Allergy/AdvReac Type Severity Reaction Status Date / Time No Known Allergies Allergy Verified 10/24/17 14:20 All Systems Reviewed: A 10-system review of systems was performed and is negative for pertinent findings except as documented above in the HPI. Physical Exam - Constitutional Vitals: Temp Pulse Resp BP Pulse Ox 98.4 F 53 16 145/72 97 10/24/17 17:52 10/24/17 17:52 10/24/17 17:52 10/24/17 17:52 10/24/17 17:52 Constitutional -Vitals reviewed -The patient is well developed and well nourished. -Mood is pleasant. -The patient is well groomed. Psychiatric -The patient is fully alert and oriented x 3. Respiratory: -Respiratory effort normal Abdomen: -Soft abdomen -Non tender -Non distended: Left upper extremity: -No deformities. The overlying skin is intact. No obvious signs of acute trauma. -No tenderness to palpation throughout. -No significant pain with passive motion of the shoulder, elbow, wrist, and fingers within the limits of the bed. -Able to make an "OK" sign, cross the index and long fingers, and extend the thumb. -Sensation grossly intact to light touch throughout the median, radial, and ulnar distributions. -Radial pulse is present; Fingers have good capillary refill. Right upper extremity: -No deformities. The overlying skin is intact. No obvious signs of acute trauma. -No tenderness to palpation throughout. -No significant pain with passive motion of the shoulder, elbow, wrist, and fingers within the limits of the bed. -Able to make an "OK" sign, cross the index and long fingers, and extend the thumb. -Sensation grossly intact to light touch throughout the median, radial, and ulnar distributions. -Radial pulse is present; Fingers have good capillary refill. Left lower extremity: -The extremity is shortened and externally rotated. The overlying skin is intact. -There is tenderness in the groin region as well as the proximal lateral thigh. -I did not range the hip due to the known fracture. -No tenderness along the distal thigh, leg, ankle, foot, or toes. -Able to dorsiflex and plantarflex the ankle and toes. -Sensation is grossly intact to light touch throughout the sural, saphenous, superficial peroneal, and deep peroneal distributions. -Toes have good capillary refill. Right lower extremity: -No deformities. The overlying skin is intact. No obvious signs of acute trauma. -No tenderness to palpation throughout. -No pain with passive motion of the hip, knee, ankle, and toes within the limits of the bed. -No pain with axial loading of the thigh. -Able to dorsiflex and plantarflex the ankle and toes. -Sensation is grossly intact to light touch throughout the sural, saphenous, superficial peroneal, and deep peroneal distributions. -Toes have good capillary refill. Diagnostic Imaging: I did personally review and interpret x-rays of the left hip including a traction view shows a displaced left femoral neck fracture Results - Labs Result Diagrams: 10/24/17 14:17 10/24/17 14:17 Labs: Abnormal lab results Hgb 11.3 g/dL (11.5-15.4) L 10/24/17 14:17 RDW 14.7 % (11.5-14.5) H 10/24/17 14:17 Est GFR ( Amer) 52 (> 60) L 10/24/17 14:17 Est GFR (Non-Af Amer) 43 (> 60) L 10/24/17 14:17 All other labs normal. Consult Discharge Plan - Plan Referrals: NONE,PCP [Primary Care Provider] -
[2017-10-24] MEDS: *HR* OxyCODONE Immed Rel 5 MG TABLET PO PRN (20:04)
[2017-10-25] MEDS: *HR* Heparin 5,000 UNIT/ML VIAL SQ SCH (05:00)
[2017-10-25 05:48] LABS: Hematocrit 33.8 % (35.3-44.9); Hemoglobin 10.5 g/dL (11.5-15.4); Mean Corpuscular HGB Conc 31.1 g/dL (31.6-35.5); Mean Corpuscular Hemoglobin 28.9 pg (28.0-33.3); Mean Corpuscular Volume 93.1 fL (83.0-100.0); Mean Platelet Volume 10.2 fL (9.4-12.4); Platelet Count 250 K/mcL (140-400); Red Blood Count 3.63 M/mcL (3.82-4.97); Red Cell Distribution Width 14.7 % (11.5-14.5)
[2017-10-25 06:07] LABS: INR 1.1; Prothrombin Time 11.7 Seconds (9.4-12.1)
[2017-10-25 06:12] LABS: BUN/Creatinine Ratio 17 (6-26); Blood Urea Nitrogen 18 mg/dL (8-23); Calcium 8.8 mg/dL (8.6-10.3); Carbon Dioxide 29 mEq/L (23-29); Chloride 103 mEq/L (98-107); Glucose 90 mg/dL (70-105); Osmolality,Calculated 281 (280-300); Potassium 3.5 mEq/L (3.5-5.1); Sodium 135 mEq/L (136-145); eGFR For African Americans > 60 (> 60); eGFR For Non-African Americans 50 (> 60)
[2017-10-25] MEDS ORDERED: Aspirin Enteric Coated 81 MG Tablet PO SCH (09:00)
[2017-10-25] MEDS: Cholecalciferol (D-3) 1,000 UNIT TABLET PO SCH (09:42)
[2017-10-25] MEDS: Metoprolol XL (24 HR) Succ 25 MG TAB.ER.24H PO SCH (09:51)
[2017-10-25] MEDS: amLODIPine 5 MG TABLET PO SCH (09:51)
[2017-10-25] MEDS: Isosorbide MONOnitrate (24 HR) 30 MG TAB.ER.24H PO SCH (09:51)
[2017-10-25] MEDS: 0.9 % Sodium Chloride 1,000 ML IVC SCH (09:59)
--- NOTE | 2017-10-25 11:16 | Internal Med Progress Note ---
Date of Encounter: 10/25/17 Time of Encounter: 10:00 - Assessment and plan (1) Intertrochanteric fracture Current Visit: Yes Status: Acute Assessment and plan: With intractable Left hi pain high risk for surgery with recent NSTEMI, Sepsis, Resp failure, and many chronic medical problems cont IV analgesics cont symptomatic and supportive care Ortho and Card on board will talk to family also on Heparin for DVT prophylaxis Qualifiers: Encounter type: initial encounter Fracture type: closed Fracture alignment: nondisplaced Laterality: left Qualified Code(s): S72.145A - Nondisplaced intertrochanteric fracture of left femur, initial encounter for closed fracture (2) Chronic systolic (congestive) heart failure Current Visit: Yes Status: Acute Assessment and plan: Reviewed 2 D Echo for last admission.. LVEF @ 45% Not in decompensation now Resumed all home meds gentle hydration only (3) Hypothyroidism Current Visit: No Status: Acute Assessment and plan: Severe hypo thyroidism Reviewed TSH from last admission will recheck again cont home med dose Qualifiers: Hypothyroidism type: acquired Qualified Code(s): E03.9 - Hypothyroidism, unspecified (4) Cardiomyopathy Current Visit: Yes Status: Acute Assessment and plan: unclear Ischemic vs non ischemic not a candidate for [facility] card recommend conservative management on last admission Qualifiers: Cardiomyopathy type: unspecified Qualified Code(s): I42.9 - Cardiomyopathy , unspecified (5) Hypertension Current Visit: No Status: Chronic Assessment and plan: stable with current meds Qualifiers: Hypertension type: essential hypertension Qualified Code(s): I10 - Essential (primary) hypertension (6) COPD (chronic obstructive pulmonary disease) Current Visit: No Status: Chronic Assessment and plan: Not in exacerbation cont Duoneb Qualifiers: COPD type: COPD with acute exacerbation Qualified Code(s): J44.1 - Chronic obstructive pulmonary disease with (acute) exacerbation - Subjective Interval history: Ms. Junior is a 86 year old female with a past medical history of COPD not oxygen dependent, tobacco use, chronic kidney disease stage III, systolic CHF who was recently discharged from the hospital on 09/17/2017 where she was admitted for sepsis with Streptococcus pneumonia, resp failure and NSTEMI with peak troponin 7.42. Now pt presented to ER with a fall and severe left hip pain. The patient says that she tripped and fell on her left side and started complaining of severe left hip pain. The x-ray and the CT scan of the lumbar spine performed showed a left inter trochanteric fracture/femoral neck fracture. Pt is resting comfortably now, denied any CP / SOB. Her Left hip pain is tolerable with current pain medication. - Constitutional Vitals: Temp Pulse Resp BP Pulse Ox 97.6 F 67 14 153/72 95 10/25/17 06:53 10/25/17 06:53 10/25/17 06:53 10/25/17 06:53 10/25/17 06:53 General appearance: Present: A&O X 3 - Head Head exam: Present: atraumatic, normal inspection - Neck Neck exam general surgery: Present: supple - Respiratory Respiratory exam: Present: decreased breath sounds. Absent: rales, respiratory distress, rhonchi, wheezes - Cardiovascular Cardiovascular exam: Present: RRR, +S1, +S2. Absent: tachycardia - GI/Abdominal GI/Abdominal exam: Present: normal bowel sounds, soft. Absent: rebound, rigid, tenderness - Extremities Exam Extremities exam: Present: tenderness (Left hip). Absent: calf tenderness, pedal edema Additional comments: severe tenderness in left hip with mild swelling.. No erythema noticed - Neurological Exam Neurological exam: Present: alert, oriented X3 - Psychiatric Psychiatric exam: Present: normal affect, normal mood Internal Medicine: Result - Labs CBC & Chem 7: 10/25/17 05:02 10/25/17 05:02 Labs: Short CBC 10/25/17 Range/Units 05:02 WBC 4.3 (4.3-11.1) K/mcL Hgb 10.5 L (11.5-15.4) g/dL Hct 33.8 L (35.3-44.9) % Plt Count 250 (140-400) K/mcL BMP 10/25/17 05:02 Sodium 135 L Potassium 3.5 Chloride 103 Carbon Dioxide 29 BUN 18 Creatinine 1.04 Glucose 90 Calcium 8.8 - ABG Interpretation ABG results: PT/INR, D-dimer PT 11.7 Seconds (9.4-12.1) 10/25/17 05:02 Consult Discharge Plan - Plan Referrals: NONE,PCP [Primary Care Provider] -
[2017-10-25] MEDS ORDERED: Vancomycin 1,000 MG VIAL ONE (14:56)
--- NOTE | 2017-10-25 14:57 | Anesthesia Evaluation PreOp ---
Date of Encounter: 10/25/17 Time of Encounter: 14:55 - Past History Planned Operation: L-Taurus Hip re: displaced femoral neck Fx Cardiac History: [place] (NSTEMI 08/2017), CHF (chronic systolic heart failure re: Ischemic Cardiomyopathy), HTN (maintained on Imdur, Norvasc,), Hyperlipidemia ( maintained on Atorvastatin), Other (210-0002 EV/EV limited echocardiogram Impressions: Moderate left ventricular systolic dysfunction. LVEF 45%. with slight improvement of the anteroseptal wall Left Ventricular Wall Motion: Rest Echo Findings The apex, apical inferior, mid inferior, basal inferior, apical anterior, mid anterior, basal anterior, mid anterior septal and basal anterior septal cedeno were hypokinetic. All other wall segments showed normal motion.ECHO 09/14/2017 -) Pulmonary History: Former smoker ("quit" after last hospitalization for Strep Pneumonia 08/2017), Smoker (currently "occasional smoker"), COPD (maintained on BReo Ellipta, Albuterol) PRODUCT DEVELOPMENT COORDINATOR History: Denies Any Significant HX Other Medical History: Renal (satege 3 CKD/GFR = 50), Thyroid (maintained on Levothyroxine) Anesthesia History: No Prior Anesthetic Complications, Past Anesthesia (Hyster) Alcohol Use: none Drug use: none Medications and Allergies Albuterol Sulfate [Albuterol Inhaler] 2 puff IH Q2HR PRN #2 inhaler 09/16/17 [Rx ] Aspirin [Lo-Dose Aspirin EC] 81 mg PO DAILY #30 tablet.dr 09/16/17 [Rx] Atorvastatin [Lipitor] 20 mg PO HS #60 tablet 09/16/17 [Rx] Isosorbide MONOnitrate (24 HR) [Imdur] 30 mg PO DAILY #30 tab.er.24h 09/16/17 [ Rx] amLODIPine [Norvasc] 10 mg PO DAILY #60 tablet 09/16/17 [Rx] Calcium Carbonate/Vitamin D3 [Calcium 500 mg Chewable Tablet] 1 tab PO DAILY [History] Fluticasone/Vilanterol [Breo Ellipta 200-25 Mcg INH] 1 puff IH AD 10/24/17 [ History] Levothyroxine [Synthroid] 100 mcg PO DAILY@0630 10/24/17 [History] Polyethylene Glycol 3350 [MiraLAX] 17 gm PO DAILY 10/24/17 [History] 3 Allergy/AdvReac Type Severity Reaction Status Date / Time No Known Allergies Allergy Verified 10/24/17 14:20 - Meds/Allergy Pre-op Review Medications Reviewed: Yes Allergies Reviewed: Yes Beta Blockers on Current Med List: Yes If Beta Blockers taken, Date/Time (Last Dose taken): Metoprolol 10/25/17 @ 0951 Anesthesia Results - Labs 10/25/17 05:02 10/25/17 05:02 Laboratory Results WBC 4.3 K/mcL (4.3-11.1) 10/25/17 05:02 RBC 3.63 M/mcL (3.82-4.97) L 10/25/17 05:02 Hgb 10.5 g/dL (11.5-15.4) L 10/25/17 05:02 Hct 33.8 % (35.3-44.9) L 10/25/17 05:02 MCV 93.1 fL (83.0-100.0) 10/25/17 05:02 MCH 28.9 pg (28.0-33.3) 10/25/17 05:02 MCHC 31.1 g/dL (31.6-35.5) L 10/25/17 05:02 RDW 14.7 % (11.5-14.5) H 10/25/17 05:02 Plt Count 250 K/mcL (140-400) 10/25/17 05:02 MPV 10.2 fL (9.4-12.4) 10/25/17 05:02 Immature Gran % 0.7 % (0-4) 10/24/17 14:17 Seg Neutrophils % 79.7 % 10/24/17 14:17 Lymphocytes % 10.9 % 10/24/17 14:17 Monocytes % 7.8 % 10/24/17 14:17 Eosinophils % 0.2 % 10/24/17 14:17 Basophils % 0.7 % 10/24/17 14:17 Neutrophils # 4.8 K/mcL (1.6-8.9) 10/24/17 14:17 Lymphocytes # 0.7 K/mcL (0.6-4.6) 10/24/17 14:17 Monocytes # 0.5 K/mcL (0.0-1.3) 10/24/17 14:17 Eosinophils # 0.0 K/mcL (0.0-0.6) 10/24/17 14:17 Basophils # 0.0 K/mcL (0.0-0.2) 10/24/17 14:17 PT 11.7 Seconds (9.4-12.1) 10/25/17 05:02 INR 1.1 10/25/17 05:02 Sodium 135 mEq/L (136-145) L 10/25/17 05:02 Potassium 3.5 mEq/L (3.5-5.1) 10/25/17 05:02 Chloride 103 mEq/L (98-107) 10/25/17 05:02 Carbon Dioxide 29 mEq/L (23-29) 10/25/17 05:02 BUN 18 mg/dL (8-23) 10/25/17 05:02 Creatinine 1.04 mg/dL (0.60-1.20) 10/25/17 05:02 Est GFR ( Amer) > 60 (> 60) 10/25/17 05:02 Est GFR (Non-Af Amer) 50 (> 60) L 10/25/17 05:02 BUN/Creatinine Ratio 17 (6-26) 10/25/17 05:02 Glucose 90 mg/dL (70-105) 10/25/17 05:02 Calculated Osmolality 281 (280-300) 10/25/17 05:02 Calcium 8.8 mg/dL (8.6-10.3) 10/25/17 05:[address] 10/24/17 12:45 IMPRESSION: 1. Decreased bone mineral density. Lumbar scoliosis with multilevel degenerative changes. 2. No acute fracture. 3. Normal bilateral sacroiliac alignment. On the tourist home keeper view there is redemonstration of a left hip fracture. 4. Lower lumbar multilevel moderate canal stenosis with bilateral multilevel moderate-severe neural foraminal stenosis. D/ / 10/24/2017 14:15:31 Foreign Mclain MD / Disha Adler Interpreting Provider: Foreign Mclain MD Chest X-Ray 10/24/17 15:48 IMPRESSION: No acute findings. D/ / Marianela Hayes MD / Marianela Hayes MD Interpreting Provider: Marianela Hayes MD Hip X-Ray 10/24/17 16:16 IMPRESSION: Comminuted left femoral neck fracture D/ / Vladislav Paiz MD / Vladislav Paiz MD Interpreting Provider: Vladislav Paiz MD - Imaging EKG: image reviewed Anesthesia Exam Vital Signs Temp Pulse Resp BP Pulse Ox 10/25/17 11:56 98.4 F 73 14 130/64 95 10/25/17 06:53 97.6 F 67 14 153/72 95 10/25/17 04:52 97.9 F 53 14 152/67 95 10/25/17 00:39 97.6 F 49 12 132/68 93 10/24/17 17:52 98.4 F 53 16 145/72 97 10/24/17 17:01 18 139/68 10/24/17 16:55 68 18 139/68 99 10/24/17 16:14 66 161/81 100 Intake and Output 10/24/17 10/25/17 10/25/17 23:59 07:59 15:59 Intake Total 1000 / 1000 Output Total 400 / 400 350 / 350 Balance -400 / -400 650 / 650 Intake: IV Fluids 1000 / 1000 0.9 % Sodium Chloride 1,000 ML 1000 / 1000 @ 60 mls/hr IVC .[id number] [facility] Rx #:[id number] Output: Catheter 400 / 400 350 / 350 Height: 5'2" Weight: 122# BMI = 22 NPO (# of Hours): MNoc Pain Scale Used: Numeric (1 - 10) - HEENT Pupil (Motor): Pupils equal, EOMI Mallampati: II Teeth: Normal Oral Opening: Greater than 3 - PRODUCT DEVELOPMENT COORDINATOR LOC: Oriented PRODUCT DEVELOPMENT COORDINATOR Motor: Normal RUE, Normal LUE, Normal RLE, Normal LLE, Normal Face PRODUCT DEVELOPMENT COORDINATOR Sensory: Normal: RUE, LUE, RLE, LLE, Face - Cardiac Rhythm: Regular Murmur: None - Pulmonary Breath Sounds: bilateral Clear Respiratory Effort: Symmetrical Anesthesia Assess/Plan ASA Score: 4 (CHF, CAD, HTN, Chol, COPD,Smoker, CKD, Hypothyroidism) Modified Fredis Scale for Level of Consciousness: Cooperative, oriented, and tranquil Anesthetic Plan: General Monitoring Plan: Standard Monitors Recovery Plan: PACU Anes Supervising Prov Stmt: Pt seen/evaluated, R&B Discussed, questions answered and consent obtained. Roge Soto MD
[2017-10-25] MEDS ORDERED: Acetaminophen IV 1,000 MG/100 ML INFUS..BTL ONE (15:18)
[2017-10-25] MEDS ORDERED: *HR* FentaNYL (PF) 100 MCG/2 ML VIAL ONE (15:19)
[2017-10-25] MEDS ORDERED: Lidocaine -MPF 2% 2 ML VIAL ONE (15:19)
[2017-10-25] MEDS ORDERED: Lidocaine -MPF 4% 5 ML AMPUL ONE (15:19)
[2017-10-25] MEDS ORDERED: *HR* Etomidate 40 MG/20 ML VIAL IVP ONE (15:19)
[2017-10-25] MEDS ORDERED: *HR* Propofol 200 MG/20 ML VIAL IVP ONE (15:20)
[2017-10-25] MEDS ORDERED: *HR* Magnesium Sulfate 1 GM/2 ML VIAL ONE (15:58)
[2017-10-25] MEDS ORDERED: *HR* HYDROmorphone 2 MG/ML SYRINGE ONE (16:16)
[2017-10-25] MEDS ORDERED: Dexamethasone 4 MG/ML VIAL ONE (16:31)
[2017-10-25] MEDS ORDERED: Ondansetron 4 MG/2 ML VIAL ONE (16:31)
[2017-10-25] MEDS ORDERED: CeFAZolin Premix DUPLEX 2,000 MG/50 ML BAG IVPB ONE (17:00)
--- NOTE | 2017-10-25 17:30 | Orthopedic Operative Note ---
Date of procedure: 10/25/17 Procedure: OPERATIVE REPORT DATE OF PROCEDURE: 10/25/2017 SURGEON: Curtis Koch MD DIRECTOR POWER(S): There are no assistants PREOPERATIVE DIAGNOSIS: Left displaced femoral neck fracture POSTOPERATIVE DIAGNOSIS: Left displaced femoral neck fracture PROCEDURE: Left hip hemiarthroplasty ANESTHESIA: General anesthesia PREOPERATIVE ANTIBIOTICS: And 2 g of Ancef ESTIMATED BLOOD LOSS: 100 milliliters SPECIMENS: Left femoral head IMPLANTS: Biomet Echo Fracture stem size 11 mm with standard offset; 45 mm Endo Head; +6 Taper PREOPERATIVE NOTE AND INDICATIONS: This patient is an 87-year-old female for left displaced femoral neck fracture. Recommendation was for left hip hemiarthroplasty in order to stabilize left hip and provide pain control and to help facilitate nursing care. The surgical plan was discussed with the patient. The risks, benefits, alternatives, and potential complications of this procedure were discussed with the patient including injury to veins, arteries, nerves, tendons, ligaments, and bone. Also discussed were the risks of infection, bleeding, pain, blood clots, the possible need for a blood transfusion, the possible need for further procedures, heart attack, stroke, and . Additional risks include prosthetic dislocation, infection, prosthetic fracture, and dislocation. All of this was explained in simple terms, and the patient verbalized understanding and wished to proceed. Consent was given to proceed with surgery. PROCEDURE: The patient was seen in the preoperative holding area where the identify and the consent were confirmed. The left hip was marked. Final questions were answered. The patient was brought back to the operating room. A huddle was performed with the patient and all vital surgical team members confirming patient identity, the correct procedure, and the correct operative site. General anesthesia was administered. The patient was placed supine on the operating room table and then placed in the right lateral decubitus position. The axillary roll was placed and all bony prominences were padded. The left lower extremity was prepped and draped in the usual sterile fashion. A surgical time out was performed immediately preceding the incision with all personnel in the operating room to confirm patient identity, the correct operative site and extremity, correct radiographic studies, availability of appropriate surgical equipment, and agreement on the planned procedure. A 15 cm longitudinal curvilinear incision was made and dissection proceeded through the subcutaneous tissue using a Bovie for electrocautery. The fascia was encountered and incised splitting the fibers of the gluteus robert proximally. The Charnley retractor was placed. A Cobra was placed under the gluteus medius and the piriformis was taken down and tagged. While internally rotating the femur the short external rotators and the capsule was taken down in 1 sleeve. This exposed the fracture and an osteotomy was made 1 cm above the lesser trochanter. The femoral head was removed with a corkscrew. Pulvinar and the round ligament were debrided. The cartilage of the acetabulum was intact. The femoral head was sized and the 45 mm sizer fit appropriately. The femoral shaft was elevated and a box osteotome was used to lateralize. The canal finder was used and shaft reaming went up to a size 11. Broaching commenced and the 11 broach fit nicely and had good rotational stability. The trial head and neck were placed and the hip was articulated and felt to be accurate length. The hip was stable through a functional range of motion. The hip was disarticulated and the trial components were removed. The hip was washed with 3 L of saline. The definitive stem was tapped into position, and the definitive head was impacted onto the Mcdaniels taper. The hip was articulated and noted to be stable through a functional range of motion. After final irrigation 1 g of vancomycin powder was placed into the hip joint and the capsule was closed with FiberWire stitches through drill holes in the greater trochanter and the piriformis was repaired to the gluteus medius insertion. The Charnley retractor was removed and the wound was irrigated and the fascia closed with 0 Vicryl stitches. The skin was closed with a combination of 0 Vicryl, 3-0 Vicryl, and adriane. A sterile honeycomb dressing was applied. The patient was placed supine in her hospital bed. The instrument, sponge, and needle counts were correct after wound closure. POST OPERATIVE PLAN: Weight Bearing: Weightbearing as tolerated to bilateral lower extremities DVT Prophylaxis: Aspirin 325 mg by mouth twice a day Activity: Activities as tolerated with the assistance of therapy Wound Care: Keep the dressing clean, dry, and intact. Pain Control: Per the hospitalist Perioperative antibiotic prophylaxis: [facility] Social work for discharge planning Follow Up: 2 weeks Was there an geological survey field assistant present: No Estimated blood loss (cc): 100
--- NOTE | 2017-10-25 19:16 | Anesthesia Evaluation Post Op ---
Date of Encounter: 10/25/17 Time of Encounter: 17:45 - Vital Signs Vital Signs: Vital Signs Temp Pulse Resp BP Pulse Ox 10/25/17 17:45 98.1 F 62 16 138/72 93 10/25/17 17:35 98.1 F 67 16 151/81 94 10/25/17 17:25 69 18 150/80 100 10/25/17 17:15 65 20 155/77 100 10/25/17 17:05 99.4 F 68 18 149/89 99 10/25/17 11:56 98.4 F 73 14 130/64 95 10/25/17 06:53 97.6 F 67 14 153/72 95 10/25/17 04:52 97.9 F 53 14 152/67 95 10/25/17 00:39 97.6 F 49 12 132/68 93 Intake and Output 10/25/17 10/25/17 10/25/17 07:59 15:59 23:59 Intake Total 1050 / 1050 240 / 240 Output Total 400 / 400 350 / 350 100 / 100 Balance -400 / -400 700 / 700 140 / 140 Intake: IV Fluids 1050 / 1050 0.9 % Sodium Chloride 1,000 ML 1000 / 1000 @ 60 mls/hr IVC .[id number] [facility] Rx #:[id number] Ancef Premix DUPLEX 2,000 mg In 50 / 50 50 ml @ 100 mls/hr IVPB ONCE ONE Rx#:[id number] Oral 240 / 240 Output: Estimated Blood Loss 100 / 100 Catheter 400 / 400 350 / 350 Other: Meal Dinner Percent of Meal Consumed 5% - Lungs Lungs: Clear Ascult./Percussion - Airway Airway: Non-obstructed - Cardiovascular Baseline Rhythm - Mental Status Mental Status: Asleep with brisk response to light stimulation - Pain Pain Scale: 0 Pain Scale used: Numeric (1 - 10) - Nausea Vomiting Nausea Vomiting: Not Present - Hydration Hydration: Ice chips, Baez catheter - Discharge PostOp Status: Transfer Patient to floor Anes Supervising Prov Stmt: Pt seen/evaluated VSS and pt has met criteria for discharge to home. - MD Brittany
[2017-10-25] MEDS: CeFAZolin Premix DUPLEX 2,000 MG/50 ML BAG IVPB SCH (23:31)
[2017-10-26 06:22] LABS: Hemoglobin 10.4 g/dL (11.5-15.4); Immature Granulocytes % 0.5 % (0-4); Lymphocytes # 0.6 K/mcL (0.6-4.6); Lymphocytes % 8.4 %; Mean Corpuscular HGB Conc 31.5 g/dL (31.6-35.5); Mean Corpuscular Hemoglobin 29.2 pg (28.0-33.3); Mean Corpuscular Volume 92.7 fL (83.0-100.0); Mean Platelet Volume 10.6 fL (9.4-12.4); Monocytes # 0.4 K/mcL (0.0-1.3); Monocytes % 5.5 %; Platelet Count 241 K/mcL (140-400); Red Blood Count 3.56 M/mcL (3.82-4.97); Red Cell Distribution Width 14.6 % (11.5-14.5); Segmented Neutrophils % 85.6 %
[2017-10-26 06:23] LABS: Neutrophils # 5.7 K/mcL (1.6-8.9)
[2017-10-26 06:38] LABS: Calcium 9.1 mg/dL (8.6-10.3); Potassium 3.8 mEq/L (3.5-5.1)
[2017-10-26 06:56] LABS: Thyroid Stimulating Hormone 7.455 mcIU/mL (0.340-5.600)
[2017-10-26 06:57] LABS: Triiodothyronine (T3) Free 2.04 pg/mL (2.50-3.90)
[2017-10-26] MEDS: CeFAZolin Premix DUPLEX 2,000 MG/50 ML BAG IVPB SCH (07:34)
[2017-10-26] MEDS: Metoprolol XL (24 HR) Succ 25 MG TAB.ER.24H PO SCH (07:34)
[2017-10-26] MEDS: Isosorbide MONOnitrate (24 HR) 30 MG TAB.ER.24H PO SCH (07:35)
[2017-10-26] MEDS: amLODIPine 5 MG TABLET PO SCH (07:35)
[2017-10-26] MEDS: Cholecalciferol (D-3) 1,000 UNIT TABLET PO SCH (07:35)
--- NOTE | 2017-10-26 11:06 | Internal Med Progress Note ---
Date of Encounter: 10/26/17 Time of Encounter: 09:30 - Assessment and plan (1) Intertrochanteric fracture Current Visit: Yes Status: Acute Assessment and plan: With intractable Left hip pain s/p Left shelley arthroplasty - POD # 1 Cont post op care as per Ortho PT / OT eval will start her on Lovenox 30mg for DVT prophylaxis cont symptomatic and supportive care Qualifiers: Encounter type: initial encounter Fracture type: closed Fracture alignment: nondisplaced Laterality: left Qualified Code(s): S72.145A - Nondisplaced intertrochanteric fracture of left femur, initial encounter for closed fracture (2) Chronic systolic (congestive) heart failure Current Visit: Yes Status: Acute Assessment and plan: Reviewed 2 D Echo for last admission.. LVEF @ 45% Not in decompensation now Resumed all home meds d/c IVF (3) Hypothyroidism Current Visit: No Status: Acute Assessment and plan: Severe hypothyroidism Reviewed labs this AM Improved TSH n T3 and T4 cont home dose on Levothyroxine Qualifiers: Hypothyroidism type: acquired Qualified Code(s): E03.9 - Hypothyroidism, unspecified (4) Cardiomyopathy Current Visit: Yes Status: Acute Assessment and plan: unclear Ischemic vs non ischemic not a candidate for [facility] card recommend conservative management on last admission Qualifiers: Cardiomyopathy type: unspecified Qualified Code(s): I42.9 - Cardiomyopathy , unspecified (5) Hypertension Current Visit: No Status: Chronic Assessment and plan: stable with current meds Qualifiers: Hypertension type: essential hypertension Qualified Code(s): I10 - Essential (primary) hypertension (6) COPD (chronic obstructive pulmonary disease) Current Visit: No Status: Chronic Assessment and plan: Not in exacerbation cont Duoneb Qualifiers: COPD type: COPD with acute exacerbation Qualified Code(s): J44.1 - Chronic obstructive pulmonary disease with (acute) exacerbation - Subjective Interval history: Ms. Junior is a 86 year old female with a past medical history of COPD not oxygen dependent, tobacco use, chronic kidney disease stage III, systolic CHF who was recently discharged from the hospital on 09/17/2017 where she was admitted for sepsis with Streptococcus pneumonia, resp failure and NSTEMI with peak troponin 7.42. Now pt presented to ER with a fall and severe left hip pain. The patient says that she tripped and fell on her left side and started complaining of severe left hip pain. The x-ray and the CT scan of the lumbar spine performed showed a left inter trochanteric fracture/femoral neck fracture. She did have Left hemiarthroplasty y/d. Pt is resting comfortably now, denied any CP / SOB. Her Left hip pain is tolerable with current pain medication. - Constitutional Vitals: Temp Pulse Resp BP Pulse Ox 97.8 F 51 16 138/67 99 10/26/17 07:05 10/26/17 07:05 10/26/17 07:05 10/26/17 07:05 10/26/17 07:05 General appearance: Present: A&O X 3, pleasant, no acute distress, answers questions appropriately - Head Head exam: Present: atraumatic, normal inspection - Neck Neck exam general surgery: Present: supple - Respiratory Respiratory exam: Present: decreased breath sounds. Absent: rales, respiratory distress, rhonchi, wheezes - Cardiovascular Cardiovascular exam: Present: RRR, +S1, +S2. Absent: tachycardia - GI/Abdominal GI/Abdominal exam: Present: normal bowel sounds, soft. Absent: rebound, rigid, tenderness - Extremities Exam Extremities exam: Present: tenderness (Left hip.. limited ROM). Absent: calf tenderness, pedal edema Additional comments: Clean incision .. No active discharge - Back Exam Back exam: Absent: CVA tenderness (L), CVA tenderness (R) - Neurological Exam Neurological exam: Present: alert, oriented X3 - Psychiatric Psychiatric exam: Present: normal affect, normal mood Internal Medicine: Result - Labs CBC & Chem 7: 10/26/17 05:46 10/26/17 05:46 Labs: Short CBC 10/26/17 Range/Units 05:46 WBC 6.6 D (4.3-11.1) K/mcL Hgb 10.4 L (11.5-15.4) g/dL Hct 33.0 L (35.3-44.9) % Plt Count 241 (140-400) K/mcL Neutrophils # 5.7 (1.6-8.9) K/mcL BMP 10/26/17 05:46 Sodium 134 L Potassium 3.8 Chloride 101 Carbon Dioxide 25 BUN 20 Creatinine 1.20 Glucose 102 Calcium 9.1 - ABG Interpretation ABG results: PT/INR, D-dimer PT 11.7 Seconds (9.4-12.1) 10/25/17 05:02 - Impressions Impressions Hip X-Ray 10/25/17 17:01 IMPRESSION: Status post left hip replacement. D/ / Sonia Rutherford Cha, MD / Sonia Rutherford Cha, MD Interpreting Provider: Sonia Rutherford Cha, MD - VTE Documentation of Mechanical Device: Intermittent pneumatic compression device Consult Discharge Plan - Plan Referrals: NONE,PCP [Primary Care Provider] -
--- NOTE | 2017-10-26 11:52 | Orthopedics Progress Note ---
Date of Encounter: 10/26/17 Time of Encounter: 11:51 - Assessment and Plan (1) Fracture of left hip Current Visit: Yes Status: Acute Qualifiers: Qualified Code(s): S72.002A - Fracture of unspecified part of neck of left femur, initial encounter for closed fracture Subjective Interval history: S: Doing well clinically. Minimal pain to the left hip. O: Afebrile and vital signs are stable Dressing was changes morning by nursing. Wound is clean, dry, and intact. No significant pain with passive motion of the left hip She can dorsiflex and plantarflex the left ankle and toes The foot is sensate and well-perfused X-ray show good position of the left hip prosthesis A: Post left hip hemiarthroplasty, doing well P: Therapy today, Baez out. Pain controlled Aspirin 325 mg by mouth twice a day for DVT prophylaxis Objective Vital signs: Vital Signs Temp Pulse Resp BP Pulse Ox 10/26/17 07:05 97.8 F 51 16 138/67 99 10/26/17 04:34 97.4 F L 42 15 141/65 99 10/25/17 23:52 97.6 F 46 15 117/65 100 10/25/17 21:18 97.5 F L 50 14 115/65 99 10/25/17 20:12 97.7 F 50 14 113/61 95 10/25/17 18:58 97.3 F L 89 14 125/68 96 10/25/17 18:21 97.8 F 52 15 128/66 97 10/25/17 18:00 98.5 F 58 14 123/71 99 10/25/17 17:45 98.1 F 62 16 138/72 93 10/25/17 17:35 98.1 F 67 16 151/81 94 10/25/17 17:25 69 18 150/80 100 10/25/17 17:15 65 20 155/77 100 10/25/17 17:05 99.4 F 68 18 149/89 99 10/25/17 11:56 98.4 F 73 14 130/64 95 Intake and Output 10/25/17 10/26/17 10/26/17 23:59 07:59 15:59 Intake Total 490 / 490 50 / 50 Output Total 100 / 100 225 / 225 Balance 390 / 390 -175 / -175 Intake: IV Fluids 50 / 50 Ancef Premix DUPLEX 2,000 mg In 50 / 50 50 ml @ 100 mls/hr IVPB Q8HR YULY Rx#:[id number] Oral 490 / 490 Output: Estimated Blood Loss 100 / 100 Catheter 225 / 225 Other: Meal Dinner Percent of Meal Consumed 5% - Labs CBC & BMP: 10/26/17 05:46 10/26/17 05:46 Labs: Abnormal lab results RBC 3.56 M/mcL (3.82-4.97) L 10/26/17 05:46 Hgb 10.4 g/dL (11.5-15.4) L 10/26/17 05:46 Hct 33.0 % (35.3-44.9) L 10/26/17 05:46 MCHC 31.5 g/dL (31.6-35.5) L 10/26/17 05:46 RDW 14.6 % (11.5-14.5) H 10/26/17 05:46 Sodium 134 mEq/L (136-145) L 10/26/17 05:46 Est GFR ( Amer) 51 (> 60) L 10/26/17 05:46 Est GFR (Non-Af Amer) 42 (> 60) L 10/26/17 05:46 TSH 7.455 mcIU/mL (0.340-5.600) H 10/26/17 05:46 Free T3 2.04 pg/mL (2.50-3.90) L 10/26/17 05:46 - VTE Documentation of Mechanical Device: Intermittent pneumatic compression device Consult Discharge Plan - Plan Referrals: NONE,PCP [Primary Care Provider] -
[2017-10-26] MEDS ORDERED: Aspirin Enteric Coated 325 MG Tablet PO SCH (17:08)
[2017-10-26] MEDS: *HR* OxyCODONE Immed Rel 5 MG TABLET PO PRN (20:02)
[2017-10-27 02:58] LABS: Basophils % 0.4 %; Hematocrit 26.5 % (35.3-44.9); Immature Granulocytes % 0.4 % (0-4); Lymphocytes # 0.8 K/mcL (0.6-4.6); Mean Corpuscular HGB Conc 31.7 g/dL (31.6-35.5); Mean Corpuscular Hemoglobin 29.1 pg (28.0-33.3); Mean Corpuscular Volume 91.7 fL (83.0-100.0); Mean Platelet Volume 10.4 fL (9.4-12.4); Monocytes # 0.6 K/mcL (0.0-1.3); Monocytes % 10.8 %; Neutrophils # 4.2 K/mcL (1.6-8.9); Platelet Count 222 K/mcL (140-400); Red Blood Count 2.89 M/mcL (3.82-4.97); Red Cell Distribution Width 14.6 % (11.5-14.5); Segmented Neutrophils % 74.4 %
[2017-10-27] MEDS: *HR* OxyCODONE Immed Rel 5 MG TABLET PO PRN (03:01)
[2017-10-27 03:17] LABS: Calcium 8.5 mg/dL (8.6-10.3); Magnesium 2.1 mg/dL (1.6-2.6); Potassium 3.8 mEq/L (3.5-5.1)
[2017-10-27 03:26] LABS: Hemoglobin 8.4 g/dL (11.5-15.4)
[2017-10-27] MEDS: *HR* Enoxaparin 30 MG/0.3 ML SYRINGE SQ SCH (06:05)
--- NOTE | 2017-10-27 07:47 | Orthopedics Progress Note ---
Date of Encounter: 10/27/17 Time of Encounter: 07:45 - Assessment and Plan (1) Fracture of left hip Current Visit: Yes Status: Acute Qualifiers: Qualified Code(s): S72.002A - Fracture of unspecified part of neck of left femur, initial encounter for closed fracture Subjective Interval history: S: Doing well clinically. Minimal pain to the left hip. O: Afebrile and vital signs are stable Wound is clean, dry, and intact. No significant pain with passive motion of the left hip She can dorsiflex and plantarflex the left ankle and toes The foot is sensate and well-perfused X-ray show good position of the left hip prosthesis A: Post left hip hemiarthroplasty, doing well P: Therapy today Pain controlled Aspirin 325 mg by mouth twice a day for DVT prophylaxis Orthopedically stable for discharge Objective Vital signs: Vital Signs Temp Pulse Resp BP Pulse Ox 10/27/17 06:17 97.6 F 57 18 134/58 93 10/27/17 03:00 99.0 F 60 16 124/81 94 10/26/17 23:03 98.4 F 54 14 122/54 97 10/26/17 19:03 98.1 F 52 16 116/63 93 10/26/17 14:30 98 F 63 16 117/64 97 10/26/17 11:41 97.7 F 54 16 119/57 98 Intake and Output 10/26/17 10/26/17 10/27/17 15:59 23:59 07:59 Intake Total 200 / 200 Output Total 200 / 200 0 / 0 275 / 275 Balance -200 / -200 200 / 200 -275 / -275 Intake: Oral 200 / 200 Output: Urine 200 / 200 0 / 0 275 / 275 Other: # Voids 1 - Labs CBC & BMP: 10/27/17 02:07 10/27/17 02:07 Labs: Abnormal lab results RBC 2.89 M/mcL (3.82-4.97) L 10/27/17 02:07 Hgb 8.4 g/dL (11.5-15.4) L D 10/27/17 02:07 Hct 26.5 % (35.3-44.9) L 10/27/17 02:07 RDW 14.6 % (11.5-14.5) H 10/27/17 02:07 Sodium 131 mEq/L (136-145) L 10/27/17 02:07 BUN 29 mg/dL (8-23) H 10/27/17 02:07 Creatinine 1.56 mg/dL (0.60-1.20) H 10/27/17 02:07 Est GFR ( Amer) 38 (> 60) L 10/27/17 02:07 Est GFR (Non-Af Amer) 31 (> 60) L 10/27/17 02:07 Calculated Osmolality 278 (280-300) L 10/27/17 02:07 Calcium 8.5 mg/dL (8.6-10.3) L 10/27/17 02:07 TSH 7.455 mcIU/mL (0.340-5.600) H 10/26/17 05:46 Free T3 2.04 pg/mL (2.50-3.90) L 10/26/17 05:46 - VTE Documentation of Mechanical Device: Venous foot pump, device Consult Discharge Plan - Plan Additional Instructions: DISCHARGE INSTRUCTIONS Dr. Koch Total Hip Replacement/Hip Hemiarthroplasty Wound Care -Keep wound / incision area clean and dry. -Dressing daily with dry gauze and paper tape. -No baths or swimming until otherwise instructed. -After 14 days, you may begin to shower only if no drainage is present. No submerging the wound under standing water until cleared by your physician (no baths, hot tubs, swimming pools, etc). Sponge baths are the best way to perform personal hygiene while at the same time protecting the wound from moisture. -No scrubbing the wound. You may "pad dry" the wound, but do not rub, as this may open up he wound and pre-dispose to wound infection. -Do not apply lotions or creams to incision site, unless instructed otherwise. -Observe for redness, swelling, or drainage. Please call the clinic immediately if you have fevers, chills with warmth/redness surrounding wound site or if you notice pus drainage from the wound site Activity -No heavy lifting objects greater than 10 pounds. -No driving while on narcotic pain medication. -You may be weight-bear as tolerated on both of your lower extremities. -Use crutches or a walker for ambulation. -Posterior hip precautions for 6 weeks: No bending the hip past 90 degrees. Do not allow the leg to cross the midline of your body (adduction). No twisting motions. Ask your physical therapist to review these precautions with you. Reducing the Risk of Blood Clots -You will need to complete a total 4 week course of enteric coated aspirin 325 mg twice daily. -Wear knee high compression hose 23 hours per day. Discharge Pain Medications -You will be given a prescription for pain medication. Wean off as tolerated. Do not wait to take the pain medication until the pain is severe, as it will be difficult to "catch up" once this occurs. The pain medication usually reaches its full effect ~1 hour after ingesting. -Your prescribed pain medication may contain Tylenol. You must be careful not to exceed 4,000 mg (4 g) of Tylenol (or generic equivalent), from all sources, within a single 24-hour period. -Some common side effects of the narcotic pain medications (Percocet, Oxycodone , Vicodin, etc) include nausea and itching. Benadryl is a great over the counter medication that helps calm your stomach, decreases your anxiety levels, and minimizes the itching. You can easily purchase this at your local pharmacy as an gnfw-[id number]-dcfwipc medication. Please abide by the instructions as printed on t-he bottle. If your nausea persists, make sure to take small amounts of crackers or other bracer foods. Follow-Up -Follow-up with Dr. Koch office in 2 weeks from the surgery date for a post- operative evaluation. -Call the office at [phone] to schedule or confirm your appointment. -Follow up with your primary care physician to discuss testing for bone mineral density. Referrals: NONE,PCP [Primary Care Provider] -
[2017-10-27] MEDS: Isosorbide MONOnitrate (24 HR) 30 MG TAB.ER.24H PO SCH (08:35)
[2017-10-27] MEDS: Cholecalciferol (D-3) 1,000 UNIT TABLET PO SCH (08:35)
[2017-10-27] MEDS: amLODIPine 5 MG TABLET PO SCH (08:40)
[2017-10-27] MEDS: Aspirin 81 MG TAB.CHEW PO SCH (09:27)
--- NOTE | 2017-10-27 14:04 | Discharge Summary ---
Date of Encounter: 10/27/17 Time of Encounter: 13:59 - Discharge Diagnosis (1) Intertrochanteric fracture Priority: Primary Status: Acute Qualifiers: Encounter type: initial encounter Fracture type: closed Fracture alignment: nondisplaced Laterality: left Qualified Code(s): S72.145A - Nondisplaced intertrochanteric fracture of left femur, initial encounter for closed fracture (2) Chronic systolic (congestive) heart failure Priority: Secondary Status: Acute (3) Hypothyroidism Priority: Secondary Status: Acute Qualifiers: Hypothyroidism type: acquired Qualified Code(s): E03.9 - Hypothyroidism, unspecified (4) Cardiomyopathy Priority: Secondary Status: Acute Qualifiers: Cardiomyopathy type: unspecified Qualified Code(s): I42.9 - Cardiomyopathy , unspecified (5) Hypertension Priority: Secondary Status: Chronic Qualifiers: Hypertension type: essential hypertension Qualified Code(s): I10 - Essential (primary) hypertension (6) COPD (chronic obstructive pulmonary disease) Priority: Secondary Status: Chronic Qualifiers: COPD type: COPD with acute exacerbation Qualified Code(s): J44.1 - Chronic obstructive pulmonary disease with (acute) exacerbation - Discharge Medications Prescriptions: OxyCODONE Immed Rel [Roxicodone 5 MG] 5 mg PO Q6HR PRN #15 tablet PRN Reason: Moderate Pain (4-6) Home Medications: Albuterol Sulfate [Albuterol Inhaler] 2 puff IH Q2HR PRN #2 inhaler 09/16/17 [Rx ] Aspirin [Lo-Dose Aspirin EC] 81 mg PO DAILY #30 tablet.dr 09/16/17 [Rx] Atorvastatin [Lipitor] 20 mg PO HS #60 tablet 09/16/17 [Rx] Isosorbide MONOnitrate (24 HR) [Imdur] 30 mg PO DAILY #30 tab.er.24h 09/16/17 [ Rx] Calcium Carbonate/Vitamin D3 [Calcium 500 mg Chewable Tablet] 1 tab PO DAILY [History] Fluticasone/Vilanterol [Breo Ellipta 200-25 Mcg INH] 1 puff IH AD 10/24/17 [ History] Levothyroxine [Synthroid] 100 mcg PO DAILY@0630 10/24/17 [History] Polyethylene Glycol 3350 [MiraLAX] 17 gm PO DAILY 10/24/17 [History] Cholecalciferol (D-3) [Vitamin D] 1,000 unit PO DAILY tablet 10/27/17 [Rx] Enoxaparin [Lovenox] 30 mg SQ 0600 #21 syringe 10/27/17 [Rx] Ipratropium/Albuterol Neb [Duoneb] 3 ml IH [id number] PRN inhsol 10/27/17 [Rx] Omeprazole [PriLOSEC] 40 mg PO DAILY@0630 capsule. 10/27/17 [Rx] OxyCODONE Immed Rel [Roxicodone 5 MG] 5 mg PO Q6HR PRN #15 tablet 10/27/17 [Rx] Allergies/Adverse Reactions: 3 Allergy/AdvReac Type Severity Reaction Status Date / Time No Known Allergies Allergy Verified 10/24/17 14:20 Procedures/tests Complete & Pending: Procedures Performed prior 72 hours Category Date Time Status EKG [ECG 12 lead ECG] [ECG] Routine Y 10/25/17 13:17 Completed Date of admission: 10/24/17 16:22 Primary care physician: PCP NONE Consults: 10/24/17 18:08 Consult to Nutrition [CONS] Routine Comment: Consulting Provider: NUTRITION Reason for Dietary Consult: MST Score Consult to [employer] [CONS] Routine Reason for SW Consult: DC planning 10/25/17 17:06 Consult to Occupational Therapy [CONS] Routine Comment: Evaluate, develop and implement POC Reason for Consult: total hip replacement Consult to Physical Therapy [CONS] Routine Comment: Evaluate, develop and implement POC Reason for Consult: total hip replacement - Patient Status Disposition: Transfer SNF Condition: Good Overall status at discharge: patient is back to baseline - Discharge Instructions Follow Up With: NONE,PCP [Primary Care Provider] - Curtis Koch MD [Partnered Physician] - Additional Instructions: DISCHARGE INSTRUCTIONS Dr. Koch Total Hip Replacement/Hip Hemiarthroplasty Wound Care -Keep wound / incision area clean and dry. -Dressing daily with dry gauze and paper tape. -No baths or swimming until otherwise instructed. -After 14 days, you may begin to shower only if no drainage is present. No submerging the wound under standing water until cleared by your physician (no baths, hot tubs, swimming pools, etc). Sponge baths are the best way to perform personal hygiene while at the same time protecting the wound from moisture. -No scrubbing the wound. You may "pad dry" the wound, but do not rub, as this may open up he wound and pre-dispose to wound infection. -Do not apply lotions or creams to incision site, unless instructed otherwise. -Observe for redness, swelling, or drainage. Please call the clinic immediately if you have fevers, chills with warmth/redness surrounding wound site or if you notice pus drainage from the wound site Activity -No heavy lifting objects greater than 10 pounds. -No driving while on narcotic pain medication. -You may be weight-bear as tolerated on both of your lower extremities. -Use crutches or a walker for ambulation. -Posterior hip precautions for 6 weeks: No bending the hip past 90 degrees. Do not allow the leg to cross the midline of your body (adduction). No twisting motions. Ask your physical therapist to review these precautions with you. Reducing the Risk of Blood Clots -You will need to complete a total 4 week course of enteric coated aspirin 325 mg twice daily. -Wear knee high compression hose 23 hours per day. Discharge Pain Medications -You will be given a prescription for pain medication. Wean off as tolerated. Do not wait to take the pain medication until the pain is severe, as it will be difficult to "catch up" once this occurs. The pain medication usually reaches its full effect ~1 hour after ingesting. -Your prescribed pain medication may contain Tylenol. You must be careful not to exceed 4,000 mg (4 g) of Tylenol (or generic equivalent), from all sources, within a single 24-hour period. -Some common side effects of the narcotic pain medications (Percocet, Oxycodone , Vicodin, etc) include nausea and itching. Benadryl is a great over the counter medication that helps calm your stomach, decreases your anxiety levels, and minimizes the itching. You can easily purchase this at your local pharmacy as an dape-[id number]-fubkyvq medication. Please abide by the instructions as printed on t-he bottle. If your nausea persists, make sure to take small amounts of crackers or other school child care attendant foods. Follow-Up -Follow-up with Dr. Koch office in 2 weeks from the surgery date for a post- operative evaluation. -Call the office at [phone] to schedule or confirm your appointment. -Follow up with your primary care physician to discuss testing for bone mineral density. - Diet and Activity Activity: as per physical therapy, increase activity as tolerated Diet: low salt diet Hospital course: Ms. Junior is a 86 year old female with a past medical history of COPD not oxygen dependent, tobacco use, chronic kidney disease stage III, systolic CHF who was recently discharged from the hospital on 09/17/2017 where she was admitted for sepsis with Streptococcus pneumonia, resp failure and NSTEMI with peak troponin 7.42. Now pt presented to ER with a fall and severe left hip pain. The patient says that she tripped and fell on her left side and started complaining of severe left hip pain. The x-ray and the CT scan of the lumbar spine performed showed a left inter trochanteric fracture/femoral neck fracture. Pt was admitted in the hospital and evaluated by Prho who recommend for surgery. Pt was evaluated by camp coordinator and mentioned high risk for major surgery like Taurus arthroplasty. However since benefits out weights the risks, she did go for surgery on 10/15/17 for Left hemiarthroplasty. Post operatively pt has been doing well. Ortho cleared her to go to ECF for short term rehab. So will d/c her to ECF today in stable condition. Her BP was running little low so I d/c her home Norvasc here. She happened to have severe hyporhyoidism on her last admission which seems to be improved, so recommend to continue same freddie dose. - Time Spent with Patient Total time spent providing and/or coordinating discharge services: - Constitutional Vitals: Temp Pulse Resp BP Pulse Ox 97.9 F 56 18 130/59 96 10/27/17 11:21 10/27/17 11:21 10/27/17 11:21 10/27/17 11:21 10/27/17 11:21 General appearance: Present: A&O X 3, pleasant, no acute distress, answers questions appropriately - Head Head exam: Present: atraumatic, normal inspection - Neck Neck exam general surgery: Present: supple - Respiratory Respiratory exam: Present: decreased breath sounds. Absent: rales, respiratory distress, rhonchi, wheezes - Cardiovascular Cardiovascular exam: Present: RRR, +S1, +S2. Absent: tachycardia - GI/Abdominal GI/Abdominal exam: Present: normal bowel sounds, soft. Absent: rebound, rigid, tenderness - Extremities Exam Extremities exam: Present: tenderness (mild tenderness over Left hip area. ). Absent: calf tenderness, pedal edema Additional comments: clean incision - Neurological Exam Neurological exam: Present: alert, oriented X3 - Psychiatric Psychiatric exam: Present: normal affect, normal mood - VTE Documentation of Mechanical Device: Venous foot pump, device
--- NOTE | 2017-10-27 14:07 | Physician Discharge Referral ---
ExtendedCare Referral Info Transfer To: [facility] Provider in Charge after Transfer: PCP Institutional Level of Care: Skilled - Diagnosis (1) Intertrochanteric fracture Status: Acute (2) Chronic systolic (congestive) heart failure Status: Acute (3) Hypothyroidism Status: Acute (4) Cardiomyopathy Status: Acute (5) Hypertension Status: Chronic (6) COPD (chronic obstructive pulmonary disease) Status: Chronic - Transfer Medications Prescriptions: OxyCODONE Immed Rel [Roxicodone 5 MG] 5 mg PO Q6HR PRN #15 tablet PRN Reason: Moderate Pain (4-6) Home Medications: Albuterol Sulfate [Albuterol Inhaler] 2 puff IH Q2HR PRN #2 inhaler 09/16/17 [Rx ] Aspirin [Lo-Dose Aspirin EC] 81 mg PO DAILY #30 tablet. 09/16/17 [Rx] Atorvastatin [Lipitor] 20 mg PO HS #60 tablet 09/16/17 [Rx] Isosorbide MONOnitrate (24 HR) [Imdur] 30 mg PO DAILY #30 tab.er.24h 09/16/17 [ Rx] Calcium Carbonate/Vitamin D3 [Calcium 500 mg Chewable Tablet] 1 tab PO DAILY [History] Fluticasone/Vilanterol [Breo Ellipta 200-25 Mcg INH] 1 puff IH AD 10/24/17 [ History] Levothyroxine [Synthroid] 100 mcg PO DAILY@0630 10/24/17 [History] Polyethylene Glycol 3350 [MiraLAX] 17 gm PO DAILY 10/24/17 [History] Cholecalciferol (D-3) [Vitamin D] 1,000 unit PO DAILY tablet 10/27/17 [Rx] Enoxaparin [Lovenox] 30 mg SQ 0600 #21 syringe 10/27/17 [Rx] Ipratropium/Albuterol Neb [Duoneb] 3 ml IH [id number] PRN inhsol 10/27/17 [Rx] Omeprazole [PriLOSEC] 40 mg PO DAILY@0630 capsule. 10/27/17 [Rx] OxyCODONE Immed Rel [Roxicodone 5 MG] 5 mg PO Q6HR PRN #15 tablet 10/27/17 [Rx] Allergies/Adverse Reactions: 3 Allergy/AdvReac Type Severity Reaction Status Date / Time No Known Allergies Allergy Verified 10/24/17 14:20 - Respiratory Orders Smoking Cessation: Smoking cessation has been advised. For more information, call the [place] Tobacco Quit Line at 8-843-IGJK-NOW. CERTIFICATION: I certify that the transfer of the above named patient to an Extended Care Facility is necessary for the continuing treatment of the diagnosis listed. The above information is true and accurate reflection of patient's current condition. Confidential - Redisclosure prohibited without a patient's written consent.
[2017-10-28] MEDS: *HR* Enoxaparin 30 MG/0.3 ML SYRINGE SQ SCH (06:05)
--- NOTE | 2017-10-28 07:54 | Internal Med Progress Note ---
Date of Encounter: 10/28/17 Time of Encounter: 07:52 - Assessment and plan (1) Hypothyroidism Current Visit: No Status: Acute Assessment and plan: Severe hypothyroidism Improved TSH n T3 and T4 cont home dose on Levothyroxine Qualifiers: Hypothyroidism type: acquired Qualified Code(s): E03.9 - Hypothyroidism, unspecified (2) DVT prophylaxis Current Visit: No Status: Acute Assessment and plan: Lovenox (3) COPD (chronic obstructive pulmonary disease) Current Visit: No Status: Chronic Assessment and plan: Not in exacerbation cont Duoneb Qualifiers: COPD type: COPD with acute exacerbation Qualified Code(s): J44.1 - Chronic obstructive pulmonary disease with (acute) exacerbation (4) Hypertension Current Visit: No Status: Chronic Assessment and plan: stable with current meds Qualifiers: Hypertension type: essential hypertension Qualified Code(s): I10 - Essential (primary) hypertension (5) Intertrochanteric fracture Current Visit: Yes Status: Acute Assessment and plan: With intractable Left hip pain s/p Left shelley arthroplasty - POD # 2 Cont post op care as per Ortho cont symptomatic and supportive care Qualifiers: Encounter type: initial encounter Fracture type: closed Fracture alignment: nondisplaced Laterality: left Qualified Code(s): S72.145A - Nondisplaced intertrochanteric fracture of left femur, initial encounter for closed fracture (6) Cardiomyopathy Current Visit: Yes Status: Acute Assessment and plan: unclear Ischemic vs non ischemic not a candidate for [facility] card recommend conservative management on last admission Qualifiers: Cardiomyopathy type: unspecified Qualified Code(s): I42.9 - Cardiomyopathy , unspecified (7) Chronic systolic (congestive) heart failure Current Visit: Yes Status: Acute Assessment and plan: Reviewed 2 D Echo for last admission.. LVEF @ 45% Not in decompensation now Resumed all home meds - Subjective Interval history: No acute events. The patient is awaiting acceptance to skilled nurse facility. She has been afebrile. Pain is controlled. - Constitutional Vitals: Temp Pulse Resp BP Pulse Ox 98.1 F 63 18 139/71 95 10/28/17 06:25 10/28/17 06:25 10/28/17 06:25 10/28/17 06:25 10/28/17 06:25 General appearance: Present: A&O X 3, pleasant, no acute distress, answers questions appropriately Exam: GEN: NAD CVS: RRR. S1, S2, No m/r/g RESP: CTAB ABD: Soft, NT, ND, +BS EXT: No edema. 2+ DP, No rashes NEURO: Nonfocal Internal Medicine: Result - Labs CBC & Chem 7: 10/27/17 02:07 10/27/17 02:07 - ABG Interpretation ABG results: PT/INR, D-dimer PT 11.7 Seconds (9.4-12.1) 10/25/17 05:02 - VTE Documentation of Mechanical Device: Intermittent pneumatic compression device Consult Discharge Plan - Plan Additional Instructions: DISCHARGE INSTRUCTIONS Dr. Koch Total Hip Replacement/Hip Hemiarthroplasty Wound Care -Keep wound / incision area clean and dry. -Dressing daily with dry gauze and paper tape. -No baths or swimming until otherwise instructed. -After 14 days, you may begin to shower only if no drainage is present. No submerging the wound under standing water until cleared by your physician (no baths, hot tubs, swimming pools, etc). Sponge baths are the best way to perform personal hygiene while at the same time protecting the wound from moisture. -No scrubbing the wound. You may "pad dry" the wound, but do not rub, as this may open up he wound and pre-dispose to wound infection. -Do not apply lotions or creams to incision site, unless instructed otherwise. -Observe for redness, swelling, or drainage. Please call the clinic immediately if you have fevers, chills with warmth/redness surrounding wound site or if you notice pus drainage from the wound site Activity -No heavy lifting objects greater than 10 pounds. -No driving while on narcotic pain medication. -You may be weight-bear as tolerated on both of your lower extremities. -Use crutches or a walker for ambulation. -Posterior hip precautions for 6 weeks: No bending the hip past 90 degrees. Do not allow the leg to cross the midline of your body (adduction). No twisting motions. Ask your physical therapist to review these precautions with you. Reducing the Risk of Blood Clots -You will need to complete a total 4 week course of enteric coated aspirin 325 mg twice daily. -Wear knee high compression hose 23 hours per day. Discharge Pain Medications -You will be given a prescription for pain medication. Wean off as tolerated. Do not wait to take the pain medication until the pain is severe, as it will be difficult to "catch up" once this occurs. The pain medication usually reaches its full effect ~1 hour after ingesting. -Your prescribed pain medication may contain Tylenol. You must be careful not to exceed 4,000 mg (4 g) of Tylenol (or generic equivalent), from all sources, within a single 24-hour period. -Some common side effects of the narcotic pain medications (Percocet, Oxycodone , Vicodin, etc) include nausea and itching. Benadryl is a great over the counter medication that helps calm your stomach, decreases your anxiety levels, and minimizes the itching. You can easily purchase this at your local pharmacy as an azxp-anq-spiiomp medication. Please abide by the instructions as printed on t-he bottle. If your nausea persists, make sure to take small amounts of crackers or other office associate foods. Follow-Up -Follow-up with Dr. Koch office in 2 weeks from the surgery date for a post- operative evaluation. -Call the office at [phone] to schedule or confirm your appointment. -Follow up with your primary care physician to discuss testing for bone mineral density. Referrals: NONE,PCP [Non-Partnered Physician] - Curtis Koch MD [Partnered Physician] - Prescriptions: OxyCODONE Immed Rel [Roxicodone 5 MG] 5 mg PO Q6HR PRN #15 tablet PRN Reason: Moderate Pain (4-6)
--- NOTE | 2017-10-28 08:12 | Orthopedics Progress Note ---
Date of Encounter: 10/28/17 Time of Encounter: 08:08 - Assessment and Plan (1) Fracture of left hip Current Visit: Yes Status: Acute Qualifiers: Qualified Code(s): S72.002A - Fracture of unspecified part of neck of left femur, initial encounter for closed fracture Subjective Interval history: S: Doing well clinically. Minimal pain to the left hip. O: Afebrile and vital signs are stable Wound is clean, dry, and intact. No significant pain with passive motion of the left hip She can dorsiflex and plantarflex the left ankle and toes The foot is sensate and well-perfused A: Post left hip hemiarthroplasty, doing well P: Therapy today Pain controlled Aspirin 325 mg by mouth twice a day for DVT prophylaxis Orthopedically stable for discharge Objective Vital signs: Vital Signs Temp Pulse Resp BP Pulse Ox 10/28/17 06:25 98.1 F 63 18 139/71 95 10/28/17 03:12 98.3 F 54 15 121/64 98 10/27/17 23:08 98.8 F 62 16 130/66 93 10/27/17 21:00 93 10/27/17 19:09 98.4 F 55 15 111/54 91 10/27/17 15:03 98.3 F 94 18 116/59 94 10/27/17 11:21 97.9 F 56 18 130/59 96 10/27/17 08:31 55 118/60 Intake and Output 10/27/17 10/28/17 10/28/17 23:59 07:59 15:59 Intake Total 300 / 300 Output Total 300 / 300 Balance 300 / 300 -300 / -300 Intake: Oral 300 / 300 Output: Urine 300 / 300 Other: Meal Dinner Percent of Meal Consumed 50% Weight 55.2 kg Patient Weight 10/28/17 23:59 Weight 55.2 kg - Labs CBC & BMP: 10/27/17 02:07 10/27/17 02:07 Labs: Abnormal lab results RBC 2.89 M/mcL (3.82-4.97) L 10/27/17 02:07 Hgb 8.4 g/dL (11.5-15.4) L D 10/27/17 02:07 Hct 26.5 % (35.3-44.9) L 10/27/17 02:07 RDW 14.6 % (11.5-14.5) H 10/27/17 02:07 Sodium 131 mEq/L (136-145) L 10/27/17 02:07 BUN 29 mg/dL (8-23) H 10/27/17 02:07 Creatinine 1.56 mg/dL (0.60-1.20) H 10/27/17 02:07 Est GFR ( Amer) 38 (> 60) L 10/27/17 02:07 Est GFR (Non-Af Amer) 31 (> 60) L 10/27/17 02:07 Calculated Osmolality 278 (280-300) L 10/27/17 02:07 Calcium 8.5 mg/dL (8.6-10.3) L 10/27/17 02:07 TSH 7.455 mcIU/mL (0.340-5.600) H 10/26/17 05:46 Free T3 2.04 pg/mL (2.50-3.90) L 10/26/17 05:46 - VTE Documentation of Mechanical Device: Intermittent pneumatic compression device Consult Discharge Plan - Plan Additional Instructions: DISCHARGE INSTRUCTIONS Dr. Koch Total Hip Replacement/Hip Hemiarthroplasty Wound Care -Keep wound / incision area clean and dry. -Dressing daily with dry gauze and paper tape. -No baths or swimming until otherwise instructed. -After 14 days, you may begin to shower only if no drainage is present. No submerging the wound under standing water until cleared by your physician (no baths, hot tubs, swimming pools, etc). Sponge baths are the best way to perform personal hygiene while at the same time protecting the wound from moisture. -No scrubbing the wound. You may "pad dry" the wound, but do not rub, as this may open up he wound and pre-dispose to wound infection. -Do not apply lotions or creams to incision site, unless instructed otherwise. -Observe for redness, swelling, or drainage. Please call the clinic immediately if you have fevers, chills with warmth/redness surrounding wound site or if you notice pus drainage from the wound site Activity -No heavy lifting objects greater than 10 pounds. -No driving while on narcotic pain medication. -You may be weight-bear as tolerated on both of your lower extremities. -Use crutches or a walker for ambulation. -Posterior hip precautions for 6 weeks: No bending the hip past 90 degrees. Do not allow the leg to cross the midline of your body (adduction). No twisting motions. Ask your physical therapist to review these precautions with you. Reducing the Risk of Blood Clots -You will need to complete a total 4 week course of enteric coated aspirin 325 mg twice daily. -Wear knee high compression hose 23 hours per day. Discharge Pain Medications -You will be given a prescription for pain medication. Wean off as tolerated. Do not wait to take the pain medication until the pain is severe, as it will be difficult to "catch up" once this occurs. The pain medication usually reaches its full effect ~1 hour after ingesting. -Your prescribed pain medication may contain Tylenol. You must be careful not to exceed 4,000 mg (4 g) of Tylenol (or generic equivalent), from all sources, within a single 24-hour period. -Some common side effects of the narcotic pain medications (Percocet, Oxycodone , Vicodin, etc) include nausea and itching. Benadryl is a great over the counter medication that helps calm your stomach, decreases your anxiety levels, and minimizes the itching. You can easily purchase this at your local pharmacy as an obfs-auq-mmdisfn medication. Please abide by the instructions as printed on t-he bottle. If your nausea persists, make sure to take small amounts of crackers or other ore miner foods. Follow-Up -Follow-up with Dr. Koch office in 2 weeks from the surgery date for a post- operative evaluation. -Call the office at [phone] to schedule or confirm your appointment. -Follow up with your primary care physician to discuss testing for bone mineral density. Referrals: NONE,PCP [Non-Partnered Physician] - Curtis Koch MD [Partnered Physician] - Prescriptions: OxyCODONE Immed Rel [Roxicodone 5 MG] 5 mg PO Q6HR PRN #15 tablet PRN Reason: Moderate Pain (4-6)
[2017-10-28] MEDS: Cholecalciferol (D-3) 1,000 UNIT TABLET PO SCH (09:31)
[2017-10-28] MEDS: Aspirin 81 MG TAB.CHEW PO SCH (09:31)
[2017-10-28] MEDS: Isosorbide MONOnitrate (24 HR) 30 MG TAB.ER.24H PO SCH (09:31)
--- NOTE | 2017-10-28 17:08 | Electrocardiograph Report ---
[address] [address] Test Date: 2017-10-25 Pat Name: Delia Junior Department: 114 Room: [facility] Gender: F Practice Nurse: : [id number] Requested By: Curtis Koch Order Number: [id number] Reading MD: Juan Mancilla Measurements Intervals [place] Rate: 54 P: CA: 0 QRS: -27 QRSD: 170 T: 141 QT: 487 QTc: 474 Interpretive Statements SINUS BRADYCARDIA LEFT BUNDLE BRANCH BLOCK Electronically Signed On 10-28-2017 17:06:38 EST by Juan Mancilla
[2017-10-28] MEDS: Aspirin 325 MG TABLET PO SCH (19:43)
[2017-10-29 06:57] VITALS: BP 144/76
--- NOTE | 2017-10-29 07:37 | Internal Med Progress Note ---
Date of Encounter: 10/29/17 Time of Encounter: 07:35 - Assessment and plan (1) Intertrochanteric fracture Current Visit: Yes Status: Acute Assessment and plan: With intractable Left hip pain s/p Left shelley arthroplasty - POD # 4 Cont post op care as per Ortho cont symptomatic and supportive care Qualifiers: Encounter type: initial encounter Fracture type: closed Fracture alignment: nondisplaced Laterality: left Qualified Code(s): S72.145A - Nondisplaced intertrochanteric fracture of left femur, initial encounter for closed fracture (2) Acute blood loss anemia Current Visit: Yes Status: Acute Assessment and plan: expected post op. check labs this morning. if H/H stable, can possibly d/c today. (3) TROY (acute kidney injury) Current Visit: No Status: Acute Assessment and plan: check labs this am. avoid nephrotoxins. Encourage PO hydration. Can't give IVF due to low EF. (4) Hypothyroidism Current Visit: No Status: Acute Assessment and plan: Severe hypothyroidism Improved TSH n T3 and T4 cont home dose on Levothyroxine Qualifiers: Hypothyroidism type: acquired Qualified Code(s): E03.9 - Hypothyroidism, unspecified (5) COPD (chronic obstructive pulmonary disease) Current Visit: No Status: Chronic Assessment and plan: Not in exacerbation cont Duoneb Qualifiers: COPD type: COPD with acute exacerbation Qualified Code(s): J44.1 - Chronic obstructive pulmonary disease with (acute) exacerbation (6) Hypertension Current Visit: No Status: Chronic Assessment and plan: stable with current meds Qualifiers: Hypertension type: essential hypertension Qualified Code(s): I10 - Essential (primary) hypertension (7) Cardiomyopathy Current Visit: Yes Status: Acute Assessment and plan: unclear Ischemic vs non ischemic not a candidate for [facility] card recommend conservative management on last admission Qualifiers: Cardiomyopathy type: unspecified Qualified Code(s): I42.9 - Cardiomyopathy , unspecified (8) Chronic systolic (congestive) heart failure Current Visit: Yes Status: Acute Assessment and plan: Reviewed 2 D Echo for last admission.. LVEF @ 45% Not in decompensation now Resumed all home meds (9) DVT prophylaxis Current Visit: No Status: Acute Assessment and plan: ASA 325 mg BID - Subjective Interval history: No acute events. The patient has been accepted at a skilled nurse facility but awaiting insurance auth. awaiting labs this morning. She has been afebrile. Pain is controlled. - Constitutional Vitals: Temp Pulse Resp BP Pulse Ox 97.9 F 64 16 144/76 96 10/29/17 06:33 10/29/17 06:33 10/29/17 06:33 10/29/17 06:33 10/29/17 06:33 General appearance: Present: A&O X 3, pleasant, no acute distress, answers questions appropriately Exam: GEN: NAD CVS: RRR. S1, S2, No m/r/g RESP: CTAB ABD: Soft, NT, ND, +BS EXT: No edema. 2+ DP, No rashes NEURO: Nonfocal Internal Medicine: Result - Labs CBC & Chem 7: 10/27/17 02:07 10/27/17 02:07 - ABG Interpretation ABG results: PT/INR, D-dimer PT 11.7 Seconds (9.4-12.1) 10/25/17 05:02 - VTE Documentation of Mechanical Device: Intermittent pneumatic compression device Consult Discharge Plan - Plan Additional Instructions: DISCHARGE INSTRUCTIONS Dr. Koch Total Hip Replacement/Hip Hemiarthroplasty Wound Care -Keep wound / incision area clean and dry. -Dressing daily with dry gauze and paper tape. -No baths or swimming until otherwise instructed. -After 14 days, you may begin to shower only if no drainage is present. No submerging the wound under standing water until cleared by your physician (no baths, hot tubs, swimming pools, etc). Sponge baths are the best way to perform personal hygiene while at the same time protecting the wound from moisture. -No scrubbing the wound. You may "pad dry" the wound, but do not rub, as this may open up he wound and pre-dispose to wound infection. -Do not apply lotions or creams to incision site, unless instructed otherwise. -Observe for redness, swelling, or drainage. Please call the clinic immediately if you have fevers, chills with warmth/redness surrounding wound site or if you notice pus drainage from the wound site Activity -No heavy lifting objects greater than 10 pounds. -No driving while on narcotic pain medication. -You may be weight-bear as tolerated on both of your lower extremities. -Use crutches or a walker for ambulation. -Posterior hip precautions for 6 weeks: No bending the hip past 90 degrees. Do not allow the leg to cross the midline of your body (adduction). No twisting motions. Ask your physical therapist to review these precautions with you. Reducing the Risk of Blood Clots -You will need to complete a total 4 week course of enteric coated aspirin 325 mg twice daily. -Wear knee high compression hose 23 hours per day. Discharge Pain Medications -You will be given a prescription for pain medication. Wean off as tolerated. Do not wait to take the pain medication until the pain is severe, as it will be difficult to "catch up" once this occurs. The pain medication usually reaches its full effect ~1 hour after ingesting. -Your prescribed pain medication may contain Tylenol. You must be careful not to exceed 4,000 mg (4 g) of Tylenol (or generic equivalent), from all sources, within a single 24-hour period. -Some common side effects of the narcotic pain medications (Percocet, Oxycodone , Vicodin, etc) include nausea and itching. Benadryl is a great over the counter medication that helps calm your stomach, decreases your anxiety levels, and minimizes the itching. You can easily purchase this at your local pharmacy as an xkwi-awt-[id number] medication. Please abide by the instructions as printed on t-he bottle. If your nausea persists, make sure to take small amounts of crackers or other physicist astrophysics foods. Follow-Up -Follow-up with Dr. Koch office in 2 weeks from the surgery date for a post- operative evaluation. -Call the office at [phone] to schedule or confirm your appointment. -Follow up with your primary care physician to discuss testing for bone mineral density. Referrals: NONE,PCP [Non-Partnered Physician] - Curtis Koch MD [Partnered Physician] - Prescriptions: OxyCODONE Immed Rel [Roxicodone 5 MG] 5 mg PO Q6HR PRN #15 tablet PRN Reason: Moderate Pain (4-6) Aspirin 325 mg PO BID #28 tablet
[2017-10-29 08:10] LABS: Basophils % 0.6 %; Eosinophils % 0.6 %; Hematocrit 27.7 % (35.3-44.9); Hemoglobin 8.7 g/dL (11.5-15.4); Immature Granulocytes % 0.6 % (0-4); Lymphocytes # 0.9 K/mcL (0.6-4.6); Lymphocytes % 16.9 %; Mean Corpuscular HGB Conc 31.4 g/dL (31.6-35.5); Mean Corpuscular Volume 92.3 fL (83.0-100.0); Mean Platelet Volume 9.9 fL (9.4-12.4); Monocytes # 0.5 K/mcL (0.0-1.3); Monocytes % 9.1 %; Neutrophils # 3.9 K/mcL (1.6-8.9); Platelet Count 227 K/mcL (140-400); Red Cell Distribution Width 14.6 % (11.5-14.5); Segmented Neutrophils % 72.2 %
[2017-10-29 08:32] LABS: BUN/Creatinine Ratio 19 (6-26); Blood Urea Nitrogen 18 mg/dL (8-23); Calcium 8.7 mg/dL (8.6-10.3); Carbon Dioxide 27 mEq/L (23-29); Chloride 102 mEq/L (98-107); Glucose 94 mg/dL (70-105); Osmolality,Calculated 278 (280-300); Potassium 3.8 mEq/L (3.5-5.1); Sodium 133 mEq/L (136-145); eGFR For African Americans > 60 (> 60); eGFR For Non-African Americans 56 (> 60)
[2017-10-29] MEDS: Isosorbide MONOnitrate (24 HR) 30 MG TAB.ER.24H PO SCH (09:37)
[2017-10-29] MEDS: Aspirin 325 MG TABLET PO SCH (09:37)
[2017-10-29] MEDS: Cholecalciferol (D-3) 1,000 UNIT TABLET PO SCH (09:38)
[2017-10-29] MEDS ORDERED: FLUARIX QUAD 2017-18 36MOS UP/PF 0.5 ML SYRINGE IM ONE (11:31)
== END 2017-10-29 14:49 | DRG 470 ==
LOC: EMEROO 12:27 → 3NENU 16:22
PROVIDERS: ADMIT Internal Medicine; ATTEND Internal Medicine

== ENCOUNTER 2017-11-04 00:51 | Inpatient (IN) ==
[2017-11-04 01:13] LABS: Basophils % 0.3 %; Eosinophils % 0.6 %; Hematocrit 27.1 % (35.3-44.9); Hemoglobin 8.4 g/dL (11.5-15.4); Immature Granulocytes % 0.8 % (0-4); Lymphocytes # 0.7 K/mcL (0.6-4.6); Lymphocytes % 9.3 %; Mean Corpuscular Hemoglobin 28.9 pg (28.0-33.3); Mean Corpuscular Volume 93.1 fL (83.0-100.0); Mean Platelet Volume 9.1 fL (9.4-12.4); Monocytes # 0.6 K/mcL (0.0-1.3); Monocytes % 8.3 %; Neutrophils # 5.7 K/mcL (1.6-8.9); Platelet Count 309 K/mcL (140-400); Red Blood Count 2.91 M/mcL (3.82-4.97); Red Cell Distribution Width 14.7 % (11.5-14.5); Segmented Neutrophils % 80.7 %
--- NOTE | 2017-11-04 01:15 | Emergency Department Note ---
Disposition Clinical Impression: NSTEMI (non-ST elevated myocardial infarction) Chest pain Qualifiers: Chest pain type: unspecified Qualified Code(s): R07.9 - Chest pain, unspecified Anemia Qualifiers: Anemia type: unspecified type Qualified Code(s): D64.9 - Anemia, unspecified Disposition: Admitted As Inpatient Condition: Fair Time of Disposition: 01:55 Chest Pain HPI - General Chief Complaint: ED Chest Pain Stated Complaint: CP Time Seen by Provider: 11/04/17 00:57 Source: patient, EMS Mode of arrival: EMS Limitations: no limitations Vital Signs Reviewed: Yes Nursing Notes Reviewed: Yes - History of Present Illness HPI Narrative: 87-year-old female with history of congestive heart failure versus for evaluation of chest pain. Patient presents in the care of EMS. Patient was at a nursing facility. Patient states he is having retrosternal chest pressure for the past 2-3 hours. Patient was given aspirin and pain resolved. Denies any radiation of pain. No nausea vomiting or diaphoresis. Patient denies a history of reflux. Patient denies any positional component to the pain. Patient denies any dyspnea. No fevers or cough. Patient denies any history of heart attacks. Severity scale (1-10): 0 - Related Data Home Medications Medication Instructions Recorded Confirmed Calcium Carbonate/Vitamin D3 1 tab PO DAILY 10/24/17 10/24/17 [Calcium 500 mg Chewable Tablet] Fluticasone/Vilanterol [Breo 1 puff IH AD 10/24/17 10/24/17 Ellipta 200-25 Mcg INH] Levothyroxine [Synthroid] 100 mcg PO DAILY@0630 10/24/17 10/24/17 Polyethylene Glycol 3350 [MiraLAX] 17 gm PO DAILY 10/24/17 10/24/17 Previous Rx's Medication Instructions Recorded Albuterol Sulfate [Albuterol 2 puff IH Q2HR PRN #2 inhaler 09/16/17 Inhaler] Atorvastatin [Lipitor] 20 mg PO HS #60 tablet 09/16/17 Isosorbide MONOnitrate (24 HR) 30 mg PO DAILY #30 tab.er.24h 09/16/17 [Imdur] Cholecalciferol (D-3) [Vitamin D] 1,000 unit PO DAILY tablet 10/27/17 Ipratropium/Albuterol Neb [Duoneb] 3 ml IH [id number] PRN inhsol 10/27/17 Omeprazole [PriLOSEC] 40 mg PO DAILY@0630 capsule. 10/27/17 OxyCODONE Immed Rel [Roxicodone 5 5 mg PO Q6HR PRN #15 tablet 10/27/17 MG] Aspirin 325 mg PO BID #28 tablet 10/28/17 Allergies Allergy/AdvReac Type Severity Reaction Status Date / Time No Known Allergies Allergy Verified 11/04/17 00:59 All systems ED: reviewed and negative except as stated. Constitutional: Denies: fever Cardiovascular: Reports: chest pain Respiratory: Denies: cough, dyspnea Gastrointestinal: Denies: nausea, vomiting Chest Pain PMH - Past Medical History Medical history: Reports: cardiomyopathy, CHF, COPD, hypertension Surgical history: Reports: hysterectomy Psychiatric history: Reports: no psych history - Social History Smoking Status: Current some day smoker Alcohol use: Reports: none Drug use: Reports: none Physical Exam - General Limitations: no limitations General appearance: alert, in no apparent distress - Head Head exam: atraumatic, normocephalic, normal inspection - Eye Eye exam: Present: normal appearance, PERRL, EOMI - ENT ENT exam: normal exam, mucous membranes moist - Neck Neck exam: Present: normal inspection, trachea midline - Chest Chest inspection: Present: normal inspection, symmetric chest wall rise - Respiratory Respiratory exam: Present: normal lung sounds bilaterally. 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 Absent: bloody stool, hemorrhoids - Extremities Exam Extremities exam: Present: normal inspection. Absent: pedal edema - Back Exam Back exam: Present: normal inspection. Absent: CVA tenderness (R), CVA tenderness (L) - Neurological Exam Neurological exam: Present: alert - Skin Skin exam: Present: warm, dry, intact, normal color Course Course Narrative: Patient is a poor historian. Patient will get basic lab work including EKG, chest x-ray. Patient is denying pain at this time. Disposition pending. She does recommend reviewed shows she did have an STEMI in August 2017. Patient has EF of 48%. Was medically managed. - Consultations Consultation #1: Spoke with cardiology who recommends to fully anticoagulate if the patient has a negative stool guaiac. If the patient has a positive stool guaiac recommend a GI workup for GI bleed. Time: 02:02 Vital Signs Temperature 98.3 F 11/04/17 00:53 Pulse Rate 83 11/04/17 00:53 Respiratory Rate 20 11/04/17 00:53 Blood Pressure 174/84 11/04/17 00:53 O2 Sat by Pulse Oximetry 97 11/04/17 00:53 Temperature 98.1 F 11/04/17 03:29 Pulse Rate 67 11/04/17 03:29 Respiratory Rate 16 11/04/17 03:29 Blood Pressure 141/75 11/04/17 03:29 O2 Sat by Pulse Oximetry 100 11/04/17 03:29 Oxygen Delivery Oxygen Delivery Room Air Chest Pain - MDM Narrative Medical decision making narrative: Patient presents with concerns of chest pain. Patient is chest pain-free in the ED. Patient has had a recent auscultation with left hip replacement. Patient was evaluated by cardiology at that time and was offered left heart catheter versus optimal medical management. Family recommended after medical management. Patient does have an elevated troponin. Patient is anemic likely secondary to recent surgery. Patient's EKG shows no acute changes. Shows left bundle branch without signs of Sgarbossa criteria. Patient cases is with on- call cardiology. Patient appears to be chronically anemic from her orthopedic surgery and has not rebounded. Patient still guaiac was negative therefore heparin was ordered. If the patient's troponin continued to rise consider possibly given blood. - Lab Data Lab results reviewed: Yes I reviewed the patient's lab results. Result diagrams: 11/04/17 01:07 11/04/17 01:07 Lab Results 11/04/17 11/04/17 11/04/17 Range/Units 01:07 01:07 01:07 WBC 7.1 D (4.3-11.1) K/mcL RBC 2.91 L (3.82-4.97) M/mcL Hgb 8.4 L (11.5-15.4) g/dL Hct 27.1 L (35.3-44.9) % MCV 93.1 (83.0-100.0) fL MCH 28.9 (28.0-33.3) pg MCHC 31.0 L (31.6-35.5) g/dL RDW 14.7 H (11.5-14.5) % Plt Count 309 (140-400) K/mcL MPV 9.1 L (9.4-12.4) fL Immature Gran % 0.8 (0-4) % Seg Neutrophils % 80.7 % Lymphocytes % 9.3 % Monocytes % 8.3 % Eosinophils % 0.6 % Basophils % 0.3 % Neutrophils # 5.7 (1.6-8.9) K/mcL Lymphocytes # 0.7 (0.6-4.6) K/mcL Monocytes # 0.6 (0.0-1.3) K/mcL Eosinophils # 0.0 (0.0-0.6) K/mcL Basophils # 0.0 (0.0-0.2) K/mcL PT 11.7 (9.4-12.1) Seconds INR 1.1 APTT 25.3 L (26.0-36.0) Seconds Sodium (136-145) mEq/L Potassium (3.5-5.1) mEq/L Chloride (98-107) mEq/L Carbon Dioxide (23-29) mEq/L BUN (8-23) mg/dL Creatinine (0.60-1.20) mg/dL Est GFR ( Amer) (> 60) Est GFR (Non-Af Amer) (> 60) BUN/Creatinine Ratio (6-26) Glucose (70-105) mg/dL Calculated Osmolality (280-300) Calcium (8.6-10.3) mg/dL Troponin I (< 0.04) ng/mL B-Natriuretic Peptide 1027 H (Less than 100) pg/mL Stool Occult Blood (Negative) 11/04/17 11/04/17 11/04/17 Range/Units 01:07 01:07 01:55 WBC (4.3-11.1) K/mcL RBC (3.82-4.97) M/mcL Hgb (11.5-15.4) g/dL Hct (35.3-44.9) % MCV (83.0-100.0) fL MCH (28.0-33.3) pg MCHC (31.6-35.5) g/dL RDW (11.5-14.5) % Plt Count (140-400) K/mcL MPV (9.4-12.4) fL Immature Gran % (0-4) % Seg Neutrophils % % Lymphocytes % % Monocytes % % Eosinophils % % Basophils % % Neutrophils # (1.6-8.9) K/mcL Lymphocytes # (0.6-4.6) K/mcL Monocytes # (0.0-1.3) K/mcL Eosinophils # (0.0-0.6) K/mcL Basophils # (0.0-0.2) K/mcL PT (9.4-12.1) Seconds INR APTT (26.0-36.0) Seconds Sodium 133 L (136-145) mEq/L Potassium 4.4 (3.5-5.1) mEq/L Chloride 101 (98-107) mEq/L Carbon Dioxide 17 L (23-29) mEq/L BUN 18 (8-23) mg/dL Creatinine 1.01 (0.60-1.20) mg/dL Est GFR ( Amer) > 60 (> 60) Est GFR (Non-Af Amer) 52 L (> 60) BUN/Creatinine Ratio 18 (6-26) Glucose 113 H (70-105) mg/dL Calculated Osmolality 279 L (280-300) Calcium 8.7 (8.6-10.3) mg/dL Troponin I 0.13 H* (< 0.04) ng/mL B-Natriuretic Peptide (Less than 100) pg/mL Stool Occult Blood Negative (Negative) - Radiology Data Radiology results reviewed: Yes I reviewed the patient's radiology results. Chest X-Ray 11/04/17 00:59 IMPRESSION: Bilateral atelectasis and/or pneumonia. D/ / Ariel Granger MD / Ariel Granger MD Interpreting Provider: Ariel Granger MD - EKG Data EKG attestation: Yes I reviewed and interpreted this EKG. EKG shows normal: sinus rhythm Rate: normal Rhythm: NSR [place]/QRS: LBBB Interpretation: no acute changes, nonspecific ST-T wave changes S.B.A.R. - S.B.A.R. Situation: Demographics Background: Presenting Complaint, Relevant PMH, Meds, & Allergies Assessment: Vital Signs, Course and respsone to treatment Recommendation: Barrier(s) to disposition, Recommendation based on pending studies, treatments, or consults Gloria Report Given to: Dr. Yuly Castro Repor Time: 02:17 Attestation Statement - Attestation Attestation: I examined this patient and my medical decision-making was reviewed with the Resident Physician. I agree with the documented findings, disposition and treatment plan as described except to the extent set forth below. Findings consistent with an STEMI. We did discuss the case with cardiology. They did recommend heparinization. We will start heparin, admit or further evaluation and trending of cardiac biomarkers. EKG shows no evidence of STEMI. Critical care performed:35 Time is exclusive of separately billable procedures. Time includes: direct patient care, patient reassessment, coordination of patient care, interpretation of data (laboratory data, radiology data, and respiratory data), review of patient's medical records, medical consultation and documentation of patient care. Procedures included in critical care time:0 Procedures excluded from critical care time:
[2017-11-04] MEDS ORDERED: Nitroglycerin 1 INCH/GM PACKET TP ONE (01:16)
[2017-11-04 01:18] LABS: INR 1.1; Prothrombin Time 11.7 Seconds (9.4-12.1)
[2017-11-04 01:20] LABS: Activated Partial Thrombo Time 25.3 Seconds (26.0-36.0)
[2017-11-04 01:28] LABS: BUN/Creatinine Ratio 18 (6-26); Blood Urea Nitrogen 18 mg/dL (8-23); Calcium 8.7 mg/dL (8.6-10.3); Carbon Dioxide 17 mEq/L (23-29); Chloride 101 mEq/L (98-107); Glucose 113 mg/dL (70-105); Osmolality,Calculated 279 (280-300); Potassium 4.4 mEq/L (3.5-5.1); Sodium 133 mEq/L (136-145); eGFR For African Americans > 60 (> 60); eGFR For Non-African Americans 52 (> 60)
[2017-11-04] MEDS ORDERED: *HR* Heparin 5,000 UNIT/ML VIAL IVP ONE (02:11)
[2017-11-04] MEDS ORDERED: Heparin 25,000 UNIT/500 ML D5W 25,000 UNIT/500 ML BAG IVC SCH (02:15)
[2017-11-04] MEDS ORDERED: Naloxone 0.4 MG/ML INJ IVP PRN (03:18)
[2017-11-04] MEDS ORDERED: Ipratropium/Albuterol Neb 3 ML IH PRN (03:26)
--- NOTE | 2017-11-04 03:33 | Internal Med History&Physical ---
Date of Encounter: 11/04/17 Time of Encounter: 02:30 Assessment and Plan (1) Hypothyroidism Current visit: No Status: Acute Cont home med synthroid Qualifiers: Hypothyroidism type: acquired Qualified Code(s): E03.9 - Hypothyroidism, unspecified (2) DVT prophylaxis Current visit: No Status: Acute Pt is on heparin drip (3) Chronic systolic (congestive) heart failure Current visit: No Status: Acute Stable. BNP 1027 but pt apears euvolemic. LVEF 45% on last echo on 09/05/2017 (4) Acute blood loss anemia Current visit: No Status: Acute Hgb 8.4. Stable level after Hip surgery. Consider anemia due to surgical blood loss. (5) NSTEMI (non-ST elevated myocardial infarction) Current visit: Yes Status: Acute Pt has chest pain. Troponin elevated, consider NSTEMI. Differential dx include PE as pt has recent hip surgery. Pt has no tachycardia or desaturation. Chest pain is intemittent and now pain is free. Less likely PE. Pt has left leg edema possibly due to recent hip surgery. Will order a doppler left leg to r/o DVT. - cont cardiac monitoring - Heparin drip started in ER - Cont ASA (change to 81mg qd as pt started heparin drip), imdur, statin, add low dose BB - Cardio consult in AM, keep NPO at this point in case any cardio procedure needed. Internal Medicine - H&P: HPI Chief complaint: Chest pain Admitted From: Long-term Nursing Facility Plans for Post Hospital Care: Transfer Inp Rehab Fac History of present illness: Ms. Junior is a 87 year old female with hx of recent left hip surgery, systolic CHF, sent to ER from rehab for chest pain. Pt said she has intermittent chest pain on and off for months. She has pain and SOB even when she walk short distance. Today during lunch time, she had sudden onset chest pain, located on left chest, without SOB/nausea/diaphoresis. Pt was treated with NTG paste in ER and her pain resolved later, lasted about 2 hours. In ER, troponin is positive at 0.13. EKG shows no ST elevation. Consider NSTEMI. Cardiology is consulted and heparin drip started per recommendation. Pt was admitted for further management. When I saw pt, she is pain free, in NAD. Past Med Surg Social Fam HX - Past Medical History Medical history: cardiomyopathy, CHF, COPD, hypertension Psychiatric history: no psych history - Past Surgical History Surgical History: hysterectomy - Social History Smoking Status: Current some day smoker Smokeless Tobacco Status: No Alcohol use: none Drug use: none - Family History Son Hx Family Cardiac Disorders: Yes (HTN) Internal Medicine - H&P: Meds Albuterol Sulfate [Albuterol Inhaler] 2 puff IH Q2HR PRN #2 inhaler 09/16/17 [Rx ] Atorvastatin [Lipitor] 20 mg PO HS #60 tablet 09/16/17 [Rx] Isosorbide MONOnitrate (24 HR) [Imdur] 30 mg PO DAILY #30 tab.er.24h 09/16/17 [ Rx] Calcium Carbonate/Vitamin D3 [Calcium 500 mg Chewable Tablet] 1 tab PO DAILY [History] Fluticasone/Vilanterol [Breo Ellipta 200-25 Mcg INH] 1 puff IH AD 10/24/17 [ History] Levothyroxine [Synthroid] 100 mcg PO DAILY@0630 10/24/17 [History] Polyethylene Glycol 3350 [MiraLAX] 17 gm PO DAILY 10/24/17 [History] Cholecalciferol (D-3) [Vitamin D] 1,000 unit PO DAILY tablet 10/27/17 [Rx] Ipratropium/Albuterol Neb [Duoneb] 3 ml IH [id number] PRN inhsol 10/27/17 [Rx] Omeprazole [PriLOSEC] 40 mg PO DAILY@0630 capsule. 10/27/17 [Rx] OxyCODONE Immed Rel [Roxicodone 5 MG] 5 mg PO Q6HR PRN #15 tablet 10/27/17 [Rx] Aspirin 325 mg PO BID #28 tablet 10/28/17 [Rx] 3 Allergy/AdvReac Type Severity Reaction Status Date / Time No Known Allergies Allergy Verified 11/04/17 00:59 All Systems PM: A 10-system review of systems was performed and is negative for pertinent findings except as documented above in the HPI. - Constitutional Vitals: Temp Pulse Resp BP Pulse Ox 98.3 F 78 13 105/82 95 11/04/17 00:53 11/04/17 01:15 11/04/17 02:56 11/04/17 02:56 11/04/17 01:15 General appearance: Present: A&O X 3, no acute distress, answers questions appropriately - Head Head exam: Present: atraumatic, normocephalic - Eye Eye exam: Present: PERRL, conjuntiva pink, sclera anicteric Pupils: Present: PERRL - Neck Neck exam general surgery: Present: supple, trachea midline. Absent: lymphadenopathy - Respiratory Respiratory exam: Present: CTAB. Absent: accessory muscle use, rales, rhonchi, wheezes - Cardiovascular Cardiovascular exam: Present: RRR, +S1, +S2. Absent: diastolic murmur, gallop, rubs, systolic murmur - GI/Abdominal GI/Abdominal exam: Present: normal bowel sounds, soft, no peritoneal signs. Absent: distended, tenderness - Extremities Exam Extremities exam: Present: pedal edema (Mild edema on left leg.), warm, radial pulses palpable and symmetrical. Absent: calf tenderness, cyanotic - Neurological Exam Neurological exam: Present: CN II-XII intact, oriented X3, no focal deficits. Absent: pronater drift, facial droop, speech deficit - Skin Skin exam: Present: dry, intact Internal Med - H&P Results - Labs CBC & Chem 7: 11/04/17 01:07 11/04/17 01:07 - EKG Data -: EKG Interpreted by Myself (LBBB not changed from previous EKG) EKG shows normal: sinus rhythm Rate: normal - EKG Data Prior EKG available for review: yes When compared to previous EKG: there is no significant change Interpretation IM: other (LBBB)
[2017-11-04] MEDS: D5% in 0.45% NACL 1,000 ML IVC SCH (04:09)
[2017-11-04 05:30] LABS: Basophils % 0.4 %; Eosinophils % 0.4 %; Hematocrit 26.3 % (35.3-44.9); Hemoglobin 8.4 g/dL (11.5-15.4); Immature Granulocytes % 0.8 % (0-4); Lymphocytes % 11.6 %; Mean Corpuscular HGB Conc 31.9 g/dL (31.6-35.5); Mean Corpuscular Volume 90.7 fL (83.0-100.0); Mean Platelet Volume 9.8 fL (9.4-12.4); Monocytes # 0.6 K/mcL (0.0-1.3); Monocytes % 6.8 %; Neutrophils # 6.7 K/mcL (1.6-8.9); Platelet Count 326 K/mcL (140-400); Red Cell Distribution Width 14.7 % (11.5-14.5)
[2017-11-04 05:44] LABS: BUN/Creatinine Ratio 18 (6-26); Blood Urea Nitrogen 17 mg/dL (8-23); Calcium 8.6 mg/dL (8.6-10.3); Carbon Dioxide 28 mEq/L (23-29); Chloride 103 mEq/L (98-107); Chol/HDL Ratio 2.8 (0-4.9); Cholesterol 88 mg/dL (< 200); Glucose 105 mg/dL (70-105); HDL Cholesterol 31 mg/dL (40-59); LDL Cholesterol,Calculated 46 mg/dL (0-99); Magnesium 1.9 mg/dL (1.6-2.6); Osmolality,Calculated 282 (280-300); Potassium 4.4 mEq/L (3.5-5.1); Sodium 135 mEq/L (136-145); Triglycerides 53 mg/dL (< 150); eGFR For African Americans > 60 (> 60); eGFR For Non-African Americans 55 (> 60)
[2017-11-04] MEDS ORDERED: Isosorbide MONOnitrate (24 HR) 30 MG TAB.ER.24H PO SCH (09:00)
[2017-11-04] MEDS: Aspirin Enteric Coated 81 MG Tablet PO SCH (09:16)
--- NOTE | 2017-11-04 09:53 | Cardiology Consult Note ---
Date of Encounter: 11/04/17 Time of Encounter: 09:52 Assessment and Plan (1) NSTEMI (non-ST elevated myocardial infarction) Current Visit: Yes Status: Acute Troponins 0.13, 0.15. Of note, NSTEMI with peak troponin 7.42 on 09/07/17 in setting of severe hypothyroidism and respiratory distress at that time. Pt was conservatively managed at that time--declined LHC. Echo 08/2017 EF 45%, slight improvement in anteroseptal wall on limited echo 07/15. 09/05/17 moderate MR. Pt presented with chest pain, EKG known LBBB. I again discussed LHC with pt given her chest pain and elevated troponins. R/B/A discussed. Pt continues to decline LHC, stating she does not think she can handle this procedure at her advanced age. Currently on heparin gtt--continue for 24-48 hours. ASA, Statin, BB, Imdur. Will add Plavix 75mg daily and increase Imdur to 60mg daily. (2) Chest pain Current Visit: Yes Status: Acute As above, declines LHC. Increase Imdur. Qualifiers: Chest pain type: unspecified Qualified Code(s): R07.9 - Chest pain, unspecified (3) Cardiomyopathy Current Visit: Yes Status: Acute Recently diagnosed 08/2017. EF 45%. ICMP vs NICMP. Being conservatively managed. Continue BB. Recommend ACEi prior to d/c if BP and renal function tolerate. Qualifiers: Cardiomyopathy type: unspecified Qualified Code(s): I42.9 - Cardiomyopathy , unspecified (4) Chronic systolic (congestive) heart failure Current Visit: Yes Status: Acute EF 45%. BNP 1027, decreased from 2906 08/2017. CXR bilateral atelectasis and/or PNA. Near euvolemic on exam. LLE more swollen than right. Recommend LLE doppler to r/o DVT given recent hip surgery. Recommend strict I/Os, na and fluid restriction, daily weights. Discussion w patient/family: The assessment and plan as outlined above was discussed with the patient and/or family members who expressed understanding and agreement. All questions were answered. Thank you for involving us in the care of your patient. Please call with any questions. I will discuss all the above with Dr. Balderas and make changes as necessary. History of Present Illness Consult date: 11/04/17 Requesting physician: Abelino Hoffman Consult reason: Chest pain, elevated troponin Chief complaint: Chest pain History of present illness: Ms. Junior is a 87 year old female with a past medical history of COPD not oxygen dependent, tobacco use, hypothyroidism, chronic kidney disease stage III , systolic CHF EF 45%, recent NSTEMI 08/2017 with peak troponin 7.42, who has previously declined LHC. She underwent recent hip surgery. She presented to ED yesterday for complaints of intermittent chest pain and dyspnea. Yesterday during lunch she had sudden onset of chest pain, located on left chest, radiation to both arms. Pt was treated with NTG paste in ER and her pain resolved later, lasted about 2 hours. Troponins 0.13, 0.15. Cardiology consulted for further recommendations. EKG with LBBB, not new. CXR showed bilateral atelectasis and/or PNA. Prior CV testing: Limited Echo 09/07/17: Moderate left ventricular systolic dysfunction. LVEF 45% . with slight improvement of the anteroseptal wall. Full Echo 09/05/17: LVEF 45%. Mild global LV systolic dysfunction. Mild concentric left ventricular hypertrophy. Normal right ventricular structure and function. Mild-moderately sclerotic aortic valve leaflets. Moderate mitral regurgitation. No pulmonary hypertension. There is a small to moderate circumferential pericardial effusion present which is most prominent anteriorly. There is late diastolic RA collapse with is not diagnostic for tamponade. Other parameters do not indicate tamponade physiology. Consider repeat Limited study in 1-2 days for re-evaluation or if clinical status changes. Past Med Surg Social Fam HX - Past Medical History Medical history: cardiomyopathy, CHF, COPD, hypertension Psychiatric history: no psych history - Past Surgical History Surgical History: hysterectomy - Social History Smoking Status: Current some day smoker Smokeless Tobacco Status: No Alcohol use: none Drug use: none - Family History Son Hx Family Cardiac Disorders: Yes (HTN) Medications and Allergies Albuterol Sulfate [Albuterol Inhaler] 2 puff IH Q2HR PRN #2 inhaler 09/16/17 [Rx ] Atorvastatin [Lipitor] 20 mg PO HS #60 tablet 09/16/17 [Rx] Isosorbide MONOnitrate (24 HR) [Imdur] 30 mg PO DAILY #30 tab.er.24h 09/16/17 [ Rx] Calcium Carbonate/Vitamin D3 [Calcium 500 mg Chewable Tablet] 1 tab PO DAILY [History] Fluticasone/Vilanterol [Breo Ellipta 200-25 Mcg INH] 1 puff IH AD 10/24/17 [ History] Levothyroxine [Synthroid] 100 mcg PO DAILY@0630 10/24/17 [History] Polyethylene Glycol 3350 [MiraLAX] 17 gm PO DAILY 10/24/17 [History] Cholecalciferol (D-3) [Vitamin D] 1,000 unit PO DAILY tablet 10/27/17 [Rx] Ipratropium/Albuterol Neb [Duoneb] 3 ml IH [id number] PRN inhsol 10/27/17 [Rx] Omeprazole [PriLOSEC] 40 mg PO DAILY@06 capsule. 10/27/17 [Rx] OxyCODONE Immed Rel [Roxicodone 5 MG] 5 mg PO Q6HR PRN #15 tablet 10/27/17 [Rx] Aspirin 325 mg PO BID #28 tablet 10/28/17 [Rx] Amlodipine Besylate 10 mg PO DAILY 11/04/17 [History] 3 Allergy/AdvReac Type Severity Reaction Status Date / Time No Known Allergies Allergy Verified 11/04/17 00:59 All Systems Review: A 10-system review of systems was performed and is negative for pertinent findings except as documented above in the HPI. - Cardiovascular Cardiovascular: as per HPI, chest pain at rest, chest pain with exertion, dyspnea at rest, dyspnea on exertion - Respiratory Respiratory: dyspnea Physical Examination Vital Signs, Last 4 Hours Temp Pulse Resp BP Pulse Ox 11/04/17 06:57 98.7 F 70 16 156/64 93 Vital Signs Temp Pulse Resp BP Pulse Ox 11/04/17 06:57 98.7 F 70 16 156/64 93 11/04/17 03:29 98.1 F 67 16 141/75 100 11/04/17 02:56 13 105/82 11/04/17 01:15 78 18 169/84 95 11/04/17 00:53 98.3 F 83 20 174/84 97 Intake and Output 11/03/17 11/04/17 11/04/17 23:59 07:59 15:59 Intake Total 0 / 0 Balance 0 / 0 Intake: Oral 0 / 0 Other: Meal npo Percent of Meal Consumed 0% # Voids 1 1 Weight 52.9 kg Patient Weight 11/04/17 23:59 Weight 52.9 kg General: Conversant, No Apparent Distress HEENT: Atraumatic, Normocephaly, Mucus Membranes Moist Neck: No JVD, Normal carotid pulses Cardiac: Reg Rate and Rhythm, Normal S1 and S2, No Murmur Lungs: Other (diminished) Neuro: Alert and responsive, No focal deficits noted Abdomen: Soft, Non-Tender Skin: No rashes noted on visualized skin Musculoskeletal: No Chest Wall Tenderness Extremities: No Clubbing, No Cyanosis, Normal Pulses, Other (LLE>RLE) Results 11/04/17 04:01 11/04/17 04:01 Lab Results 11/04/17 11/04/17 11/04/17 04:01 04:01 04:01 WBC 8.4 Hgb 8.4 L Hct 26.3 L Plt Count 326 Sodium 135 L Potassium 4.4 Chloride 103 Carbon Dioxide 28 BUN 17 Creatinine 0.96 Glucose 105 Calcium 8.6 Magnesium 1.9 Troponin I 0.15 H* Short CBC 11/04/17 11/04/17 Range/Units 04:01 01:07 WBC 8.4 7.1 D (4.3-11.1) K/mcL Hgb 8.4 L 8.4 L (11.5-15.4) g/dL Hct 26.3 L 27.1 L (35.3-44.9) % Plt Count 326 309 (140-400) K/mcL Neutrophils # 6.7 5.7 (1.6-8.9) K/mcL BMP 11/04/17 11/04/17 Range/Units 04:01 01:07 Sodium 135 L 133 L (136-145) mEq/L Potassium 4.4 4.4 (3.5-5.1) mEq/L Chloride 103 101 (98-107) mEq/L Carbon Dioxide 28 17 L (23-29) mEq/L BUN 17 18 (8-23) mg/dL Creatinine 0.96 1.01 (0.60-1.20) mg/dL Glucose 105 113 H (70-105) mg/dL Calcium 8.6 8.7 (8.6-10.3) mg/dL Cardiac Enzymes 11/04/17 11/04/17 Range/Units 04:01 01:07 Troponin I 0.15 H* 0.13 H* (< 0.04) ng/mL Impressions Chest X-Ray 11/04/17 00:59 IMPRESSION: Bilateral atelectasis and/or pneumonia. D/ / Ariel Granger MD / Ariel Granger MD Interpreting Provider: Ariel Granger MD Active Medications Albuterol/Ipratropium (Duoneb) 3 ml IH [id number] PRN PRN Reason: Shortness Of Breath/Wheezing Stop: 05/06/18 03:27 Aspirin (Aspirin Ec) 81 mg PO DAILY [facility] Stop: 05/06/18 09:01 Last Admin: 11/04/17 09:16 Dose: 81 mg Atorvastatin Calcium (Lipitor) 20 mg PO HS [facility] Stop: 05/06/18 21:01 Heparin Sodium/Dextrose (Heparin 25,000 Unit/500 Ml D5w) 25,000 unit in 500 mls @ 12.737 mls/hr IVC .Q24H [facility]; 12 UNIT/KG/HR PRN Reason: Protocol Stop: 05/06/18 02:16 Last Admin: 11/04/17 02:24 Dose: 12 unit/kg/hr, 12.737 mls/hr Dextrose/Sodium Chloride (D5% And 0.45% Nacl 1000 Ml Bag) 1,000 mls @ 50 mls/ hr IVC .Q20H [facility] Stop: 11/05/17 19:29 Last Admin: 11/04/17 04:09 Dose: 50 mls/hr Isosorbide Mononitrate (Imdur) 30 mg PO DAILY [facility] Stop: 05/06/18 09:01 Last Admin: 11/04/17 09:16 Dose: 30 mg Levothyroxine Sodium (Synthroid) 100 mcg PO DAILY@0630 [facility] Stop: 05/06/18 06:31 Last Admin: 11/04/17 05:56 Dose: 100 mcg Metoprolol Tartrate (Lopressor) 12.5 mg PO BID [facility] Stop: 05/06/18 03:31 Last Admin: 11/04/17 09:16 Dose: 12.5 mg Naloxone HCl (Narcan) 0.4 mg IVP Q2MIN PRN PRN Reason: SEE COMMENTS Stop: 05/06/18 03:19 Oxycodone HCl (Roxicodone) 5 mg PO Q6HR PRN; Protocol PRN Reason: Moderate Pain (4-6) Stop: 05/06/18 03:22 Pharmacy Profile Note (Patient Taking Own Medication) 1 each DAILYR [facility] Stop: 05/06/18 10:01 - Imaging and Cardiology Echo: report reviewed - EKG Interpretation EKG results cardiology: personally reviewed (SR, LBBB), other (12 hr tele AVG HR 97, SR) Consult Discharge Plan - Plan Referrals: Sabina Cui MD [Partnered Physician] - 11/21/17 11:45 am
[2017-11-04] MEDS ORDERED: Isosorbide MONOnitrate (24 HR) 30 MG TAB.ER.24H PO ONE (11:00)
[2017-11-04] MEDS: (Breo Ellipta 200-25 Mcg Inh) IH SCH (11:25)
--- NOTE | 2017-11-04 15:12 | Event Note ---
Date of Encounter: 11/04/17 Time of Encounter: 15:11 Patient positive for DVT of the left lower extremity, finalized report is pending. We will obtain a CTA of the chest since she does have the DVT and positive for chest pain on admission. Will obtain echocardiogram to rule out right heart strain
[2017-11-04] MEDS ORDERED: Nitroglycerin 0.4 MG TAB.SUBL SL PRN (19:39)
--- NOTE | 2017-11-04 19:44 | Electrocardiograph Report ---
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
[2017-11-04] MEDS ORDERED: Nitroglycerin 0.4 MG TAB.SUBL SL ONE (19:50)
[2017-11-04] MEDS ORDERED: *HR* Heparin 5,000 UNIT/ML VIAL IVP PRN ×2 (20:14)
--- NOTE | 2017-11-04 20:18 | Event Note ---
Date of Encounter: 11/04/17 Time of Encounter: 20:00 Called by radiology CTA positive for PE. Cont standard dose heparin drip.
[2017-11-05] MEDS: D5% in 0.45% NACL 1,000 ML IVC SCH (00:37)
[2017-11-05] MEDS: *HR* OxyCODONE Immed Rel 5 MG TABLET PO PRN ×3 (00:38→14:07)
--- NOTE | 2017-11-05 06:00 | Event Note ---
Date of Encounter: 11/05/17 Time of Encounter: 05:51 0510 -- received [employer] page from FIDELINA Rainey: "3B22 patient Delia Junior patient fell to floor from bedside commode..." Presented to floor at 0530 -- nursing states patient was found slumped against her bedside chair hanging onto the bed railing. Patient states she was attempting to get up from her bed when she fell to her left landing on her left thigh. Patient denies hitting her head or losing consciousness. Denies pain except for anterolateral left thigh/hip near recent ORIF site. EXAM -- head atraumatic, PERRL, EOMi, CN III-XII intact, UE strength sensation intact, negative pronator drift, sensation intact to b/l LE (strength testing limited by pain and recent trauma), no gross evidence of trauma to LLE, exquisite palpatory tenderness to left anterolateral hip/thigh region. Mild distress due to pain. No palpatory tenderness to scalp, face, clavicles, shoulders, arms, hands, chest wall, back, pelvis, right LE, LLE, or feet. Patient at baseline mentation per RN. XR of left hip/thigh, CT head non-contrast, fall precautions, and periodic neuro checks ordered. Orders communicated with RN via [employer]
[2017-11-05] MEDS: Isosorbide MONOnitrate (24 HR) 60 MG TAB.ER.24H PO SCH (08:34)
[2017-11-05] MEDS: (Breo Ellipta 200-25 Mcg Inh) IH SCH (08:35)
[2017-11-05] MEDS: Aspirin Enteric Coated 81 MG Tablet PO SCH (08:35)
--- NOTE | 2017-11-05 10:28 | Cardiology Progress Note ---
Date of Encounter: 11/05/17 Time of Encounter: 10:24 Assessment and Plan (1) Elevated troponin Current Visit: Yes Status: Acute Troponins 0.13, 0.15, 0.19 in setting of newly discovered PE and DVT. Now suspect demand ischemia given these new findings. Nondiagnostic for ACS. Of note, NSTEMI with peak troponin 7.42 on 09/07/17 in setting of severe hypothyroidism and respiratory distress at that time. Pt was conservatively managed at that time--declined LHC. Echo 08/2017 EF 45%, slight improvement in anteroseptal wall on limited echo 07/15. 09/05/17 moderate MR. Pt presented with chest pain, EKG known LBBB. I again discussed LHC with pt yesterday and she declined. R/B/A discussed. With acute PE and DVT, LHC would not be recommended at this time. Currently on heparin gtt--continue for PE and DVT. Chronic anticoagulation per primary team. Echo was ordered by primary team to evaluate for right heart strain. ASA, Statin, BB, Imdur. Plavix 75mg daily was added yesterday, but given PE/DVT warranting anticoagulation, will stop Plavix so that pt is not on triple therapy. Cardiology signing off. Reconsult PRN. (2) Chest pain Current Visit: Yes Status: Acute As above, in setting of PE. Imdur increased as well given recent NSTEMI with conservative management. Qualifiers: Chest pain type: unspecified Qualified Code(s): R07.9 - Chest pain, unspecified (3) Cardiomyopathy Current Visit: Yes Status: Acute Recently diagnosed 08/2017. EF 45%. ICMP vs NICMP. Being conservatively managed. Continue BB. Recommend ACEi prior to d/c if BP and renal function tolerate. Qualifiers: Cardiomyopathy type: unspecified Qualified Code(s): I42.9 - Cardiomyopathy , unspecified (4) Chronic systolic (congestive) heart failure Current Visit: Yes Status: Acute EF 45%. BNP 1027, decreased from 2906 08/2017. CXR bilateral atelectasis and/or PNA. Near euvolemic on exam. LLE more swollen than right. Recommend LLE doppler to r/o DVT given recent hip surgery. Recommend strict I/Os, na and fluid restriction, daily weights. Discussion w patient/family: The assessment and plan as outlined above was discussed with the patient and/or family members who expressed understanding and agreement. All questions were answered. Thank you for involving us in the care of your patient. Please call with any questions. I will discuss all the above with Dr. Balderas and make changes as necessary. Subjective Principal diagnosis: PE, DVT, elevated troponin Interval history: Chest CT demonstrates PE, LE doppler demonstrates LLE DVT. Pt denies chest pain overnight. On heparin gtt. Objective Vital Signs, Last 4 Hours Temp Pulse Resp BP Pulse Ox 11/05/17 07:32 98.6 F 56 15 146/63 96 11/05/17 06:55 97.9 F 67 18 153/70 99 Vital Signs Temp Pulse Resp BP Pulse Ox 11/05/17 07:32 98.6 F 56 15 146/63 96 11/05/17 06:55 97.9 F 67 18 153/70 99 11/05/17 06:00 98.2 F 66 16 159/74 100 11/05/17 05:43 98.1 F 67 16 181/67 100 11/05/17 05:10 98.4 F 85 16 167/79 98 11/05/17 03:18 98.5 F 62 14 150/66 97 11/04/17 23:12 98.1 F 76 16 166/72 97 11/04/17 19:58 79 16 138/73 98 11/04/17 19:32 88 20 192/106 96 11/04/17 16:53 98.2 F 64 16 129/73 98 11/04/17 11:44 98.1 F 61 16 140/77 98 Intake and Output 11/04/17 11/05/17 11/05/17 23:59 07:59 15:59 Intake Total 150 / 150 1100 / 1100 240 / 240 Balance 150 / 150 1100 / 1100 240 / 240 Intake: IV Fluids 150 / 150 1100 / 1100 120 / 120 D5% And 0.45% Nacl 1000 Ml Bag 1000 / 1000 1,000 ML @ 50 mls/hr IVC .Q20H [facility] Rx#:[id number] Heparin 25,000 UNIT/500 ML D5W 150 / 150 100 / 100 25,000 unit In 500 ml @ 12 UNIT /KG/HR 12.737 mls/hr IVC .Q24H [facility] Rx#:[id number] Oral 120 / 120 Other: Meal Breakfast Percent of Meal Consumed 25% Weight 53.8 kg Patient Weight 11/05/17 23:59 Weight 53.8 kg General: Conversant, No Apparent Distress HEENT: Atraumatic, Normocephaly, Mucus Membranes Moist Neck: No JVD, Normal carotid pulses Cardiac: Reg Rate and Rhythm, Normal S1 and S2, No Murmur Lungs: Other (diminished) Neuro: Alert and responsive, No focal deficits noted Abdomen: Soft, Non-Tender Skin: No rashes noted on visualized skin Musculoskeletal: No Chest Wall Tenderness Extremities: No Clubbing, No Cyanosis, Other (LLE swelling>RLE) Results 11/04/17 04:01 11/04/17 04:01 Lab Results 11/04/17 11/05/17 11/05/17 16:27 01:14 07:54 APTT 45.4 H 54.2 H 80.3 H Impressions Chest CTA 11/04/17 15:08 IMPRESSION: Positive for pulmonary embolism within the right lung, mainly within the right middle lobe and right lower lobe. Findings were discussed with Dr. Hoffman At 8:09 pm on 11/04/2017. D/ / Kirill Lindsay MD / Kirill Lindsay MD Interpreting Provider: Kirill Lindsay MD Femur X-Ray 11/05/17 05:34 IMPRESSION: No fracture or malalignment. D/ / Ariel Granger MD / Ariel Granger MD Interpreting Provider: Ariel Granger MD Pelvis X-Ray 11/05/17 05:34 IMPRESSION: No fracture or malalignment. D/ / Ariel Granger MD / Ariel Granger MD Interpreting Provider: Ariel Granger MD Head CT 11/05/17 05:41 IMPRESSION: 1. Small vessel chronic ischemic changes without acute hemorrhage or definite evidence for acute ischemia. 2. Persistent right-sided mastoiditis and otitis media with improving right sphenoid sinusitis. D/ / Ariel Granger MD / Ariel Granger MD Interpreting Provider: Ariel Granger MD Active Medications Albuterol/Ipratropium (Duoneb) 3 ml IH [id number] PRN PRN Reason: Shortness Of Breath/Wheezing Stop: 05/06/18 03:27 Aspirin (Aspirin Ec) 81 mg PO DAILY [facility] Stop: 05/06/18 09:01 Last Admin: 11/05/17 08:35 Dose: 81 mg Atorvastatin Calcium (Lipitor) 20 mg PO HS [facility] Stop: 05/06/18 21:01 Last Admin: 11/04/17 19:54 Dose: 20 mg Clopidogrel Bisulfate (Plavix) 75 mg PO DAILY [facility] Stop: 05/06/18 11:01 Last Admin: 11/05/17 08:35 Dose: 75 mg Heparin Sodium (Porcine) (Heparin) 3,700 unit 70 unit/kg (3700 unit) IVP Q6HR PRN PRN Reason: SEE COMMENTS Stop: 05/06/18 20:15 Heparin Sodium (Porcine) (Heparin) 1,900 unit 35 unit/kg (1900 unit) IVP Q6H PRN PRN Reason: SEE COMMENTS Stop: 05/06/18 20:15 Last Admin: 11/05/17 02:28 Dose: 1,900 unit Dextrose/Sodium Chloride (D5% And 0.45% Nacl 1000 Ml Bag) 1,000 mls @ 50 mls/ hr IVC .Q20H [facility] Stop: 11/05/17 19:29 Last Admin: 11/05/17 00:37 Dose: 50 mls/hr Heparin Sodium/Dextrose (Heparin 25,000 Unit/500 Ml D5w) 25,000 unit in 500 mls @ 14.812 mls/hr IVC .Q24H [facility]; 14 UNIT/KG/HR PRN Reason: Protocol Stop: 05/06/18 20:16 Isosorbide Mononitrate (Imdur) 60 mg PO DAILY [facility] Stop: 05/07/18 09:01 Last Admin: 11/05/17 08:34 Dose: 60 mg Levothyroxine Sodium (Synthroid) 100 mcg PO DAILY@0630 [facility] Stop: 05/06/18 06:31 Last Admin: 11/05/17 06:46 Dose: 100 mcg Metoprolol Tartrate (Lopressor) 12.5 mg PO BID [facility] Stop: 05/06/18 03:31 Last Admin: 11/05/17 08:34 Dose: 12.5 mg Naloxone HCl (Narcan) 0.4 mg IVP Q2MIN PRN PRN Reason: SEE COMMENTS Stop: 05/06/18 03:19 Nitroglycerin (Nitroglycerin) 0.4 mg SL Q5MIN PRN PRN Reason: Chest Pain Stop: 05/06/18 19:40 Oxycodone HCl (Roxicodone) 5 mg PO Q6HR PRN; Protocol PRN Reason: Moderate Pain (4-6) Stop: 05/06/18 03:22 Last Admin: 11/05/17 06:48 Dose: 5 mg Pharmacy Profile Note (Patient Taking Own Medication) 1 each IH DAILYR [facility] Stop: 05/06/18 10:01 Last Admin: 11/05/17 08:35 Dose: Not Given - EKG Interpretation EKG results cardiology: other (12 hr tele AVG HR 62, SR) Consult Discharge Plan - Plan Referrals: Sabina Cui MD [Partnered Physician] - 11/21/17 11:45 am
[2017-11-05] MEDS: Heparin 25,000 UNIT/500 ML D5W 25,000 UNIT/500 ML BAG IVC SCH ×2 (11:18→22:59)
[2017-11-05 11:28] LABS: Immature Reticulocyte % 25.4 % (11.0-38.0); Retculocyte # 0.07 M/mcL (0.05-0.10); Reticulocyte % 2.8 % (1.6-2.8)
[2017-11-05 12:02] LABS: % Iron Saturation 16 % (15-50); Ferritin 283 ng/ml (10-120); Iron 22 mcg/dL (50-170); Lactate Dehydrogenase 142 Units/L (140-271); Transferrin 98 mg/dL (203-362)
[2017-11-05 12:08] LABS: Folate 12.8 ng/mL (3.0-16.0)
--- NOTE | 2017-11-05 12:42 | Electrocardiograph Report ---
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
[2017-11-05 12:45] LABS: Hematocrit 22.7 % (35.3-44.9)
--- NOTE | 2017-11-05 15:38 | Orthopedic Consult Note ---
Date of Encounter: 11/05/17 Time of Encounter: 15:35 Assessment and Plan (1) Hip fracture, left Current Visit: Yes Status: Acute Regarding the left hip patient is doing as expected. My recommendation is for supportive treatment of her PE by the hospitalist service and NSTEMI by cardiology. Regarding the left hip she is weightbearing as tolerated and daily dressing changes. Begin physical therapy when able. Posterior hip precautions on the left. I will keep the adriane in place and see her in the office next week for removal or if she is here in the hospital I will take them out myself at that time. I will be available as needed. Qualifiers: Qualified Code(s): S72.002D - Fracture of unspecified part of neck of left femur, subsequent encounter for closed fracture with routine healing History of Present Illness HPI: Ms. Junior is a 87 year old female who is almost 2 weeks out from left hip hemiarthroplasty. She was discharged and readmitted due to NSTEMI. She is on the hospitalist service and cardiology has been consulted. I was asked to evaluate the patient due to her recent left hip hemiarthroplasty. The patient has expected postoperative pain which is not significant. No new injuries or complaints. She denies any numbness, tingling, or other signs or symptoms or modifying factors. Past Med Surg Social Fam HX - Past Medical History Medical history: cardiomyopathy, CHF, COPD, hypertension Psychiatric history: no psych history - Past Surgical History Surgical History: hysterectomy - Social History Smoking Status: Current some day smoker Smokeless Tobacco Status: No Alcohol use: none Drug use: none - Family History Son Hx Family Cardiac Disorders: Yes (HTN) Medications and Allergies Albuterol Sulfate [Albuterol Inhaler] 2 puff IH Q2HR PRN #2 inhaler 09/16/17 [Rx ] Atorvastatin [Lipitor] 20 mg PO HS #60 tablet 09/16/17 [Rx] Isosorbide MONOnitrate (24 HR) [Imdur] 30 mg PO DAILY #30 tab.er.24h 09/16/17 [ Rx] Calcium Carbonate/Vitamin D3 [Calcium 500 mg Chewable Tablet] 1 tab PO DAILY [History] Fluticasone/Vilanterol [Breo Ellipta 200-25 Mcg INH] 1 puff IH AD 10/24/17 [ History] Levothyroxine [Synthroid] 100 mcg PO DAILY@0630 10/24/17 [History] Polyethylene Glycol 3350 [MiraLAX] 17 gm PO DAILY 10/24/17 [History] Cholecalciferol (D-3) [Vitamin D] 1,000 unit PO DAILY tablet 10/27/17 [Rx] Ipratropium/Albuterol Neb [Duoneb] 3 ml IH [id number] PRN inhsol 10/27/17 [Rx] Omeprazole [PriLOSEC] 40 mg PO DAILY@0630 capsule. 10/27/17 [Rx] OxyCODONE Immed Rel [Roxicodone 5 MG] 5 mg PO Q6HR PRN #15 tablet 10/27/17 [Rx] Aspirin 325 mg PO BID #28 tablet 10/28/17 [Rx] Amlodipine Besylate 10 mg PO DAILY 11/04/17 [History] 3 Allergy/AdvReac Type Severity Reaction Status Date / Time No Known Allergies Allergy Verified 11/04/17 00:59 All Systems Reviewed: A 10-system review of systems was performed and is negative for pertinent findings except as documented above in the HPI. Physical Exam - Constitutional Vitals: Temp Pulse Resp BP Pulse Ox 98.0 F 59 16 116/58 96 11/05/17 11:27 11/05/17 11:27 11/05/17 11:27 11/05/17 11:27 11/05/17 11:27 CONSTITUTIONAL -Vitals reviewed -The patient is well developed, well nourished, well groomed PSYCHIATRIC -Fully alert and oriented -Pleasant mood LEFT LOWER EXTREMITY The incision is healing nicely and the adriane are in place but not yet ready to come out. No significant redness or concern for infection. I can gently log roll the left hip and axial load the femur without significant pain. She can dorsiflex and plantarflex the ankle and toes and the foot is sensate and well-perfused. Diagnostic Imaging: I did personally review and interpret x-rays of the left femur which showed good position of her hip hemiarthroplasty. Results - Labs Result Diagrams: 11/05/17 12:13 11/04/17 04:01 Labs: Abnormal lab results RBC 2.90 M/mcL (3.82-4.97) L 11/04/17 04:01 Hgb 7.0 g/dL (11.5-15.4) L 11/05/17 12:13 Hct 22.7 % (35.3-44.9) L 11/05/17 12:13 RDW 14.7 % (11.5-14.5) H 11/04/17 04:01 Retic Hgb Equivalent 27.8 pg (28.61-36.33) L 11/05/17 11:11 APTT 70.7 Seconds (26.0-36.0) H 11/05/17 14:40 Sodium 135 mEq/L (136-145) L 11/04/17 04:01 Est GFR (Non-Af Amer) 55 (> 60) L 11/04/17 04:01 Iron 22 mcg/dL (50-170) L 11/05/17 11:11 Transferrin 98 mg/dL (203-362) L 11/05/17 11:11 Ferritin 283 ng/ml (10-120) H 11/05/17 11:11 Troponin I 0.19 ng/mL (< 0.04) H* 11/04/17 09:32 B-Natriuretic Peptide 1027 pg/mL (Less than 100) H 11/04/17 01:07 HDL Cholesterol 31 mg/dL (40-59) L 11/04/17 04:01 Vitamin B12 159 pg/mL (250-1100) L 11/05/17 11:11 H & H 11/05/17 Range/Units 12:13 Hgb 7.0 L (11.5-15.4) g/dL Hct 22.7 L (35.3-44.9) % All other labs normal. Consult Discharge Plan - Plan Referrals: Sabina Cui MD [Partnered Physician] - 11/21/17 11:45 am
--- NOTE | 2017-11-05 16:24 | Oncology Inp Consult Note ---
<Pattie Bear L - Last Filed: 11/05/17 23:52> Date of Encounter: 11/05/17 Time of Encounter: 15:30 Assessment and Plan (1) Anemia Status: Acute Assessment and plan: New onset anemia in the setting of acute PE and LLE acute DVT. Currently anticoagulated with heparin gtt. Echo pending. Discussed code status and goals of care at length with patient today. She wishes to remain full code. Explained difficult situation with current NSTEMI, Acute PE/DVT and worsening anemia which is concerning for acute bleed. Hgb has decreased further today to 7. Discussed potential need for GI consultation for endoscopy. Hospitalist team concerned for hematoma to left hip following patients fall this morning. This could be cause of acute drop in hgb, although GI bleed is still suspected. Attending INSIGHT LEADER has ordered U/S to determine if area is acute hematoma vs usual post op bruising. If determined to be acute hematoma would recommend stopping heparin gtt. If area not found to be hematoma would recommend continuing gtt unless patients hgb acutely drops or she develops s/s of bleeding, pending further GI workup. Will order 1 unit PRBC transfusion, attending team to determine if patient needs IV lasix with PRBC. Plan for GI consultation to determine need for scope to find etiology of anemia with suspected GI bleed. Anemia lab workup ordered including iron profile, ferritin, B12, folate, retic count, LDH, haptoglobin. Plan for anticoagulation on discharge is TBD pending further workup as detailed above. Plan discussed with patient who verbalizes understanding and agrees with plan as above. Inpatient INSIGHT LEADER updated on plan. Please refer to Dr. Grayson's attestation below for further details. Qualifiers: Anemia type: unspecified type Qualified Code(s): D64.9 - Anemia, unspecified - Data of Consult Patient: new to practice Consult date: 11/05/17 Requesting Physician: Pattie Davila CNP Primary Care Provider: PCP NONE - Consult Narrative Reason for consult: Anemia, PE, Acute DVT History of present illness: Ms. Junior is a 87 year old female s/p recent left hip replacement/arthoplasty on 10/25/17 following fall at home. She presented to ER on 11/04/17 with c/o acute increase in chest pain experienced during her outpatient therapy session. She has apparently had intermittent chest pain on and off for months along with increased SOB with exertion. She was found to have elevated troponin in ER with suspected NSTEMI. Hx of newly diagnosed cardiomyopathy and systolic CHF. Cardiology consulted, she declined LHC for NSTEMI, medically managed with heparin gtt among other medication. Venous doppler positive for acute DVT in left posterior tibial/peroneal veins on 11/04/17. CTA reveals PE in right lung mainly within right middle lobe and right lower lobe. She is also anemic with hgb of 8.4 and further decreased to 7. Hematology consulted for recommendation for management and anticoagulation decision in setting of PE/Acute DVT and new onset anemia. Past Med Surg Social Fam HX - Past Medical History Medical history: cardiomyopathy, CHF, COPD, hypertension Psychiatric history: no psych history - Past Surgical History Surgical History: hysterectomy - Social History Smoking Status: Current some day smoker Smokeless Tobacco Status: No Alcohol use: none Drug use: none - Family History Son Hx Family Cardiac Disorders: Yes (HTN) Medications and Allergies Albuterol Sulfate [Albuterol Inhaler] 2 puff IH Q2HR PRN #2 inhaler 09/16/17 [Rx ] Atorvastatin [Lipitor] 20 mg PO HS #60 tablet 09/16/17 [Rx] Isosorbide MONOnitrate (24 HR) [Imdur] 30 mg PO DAILY #30 tab.er.24h 09/16/17 [ Rx] Calcium Carbonate/Vitamin D3 [Calcium 500 mg Chewable Tablet] 1 tab PO DAILY [History] Fluticasone/Vilanterol [Breo Ellipta 200-25 Mcg INH] 1 puff IH AD 10/24/17 [ History] Levothyroxine [Synthroid] 100 mcg PO DAILY@0630 10/24/17 [History] Polyethylene Glycol 3350 [MiraLAX] 17 gm PO DAILY 10/24/17 [History] Cholecalciferol (D-3) [Vitamin D] 1,000 unit PO DAILY tablet 10/27/17 [Rx] Ipratropium/Albuterol Neb [Duoneb] 3 ml IH [id number] PRN inhsol 10/27/17 [Rx] Omeprazole [PriLOSEC] 40 mg PO DAILY@0630 da. 10/27/17 [Rx] OxyCODONE Immed Rel [Roxicodone 5 MG] 5 mg PO Q6HR PRN #15 tablet 10/27/17 [Rx] Aspirin 325 mg PO BID #28 tablet 10/28/17 [Rx] Amlodipine Besylate 10 mg PO DAILY 11/04/17 [History] 3 Allergy/AdvReac Type Severity Reaction Status Date / Time No Known Allergies Allergy Verified 11/04/17 00:59 Constitutional: Present: fatigue. Absent: chills, fever(s), weight loss Eyes: Absent: change in vision Nose, mouth and throat: Absent: mouth lesions Cardiovascular: Present: chest pain. Absent: irregular heart rhythm, lightheadedness, palpitations Respiratory: Present: dyspnea on exertion. Absent: cough Gastrointestinal: Absent: abdominal pain, hematemesis, hematochezia, melena, nausea, vomiting Genitourinary: Absent: dysuria, hematuria Musculoskeletal: Present: as per HPI Integumentary: Present: as per HPI Additional comments: surgical incision left hip Neurological: Absent: focal weakness, numbness, syncope, tingling Psychiatric: Absent: change in appetite Hematologic/Lymphatic: Absent: easy bleeding, lymphadenopathy Oncology - Exam - Constitutional Vitals: Temp Pulse Resp BP Pulse Ox 98.0 F 67 16 129/64 97 11/05/17 15:52 11/05/17 15:52 11/05/17 15:52 11/05/17 15:52 11/05/17 15:52 General appearance: cooperative, no acute distress, no febrile - Head Head exam: Present: atraumatic - Respiratory Respiratory exam: Present: CTAB. Absent: respiratory distress - Cardiovascular Cardiovascular exam: Present: RRR, +S1, +S2 - GI/Abdominal GI/Abdominal exam: Present: normal bowel sounds, soft. Absent: guarding, tenderness - Extremities Exam Additional comments: 1+ INSIGHT LEADER edema LLE. left hip incision s/p total joint replacement/arthroplasty, dressing recently changed by ortho, currently D&I. - Neurological Exam Neurological exam: Present: alert, oriented X3, no focal deficits, strengths equal and symetr throughout - Psychiatric Psychiatric exam: Present: normal affect, normal mood - Skin Skin exam: Present: pallor, warm Oncology - Results Labs: Short CBC 11/05/17 Range/Units 12:13 Hgb 7.0 L (11.5-15.4) g/dL Hct 22.7 L (35.3-44.9) % Consult Discharge Plan - Plan Referrals: Sabina Cui MD [Partnered Physician] - 11/21/17 11:45 am <Mani Grayson - Last Filed: 11/06/17 08:33> Date of Encounter: 11/06/17 - Data of Consult Requesting Physician: Pattie Davila CNP Primary Care Provider: PCP NONE - Consult Narrative History of present illness: Ms. Junior is a 87 year old female Oncology - Exam - Constitutional Vitals: Temp Pulse Resp BP Pulse Ox 98.6 F 75 15 127/70 95 11/06/17 07:27 11/06/17 07:27 11/06/17 07:27 11/06/17 07:27 11/06/17 07:27 Oncology - Results Labs: Short CBC 11/05/17 11/05/17 11/06/17 Range/Units 12:13 20:20 03:46 Hgb 7.0 L 7.5 L 8.2 L (11.5-15.4) g/dL Hct 22.7 L 23.5 L 25.4 L (35.3-44.9) % - Attending Attestation Seen and examined patient and agree with findings and plan. Abrupt drop in Hgb suggests potentialy GI bleed given her ongoing anticoagulation. Recommend transfusing blood as able. MNay need to discontinue heparin gtt as able given her recent PA. Patient also with fair burden of DVT and PE. Recommend endoscopic evaluation. IF cause of bleeding can be identified and remedied then anticoagulation could be resumed.
--- NOTE | 2017-11-05 17:20 | Internal Med Progress Note ---
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 BNP 1027, decreased from 2906 08/2017. CXR bilateral atelectasis and/or PNA. Near euvolemic on exam. LLE more swollen than rightwith LLE doppler positive for DVT strict I/Os, sodium and fluid restriction, daily weights. (3) Elevated troponin Current Visit: Yes Status: Acute Assessment and plan: No chest pain, echo ordered per cardiology service Troponins 0.13, 0.15, 0.19 in setting of newly discovered PE and DVT. Now suspect demand ischemia given these new findings. Nondiagnostic for ACS. Of note, NSTEMI with peak troponin 7.42 on 09/07/17 in setting of severe hypothyroidism and respiratory distress at that time. Pt was conservatively managed at that time--declined LHC. Echo 08/2017 EF 45%, slight improvement in anteroseptal wall on limited echo 07/15. 09/05/17 moderate MR. Pt presented with chest pain, EKG known LBBB. I again discussed LHC with pt yesterday and she declined. R/B/A discussed. With acute PE and DVT, LHC would not be recommended at this time. Currently on heparin gtt--continue for PE and DVT. Chronic anticoagulation per primary team. Echo was ordered by primary team to evaluate for right heart strain. ASA, Statin, BB, Imdur. Plavix 75mg daily was added yesterday, but given PE/DVT warranting anticoagulation, will stop Plavix so that pt is not on triple therapy. Cardiology signing off. Reconsult PRN. (4) Hip fracture, left Current Visit: Yes Status: Acute Assessment and plan: Agent with some left hip discomfort she is 2 weeks out from a left hip hemiarthroplasty status post a fall Orthopedic service saw today and made the following recommendations Regarding the left hip patient is doing as expected. My recommendation is for supportive treatment of her PE by the hospitalist service and NSTEMI by cardiology. Regarding the left hip she is weightbearing as tolerated and daily dressing changes. Begin physical therapy when able. Posterior hip precautions on the left. I will keep the adriane in place and see her in the office next week for removal or if she is here in the hospital I will take them out myself at that time. I will be available as needed. Qualifiers: Qualified Code(s): S72.002D - Fracture of unspecified part of neck of left femur, subsequent encounter for closed fracture with routine healing (5) Pulmonary emboli Current Visit: Yes Status: Acute Assessment and plan: Patient found to have a left lower extremity DVT provoked by recent left hip surgery, Patient had presented with some chest pain so was sent for a CTA of the chest CTA revealed pulmonary embolism within the right lung mainly within the right middle lobe and right lower lobe. Ordered echocardiogram to rule out right heart strain Remains on heparin drip at this time Oncology consult did to assist with management of the PE and DVT including discharge medications. Qualifiers: Qualified Code(s): I26.99 - Other pulmonary embolism without acute cor pulmonale (6) Fall Current Visit: Yes Status: Acute Assessment and plan: Fell approximately 2-1/2 weeks ago resulting in a fractured left hip Fell last night Qualifiers: Encounter type: initial encounter Qualified Code(s): W19.XXXA - Unspecified fall, initial encounter (7) DVT prophylaxis Current Visit: No Status: Acute Assessment and plan: Positive for left lower extremity DVT and right pulmonary embolism Patient on heparin drip at this time - Subjective Interval history: Patient lying in bed in no distress. Dr. Ramirez and myself discussed her plan of care, including CODE STATUS and her wishes. Went into great detail about the comorbidities that she is facing including her PE and DVT, n STEMI recent hip surgery and complications involved these combined. She stated that was a lot to think about. At this time she will remain a full code and she is not sure if she was to undergo a left heart catheter while she is here or not. Oncology also had a similar discussion with her and she indicated she wants to be a full code. Also discussed the need for blood transfusion and GI consult with possible EGD. She verbalized understanding. - Constitutional Vitals: Temp Pulse Resp BP Pulse Ox 98.0 F 67 16 129/64 97 11/05/17 15:52 11/05/17 15:52 11/05/17 15:52 11/05/17 15:52 11/05/17 15:52 General appearance: Present: A&O X 3, no acute distress, answers questions appropriately - Head Head exam: Present: atraumatic, normocephalic - Eye Eye exam: Present: PERRL, conjuntiva pink, sclera anicteric Pupils: Present: PERRL - Neck Neck exam general surgery: Present: supple, trachea midline. Absent: lymphadenopathy - Respiratory Respiratory exam: Present: CTAB. Absent: accessory muscle use, rales, rhonchi, wheezes - Cardiovascular Cardiovascular exam: Present: RRR, +S1, +S2. Absent: diastolic murmur, gallop, rubs, systolic murmur - GI/Abdominal GI/Abdominal exam: Present: normal bowel sounds, soft, no peritoneal signs. Absent: distended, tenderness - Extremities Exam Extremities exam: Present: warm, radial pulses palpable and symmetrical. Absent : calf tenderness, cyanotic, pedal edema Additional comments: Extremity edematous with calf tenderness known DVT Thigh is tolerant and mildly discolored. Hip wound is approximated with no drainage S - Neurological Exam Neurological exam: Present: CN II-XII intact, oriented X3, no focal deficits. Absent: pronater drift, facial droop, speech deficit - Skin Skin exam: Present: dry, intact, warm Internal Medicine: Result - Labs CBC & Chem 7: 11/05/17 12:13 11/04/17 04:01 Labs: Short CBC 11/05/17 Range/Units 12:13 Hgb 7.0 L (11.5-15.4) g/dL Hct 22.7 L (35.3-44.9) % - ABG Interpretation ABG results: PT/INR, D-dimer PT 11.7 Seconds (9.4-12.1) 11/04/17 01:07 - Impressions Impressions Chest CTA 11/04/17 15:08 IMPRESSION: Positive for pulmonary embolism within the right lung, mainly within the right middle lobe and right lower lobe. Findings were discussed with Dr. Hoffman At 8:09 pm on 11/04/2017. D/ / Kirill Lindsay MD / Kirill Lindsay MD Interpreting Provider: Kirill Lindsay MD Femur X-Ray 11/05/17 05:34 IMPRESSION: No fracture or malalignment. D/ / Ariel Granger MD / Ariel Granger MD Interpreting Provider: Ariel Granger MD Pelvis X-Ray 11/05/17 05:34 IMPRESSION: No fracture or malalignment. D/ / Ariel Granger MD / Ariel Granger MD Interpreting Provider: Ariel Granger MD Head CT 11/05/17 05:41 IMPRESSION: 1. Small vessel chronic ischemic changes without acute hemorrhage or definite evidence for acute ischemia. 2. Persistent right-sided mastoiditis and otitis media with improving right sphenoid sinusitis. D/ / Ariel Granger MD / Ariel Granger MD Interpreting Provider: Ariel Granger MD Consult Discharge Plan - Plan Referrals: Sabina Cui MD [Partnered Physician] - 11/21/17 11:45 am
[2017-11-05] MEDS ORDERED: Ondansetron 4 MG/2 ML VIAL IVP PRN (18:49)
[2017-11-05] MEDS ORDERED: Ondansetron 4 MG/2 ML VIAL ONE (18:51)
[2017-11-05 20:55] LABS: Hematocrit 23.5 % (35.3-44.9); Hemoglobin 7.5 g/dL (11.5-15.4)
[2017-11-05] MEDS ORDERED: 0.9 % Sodium Chloride 250 ML ONE (22:46)
[2017-11-06] MEDS ORDERED: Furosemide 20 MG/2 ML VIAL IVP ONE (04:00)
[2017-11-06 04:25] LABS: Hematocrit 25.4 % (35.3-44.9); Hemoglobin 8.2 g/dL (11.5-15.4)
[2017-11-06] MEDS: *HR* OxyCODONE Immed Rel 5 MG TABLET PO PRN (05:46)
--- NOTE | 2017-11-06 10:09 | Internal Med Progress Note ---
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 BNP 1027, decreased from 2906 08/2017. CXR bilateral atelectasis and/or PNA. LLE more swollen than right with LLE doppler positive for DVT strict I/Os, sodium and fluid restriction, daily weights. (3) Elevated troponin Current Visit: Yes Status: Acute Assessment and plan: No chest pain, echo ordered per cardiology service Troponins 0.13, 0.15, 0.19 in setting of newly discovered PE and DVT. Now suspect demand ischemia given these new findings. Nondiagnostic for ACS. Of note, NSTEMI with peak troponin 7.42 on 09/07/17 in setting of severe hypothyroidism and respiratory distress at that time. Pt was conservatively managed at that time--declined LHC. Echo 08/2017 EF 45%, slight improvement in anteroseptal wall on limited echo 07/15. 09/05/17 moderate MR. Pt presented with chest pain, EKG known LBBB. discussed LHC with pt and she declined. R/B/A discussed. With acute PE and DVT, LHC would not be recommended at this time. Heparin gtt discontinued secondary to thigh hematoma and blood in stool - positive PE and DVT. Chronic anticoagulation as per hematology Echo was ordered by primary team to evaluate for right heart strain. ASA, Statin, BB, Imdur. Plavix 75mg daily was added, but given PE/DVT warranting anticoagulation, stooped Plavix so that pt not on triple therapy. Cardiology signing off. Reconsult PRN. I let the service note that she would consider a left heart cath and they responded that they will follow up outpatient with medical management secondary to her new PE and DVT diagnosis. (4) Hip fracture, left Current Visit: Yes Status: Acute Assessment and plan: Patient with some left hip discomfort, she is 2 weeks out from a left hip hemiarthroplasty status post a fall Orthopedic service saw and made the following recommendations Regarding the left hip patient is doing as expected. My recommendation is for supportive treatment of her PE by the hospitalist service and NSTEMI by cardiology. Regarding the left hip she is weightbearing as tolerated and daily dressing changes. Begin physical therapy when able. Posterior hip precautions on the left. I will keep the adriane in place and see her in the office next week for removal or if she is here in the hospital I will take them out myself at that time. I will be available as needed. Patient does have a hematoma of the left thigh, no fractures appreciated on x- ray or CT. She states her pain is doing better No extension of the hematoma and less tense Qualifiers: Fracture type: closed Fracture healing: with routine healing Qualified Code(s): S72.002D - Fracture of unspecified part of neck of left femur, subsequent encounter for closed fracture with routine healing (5) Pulmonary emboli Current Visit: Yes Status: Acute Assessment and plan: Patient found to have a left lower extremity DVT provoked by recent left hip surgery, Patient had presented with some chest pain so was sent for a CTA of the chest CTA revealed pulmonary embolism within the right lung mainly within the right middle lobe and right lower lobe. Echocardiogram to rule out right heart strain completed Heparin drip dc'ed Oncology consult to assist with in management of the PE and DVT including discharge medications and anemia Qualifiers: Qualified Code(s): I26.99 - Other pulmonary embolism without acute cor pulmonale (6) Fall Current Visit: Yes Status: Acute Assessment and plan: Fell approximately 2-1/2 weeks ago resulting in a fractured left hip Fell 11/05/17 Qualifiers: Encounter type: initial encounter Qualified Code(s): W19.XXXA - Unspecified fall, initial encounter (7) DVT prophylaxis Current Visit: No Status: Acute Assessment and plan: Positive left lower extremity DVT and right pulmonary embolism heparin drip dc,ed secondary to bleeding (8) Diarrhea Current Visit: Yes Status: Acute Assessment and plan: Stool for C. difficile pending Qualifiers: Diarrhea type: unspecified type Qualified Code(s): R19.7 - Diarrhea, unspecified - Subjective Interval history: Patient lying in bed in no distress. She has met with Pallative care this am and wants any procedures done that "will keep her alive". Her son is her power of insurance defense attorney and he understands this is her wishes. She will remain a full code. She denies chest pain, shortness of breath, nausea, vomiting, abdominal pain but is having diarrhea. She also reports she had some blood in her stools last night. She denies fever or chills. She states her leg feels better today. - Constitutional Vitals: Temp Pulse Resp BP Pulse Ox 98.6 F 75 15 127/70 95 11/06/17 07:27 11/06/17 07:27 11/06/17 07:27 11/06/17 07:27 11/06/17 07:27 General appearance: Present: cooperative, A&O X 3, pleasant, no acute distress, answers questions appropriately - Head Head exam: Present: atraumatic, normocephalic - Eye Eye exam: Present: PERRL, conjuntiva pink, sclera anicteric Pupils: Present: PERRL - Neck Neck exam general surgery: Present: supple, trachea midline. Absent: lymphadenopathy - Respiratory Respiratory exam: Present: CTAB. Absent: accessory muscle use, rales, rhonchi, wheezes - Cardiovascular Cardiovascular exam: Present: RRR, +S1, +S2. Absent: diastolic murmur, gallop, rubs, systolic murmur - GI/Abdominal GI/Abdominal exam: Present: normal bowel sounds, soft, no peritoneal signs. Absent: distended, tenderness - Extremities Exam Extremities exam: Present: calf tenderness, warm, radial pulses palpable and symmetrical. Absent: cyanotic, pedal edema Additional comments: Patient was swelling of the left calf with tenderness, also hematoma to the left thigh, dressing dry and intact to the left hip, hip precautions in place, - Neurological Exam Neurological exam: Present: CN II-XII intact, oriented X3, no focal deficits. Absent: strengths equal and symetr throughout, pronater drift, facial droop, speech deficit - Skin Skin exam: Present: dry, intact, warm Internal Medicine: Result - Labs CBC & Chem 7: 11/06/17 03:46 11/04/17 04:01 Labs: Short CBC 11/05/17 11/05/17 11/06/17 Range/Units 12:13 20:20 03:46 Hgb 7.0 L 7.5 L 8.2 L (11.5-15.4) g/dL Hct 22.7 L 23.5 L 25.4 L (35.3-44.9) % - ABG Interpretation ABG results: PT/INR, D-dimer PT 11.7 Seconds (9.4-12.1) 11/04/17 01:07 - Impressions Impressions Hip CT 11/05/17 19:52 IMPRESSION: 1. There are hematomas within the left quadriceps and left gluteal muscles, which are presumably post traumatic and are the likely etiology of the patient's pain. 2. No acute fractures are identified status post left hip hemiarthroplasty placement. D/ / Kirill Lindsay MD / Kirill Lindsay MD Interpreting Provider: Kirill Lindsay MD Consult Discharge Plan - Plan Referrals: Sabina Cui MD [Partnered Physician] - 11/21/17 11:45 am
--- NOTE | 2017-11-06 10:26 | Palliative - Consult Note ---
<Maria Luisa Gloria-My - Last Filed: 11/06/17 10:29> Date of Encounter: 11/06/17 Time of Encounter: 10:00 - Assessment and Plan (1) Goals of care, counseling/discussion Current Visit: Yes Status: Acute Assessment and plan: Patient is alert and oriented and confirmed with me that she would like her code status to be a FULL CODE. She stated that she had made her wishes clear to her granddaughter and her son, who is also her POA. The patient stated that she would like "anything that would keep me alive", including CPR and intubation. I asked if she would like additional workup that would help further evaluate her health and she stated "yes, if it is going to keep me alive." The patient made it clear that she understands the meaning of her FULL CODE status. The patient states that her granddaughter should be coming to visit her later today. (2) NSTEMI (non-ST elevated myocardial infarction) Current Visit: Yes Status: Acute Assessment and plan: Continue treatment per hospitalist team. (3) Pulmonary emboli Current Visit: Yes Status: Acute Assessment and plan: Patient denies any chest pain, shortness of breath, and any difficulty breathing at this time. Continue treatment plan per hospitalist team. Qualifiers: Qualified Code(s): I26.99 - Other pulmonary embolism without acute cor pulmonale (4) Acute blood loss anemia Current Visit: Yes Status: Acute Assessment and plan: Patient Hgb is stable at 8.2 at this time. Continue treatment plan per hospitalist team. Palliative-CN HPI - Data of Consult Requesting Physician: Pattie Davila CNP Primary Care Provider: PCP NONE - Consult Narrative History of present illness: Ms. Junior is a 87 year old female with the history of a NSTEMI, hip fracture, DVT, pulmonary embolism, and congestive heart failure was admitted to [facility] on November 04 for acute blood loss anemia and NSTEMI. Per documentation , the patient presented to the ED complaining of chest pain and shortness of breath. EKG showed no ST elevations but she had a positive troponins. Palliative team was consulted to discuss with the patient her goals of care because she stated that she would like her code status to be FULL CODE but refused prior workups. Patient is alert and oriented and confirmed with me that she would like to be a FULL CODE. She stated that she had made her wishes clear to her granddaughter and her son, who is also her POA. The patient stated that she would like "anything that would keep me alive", including CPR and intubation. I asked if she would like additional workup that would help further evaluate her health and she stated "yes, if it is going to keep me alive." The patient made it clear that she understands the meaning of her FULL CODE status. She stated that her granddaughter should be visiting later today. The patient admits she is very comfortable and denies any pain, headache, vision changes, chest pain, shortness of breath, difficulty breathing, abdominal pain, diarrhea, constipation, difficulty urinating, numbness and tingling, pain in her extremities, and any weaknesses. CC: Pattie Davila CNP Past Med Surg Social Fam HX - Past Medical History Medical history: cardiomyopathy, CHF, COPD, hypertension Psychiatric history: no psych history - Past Surgical History Surgical History: hysterectomy - Social History Smoking Status: Current some day smoker Smokeless Tobacco Status: No Alcohol use: none Drug use: none - Family History Son Hx Family Cardiac Disorders: Yes (HTN) Medications and Allergies Albuterol Sulfate [Albuterol Inhaler] 2 puff IH Q2HR PRN #2 inhaler 09/16/17 [Rx ] Atorvastatin [Lipitor] 20 mg PO HS #60 tablet 09/16/17 [Rx] Isosorbide MONOnitrate (24 HR) [Imdur] 30 mg PO DAILY #30 tab.er.24h 09/16/17 [ Rx] Calcium Carbonate/Vitamin D3 [Calcium 500 mg Chewable Tablet] 1 tab PO DAILY [History] Fluticasone/Vilanterol [Breo Ellipta 200-25 Mcg INH] 1 puff IH AD 10/24/17 [ History] Levothyroxine [Synthroid] 100 mcg PO DAILY@0630 10/24/17 [History] Polyethylene Glycol 3350 [MiraLAX] 17 gm PO DAILY 10/24/17 [History] Cholecalciferol (D-3) [Vitamin D] 1,000 unit PO DAILY tablet 10/27/17 [Rx] Ipratropium/Albuterol Neb [Duoneb] 3 ml IH [id number] PRN inhsol 10/27/17 [Rx] Omeprazole [PriLOSEC] 40 mg PO DAILY@0630 capsule. 10/27/17 [Rx] OxyCODONE Immed Rel [Roxicodone 5 MG] 5 mg PO Q6HR PRN #15 tablet 10/27/17 [Rx] Aspirin 325 mg PO BID #28 tablet 10/28/17 [Rx] Amlodipine Besylate 10 mg PO DAILY 11/04/17 [History] 3 Allergy/AdvReac Type Severity Reaction Status Date / Time No Known Allergies Allergy Verified 11/04/17 00:59 Review of systems: As per HPI Palliative Care-Exam - Constitutional Vitals: Temp Pulse Resp BP Pulse Ox 98.6 F 75 15 127/70 95 11/06/17 07:27 11/06/17 07:27 11/06/17 07:27 11/06/17 07:27 11/06/17 07:27 General appearance: Present: cooperative, no acute distress. Absent: febrile - Head Head Exam: Present: atraumatic - Eye Eye exam: Present: EOMI, normal appearance, PERRL - ENT ENT exam: Present: mucous membranes moist - Neck Neck exam: Present: normal inspection. Absent: lymphadenopathy, tenderness - Respiratory Respiratory exam: Present: CTAB. Absent: accessory muscle use, decreased breath sounds, rales, respiratory distress, rhonchi, wheezes - Cardiovascular Cardiovascular exam: Present: RRR, +S1, +S2 - GI/Abdominal Exam GI/Abdominal exam: Present: soft. Absent: distended, pulsatile mass, tenderness - Extremities Exam Extremities exam: Present: calf tenderness. Absent: pedal edema Additional comments: Radial pulses palpable and symmetrical. Distal pulses are +2/4. Warm. No cyanosis. - Neurological Exam Neurological exam: Present: alert, CN II-XII intact. Absent: altered, motor sensory deficit, no focal deficits, facial droop, speech deficit - Skin Skin exam: Present: dry, intact, warm Internal Medicine - CN: Reslt - Labs CBC & Chem 7: 11/06/17 03:46 11/04/17 04:01 Labs: Short CBC 11/05/17 11/05/17 11/06/17 Range/Units 12:13 20:20 03:46 Hgb 7.0 L 7.5 L 8.2 L (11.5-15.4) g/dL Hct 22.7 L 23.5 L 25.4 L (35.3-44.9) % - ABG Interpretation ABG results: PT/INR, D-dimer PT 11.7 Seconds (9.4-12.1) 11/04/17 01:07 - Impressions Impressions Hip CT 11/05/17 19:52 IMPRESSION: 1. There are hematomas within the left quadriceps and left gluteal muscles, which are presumably post traumatic and are the likely etiology of the patient's pain. 2. No acute fractures are identified status post left hip hemiarthroplasty placement. D/ / Kirill Lindsay MD / Kirill Lindsay MD Interpreting Provider: Kirill Lindsay MD Consult Discharge Plan - Plan Referrals: Sabina Cui MD [Partnered Physician] - 11/21/17 11:45 am Palliative Quality Palliative Quality: Screen for Code Status: Yes, Screen for Goals of Care: Yes, Screen for Pain: Yes, If Pain Regimen Started, Initiate Bowel Regimen: NA, Screen for Nausea/Vomitting: Yes <Maurice Holman - Last Filed: 11/06/17 10:38> Date of Encounter: 11/06/17 - Assessment and Plan (1) Goals of care, counseling/discussion Current Visit: Yes Status: Acute Assessment and plan: The patient was clear with both my resident and myself she wishes to be a full code she does understand the implications of this. She wants to "have anything that will keep me alive". He also tells me that she has discussed this with her family and they are aware of her sires. At this point she indicates to my resident and myself that she is interested in workup that will "keep her alive" this terminology is very important to her sister how she is comprehending the medical eats that she has. She is clear on what she does and does not want and is also clear that she does wish to be worked up and have what ever will "keep her alive" care will sign off please feel free to reconsult if we can help in any way. No symptoms at this time require any symptomatic treatment from palliative. Palliative-CN HPI - Data of Consult Requesting Physician: Pattie Davila CNP Primary Care Provider: PCP NONE - Consult Narrative History of present illness: Ms. Junior is a 87 year old female CC: Pattie Davila CNP Palliative Care-Exam - Constitutional Vitals: Temp Pulse Resp BP Pulse Ox 98.6 F 75 15 127/70 95 11/06/17 07:27 11/06/17 07:27 11/06/17 07:27 11/06/17 07:27 11/06/17 07:27 Internal Medicine - CN: Reslt - Labs CBC & Chem 7: 11/06/17 03:46 11/04/17 04:01 Labs: Short CBC 11/05/17 11/05/17 11/06/17 Range/Units 12:13 20:20 03:46 Hgb 7.0 L 7.5 L 8.2 L (11.5-15.4) g/dL Hct 22.7 L 23.5 L 25.4 L (35.3-44.9) % - ABG Interpretation ABG results: PT/INR, D-dimer PT 11.7 Seconds (9.4-12.1) 11/04/17 01:07 - Impressions Impressions Hip CT 11/05/17 19:52 IMPRESSION: 1. There are hematomas within the left quadriceps and left gluteal muscles, which are presumably post traumatic and are the likely etiology of the patient's pain. 2. No acute fractures are identified status post left hip hemiarthroplasty placement. D/ / Kirill Lindsay MD / Kirill Lindsay MD Interpreting Provider: Kirill Lindsay MD - Attending Attestation For this encounter, I have reviewed the AUTOCLAVE OPERATOR or PA documentation, treatment plan, and medical decision making; and I have had face to face time with this patient. The patient was clear with both my resident and myself she wishes to be a full code she does understand the implications of this. She wants to "have anything that will keep me alive". He also tells me that she has discussed this with her family and they are aware of her sires. At this point she indicates to my resident and myself that she is interested in workup that will "keep her alive" this terminology is very important to her sister how she is comprehending the medical eats that she has. She is clear on what she does and does not want and is also clear that she does wish to be worked up and have what ever will "keep her alive" care will sign off please feel free to reconsult if we can help in any way. No symptoms at this time require any symptomatic treatment from palliative.
[2017-11-06 11:06] LABS: Hematocrit 24.5 % (35.3-44.9); Hemoglobin 7.9 g/dL (11.5-15.4)
[2017-11-06] MEDS: Aspirin Enteric Coated 81 MG Tablet PO SCH (11:43)
[2017-11-06] MEDS: Isosorbide MONOnitrate (24 HR) 60 MG TAB.ER.24H PO SCH (11:44)
--- NOTE | 2017-11-06 11:57 | Gastroenterology Consult Note ---
<AnandVladislav Loyd - Last Filed: 11/06/17 11:55> Date of Encounter: 11/06/17 Time of Encounter: 10:50 - Assessment and plan (1) Anemia Current Visit: Yes Status: Acute Assessment and plan: Hgb on admission 8.4 and dropped to 7 on 11/05, and is 8.2 this AM after [address] hip showed hematomas within the left quadriceps and left gluteal muscles, which are presumably post traumatic. Rectal exam with brown stool, no indication of GI bleed. Will hold on EGD or colonoscopy at this time. Anemia likely due to bleeding in left leg. Qualifiers: Anemia type: unspecified type Qualified Code(s): D64.9 - Anemia, unspecified (2) DVT (deep venous thrombosis) Current Visit: Yes Status: Acute Assessment and plan: Management per primary team. Qualifiers: DVT location: lower extremity Affected thrombotic vein of extremity: tibial Chronicity: acute Laterality: left Qualified Code(s): I82.442 - Acute embolism and thrombosis of left tibial vein (3) NSTEMI (non-ST elevated myocardial infarction) Current Visit: Yes Status: Acute (4) Hip fracture, left Current Visit: Yes Status: Acute Assessment and plan: Management per orthopedic team. Qualifiers: Fracture type: closed Fracture healing: with routine healing Qualified Code(s): S72.002D - Fracture of unspecified part of neck of left femur, subsequent encounter for closed fracture with routine healing (5) Pulmonary emboli Current Visit: Yes Status: Acute Assessment and plan: Management per primary team. Qualifiers: Qualified Code(s): I26.99 - Other pulmonary embolism without acute cor pulmonale - Time Spent With Patient Total time spent is greater than 50% in coordination of care (as documented) at patient's floor/unit and/or counseling patient: GI History of Present Illness - Data of Consult Patient: new to practice Consult date: 11/06/17 Requesting Physician: Pattie Davila CNP - Consult Narrative Reason for consult: GI bleed? History of present illness: Ms. Junior is a 87 year old female with PMHx of cardiomyopathy, NSTEMI 08/2017, CHF, COPD, HTN, recent left hip surgery was sent to the ED for intermittent chest pain. Troponins elevated at 0.13, 0.15. NSTEMI with peak troponin of 7.42 on 09/07/2017 and she declined LHC at that time. She again declined LHC during this hospitalization. Venous doppler positive for acute DVT in left posterior tibial/peroneal veins on 11/04/17. CTA reveals PE in right lung mainly within right middle lobe and right lower lobe. Hgb on admission 8.4 and dropped to 7 on 11/05, and is 8.2 this AM after 1 unit PRBC. Yesterday the pt fell while trying to get out of bed landing on her left thigh. CT hip showed hematomas within the left quadriceps and left gluteal muscles, which are presumably post traumatic. Heparin gtt has been held. We were consulted to evaluate her anemia. Procedures: None NSAIDs: ASA Anticoagulation: None Past Med Surg Social Fam HX - Past Medical History Medical history: cardiomyopathy, CHF, COPD, hypertension Psychiatric history: no psych history - Past Surgical History Surgical History: hysterectomy - Social History Smoking Status: Current some day smoker Smokeless Tobacco Status: No Alcohol use: none Drug use: none - Family History Son Hx Family Cardiac Disorders: Yes (HTN) - Gastrointestinal Gastrointestinal: Present: as per HPI - Constitutional Constitutional: as per HPI - EENT Eyes: as per HPI Ears: Present: as per HPI Nose, mouth and throat: Present: as per HPI - Cardiovascular Cardiovascular ROS: Present: as per HPI - Respiratory Respiratory IM: Present: as per HPI - Genitourinary Genitourinary: Absent: change in color, Urinary frequency - Neurological ROS Neurological GI: Present: as per HPI - Hematologic/Lymphatic Hematologic/Lymphatic pediatric: Present: as per HPI - Musculoskeletal Musculoskeletal ROS GI: Present: as per HPI - Integumentary Integumentary GI: Present: as per HPI - Psychiatric ROS Psychiatric GI: Present: as per HPI - Endocrine Endocrine IM: Present: as per HPI - Constitutional Vitals: Temp Pulse Resp BP Pulse Ox 98.6 F 75 15 127/70 95 11/06/17 07:27 11/06/17 07:27 11/06/17 07:27 11/06/17 07:27 11/06/17 07:27 General appearance: Present: cooperative, A&O X 3, no acute distress, answers questions appropriately - Head Head exam: Present: atraumatic, normocephalic - Eye Eye exam: Present: normal appearance, sclera anicteric - ENT ENT exam: Present: mucous membranes dry - Neck Neck exam general surgery: Present: normal inspection, trachea midline - Respiratory Respiratory exam: Present: CTAB. Absent: rales, rhonchi - Cardiovascular Cardiovascular exam: Present: RRR, +S1, +S2 - GI/Abdominal GI/Abdominal exam: Present: soft, no peritoneal signs. Absent: distended, firm , guarding, tenderness - Rectal Rectal exam: Present: normal inspection, normal rectal tone. Absent: black stool, bloody stool Additional comments: Stool was brown. - Extremities Exam Extremities exam: Present: warm Additional comments: Left hip dressing intact - Neurological Exam Neurological exam: Present: no focal deficits - Psychiatric Psychiatric exam: Present: normal affect, normal mood - Skin Skin exam: Present: dry, intact, normal color, warm Results - Labs CBC & Chem 7: 11/06/17 10:22 11/04/17 04:01 Labs: Last Result Calcium 8.6 mg/dL (8.6-10.3) 11/04/17 04:01 Iron 22 mcg/dL (50-170) L 11/05/17 11:11 % Saturation 16 % (15-50) 11/05/17 11:11 Transferrin 98 mg/dL (203-362) L 11/05/17 11:11 Ferritin 283 ng/ml (10-120) H 11/05/17 11:11 Troponin I 0.19 ng/mL (< 0.04) H* 11/04/17 09:32 Triglycerides 53 mg/dL (< 150) 11/04/17 04:01 Vitamin B12 159 pg/mL (250-1100) L 11/05/17 11:11 Folate 12.8 ng/mL (3.0-16.0) 11/05/17 11:11 Stool Occult Blood Negative (Negative) 11/04/17 01:55 Entire Visit Hgb 7.9 g/dL (11.5-15.4) L 11/06/17 10:22 Hct 24.5 % (35.3-44.9) L 11/06/17 10:22 Haptoglobin 285 mg/dL (30-200) H 11/05/17 11:11 PT 11.7 Seconds (9.4-12.1) 11/04/17 01:07 Ferritin 283 ng/ml (10-120) H 11/05/17 11:11 Folate 12.8 ng/mL (3.0-16.0) 11/05/17 11:11 - ABG ABG results: PT/INR, D-dimer PT 11.7 Seconds (9.4-12.1) 11/04/17 01:07 - Impressions Impressions Hip CT 11/05/17 19:52 IMPRESSION: 1. There are hematomas within the left quadriceps and left gluteal muscles, which are presumably post traumatic and are the likely etiology of the patient's pain. 2. No acute fractures are identified status post left hip hemiarthroplasty placement. D/ / Kirill Lindsay MD / Kirill Lindsay MD Interpreting Provider: Kirill Lindsay MD Consult Discharge Plan - Plan Referrals: Sabina Cui MD [Partnered Physician] - 11/21/17 11:45 am <Lida Guillen - Last Filed: 11/08/17 14:04> Date of Encounter: 11/06/17 Time of Encounter: 14:00 - Time Spent With Patient Total time spent is greater than 50% in coordination of care (as documented) at patient's floor/unit and/or counseling patient: GI History of Present Illness - Data of Consult Requesting Physician: Pattie Davila CNP - Consult Narrative History of present illness: Ms. Junior is a 87 year old female - Constitutional Vitals: Temp Pulse Resp BP Pulse Ox 98.5 F 63 16 119/57 96 11/08/17 13:46 11/08/17 13:46 11/08/17 13:46 11/08/17 13:46 11/08/17 13:46 Results - Labs CBC & Chem 7: 11/08/17 04:24 11/08/17 08:01 Labs: Last Result Calcium 8.3 mg/dL (8.6-10.3) L 11/08/17 08:01 Iron 22 mcg/dL (50-170) L 11/05/17 11:11 % Saturation 16 % (15-50) 11/05/17 11:11 Transferrin 98 mg/dL (203-362) L 11/05/17 11:11 Ferritin 283 ng/ml (10-120) H 11/05/17 11:11 Troponin I 0.19 ng/mL (< 0.04) H* 11/04/17 09:32 Triglycerides 53 mg/dL (< 150) 11/04/17 04:01 Vitamin B12 159 pg/mL (250-1100) L 11/05/17 11:11 Folate 12.8 ng/mL (3.0-16.0) 11/05/17 11:11 Stool Occult Blood Negative (Negative) 11/04/17 01:55 Entire Visit Hgb 8.4 g/dL (11.5-15.4) L 11/08/17 04:24 Hct 26.0 % (35.3-44.9) L 11/08/17 04:24 Haptoglobin 285 mg/dL (30-200) H 11/05/17 11:11 PT 12.1 Seconds (9.4-12.1) 11/07/17 05:55 Ferritin 283 ng/ml (10-120) H 11/05/17 11:11 Total Bilirubin 1.4 mg/dL (0.3-1.0) H 11/08/17 08:01 AST 9 Units/L (13-39) L 11/08/17 08:01 ALT 5 Units/L (7-52) L 11/08/17 08:01 Folate 12.8 ng/mL (3.0-16.0) 11/05/17 11:11 - ABG ABG results: PT/INR, D-dimer PT 12.1 Seconds (9.4-12.1) 11/07/17 05:55 - Attending Attestation I examined this patient and my medical decision-making was reviewed with the Resident Physician. I agree with the documented findings, disposition and treatment plan as described except to the extent set forth below.
[2017-11-06 13:15] LABS: Calcium 8.3 mg/dL (8.6-10.3); Potassium 3.9 mEq/L (3.5-5.1)
[2017-11-06] MEDS: (Breo Ellipta 200-25 Mcg Inh) IH SCH (14:09)
[2017-11-06 15:43] LABS: Hematocrit 22.7 % (35.3-44.9); Hemoglobin 7.5 g/dL (11.5-15.4)
--- NOTE | 2017-11-06 16:35 | Oncology Inp Progress Note ---
Date of Encounter: 11/06/17 Time of Encounter: 16:35 (1) Anemia Current Visit: Yes Status: Acute Assessment and plan: New onset anemia in the setting of NSTEMI, acute PE and LLE acute DVT. Heparin drip was stopped about 1939 evening by nursing staff after visualizing kalli red blood in and emesis and stool. Hemoglobin stable at 8.2 this morning status post 1 unit packed red blood cells. CT of left hip did find hematomas within the left quadriceps and left gluteal muscles, which are presumably post traumatic and are the likely etiology of the patient's pain. No acute fractures are identified status post left hip hemiarthroplasty placement. Discussed findings with radiologist who notes that hematomas are quite large and could account for patient's acute decrease in hemoglobin. Continue to monitor hemoglobin closely. Dr. Grayson discussed case with Dr. Koch with ortho, ultimate decision was made to stop anticoagulation at this time and restart in about 4 days time on Friday, November 10 to allow time for stabilization of hematoma. Would recommend initiation of a Eliquis at time discussed above, continue to monitor kidney function which is stable at this time however if kidney function worsens this will impact decision for anticoagulation/dosing. GI consult reviewed, ultimate recommendation was to hold off on EGD/colonoscopy at this time as hematoma believed to be source of bleeding and anemia. Iron 22 with 16% saturation, ferritin 283, B12 low at 159, folate normal, retic count normla, LDH normal, haptoglobin elevated. I will initiate B12 subcutaneous injections daily for about 4 days, then recommend weekly 4, and then followed up monthly injections. Primary team to establish discharge plans, patient will likely need extended care facility for rehabilitation. Patient will be arranged to follow up with hematology next week about 4-5 days following initiation of anticoagulation with lab work to include CBC and CMP at follow-up. Hematology will sign off at this time please feel free to let us know if you have any further questions or concerns. Qualifiers: Anemia type: unspecified type Qualified Code(s): D64.9 - Anemia, unspecified Oncology: Subj Interval history: Ms. Junior is resting comfortably in bed, nontoxic appearing and in no acute distress. She currently denies pain. Heparin drip was stopped last evening due to kalli blood in emesis and stool per nurse. Patient currently denies chest pain, shortness of breath, dyspnea. - Constitutional Vitals: Vital Signs Temp Pulse Resp BP Pulse Ox 11/06/17 07:27 98.6 F 75 15 127/70 95 11/06/17 04:39 98.8 F 71 17 122/68 92 11/06/17 01:30 98.4 F 61 14 144/69 79 11/05/17 23:20 98.3 F 68 16 106/55 94 11/05/17 23:13 99.1 F 70 16 138/57 11/05/17 22:57 99.0 F 20 116/62 97 11/05/17 22:52 99.0 F 71 20 116/62 97 11/05/17 19:13 97.3 F L 104 16 152/73 95 Intake and Output 11/06/17 11/06/17 11/06/17 07:59 15:59 23:59 Intake Total 350 / 350 Balance 350 / 350 Intake: Blood Product 350 / 350 Rbcs Leuko Poor As-1 Unit 350 / 350 [id number] Other: Stool Size Moderate Stool Consistency liquid Stool Color Brown Yellow # Bowel Movement Diapers 1 Weight 56.926 kg Patient Weight 11/06/17 23:59 Weight 56.926 kg General appearance: cooperative, no acute distress, no febrile - Head Head exam: Present: atraumatic - Respiratory Respiratory exam: Present: CTAB - Cardiovascular Cardiovascular exam: Present: RRR, +S1, +S2 - GI/Abdominal GI/Abdominal exam: Present: normal bowel sounds, soft. Absent: tenderness - Extremities Exam Additional comments: 1+ nonpitting edema to left lower extremity. - Neurological Exam Neurological exam: Present: alert, oriented X3, no focal deficits, strengths equal and symetr throughout - Psychiatric Psychiatric exam: Present: normal affect, normal mood - Skin Skin exam: Present: normal color, warm Additional comments: Dressing to left hip dry and intact. Oncology: Obj Data - Labs CBC & Chem 7: 11/06/17 15:35 11/06/17 10:22 - Impressions Impressions Echocardiogram 11/05/17 11:29 Impressions: LVEF 55%. Normal LV chamber size and function. Moderate concentric left ventricular hypertrophy, more prominent in the basal septum. Indeterminate diastolic function. Normal right ventricular structure and function. Mild aortic stenosis. Mean gradient 11 mmHg. RV:LV ratio <1. Mild mitral regurgitation. No evidence of pulmonary hypertension. There is a trivial pericardial effusion present. Left Ventricular Wall Motion: Rest Echo Findings All wall segments showed normal motion. Findings: Study Quality * Technically adequate exam. ECG Findings * Difficult to determine rhythm. Bundle branch block, PVCs noted. Left Ventricle * LVEF 55%. * Normal LV chamber size and function. * Moderate concentric left ventricular hypertrophy, more prominent in the basal septum. * Indeterminate diastolic function. * RV:LV ratio <1. Right Ventricle * Normal right ventricular structure and function. Left Atrium * Moderately dilated left atrium. Right Atrium * Mildly dilated right atrium. Interatrial Septum * Interatrial septum not well evaluated. Aortic Valve * Trileaflet aortic valve. * Mildly calcified aortic valve leaflets. * No aortic regurgitation. * Mild aortic stenosis. Mean gradient 11 mmHg. Mitral Valve * Mildly thickened mitral valve leaflets. * Mild mitral regurgitation. * No mitral stenosis. Tricuspid Valve * Normal tricuspid valve structure and function. * Trace tricuspid regurgitation. * No evidence of pulmonary hypertension. Pulmonic Valve * Pulmonic valve not well visualized. Aorta * Normally sized aortic root. Pericardium * There is a trivial pericardial effusion present. IVC * Normal IVC dimensions and inspiratory collapse. Pulmonary Artery * Pulmonary artery not well visualized. Hip CT 11/05/17 19:52 IMPRESSION: 1. There are hematomas within the left quadriceps and left gluteal muscles, which are presumably post traumatic and are the likely etiology of the patient's pain. 2. No acute fractures are identified status post left hip hemiarthroplasty placement. D/ / Kirill Lindsay MD / Kirill Lindsay MD Interpreting Provider: Kirill Lindsay MD - ABG Interpretation ABG results: PT/INR, D-dimer PT 11.7 Seconds (9.4-12.1) 11/04/17 01:07 Consult Discharge Plan - Plan Referrals: Sabina Cui MD [Partnered Physician] - 11/21/17 11:45 am
[2017-11-06] MEDS: Cyanocobalamin (B-12) 1,000 MCG/ML VIAL SQ SCH (21:26)
[2017-11-06 21:47] LABS: Hematocrit 24.1 % (35.3-44.9); Hemoglobin 7.8 g/dL (11.5-15.4)
[2017-11-07 04:54] LABS: Hematocrit 21.6 % (35.3-44.9); Hemoglobin 6.9 g/dL (11.5-15.4)
[2017-11-07] MEDS ORDERED: Furosemide 20 MG/2 ML VIAL IVP ONE ×2 (05:34→13:45)
--- NOTE | 2017-11-07 06:06 | Event Note ---
Date of Encounter: 11/07/17 Time of Encounter: 05:56 Got paged by RN for Hgb at 6.9g this AM. Patient without any acute changes on exam including hematoma, or neurosensory status to LLE. Last transfusion . Ordered 1 unit pRBCs with one held. Q6H hgb checks continuous with 0400AM draw. Also will check coags and full CBC now to check for platelet ct.
[2017-11-07 06:14] LABS: Basophils % 0.4 %; Eosinophils % 0.8 %; Hematocrit 21.5 % (35.3-44.9); Immature Granulocytes % 0.8 % (0-4); Lymphocytes # 0.7 K/mcL (0.6-4.6); Lymphocytes % 15.6 %; Mean Corpuscular HGB Conc 32.6 g/dL (31.6-35.5); Mean Corpuscular Hemoglobin 29.4 pg (28.0-33.3); Mean Corpuscular Volume 90.3 fL (83.0-100.0); Mean Platelet Volume 9.6 fL (9.4-12.4); Monocytes # 0.4 K/mcL (0.0-1.3); Monocytes % 9.3 %; Neutrophils # 3.5 K/mcL (1.6-8.9); Platelet Count 247 K/mcL (140-400); Red Blood Count 2.38 M/mcL (3.82-4.97); Red Cell Distribution Width 14.7 % (11.5-14.5); Segmented Neutrophils % 73.1 %
[2017-11-07] MEDS: *HR* OxyCODONE Immed Rel 5 MG TABLET PO PRN (06:17)
[2017-11-07 06:19] LABS: INR 1.1; Prothrombin Time 12.1 Seconds (9.4-12.1)
[2017-11-07 06:26] LABS: Activated Partial Thrombo Time 23.9 Seconds (26.0-36.0)
[2017-11-07] MEDS ORDERED: 0.9 % Sodium Chloride 250 ML ONE (08:08)
[2017-11-07] MEDS: Isosorbide MONOnitrate (24 HR) 60 MG TAB.ER.24H PO SCH (09:05)
[2017-11-07] MEDS: Aspirin Enteric Coated 81 MG Tablet PO SCH (09:05)
--- NOTE | 2017-11-07 10:12 | Internal Med Progress Note ---
Date of Encounter: 11/07/17 Time of Encounter: 10:10 - Assessment and plan (1) Anemia Current Visit: Yes Status: Acute Assessment and plan: Acute on chronic anemia Hemoglobin dropped from 8.5-7 on 11/06/17 at which time patient was on a heparin drip for PE and DVT as well as non-STEMI Oncology had been consulted regarding best choice for treatment of the PE/DVT S/P blood transfusion 1 unit Serial H&H Appreciate oncology's assistance Hematoma in the left thigh status post underground roof bolter fall on 11/05/17, ultrasound of the thigh and CT of thigh reviewed Developed blood in stool and diarrhea with hematemesis per nursing report on 11/05 GI consult and check stool for occult blood which was negative, they plan no further procedures at this time Hemoglobin dropped overnight from 7.8-7, currently being transfused per oncology Will continue serial H and H No obvious source of bleeding plt count 247 Qualifiers: Anemia type: unspecified type Qualified Code(s): D64.9 - Anemia, unspecified (2) Chronic systolic (congestive) heart failure Current Visit: Yes Status: Acute Assessment and plan: EF 45%. BNP 1027, decreased from 2906 08/2017. CXR bilateral atelectasis and/or PNA. LLE more swollen than right with LLE doppler positive for DVT strict I/Os, sodium and fluid restriction, daily weights with no weight gain. (3) Elevated troponin Current Visit: Yes Status: Acute Assessment and plan: No chest pain, echo ordered As per cardiology service Troponins 0.13, 0.15, 0.19 in setting of newly discovered PE and DVT. Now suspect demand ischemia given these new findings. Nondiagnostic for ACS. Of note, NSTEMI with peak troponin 7.42 on 09/07/17 in setting of severe hypothyroidism and respiratory distress at that time. Pt was conservatively managed at that time--declined LHC. Echo 08/2017 EF 45%, slight improvement in anteroseptal wall on limited echo 07/15. 09/05/17 moderate MR. Pt presented with chest pain, EKG known LBBB. discussed LHC with pt and she declined. R/B/A discussed. With acute PE and DVT, LHC would not be recommended at this time. Heparin gtt discontinued secondary to thigh hematoma and blood in stool - positive PE and DVT. Chronic anticoagulation as per hematology Echo was ordered by primary team to evaluate for right heart strain. ASA, Statin, BB, Imdur. Plavix 75mg daily was added, but given PE/DVT warranting anticoagulation, stooped Plavix so that pt not on triple therapy. Cardiology signing off. Reconsult PRN. I let the service note that she would consider a left heart cath and they responded that they will follow up outpatient with medical management secondary to her new PE and DVT diagnosis. (4) Hip fracture, left Current Visit: No Status: Chronic Assessment and plan: Patient with improvement in left hip discomfort, she is over 2 weeks out from a left hip hemiarthroplasty status post a fall Orthopedic service saw and made the following recommendations Regarding the left hip patient is doing as expected. My recommendation is for supportive treatment of her PE by the hospitalist service and NSTEMI by cardiology. Regarding the left hip she is weightbearing as tolerated and daily dressing changes. Begin physical therapy when able. Posterior hip precautions on the left. I will keep the adriane in place and see her in the office next week for removal or if she is here in the hospital I will take them out myself at that time. I will be available as needed. Patient does have a hematoma of the left thigh, no fractures appreciated on x- ray or CT. She states she has no pain, just soreness No extension of the hematoma and less tense Qualifiers: Fracture type: closed Fracture healing: with routine healing Qualified Code(s): S72.002D - Fracture of unspecified part of neck of left femur, subsequent encounter for closed fracture with routine healing (5) Pulmonary emboli Current Visit: Yes Status: Acute Assessment and plan: Patient found to have a left lower extremity DVT provoked by recent left hip surgery, Patient had presented with some chest pain so was sent for a CTA of the chest CTA revealed pulmonary embolism within the right lung mainly within the right middle lobe and right lower lobe. Echocardiogram to rule out right heart strain completed Heparin drip dc'ed Oncology on consult to assist with in management of the PE and DVT including discharge medications and anemia Qualifiers: Qualified Code(s): I26.99 - Other pulmonary embolism without acute cor pulmonale (6) Fall Current Visit: Yes Status: Acute Assessment and plan: Fell approximately 2-1/2 weeks ago resulting in a fractured left hip Fell 11/05/17 Fall precautions Qualifiers: Encounter type: initial encounter Qualified Code(s): W19.XXXA - Unspecified fall, initial encounter (7) DVT prophylaxis Current Visit: No Status: Acute Assessment and plan: Positive left lower extremity DVT and right pulmonary embolism heparin drip dc,ed secondary to bleeding (8) Diarrhea Current Visit: Yes Status: Acute Assessment and plan: Stool for C. difficile cancelled as patient with no further stools in 24 hours Qualifiers: Diarrhea type: unspecified type Qualified Code(s): R19.7 - Diarrhea, unspecified - Time Spent With Patient less than 15 minutes - Subjective Interval history: Patient lying in bed in no distress. Her hemoglobin dropped overnight and she is currently receiving a blood transfusion. She denies any shortness of breath , chest pain, fever, chills, diarrhea, abdominal pain, and difficulty urinating or syncope. She does have some soreness in her left calf and thigh. She denies any signs of any bleeding no hemoptysis, hematemesis or bloody stools. She states she did not move her bowels at all since the day before yesterday. She states her hip feels pretty good. She has met with Pallative care and wants any procedures done that "will keep her alive". Her son is her power of attorney general and he understands this is her wishes. She will remain a full code. - Constitutional Vitals: Temp Pulse Resp BP Pulse Ox 97.4 F L 57 14 134/56 99 11/07/17 08:43 11/07/17 08:43 11/07/17 08:43 11/07/17 08:43 11/07/17 08:43 General appearance: Present: cooperative, A&O X 3, pleasant, no acute distress, answers questions appropriately - Head Head exam: Present: atraumatic, normocephalic - Eye Eye exam: Present: PERRL, conjuntiva pink, sclera anicteric Pupils: Present: PERRL - Neck Neck exam general surgery: Present: supple, trachea midline. Absent: lymphadenopathy - Respiratory Respiratory exam: Present: CTAB. Absent: accessory muscle use, rales, rhonchi, wheezes - Cardiovascular Cardiovascular exam: Present: RRR, +S1, +S2. Absent: diastolic murmur, gallop, rubs, systolic murmur, tachycardia - GI/Abdominal GI/Abdominal exam: Present: normal bowel sounds, soft, no peritoneal signs. Absent: distended, tenderness - Extremities Exam Extremities exam: Present: warm, radial pulses palpable and symmetrical. Absent : calf tenderness, cyanotic, pedal edema - Neurological Exam Neurological exam: Present: CN II-XII intact, oriented X3, no focal deficits. Absent: strengths equal and symetr throughout, pronater drift, facial droop, speech deficit Additional comments: Decreased range of motion of the left extremity secondary to hip fracture with recent surgery, thigh hematoma and DVT with swelling of the calf - Skin Skin exam: Present: dry, intact, warm Internal Medicine: Result - Labs CBC & Chem 7: 11/07/17 05:55 11/06/17 10:22 Labs: Short CBC 11/06/17 11/06/17 11/06/17 Range/Units 10:22 15:35 21:30 WBC (4.3-11.1) K/mcL Hgb 7.9 L 7.5 L 7.8 L (11.5-15.4) g/dL Hct 24.5 L 22.7 L 24.1 L (35.3-44.9) % Plt Count (140-400) K/mcL Neutrophils # (1.6-8.9) K/mcL 11/07/17 11/07/17 Range/Units 03:59 05:55 WBC 4.7 (4.3-11.1) K/mcL Hgb 6.9 L 7.0 L (11.5-15.4) g/dL Hct 21.6 L 21.5 L (35.3-44.9) % Plt Count 247 (140-400) K/mcL Neutrophils # 3.5 (1.6-8.9) K/mcL BMP 11/06/17 10:22 Sodium 133 L Potassium 3.9 Chloride 102 Carbon Dioxide 25 BUN 15 Creatinine 1.08 Glucose 85 Calcium 8.3 L - ABG Interpretation ABG results: PT/INR, D-dimer PT 12.1 Seconds (9.4-12.1) 11/07/17 05:55 - Impressions Impressions Echocardiogram 11/05/17 11:29 Impressions: LVEF 55%. Normal LV chamber size and function. Moderate concentric left ventricular hypertrophy, more prominent in the basal septum. Indeterminate diastolic function. Normal right ventricular structure and function. Mild aortic stenosis. Mean gradient 11 mmHg. RV:LV ratio <1. Mild mitral regurgitation. No evidence of pulmonary hypertension. There is a trivial pericardial effusion present. Left Ventricular Wall Motion: Rest Echo Findings All wall segments showed normal motion. Findings: Study Quality * Technically adequate exam. ECG Findings * Difficult to determine rhythm. Bundle branch block, PVCs noted. Left Ventricle * LVEF 55%. * Normal LV chamber size and function. * Moderate concentric left ventricular hypertrophy, more prominent in the basal septum. * Indeterminate diastolic function. * RV:LV ratio <1. Right Ventricle * Normal right ventricular structure and function. Left Atrium * Moderately dilated left atrium. Right Atrium * Mildly dilated right atrium. Interatrial Septum * Interatrial septum not well evaluated. Aortic Valve * Trileaflet aortic valve. * Mildly calcified aortic valve leaflets. * No aortic regurgitation. * Mild aortic stenosis. Mean gradient 11 mmHg. Mitral Valve * Mildly thickened mitral valve leaflets. * Mild mitral regurgitation. * No mitral stenosis. Tricuspid Valve * Normal tricuspid valve structure and function. * Trace tricuspid regurgitation. * No evidence of pulmonary hypertension. Pulmonic Valve * Pulmonic valve not well visualized. Aorta * Normally sized aortic root. Pericardium * There is a trivial pericardial effusion present. IVC * Normal IVC dimensions and inspiratory collapse. Pulmonary Artery * Pulmonary artery not well visualized. Consult Discharge Plan - Plan Referrals: Sabina Cui MD [Partnered Physician] - 11/21/17 11:45 am
--- NOTE | 2017-11-07 11:24 | Event Note ---
Addendum entered and electronically signed by Eva Peña 11/07/17 18:20: Will keep pt NPO after midnight tonight for EGD tomorrow. Original Note: <Eva Peña - Last Filed: 11/07/17 11:22> Date of Encounter: 11/07/17 Time of Encounter: 11:[address] Grayson, oncology, who states pt did have an episode of hematemesis and heparin was stopped last night. Hgb continues to trend downward. Pt is being transfused. She had breakfast this am. Discussed with Dr Arriaga, will plan for EGD on Friday. <Ramo Arriaga - Last Filed: 11/10/17 12:11> Date of Encounter: 11/07/17 I have personally performed a face to face evaluation on this patient. I have reviewed and agree with the care plan. History and Exam by me shows:
[2017-11-07] MEDS: (Breo Ellipta 200-25 Mcg Inh) IH SCH (13:17)
[2017-11-07 13:28] LABS: Hematocrit 25.2 % (35.3-44.9); Hemoglobin 8.3 g/dL (11.5-15.4)
[2017-11-07 17:02] LABS: Hematocrit 27.3 % (35.3-44.9); Hemoglobin 8.9 g/dL (11.5-15.4)
[2017-11-07] MEDS: Cyanocobalamin (B-12) 1,000 MCG/ML VIAL SQ SCH (19:34)
[2017-11-08 05:03] LABS: Hemoglobin 8.4 g/dL (11.5-15.4)
[2017-11-08] MEDS: Aspirin Enteric Coated 81 MG Tablet PO SCH ×2 (08:00→08:29)
[2017-11-08] MEDS: (Breo Ellipta 200-25 Mcg Inh) IH SCH (08:00)
[2017-11-08] MEDS: Isosorbide MONOnitrate (24 HR) 60 MG TAB.ER.24H PO SCH ×2 (08:00→08:29)
[2017-11-08 09:02] LABS: Alanine Aminotransferase 5 Units/L (7-52); Albumin 2.5 g/dL (3.5-5.7); Albumin/Globulin Ratio 1.1 (1.1-2.2); Alkaline Phosphatase 66 Units/L (34-104); Aspartate Amino Transferase 9 Units/L (13-39); BUN/Creatinine Ratio 19 (6-26); Bilirubin,Total 1.4 mg/dL (0.3-1.0); Blood Urea Nitrogen 17 mg/dL (8-23); Calcium 8.3 mg/dL (8.6-10.3); Carbon Dioxide 28 mEq/L (23-29); Chloride 102 mEq/L (98-107); Globulin 2.2 g/dL (2.4-3.5); Glucose 89 mg/dL (70-105); Osmolality,Calculated 279 (280-300); Potassium 4.1 mEq/L (3.5-5.1); Sodium 134 mEq/L (136-145); Total Protein 4.7 g/dL (6.4-8.9); eGFR For African Americans > 60 (> 60); eGFR For Non-African Americans 59 (> 60)
--- NOTE | 2017-11-08 10:16 | Internal Med Progress Note ---
Date of Encounter: 11/08/17 Time of Encounter: 10:06 - Assessment and plan (1) Anemia Current Visit: Yes Status: Acute Assessment and plan: Acute on chronic anemia Hemoglobin dropped from 8.5-7 on 11/06/17 at which time patient was on a heparin drip for PE and DVT as well as non-STEMI Oncology had been consulted regarding best choice for treatment of the PE/DVT S/P blood transfusion 1 unit Serial H&H Appreciate oncology's assistance Hematoma in the left thigh status post early childhood specialist fall on 11/05/17, ultrasound of the thigh and CT of thigh reviewed Developed blood in stool and diarrhea with hematemesis per nursing report on 11/05 GI consult and check stool for occult blood which was negative Hemoglobin dropped overnight from 7.8-7, transfused per oncology again Hgb 8.4 Will continue serial H and H No obvious source of bleeding plt count 247 Scheduled for EGD this am Qualifiers: Anemia type: unspecified type Qualified Code(s): D64.9 - Anemia, unspecified (2) Chronic systolic (congestive) heart failure Current Visit: Yes Status: Acute Assessment and plan: Stable EF 45%. BNP 1027, decreased from 2906 08/2017. CXR bilateral atelectasis and/or PNA. LLE more swollen than right with LLE doppler positive for DVT strict I/Os, sodium and fluid restriction, daily weights with no weight gain. (3) Elevated troponin Current Visit: Yes Status: Acute Assessment and plan: No chest pain, echo ordered As per cardiology service Troponins 0.13, 0.15, 0.19 in setting of newly discovered PE and DVT. Now suspect demand ischemia given these new findings. Nondiagnostic for ACS. Of note, NSTEMI with peak troponin 7.42 on 09/07/17 in setting of severe hypothyroidism and respiratory distress at that time. Pt was conservatively managed at that time--declined LHC. Echo 08/2017 EF 45%, slight improvement in anteroseptal wall on limited echo 07/15. 09/05/17 moderate MR. Pt presented with chest pain, EKG known LBBB. discussed LHC with pt and she declined. R/B/A discussed. With acute PE and DVT, LHC would not be recommended at this time. Heparin gtt discontinued secondary to thigh hematoma and blood in stool - positive PE and DVT. Chronic anticoagulation as per hematology Echo was ordered by primary team to evaluate for right heart strain. ASA, Statin, BB, Imdur. Plavix 75mg daily was added, but given PE/DVT warranting anticoagulation, stooped Plavix so that pt not on triple therapy. Cardiology signing off. Reconsult PRN. I let the service note that she would consider a left heart cath and they responded that they will follow up outpatient with medical management secondary to her new PE and DVT diagnosis. (4) Hip fracture, left Current Visit: No Status: Chronic Assessment and plan: Patient with improvement in left hip discomfort, she is over 2 weeks out from a left hip hemiarthroplasty status post a fall Orthopedic service saw and made the following recommendations Regarding the left hip patient is doing as expected. My recommendation is for supportive treatment of her PE by the hospitalist service and NSTEMI by cardiology. Regarding the left hip she is weightbearing as tolerated and daily dressing changes. Begin physical therapy when able. Posterior hip precautions on the left. I will keep the adriane in place and see her in the office next week for removal or if she is here in the hospital I will take them out myself at that time. I will be available as needed. Patient does have a hematoma of the left thigh, no fractures appreciated on x- ray or CT. She states she has no pain, just soreness No extension of the hematoma and less tense but still very tender Qualifiers: Fracture type: closed Fracture healing: with routine healing Qualified Code(s): S72.002D - Fracture of unspecified part of neck of left femur, subsequent encounter for closed fracture with routine healing (5) Pulmonary emboli Current Visit: Yes Status: Acute Assessment and plan: Patient found to have a left lower extremity DVT provoked by recent left hip surgery, Patient had presented with some chest pain so was sent for a CTA of the chest CTA revealed pulmonary embolism within the right lung mainly within the right middle lobe and right lower lobe. Echocardiogram to rule out right heart strain completed Heparin drip dc'ed Oncology on consult to assist with in management of the PE and DVT including discharge medications and anemia EGD pending to r/o source of blood loss Qualifiers: Qualified Code(s): I26.99 - Other pulmonary embolism without acute cor pulmonale (6) Fall Current Visit: Yes Status: Acute Assessment and plan: Fell approximately 2-1/2 weeks ago resulting in a fractured left hip Fell 11/05/17 Continue Fall precautions Qualifiers: Encounter type: initial encounter Qualified Code(s): W19.XXXA - Unspecified fall, initial encounter (7) DVT prophylaxis Current Visit: No Status: Acute Assessment and plan: Positive left lower extremity DVT, right pulmonary embolism heparin drip dc,ed secondary to bleeding (8) Diarrhea Current Visit: Yes Status: Resolved Assessment and plan: Stool for C. difficile cancelled as patient with no further stools in 24 hours Qualifiers: Diarrhea type: unspecified type Qualified Code(s): R19.7 - Diarrhea, unspecified - Subjective Interval history: Patient lying in bed in no distress. She states her hip feels pretty good but her thigh is painful. She has met with Pallative care and wants any procedures done that "will keep her alive". Her son is her power of corporate associate attorney and he understands this is her wishes. She will remain a full code. She is nothing by mouth for scheduled EGD today to rule out bleeding source. Answered all of her questions. She denies chest pain, shortness of breath, fever, chills, diarrhea. - Constitutional Vitals: Temp Pulse Resp BP Pulse Ox 98.2 F 60 16 119/57 95 11/08/17 06:37 11/08/17 06:37 11/08/17 06:37 11/08/17 09:30 11/08/17 06:37 General appearance: Present: cooperative, A&O X 3, pleasant, no acute distress, answers questions appropriately - Head Head exam: Present: atraumatic, normocephalic - Eye Eye exam: Present: PERRL, conjuntiva pink, sclera anicteric Pupils: Present: PERRL - Neck Neck exam general surgery: Present: supple, trachea midline. Absent: lymphadenopathy - Respiratory Respiratory exam: Present: CTAB. Absent: accessory muscle use, rales, rhonchi, wheezes - Cardiovascular Cardiovascular exam: Present: RRR, +S1, +S2. Absent: diastolic murmur, gallop, rubs, systolic murmur - GI/Abdominal GI/Abdominal exam: Present: normal bowel sounds, soft, no peritoneal signs. Absent: distended, tenderness - Extremities Exam Extremities exam: Present: warm, radial pulses palpable and symmetrical. Absent : calf tenderness, cyanotic, pedal edema Additional comments: Swelling of left thigh from hematoma, swelling of left calf DVT, CMS checks are intact, left hip dressing is dry and intact - Neurological Exam Neurological exam: Present: CN II-XII intact, oriented X3, no focal deficits. Absent: pronater drift, facial droop, speech deficit - Skin Skin exam: Present: dry, intact, warm Internal Medicine: Result - Labs CBC & Chem 7: 11/08/17 04:24 11/08/17 08:01 Labs: Short CBC 11/07/17 11/07/17 11/08/17 Range/Units 13:17 16:43 04:24 Hgb 8.3 L 8.9 L 8.4 L (11.5-15.4) g/dL Hct 25.2 L 27.3 L 26.0 L (35.3-44.9) % BMP 11/08/17 08:01 Sodium 134 L Potassium 4.1 Chloride 102 Carbon Dioxide 28 BUN 17 Creatinine 0.90 Glucose 89 Calcium 8.3 L Liver Function 11/08/17 Range/Units 08:01 Total Bilirubin 1.4 H (0.3-1.0) mg/dL AST 9 L (13-39) Units/L ALT 5 L (7-52) Units/L Alkaline Phosphatase 66 (34-104) Units/L Albumin 2.5 L (3.5-5.7) g/dL - ABG Interpretation ABG results: PT/INR, D-dimer PT 12.1 Seconds (9.4-12.1) 11/07/17 05:55 Consult Discharge Plan - Plan Referrals: Sabina Cui MD [Partnered Physician] - 11/21/17 11:45 am
[2017-11-08] MEDS ORDERED: *HR* Midazolam HCl 5 MG/5 ML VIAL IVP ONE ×2 (11:57→13:03)
[2017-11-08] MEDS ORDERED: *HR* FentaNYL (PF) 100 MCG/2 ML VIAL ONE (11:58)
[2017-11-08] MEDS ORDERED: Simethicone 40 MG/0.6 ML MLS IR ONE (13:03)
[2017-11-08] MEDS ORDERED: *HR* FentaNYL (PF) 100 MCG/2 ML VIAL IVP ONE (13:03)
[2017-11-08] MEDS: Cyanocobalamin (B-12) 1,000 MCG/ML VIAL SQ SCH (20:49)
[2017-11-09 07:32] LABS: Basophils % 0.7 %; Eosinophils # 0.1 K/mcL (0.0-0.6); Eosinophils % 1.2 %; Hematocrit 29.8 % (35.3-44.9); Hemoglobin 9.5 g/dL (11.5-15.4); Immature Granulocytes % 0.7 % (0-4); Lymphocytes # 0.7 K/mcL (0.6-4.6); Lymphocytes % 11.8 %; Mean Corpuscular HGB Conc 31.9 g/dL (31.6-35.5); Mean Corpuscular Hemoglobin 28.9 pg (28.0-33.3); Mean Corpuscular Volume 90.6 fL (83.0-100.0); Monocytes # 0.5 K/mcL (0.0-1.3); Monocytes % 7.5 %; Neutrophils # 4.7 K/mcL (1.6-8.9); Platelet Count 332 K/mcL (140-400); Red Blood Count 3.29 M/mcL (3.82-4.97); Red Cell Distribution Width 14.5 % (11.5-14.5); Segmented Neutrophils % 78.1 %
[2017-11-09 08:52] LABS: BUN/Creatinine Ratio 20 (6-26); Blood Urea Nitrogen 16 mg/dL (8-23); Calcium 8.5 mg/dL (8.6-10.3); Carbon Dioxide 26 mEq/L (23-29); Chloride 103 mEq/L (98-107); Glucose 76 mg/dL (70-105); Osmolality,Calculated 282 (280-300); Potassium 3.8 mEq/L (3.5-5.1); Sodium 136 mEq/L (136-145); eGFR For African Americans > 60 (> 60); eGFR For Non-African Americans > 60 (> 60)
--- NOTE | 2017-11-09 09:07 | Internal Med Progress Note ---
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 The examined esophagus was normal Hemoglobin 9.5 today hematocrit 29.8 Continue to monitor every 8 hours Qualifiers: Anemia type: unspecified type Qualified Code(s): D64.9 - Anemia, unspecified (2) Chronic systolic (congestive) heart failure Current Visit: Yes Status: Acute Assessment and plan: Stable EF 45%. BNP 1027, decreased from 2906 08/2017. CXR bilateral atelectasis and/or PNA. LLE more swollen than right secondary to LLE positive for DVT strict I/Os, sodium and fluid restriction, daily weights with no weight gain. (3) Elevated troponin Current Visit: Yes Status: Acute Assessment and plan: No chest pain, echo obtained LVEF 55% with normal LV chamber size and function, moderate concentric left ventricular hyper atrophy no evidence of pulmonary hypertension normal right ventricle structure and findings As per cardiology service Troponins 0.13, 0.15, 0.19 in setting of newly discovered PE and DVT. Now suspect demand ischemia given these new findings. Nondiagnostic for ACS. Of note, NSTEMI with peak troponin 7.42 on 09/07/17 in setting of severe hypothyroidism and respiratory distress at that time. Pt was conservatively managed at that time--declined [facility]. Echo 08/2017 EF 45%, slight improvement in anteroseptal wall on limited echo 07/15. 09/05/17 moderate MR. Pt presented with chest pain, EKG known LBBB. discussed LHC with pt and she declined. R/B/A discussed. With acute PE and DVT, LHC would not be recommended at this time. Heparin gtt discontinued secondary to thigh hematoma and blood in stool - positive PE and DVT. Chronic anticoagulation as per hematology Echo was ordered by primary team to evaluate for right heart strain. ASA, Statin, BB, Imdur. Plavix 75mg daily was added, but given PE/DVT warranting anticoagulation, stooped Plavix so that pt not on triple therapy. Cardiology signing off. Reconsult PRN. I let the service note that she would consider a left heart cath and they responded that they will follow up outpatient with medical management secondary to her new PE and DVT diagnosis. (4) Hip fracture, left Current Visit: No Status: Chronic Assessment and plan: Patient with improvement in left hip discomfort, she is over 3 weeks out from a left hip hemiarthroplasty status post a fall Orthopedic service saw and made the following recommendations Regarding the left hip patient is doing as expected. My recommendation is for supportive treatment of her PE by the hospitalist service and NSTEMI by cardiology. Regarding the left hip she is weightbearing as tolerated and daily dressing changes. Begin physical therapy when able. Posterior hip precautions on the left. I will keep the adriane in place and see her in the office next week for removal or if she is here in the hospital I will take them out myself at that time. I will be available as needed. Patient does have a hematoma of the left thigh, no fractures appreciated on x- ray or CT. She states she has no pain, just soreness No extension of the hematoma and less tense but still very tender Qualifiers: Fracture type: closed Fracture healing: with routine healing Qualified Code(s): S72.002D - Fracture of unspecified part of neck of left femur, subsequent encounter for closed fracture with routine healing (5) Pulmonary emboli Current Visit: Yes Status: Acute Assessment and plan: Patient found to have left lower extremity DVT provoked by recent left hip surgery, Patient had presented with some chest pain so was sent for a CTA of the chest CTA revealed pulmonary embolism within the right lung mainly within the right middle lobe and right lower lobe. Echocardiogram to rule out right heart strain completed Heparin drip dc'ed Oncology on consult to assist with in management of the PE and DVT including discharge medications and anemia EGD pending to r/o source of blood loss Qualifiers: Qualified Code(s): I26.99 - Other pulmonary embolism without acute cor pulmonale (6) Fall Current Visit: Yes Status: Acute Assessment and plan: Fell aat home resulting in a fractured left hip Fell 11/05/17 Continue Fall precautions Qualifiers: Encounter type: initial encounter Qualified Code(s): W19.XXXA - Unspecified fall, initial encounter (7) DVT prophylaxis Current Visit: No Status: Acute Assessment and plan: Positive left lower extremity DVT and right pulmonary embolism heparin drip dc'ed secondary to bleeding (8) Diarrhea Current Visit: Yes Status: Resolved Assessment and plan: Stool for C. difficile cancelled as patient with no further stools in 24 hours, diarrhea resolved Qualifiers: Diarrhea type: unspecified type Qualified Code(s): R19.7 - Diarrhea, unspecified - Subjective Interval history: Patient lying in bed in no distress. She states her hip feels pretty good but her thigh is still painful. She has met with Pallative care and wants any procedures done that "will keep her alive". 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 She will remain a full code. She is sitting up in bed eating her breakfast. She states she feels well. She denies chest pain, shortness of breath, fever, chills, diarrhea. Denies any signs of bleeding - Constitutional Vitals: Temp Pulse Resp BP Pulse Ox 98.2 F 60 15 163/75 96 11/09/17 06:45 11/09/17 06:45 11/09/17 06:45 11/09/17 06:45 11/09/17 06:45 General appearance: Present: cooperative, A&O X 3, pleasant, no acute distress, answers questions appropriately - Head Head exam: Present: atraumatic, normocephalic - Eye Eye exam: Present: PERRL, conjuntiva pink, sclera anicteric Pupils: Present: PERRL - Neck Neck exam general surgery: Present: supple, trachea midline. Absent: lymphadenopathy - Respiratory Respiratory exam: Present: CTAB. Absent: accessory muscle use, rales, rhonchi, wheezes - Cardiovascular Cardiovascular exam: Present: RRR, +S1, +S2. Absent: diastolic murmur, gallop, rubs, systolic murmur - GI/Abdominal GI/Abdominal exam: Present: normal bowel sounds, soft, no peritoneal signs. Absent: distended, tenderness - Extremities Exam Extremities exam: Present: warm, radial pulses palpable and symmetrical. Absent : calf tenderness, cyanotic, pedal edema Additional comments: Lt Thigh is still firm and edematous with faint bruising noted tender to palpation. Left calf is swollen and tender secondary to DVTs. CMS checks intact - Neurological Exam Neurological exam: Present: CN II-XII intact, oriented X3, no focal deficits. Absent: pronater drift, facial droop, speech deficit - Skin Skin exam: Present: dry, intact, warm Internal Medicine: Result - Labs CBC & Chem 7: 11/09/17 06:34 11/09/17 06:34 Labs: Short CBC 11/09/17 Range/Units 06:34 WBC 6.0 (4.3-11.1) K/mcL Hgb 9.5 L (11.5-15.4) g/dL Hct 29.8 L (35.3-44.9) % Plt Count 332 (140-400) K/mcL Neutrophils # 4.7 (1.6-8.9) K/mcL BMP 11/09/17 06:34 Sodium 136 Potassium 3.8 Chloride 103 Carbon Dioxide 26 BUN 16 Creatinine 0.82 Glucose 76 Calcium 8.5 L - ABG Interpretation ABG results: PT/INR, D-dimer PT 12.1 Seconds (9.4-12.1) 11/07/17 05:55 Consult Discharge Plan - Plan Referrals: Sabina Cui MD [Partnered Physician] - 11/21/17 11:45 am
[2017-11-09] MEDS: (Breo Ellipta 200-25 Mcg Inh) IH SCH (09:17)
[2017-11-09] MEDS: Aspirin Enteric Coated 81 MG Tablet PO SCH (09:29)
[2017-11-09 09:30] LABS: Hematocrit 31.1 % (35.3-44.9); Hemoglobin 10.1 g/dL (11.5-15.4)
[2017-11-09] MEDS: Isosorbide MONOnitrate (24 HR) 60 MG TAB.ER.24H PO SCH (09:30)
[2017-11-09 18:00] LABS: Hematocrit 28.6 % (35.3-44.9); Hemoglobin 9.3 g/dL (11.5-15.4)
[2017-11-09] MEDS: Cyanocobalamin (B-12) 1,000 MCG/ML VIAL SQ SCH (20:21)
[2017-11-10 02:08] LABS: Hematocrit 27.3 % (35.3-44.9); Hemoglobin 8.8 g/dL (11.5-15.4)
[2017-11-10] MEDS: (Breo Ellipta 200-25 Mcg Inh) IH SCH (09:29)
[2017-11-10] MEDS: Isosorbide MONOnitrate (24 HR) 60 MG TAB.ER.24H PO SCH (09:31)
[2017-11-10] MEDS: Aspirin Enteric Coated 81 MG Tablet PO SCH (09:32)
--- NOTE | 2017-11-10 10:24 | Discharge Summary ---
Date of Encounter: 11/10/17 Time of Encounter: 10:22 - Discharge Diagnosis (1) Anemia Priority: Primary Status: Acute Comments: Blood count has stabilized Hematology is following She will have close follow-up with them on in the office and they will recheck her H&H at that time She is to be discharged on eliquis and vitamin B12 injections Patient's EGD showed some mild gastritis and no signs of obvious bleeding stool for occult was negative Left upper thigh hematoma is stabilized Course of the hospitial stay: Acute on chronic anemia Hemoglobin dropped from 8.5-7 on 11/06/17 at which time patient was on a heparin drip for PE and DVT as well as non-STEMI Oncology had been consulted regarding best choice for treatment of the PE/DVT S/P blood transfusion 1 unit Serial H&H Hematoma in the left thigh 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 The examined esophagus was normal Hemoglobin 9.5 / hematocrit 29.8 Discussed with hematology after reviewing morning count of H&H 8.8/27.3 Will be discharged to [facility] with follow-up in the hematolgy clinic on . They will follow her H&H Anemia id chantal Williamson with chronic disease state, vitamin B12 deficiency and recent joint surgery Qualifiers: Anemia type: unspecified type Qualified Code(s): D64.9 - Anemia, unspecified (2) Chronic systolic (congestive) heart failure Priority: Secondary Status: Chronic Comments: Stable EF 45%. BNP 1027, decreased from 2906 08/2017. CXR bilateral atelectasis and/or PNA. LLE more swollen than right secondary to LLE positive for DVT strict I/Os, sodium and fluid restriction, daily weights with no weight gain. (3) Elevated troponin Priority: Primary Status: Acute Comments: No chest pain, echo obtained LVEF 55% with normal LV chamber size and function, moderate concentric left ventricular hyper atrophy no evidence of pulmonary hypertension normal right ventricle structure and findings As per cardiology service Troponins 0.13, 0.15, 0.19 in setting of newly discovered PE and DVT. Now suspect demand ischemia given these new findings. Nondiagnostic for ACS. Of note, NSTEMI with peak troponin 7.42 on 09/07/17 in setting of severe hypothyroidism and respiratory distress at that time. Pt was conservatively managed at that time--declined LHC. Echo 08/2017 EF 45%, slight improvement in anteroseptal wall on limited echo 07/15. 09/05/17 moderate MR. Pt presented with chest pain, EKG known LBBB. discussed LHC with pt and she declined. R/B/A discussed. With acute PE and DVT, LHC would not be recommended at this time. Heparin gtt discontinued secondary to thigh hematoma and blood in stool - positive PE and DVT. Chronic anticoagulation as per hematology - Eliquis Echo with no right heart strain. ASA, Statin, BB, Imdur. Plavix 75mg daily, but given PE/DVT warranting anticoagulation, Plavix discontinued so that pt not on triple therapy. Cardiology signing off. Reconsult PRN. IPatient would consider a left heart cath after discussion with the palliative team and this was reported to the cardiology, they responded that they will follow up outpatient with medical management secondary to her new PE and DVT diagnosis. (4) Hip fracture, left Priority: Secondary Status: Chronic Comments: Patient with improvement in left hip discomfort, she is over 3 weeks out from a left hip hemiarthroplasty status post a fall Orthopedic service saw and made the following recommendations Regarding the left hip patient is doing as expected. My recommendation is for supportive treatment of her PE by the hospitalist service and NSTEMI by cardiology. Regarding the left hip she is weightbearing as tolerated and daily dressing changes. Begin physical therapy when able. Posterior hip precautions on the left. I will keep the adriane in place and see her in the office next week for removal or if she is here in the hospital I will take them out myself at that time. I will be available as needed. Patient does have a hematoma of the left thigh, no fractures appreciated on x- ray or CT. She states she has no pain, just soreness No extension of the hematoma and less tense but still very tender Qualifiers: Fracture type: closed Fracture healing: with routine healing Qualified Code(s): S72.002D - Fracture of unspecified part of neck of left femur, subsequent encounter for closed fracture with routine healing (5) Pulmonary emboli Priority: Primary Status: Acute Comments: Patient found to have left lower extremity DVT provoked by recent left hip surgery, Patient had presented with some chest pain so was sent for a CTA of the chest CTA revealed pulmonary embolism within the right lung mainly within the right middle lobe and right lower lobe. Echocardiogram ruled out right heart strain completed Heparin drip dc'ed secondary to above Oncology on consult to assist with in management of the PE and DVT including discharge medications and anemia, will discharge on eliquis EGD with no source of bleeding Qualifiers: Qualified Code(s): I26.99 - Other pulmonary embolism without acute cor pulmonale (6) Fall Priority: Primary Status: Acute Comments: Fell aat home resulting in a fractured left hip Fell 11/05/17 resulting in a left thigh hematoma Continue Fall precautions Qualifiers: Encounter type: initial encounter Qualified Code(s): W19.XXXA - Unspecified fall, initial encounter (7) Diarrhea Priority: Secondary Status: Resolved Comments: Resolved after 1 days episode Qualifiers: Diarrhea type: unspecified type Qualified Code(s): R19.7 - Diarrhea, unspecified - Discharge Medications Home Medications: Albuterol Sulfate [Albuterol Inhaler] 2 puff IH Q2HR PRN #2 inhaler 09/16/17 [Rx ] Atorvastatin [Lipitor] 20 mg PO HS #60 tablet 09/16/17 [Rx] Calcium Carbonate/Vitamin D3 [Calcium 500 mg Chewable Tablet] 1 tab PO DAILY [History] Fluticasone/Vilanterol [Breo Ellipta 200-25 Mcg INH] 1 puff IH AD 10/24/17 [ History] Levothyroxine [Synthroid] 100 mcg PO DAILY@0630 10/24/17 [History] Polyethylene Glycol 3350 [MiraLAX] 17 gm PO DAILY 10/24/17 [History] Cholecalciferol (D-3) [Vitamin D] 1,000 unit PO DAILY tablet 10/27/17 [Rx] Ipratropium/Albuterol Neb [Duoneb] 3 ml IH [id number] PRN inhsol 10/27/17 [Rx] Omeprazole [PriLOSEC] 40 mg PO DAILY@0630 capsule. 10/27/17 [Rx] Aspirin Enteric Coated [Aspirin EC] 81 mg PO DAILY tablet. 11/10/17 [Rx] Cyanocobalamin (B-12) [Vitamin B12] 1,000 mcg SQ QWEEK #4 vial 11/10/17 [Rx] Isosorbide MONOnitrate (24 HR) [Imdur] 60 mg PO DAILY tab.er.24h 11/10/17 [Rx] Lisinopril [Zestril] 2.5 mg PO DAILY tablet 11/10/17 [Rx] Metoprolol [Lopressor] 12.5 mg PO BID tablet 11/10/17 [Rx] Nitroglycerin 0.4 mg SL Q5MIN PRN tab.subl 11/10/17 [Rx] Allergies/Adverse Reactions: 3 Allergy/AdvReac Type Severity Reaction Status Date / Time No Known Allergies Allergy Verified 11/04/17 00:59 Procedures/tests Complete & Pending: Procedures Performed prior 72 hours Category Date Time Status EKG [ECG 12 lead ECG] [ECG] Stat Y 11/08/17 12:24 Completed Date of admission: 11/04/17 03:18 Primary care physician: PCP NONE Consults: 11/05/17 08:47 Consult to Oncology [CONS] Routine Consulting Provider: Oncology [facility] Reason for Consult: PE/DVT/Anemia Time Notified: 08:49 Call Completed: Yes 11/05/17 08:51 Consult to Occupational Therapy [CONS] Routine Comment: Evaluate, develop and implement POC Reason for Consult: evaluate and treat s/p fall Consult to Physical Therapy [CONS] Routine Comment: Evaluate, develop and implement POC Reason for Consult: evaluate and treat, s/p fall; Posterior hip precautions to the left hip 11/05/17 09:11 Consult to Physician [CONS] Routine Consulting Provider: Curtis Koch Reason for Consult: recent left hip surgery and fall Time Notified: 09:11 Call Completed: Yes 11/05/17 19:10 Consult to Bone Glue Maker [CONS] Routine Reason for SW Consult: PT/OT recommend ECF, patient from [facility] 11/06/17 00:33 Consult to Gastroenterology [CONS] Routine Consulting Provider: Gastroenterology Alivia Reason for Consult: GI Bleed, anemia in the setting of acute PE/DVT, heparin gtt stopped. will notify GI team in AM. Call Completed: No Discharging clinician: Nubia Ignacio Anticipated date of discharge: 11/10/17 - Patient Status Disposition: Transfer SNF Condition: Fair Functional capacity at discharge: uses cane/walker Overall status at discharge: patient is not back to baseline - Discharge Instructions Follow Up With: Sabina Cui MD [Partnered Physician] - 11/21/17 11:45 am Additional Instructions: Weightbearing as tolerated, hip precautions, daily hip dressing changes as per orthopedic service Follow-up with cardiology outpatient as directed, follow with hematology on in the office for recheck H&H Follow-up with orthopedic service this week for removal of adriane - Diet and Activity Activity: ambulate only with your walker, as per physical therapy Diet: low fat, low cholesterol Interval History: Patient is sitting up in the chair eating her breakfast. She states she walked to the bathroom without today. He has no complaints of chest pain, shortness of breath, fever, chills, dizziness or headache she states her left hip feels good and her left thigh is blast furnace tender but manageable. She is anticipating discharge back to [facility]. Hospital course: Ms. Junior is a 87 year old female who was admitted with an elevated troponin secondary to demand ischemia after having a non-STEMI in August. Cardiology will follow up as an outpatient with medical management. She had a CTA positive for right-sided pulmonary embolism and left DVT. She had a fall resulting in a left thigh hematoma. X-rays were negative for fracture. She was anemic for multifocal causes required a hematology consult. She will be discharged on a baby aspirin andEliquis, to follow-up with hematology on with repeat H&H at that time. She was also found to be vitamin B12 deficient and will have her injections as per hematology. Her left hip surgery was approximately 3 weeks ago and Ortho-Cyclen her here. They will remove the adriane and will follow-up in the office as directed. Continue daily dressing changes. She did speak with palliative care and once to continue any treatments that will "make her live". She is in agreement with transfer to changes in the correction and is very happy to be going there. - Time Spent with Patient Total time spent providing and/or coordinating discharge services: Less than 30 minutes - Constitutional Vitals: Temp Pulse Resp BP Pulse Ox 99.3 F 67 16 160/75 95 11/10/17 07:56 11/10/17 07:56 11/10/17 07:56 11/10/17 07:56 11/10/17 09:35 General appearance: Present: cooperative, A&O X 3, pleasant, no acute distress, answers questions appropriately - Head Head exam: Present: atraumatic, normocephalic - Eye Eye exam: Present: PERRL, conjuntiva pink, sclera anicteric Pupils: Present: PERRL - Neck Neck exam general surgery: Present: supple, trachea midline. Absent: lymphadenopathy - Respiratory Respiratory exam: Present: CTAB. Absent: accessory muscle use, rales, rhonchi, wheezes - Cardiovascular Cardiovascular exam: Present: RRR, +S1, +S2. Absent: diastolic murmur, gallop, rubs, systolic murmur - GI/Abdominal GI/Abdominal exam: Present: normal bowel sounds, soft, no peritoneal signs. Absent: distended, tenderness - Extremities Exam Extremities exam: Present: warm, radial pulses palpable and symmetrical. Absent : calf tenderness, cyanotic, pedal edema Additional comments: Left lower extremity edema in the thigh from the hematoma which has not expanded and is getting a little softer but still mildly tender, calf is tender with palpation and swollen secondary to DVT. Left hip incision with adriane intact dressing is dry and intact. Hip precautions are maintained - Neurological Exam Neurological exam: Present: alert, CN II-XII intact, oriented X3, no focal deficits. Absent: strengths equal and symetr throughout, pronater drift, facial droop, speech deficit - Skin Skin exam: Present: dry, intact, warm Additional comments: Left hip incision clean and dry with adriane intact
--- NOTE | 2017-11-10 11:16 | Physician Discharge Referral ---
ExtendedCare Referral Info Transfer To: [facility] nursing facility Provider in Charge: [place] Institutional Level of Care: Skilled - Diagnosis (1) Anemia Priority: Primary Status: Acute (2) Chronic systolic (congestive) heart failure Priority: Secondary Status: Chronic (3) Elevated troponin Priority: Primary Status: Acute (4) Hip fracture, left Priority: Secondary Status: Chronic (5) Pulmonary emboli Priority: Primary Status: Acute (6) Fall Priority: Primary Status: Acute (7) Diarrhea Priority: Secondary Status: Resolved Prognosis: Fair Aware of Diagnosis: Patient, Family Aware of Prognosis: Patient, Family - Transfer Medications Home Medications: Albuterol Sulfate [Albuterol Inhaler] 2 puff IH Q2HR PRN #2 inhaler 09/16/17 [Rx ] Atorvastatin [Lipitor] 20 mg PO HS #60 tablet 09/16/17 [Rx] Calcium Carbonate/Vitamin D3 [Calcium 500 mg Chewable Tablet] 1 tab PO DAILY [History] Fluticasone/Vilanterol [Breo Ellipta 200-25 Mcg INH] 1 puff IH AD 10/24/17 [ History] Levothyroxine [Synthroid] 100 mcg PO DAILY@0630 10/24/17 [History] Polyethylene Glycol 3350 [MiraLAX] 17 gm PO DAILY 10/24/17 [History] Cholecalciferol (D-3) [Vitamin D] 1,000 unit PO DAILY tablet 10/27/17 [Rx] Ipratropium/Albuterol Neb [Duoneb] 3 ml IH [id number] PRN inhsol 10/27/17 [Rx] Omeprazole [PriLOSEC] 40 mg PO DAILY@0630 capsule. 10/27/17 [Rx] Aspirin Enteric Coated [Aspirin EC] 81 mg PO DAILY tablet. 11/10/17 [Rx] Cyanocobalamin (B-12) [Vitamin B12] 1,000 mcg SQ QWEEK #4 vial 11/10/17 [Rx] Isosorbide MONOnitrate (24 HR) [Imdur] 60 mg PO DAILY tab.er.24h 11/10/17 [Rx] Lisinopril [Zestril] 2.5 mg PO DAILY tablet 11/10/17 [Rx] Metoprolol [Lopressor] 12.5 mg PO BID tablet 11/10/17 [Rx] Nitroglycerin 0.4 mg SL Q5MIN PRN tab.subl 11/10/17 [Rx] Allergies/Adverse Reactions: 3 Allergy/AdvReac Type Severity Reaction Status Date / Time No Known Allergies Allergy Verified 11/04/17 00:59 - Respiratory Orders Smoking Cessation: Smoking cessation has been advised. For more information, call the [employer] Quit Line at 1-461-HQVX-NOW. - Lab Orders Lab Orders: Other (include drug levels w/frequency) (Patient to follow-up in hematology on and they will follow up on her H&H and manage her vitamin B12 levels) - Ancillary Orders May use pressure relief devices daily prn - Advance Directives Living Will: Yes Power of Birth Certificate Clerk: Yes Code Status: Full Code - History and Physical History/Physical reviewed & approved w/add comments: yes - Mobility Orders Other (Ambulate with walker, hip precautions for previous left hip surgery, weightbearing as tolerated, physical therapy , fall risk) - Rehabiliation Orders Rehab Potential: Good Rehab Orders: Evaluation for Physical Therapy, Evaluation for Occupational Therapy - Treatments List/Other: Left hip dressing change daily on a staple removal as per the orthopedic service - Diet Orders Cardiac CERTIFICATION: I certify that the transfer of the above named patient to an Extended Care Facility is necessary for the continuing treatment of the diagnosis listed. The above information is true and accurate reflection of patient's current condition. Confidential - Redisclosure prohibited without a patient's written consent.
--- NOTE | 2017-11-10 16:34 | Electrocardiograph Report ---
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
--- NOTE | 2017-11-10 17:11 | Electrocardiograph Report ---
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
--- NOTE | 2017-11-10 17:31 | Orthopedics Progress Note ---
Date of Encounter: 11/10/17 Time of Encounter: 17:28 - Assessment and Plan (1) Hip fracture, left Current Visit: No Status: Chronic Qualifiers: Fracture type: closed Fracture healing: with routine healing Qualified Code(s): S72.002D - Fracture of unspecified part of neck of left femur, subsequent encounter for closed fracture with routine healing Subjective Principal diagnosis: PE, DVT, elevated troponin Interval history: S: Looks good clinically related to the left hip. O: Afebrile, VSS Left hip incision is healing nicely Kory taken out. No redness or concern for infection I can passively range the left hip without issue A: Left hip hemiarthroplasty P: Continue posterior hip precautions WBAT B/L LE C/S to physical therapy Follow up with me in 1 week for another clinical and radiographic reevaluation or sooner if needed. Objective Vital signs: Vital Signs Temp Pulse Resp BP Pulse Ox 11/10/17 09:35 95 11/10/17 07:56 99.3 F 67 16 160/75 95 11/10/17 03:43 98.8 F 66 16 161/58 96 11/09/17 22:54 98.6 F 61 16 164/64 94 11/09/17 20:20 97 11/09/17 18:33 98.5 F 66 20 133/52 96 Intake and Output 11/10/17 11/10/17 11/10/17 07:59 15:59 23:59 Output Total 400 / 400 Balance -400 / -400 Output: Urine 400 / 400 Other: Weight 52.027 kg Patient Weight 11/10/17 23:59 Weight 52.027 kg - Labs CBC & BMP: 11/10/17 01:34 11/09/17 06:34 Labs: Abnormal lab results RBC 3.29 M/mcL (3.82-4.97) L 11/09/17 06:34 Hgb 8.8 g/dL (11.5-15.4) L 11/10/17 01:34 Hct 27.3 % (35.3-44.9) L 11/10/17 01:34 Retic Hgb Equivalent 27.8 pg (28.61-36.33) L 11/05/17 11:11 Haptoglobin 285 mg/dL (30-200) H 11/05/17 11:11 APTT 23.9 Seconds (26.0-36.0) L D 11/07/17 05:55 Calcium 8.5 mg/dL (8.6-10.3) L 11/09/17 06:34 Iron 22 mcg/dL (50-170) L 11/05/17 11:11 Transferrin 98 mg/dL (203-362) L 11/05/17 11:11 Ferritin 283 ng/ml (10-120) H 11/05/17 11:11 Total Bilirubin 1.4 mg/dL (0.3-1.0) H 11/08/17 08:01 AST 9 Units/L (13-39) L 11/08/17 08:01 ALT 5 Units/L (7-52) L 11/08/17 08:01 Troponin I 0.19 ng/mL (< 0.04) H* 11/04/17 09:32 B-Natriuretic Peptide 1027 pg/mL (Less than 100) H 11/04/17 01:07 Serum Total Protein 4.7 g/dL (6.4-8.9) L 11/08/17 08:01 Albumin 2.5 g/dL (3.5-5.7) L 11/08/17 08:01 Globulin 2.2 g/dL (2.4-3.5) L 11/08/17 08:01 HDL Cholesterol 31 mg/dL (40-59) L 11/04/17 04:01 Vitamin B12 159 pg/mL (250-1100) L 11/05/17 11:11 Consult Discharge Plan - Plan Instructions: Myocardial Infarction (DC), Chest Pain (DC), Pacemaker (DC), Pulmonary Embolism (DC), Anemia (GEN), Fall Prevention (DC) Additional Instructions: DISCHARGE INSTRUCTIONS Dr. Koch Hip Hemiarthroplasty Wound Care -Dressing daily with dry gauze and paper tape. Activity -No heavy lifting objects greater than 10 pounds. -No driving while on narcotic pain medication. -You may be weight-bear as tolerated on both of your lower extremities. -Use crutches or a walker for ambulation. -Posterior hip precautions for 4 weeks: No bending the hip past 90 degrees. Do not allow the leg to cross the midline of your body (adduction). No twisting motions. Ask your physical therapist to review these precautions with you. Follow-Up -Follow-up with Dr. Koch office in 1 weeks from the surgery date for a post- operative evaluation. -Call the office at [phone] to schedule or confirm your appointment. -Follow up with your primary care physician to discuss testing for bone mineral density. -Follow-up with cardiology outpatient as directed, follow with hematology on in the office for recheck H&H Referrals: Sabina Cui MD [Partnered Physician] - 11/21/17 11:45 am Rajeev Chakraborty MD [Partnered Physician] - (Appointment has been webrequested. Our offices will call you with an appointment time and date.) Curtis Koch MD [Partnered Physician] -
[2017-11-10 19:16] VITALS: BP 147/60
[2017-11-16] MEDS ORDERED: Cyanocobalamin (B-12) 1,000 MCG/ML VIAL SQ SCH (09:15)
== END 2017-11-10 19:53 | DRG 176 ==
LOC: EMEROO 00:51 → 3BNU 00:51
PROVIDERS: ADMIT Internal Medicine; ATTEND Registered Nurse
PROC: ENDOEBX (2017-11-08 12:00)